=== PATIENT | female | born 1970 | race Two or more races ===

== ENCOUNTER 2023-06-12 10:35 | Outpatient (OUT) | payer OTHER, SELFPAY ==
[2023-06-12 11:05] LABS: Basophils Percent Auto 0.6 % (0.2-2.0); Eosinophils Absolute Auto 0.1 10^3/uL (0.0-0.7); Eosinophils Percent Auto 2.3 % (0.9-7.0); Hemoglobin 11.8 g/dL (12.0-16.0); Immature Granulocytes Abs Auto 0.01 10^3/uL (0.00-0.03); Immature Granulocytes Pct Auto 0.2 % (0.0-0.5); Lymphocytes Absolute Auto 1.7 10^3/uL (1.2-3.8); Lymphocytes Percent Auto 33.5 % (20.5-60.0); Mean Corpuscular HGB Conc 32.8 g/dL (29.9-35.2); Mean Corpuscular Hemoglobin 30.8 pg (26.7-34.0); Mean Platelet Volume 11.7 fL (9.5-13.5); Monocytes Absolute Auto 0.5 10^3/uL (0.3-0.8); Neutrophils Absolute Auto 2.8 10^3/uL (1.4-6.5); Neutrophils Percent Auto 54.4 % (43.0-75.0); Platelet Count 213 10^3/uL (150-450); Red Blood Count 3.83 10^6/uL (4.20-5.40); Red Cell Distribution Width 12.3 % (11.0-15.0); White Blood Count 5.2 10^3/uL (4.0-11.0)
[2023-06-12 11:39] LABS: Alanine Aminotransferase 26 U/L (14-59); Albumin Globulin Ratio 0.9; Albumin Level 3.8 g/dL (3.4-5.0); Alkaline Phosphatase 126 U/L (46-116); Anion Gap 11.1; Aspartate Amino Transferase 17 U/L (15-37); BUN Creatinine Ratio 22.2; Bilirubin Total 0.7 mg/dL (0.2-1.0); Calcium 9.1 mg/dL (8.5-10.1); Carbon Dioxide 31.8 mmol/L (21.0-32.0); Chloride 104 mmol/L (98-107); Cholesterol 151 mg/dL (<=200); Estimated GFR (African America >60 (>=60); Estimated GFR (Non-African Ame >60 (>=60); Free T3 2.43 pg/mL (2.18-3.98); Globulin 4.1 g/dL; Glucose 109 mg/dL (74-106); HDL Cholesterol 75 mg/dL (40-60); Potassium 3.9 mmol/L (3.5-5.1); Sodium 143 mmol/L (136-145); Thyroid Stimulating Hormone 1.299 uIU/mL (0.358-3.740); Total Protein 7.9 g/dL (6.4-8.2); Triglycerides 69 mg/dL (<=150); VLDL CHOLESTEROL 13.8 mg/dL
== END 2023-06-12 10:36 | disposition home or self-care (01) ==
LOC: LAB 10:39
PROVIDERS: PCP Family Medicine; Visit Provider Family Medicine
DX: E03.9 Hypothyroidism, unspecified (principal); E11.9 Type 2 diabetes mellitus without complications
CPT/HCPCS: 36415; 80053; 80061; 84439; 84443; 84481; 85025

== ENCOUNTER 2023-12-05 12:09 | Outpatient (OUT) | payer OTHER, SELFPAY ==
--- OUTSIDE RECORDS SUMMARY | 2023-12-05 12:15 | XMS_ITS | CCD ---
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 Name Role Phone TITI, DR TRISTAN Admitting Unavailable ZIEBER, DR ANTHONY Taylor Consulting Unavailable WALLS, DR TRISTAN Attending Unavailable WALLS, DR TRISTAN Primary Care Unavailable WALLS, DR TRISTAN Consulting Unavailable WALLS, DR TRISTAN Admitting Unavailable WALLS, DR TRISTAN Primary Care Unavailable WALLS, DR TRISTAN Attending Unavailable WALLS, DR TRISTAN Consulting Unavailable MASOOD, BRET Admitting Unavailable MASOOD, BRET Attending Unavailable MASOOD, BRET Consulting Unavailable OSCAR Pierre, MESFIN Admitting Unavailable OSCAR ., MESFIN Attending Unavailable OSCAR ., MESFIN Consulting Unavailable WALLS, DR TRISTAN Primary Care Unavailable STRAWSERFABY Consulting Unavailable TIMMIS, DR ORANTES Admitting Unavailable TIMMIS, DR ORANTES Attending Unavailable TIMMIS, DR ORANTES Consulting Unavailable ZIEBER, DR ANTHONY Taylor Consulting Unavailable WALLS, DR TRISTAN Attending Unavailable WALLS, DR TRISTAN Admitting Unavailable WALLS, DR TRISTAN Admitting Unavailable WALLS, DR TRISTAN Attending Unavailable WALLS, DR TRISTAN Consulting Unavailable WALLS, DR TRISTAN Attending Unavailable ZIEBER, DR ANTHONY Taylor Consulting Unavailable WALLS, DR TRISTAN Admitting Unavailable WALLS, DR TRISTAN Consulting Unavailable WALLS, DR TRISTAN Admitting Unavailable WALLS, DR TRISTAN Attending Unavailable WALLS, DR TRISTAN Consulting Unavailable WALLS, DR TRISTAN Primary Care Unavailable WALLSYAZAN Primary Care Physician Maty Jameson CNP Unavailable [phone] Yazan Walls MD Primary Care Provider Yazan Walls MD Unavailable [phone] Juancarlos DIAS Referring Unavailable Juancarlos DIAS Attending Unavailable SALAM, Bauer Admitting Unavailable [facility] Unavail able SALAM, Bauer Attending Unavailable WALLS, YAZAN Referring Unavailable SALAM, Bauer Attending Unavailable Maty Jameson CNP Unavailable WALLS, YAZAN A Attending Unavailable WALLS, YAZAN A Attending Unavailable Walls Yazan CHAPMAN Primary Care Provider Yazan Walls MD Primary Care Provider [phone] ROSE MARIE COPELAND T Admitting Unavailable AMBER COPELAND Attending Unavailable WALLS, YAZAN Primary Care Unavailable WALLS, YAZAN LEONEL Primary Care Unavailable Keisha, Sadnhya Attending Unavailable Keisha, Sandhya Referring Unavailable WALLS, YAZAN LEONEL Primary Care Unavailable CHRISTA BIANCHI Referring Unavailable WALLS, YAZAN LEONEL Primary Care Unavailable CHRISTA BIANCHI Attending Unavailable Keisha, Sandhya Referring Unavailable Keisha, Sandhya Referring Unavailable WALLS, YAZAN LEONEL Primary Care Unavailable Keisha, Sandhya Attending Unavailable WALLS, YAZAN LEONEL Primary Care Unavailable WALLS, YAZAN LEONEL Referring Unavailable Keisha, Sandhya Referring Unavailable WALLS, YAZAN LEONEL Primary Care Unavailable Keisha, Sandhya Referring Unavailable WALLS, YAZAN LEONEL Primary Care Unavailable Keisha, Sandhya Referring Unavailable Keisha, Sandhya Attending Unavailable WALLS, YAZAN LEONEL Primary Care Unavailable WALLS, YAZAN LEONEL Primary Care Unavailable Keisha, Sandhya Referring Unavailable WALLS, YAZAN LEONEL Primary Care Unavailable CHRISTA BIANCHI Referring Unavailable WALLS, YAZAN LEONEL Primary Care Unavailable CHRISTA BIANCHI Attending Unavailable CHRISTA BIANCHI Referring Unavailable Keisha, Sandhya Referring Unavailable WALLS, YAZAN LEONEL Primary Care Unavailable Allergies Allergy Classification Reported Allergen(s) Allergy Type Date of Onset Reaction(s) Facility (11 sources) levoFLOXacin; Translations: [levofloxacin] Drug Allergy 3 Unknown, Rash [facility] (1 source) No Known Medication Allergies; Translations: [No Known Medication Allergies] Propensity to adverse reactions (disorder) [facility] Repository Medications Current Medications Medication Drug Class(es) Dates Sig (Normalized) Sig (Original) calcium carbonate 1500 mg oral tablet (2 sources) Start: 03-21-2023 End: 09-17-2023 take 1 tablet by mouth in the morning calcium carbonate (Caltrate 600) 1500 (600 Ca) MG tablet Indications: Low serum calcium Take 1 tablet (1,500 mg) by mouth in the morning and 1 tablet (1,500 mg) in the evening. Take with meals. 180 tablet 1 03/21/2023 09/17/2023 Active take 1 tablet by mouth once benny y calcium carbonate 1500 (600 Ca) MG TABS tablet Take 1 tablet by mouth daily 0 Active cholecalciferol 0.125 mg oral capsule (8 sources) Vitamin D Start: 10-04-2022 take 1 capsule by mouth once daily vitamin D (CHOLECALCIFEROL) 125 MCG (5000 UT) CAPS capsule Take 125 mcg by mouth daily 0 10/04/2022 Active Start: 03-15-2022 take 1 tablet by billie once daily Cholecalciferol, Vitamin D3, 125 mcg/mL (5,000 unit/mL) drop Take 1 tablet by mouth once daily. 0 03/15/2022 Active Comment on above: Take 1 tablet by billie once daily. ibuprofen 200 mg oral capsule (4 sources) Nonsteroidal Anti-inflammatory Drug Start: 10-04-2022 ibuprofen 200 mg oral capsule Refills(s) 0, Pain Start Date: 10/04/22 Status: Ordered Start: 01-11-2022 take 1 tablet by billie every eight hours as needed for pain ibuprofen (ADVIL;MOTRIN) 200 MG tablet Take 1 tablet by mouth every 8 hours as needed for Pain 0 01/11/2022 Active levothyroxine sodium 0.1 mg oral tablet (10 sources) l-Thyroxine Start: 06-08-2023 End: 12-05-2023 take 1 tablet by mouth every twenty-four hours levothyroxine (SYNTHROID) 100 MCG tablet Take 1 tablet by mouth every 24 hours 0 06/08/2023 12/05/2023 Active Start: 10-04-2022 take 1 tablet by billie once daily levothyroxine 75 mcg (0.075 mg) Tab 75 mcg = 1 tab(s), Oral, Daily, # 30 tab(s), Refills(s) 0, Thyroid Start Date: 10/04/22 Status: Ordered Start: 09-20-2022 End: 12-05-2023 take 1 tablet by mouth once daily levothyroxine (SYNTHROID) 100 mcg tablet Take 1 tablet by mouth once daily. 0 09/20/2022 Active Comment on above: Take 1 tablet by billie once daily. loperamide hydrochloride 2 mg chewable tablet (2 sources) Opioid Agonist Start: 10-04-2022 Imodium A-D EZ Chews 2 mg oral tablet, chewable Refill(s) 0, Diarrhea Start Date: 10/04/22 Status: Ordered loratadine 10 mg oral capsule (3 sources) Start: 10-04-2022 take 1 capsule by mouth once daily loratadine 10 mg oral capsule 10 mg = 1 cap(s), Oral, Daily, # 10 cap(s), Refills(s) 0, Allergy symptoms Start Date: 10/04/22 Status: Ordered Start: 03-15-2022 loratadine (Cl aritin) 10 MG tablet 1 (one) time each day at the same time. 0 03/15/2022 Active omeprazole 40 mg delayed release oral capsule (3 sources) Proton Pump Inhibitor Start: 10-05-2022 take 1 capsule by mouth once daily omeprazole 40 mg Cap-DR 40 mg = 1 cap(s), Oral, Daily, # 30 cap(s), Refills(s) 2, Pharmacy: [id number], 149.8, cm, 10/05/22 9:30:00 EDT, Height/Length Dosing, 56.6, kg, 10/05/22 9:30:00 EDT, Weight Dosing Start Date: 10/05/22 Status: Ordered Start: 10-04-2022 Prilosec OTC R efills(s) 0 Start Date: 10/04/22 Status: Ordered Vitamin D3 125 mcg (5000 int l units) oral tablet, disintegrating (2 sources) Start: 10-04-2022 Vitamin D3 125 mcg (5000 intl units) oral tablet, disintegrating Refills(s) 0, Prophylaxis Start Date: 10/04/22 Status: Ordered Start: 10-04-2022 Vitamin D3 125 mcg (5000 intl units) oral tablet, disintegrating Refills(s) 0 Start Date: 10/04/22 Status: Ordered Completed/Discontinued Medications Medication Drug Class(es) Dates Sig (Normalized) Sig (Original) milk thistle extract 175 mg oral capsule (7 sources) take 1 tablet by billie th twice daily MILK THISTLE EXTRACT PO Take 1 tablet by mouth 2 times daily 0 Active take 1 tablet by mouth twice carmine ly Milk Thistle 175 mg tab Take 1 tablet by mouth twice daily. 0 Active Comment on above: Take 1 tablet by billie th twice daily. 1000 ml sodium chloride 9 mg/ml injection (5 sources) Start: 07-18-2023 sodium chloride flush 0.9 % injection 5-40 mL Start: 07-18-2023 End: 07-18-2023 sodium chloride 0.9 % infusi on Start: 07-18-2023 0.9 % sodium c hloride infusion Problems Active Problems Problem Classification Problem Date Documented Da te Episodic/Chronic Diabetes mellitus without complication (13 sources) Type 2 diabetes mellitus without complications; Translations: [Type 2 diabetes mellitus without complication] Onset: 07-05-2022 Chronic Endometriosis (3 sources) Endometriosis (clinical); Translations: [Endometrioma] Onset: 09-01-2022 10-04-2022 Chronic Esophageal disorders (7 sources) Obstruction of esophagus; Translations: [Esophageal obstruction] Onset: 09-01-2022 Chronic Essential hypertension (2 sources) Hypertensive disorder 10-04-2022 Chronic Headache; including migraine (2 sources) Migraine 10-04-2022 Chronic Hepatitis (6 sources) Nonalcoholic steatohepatitis; Translations: [Nonalcoholic steatohepatitis (BLOOM)] Onset: 09-21-2022 Chronic Intestinal obstruction without hernia (2 sources) Intestinal obstruction 10-04-2022 Episodic Menopausal disorders (1 source) Hormone replacement therapy; Translations: [HORMONE REPLACEMENT THERAPY] Onset: 07-26-2022 Episodic Nutritional deficiencies (2 sources) Vitamin D deficiency, unspecified; Translations: [Vitamin D deficiency] Onset: 07-08-2022 09-01-2022 Chronic Other aftercare (1 source) 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; Translations: [OTH STEEPLECHASE JOCKEY CURRENT DRUG THERAPY] Onset: 07-26-2022 Episodic Other diseases of bladder and urethra (2 sources) Mass of urinary bladder 10-04-2022 Chronic Other gastrointestinal disorders (1 source) Diarrhea, unspecified; Translations: [DIARRHEA UNSPECIFIED] Onset: 07-26-2022 Episodic Other gastrointestinal disorders (2 sources) Mass of colon 10-04-2022 Episodic Other gastrointestinal disorders (2 sources) Other fecal abnormalities; Translations: [Other fecal abnormalities] Onset: 07-18-2023 Episodic Other liver diseases (3 sources) Cirrhosis of liver; Translations: [Unspecified cirrhosis of liver] Onset: 09-01-2022 10-04-2022 Chronic Other liver diseases (10 sources) Steatosis of liver; Translations: [Fatty (change of) liver, not elsewhere classified] Onset: 12-12-2022 10-04-2022 Chronic Other liver diseases (1 source) Non-alcoholic fatty liver; Translations: [Fatty (change of) liver, not elsewhere classified] 01-30-2023 Chronic Other liver diseases (1 source) Fatty (change of) liver, not elsewhere classified; Translations: [NAFL (nonalcoholic fatty liver)] Onset: 01-30-2023 Chronic Other liver diseases (1 source) Hepatomegaly, not elsewhere classified; Translations: [HEPATOMEGALY NEC] Onset: 07-26-2022 Episodic Other non-traumatic joint disorders (2 sources) Wrist joint pain; Translations: [Pain in right wrist] 01-30-2023 Episodic Other screening for suspected conditions (not mental disorders or infectious disease) (6 sources) Screening for malignant neoplasm of colon done; Translations: [Encounter for screening for malignant neoplasm of colon] Onset: 07-26-2022 Episodic Other upper respiratory disease (1 source) Allergic rhinitis; Translations: [Allergic rhinitis, unspecified] Onset: 09-01-2022 09-01-2022 Chronic Other upper respiratory disease (1 source) Rhinitis; Translations: [Chronic rhinitis] Onset: 09-01-2022 09-01-2022 Chronic Other upper respiratory infections (1 source) Sinusitis; Translations: [Chronic sinusitis, unspecified] Onset: 09-01-2022 09-01-2022 Chronic Residual codes; unclassified (1 source) Acquired absence of other specified parts of digestive tract; Translations: [ACQ ABSENCE OTH PART DIGESTV TRACT] Onset: 07-26-2022 Episodic Residual codes; unclassified (1 source) Acquired absence of both cervix and uterus; Translations: [ACQUIRED ABSENCE BOTH CERVIX AND UTERUS] Onset: 07-26-2022 Episodic Thyroid disorders (20 sources) Autoimmune thyroiditis; Translations: [Nontoxic single thyroid nodule] Onset: 12-21-2021 Chronic Unclassified (1 source) ELEV LVLS LIVER TRANSAMINASE LVLS; Translations: [ELEV LVLS LIVER TRANSAMINASE LVLS] Onset: 07-26-2022 Unclassified (1 source) CONTACT W/AND (SUSP) EXPOS COVID-19; Translations: [CONTACT W/AND (SUSP) EXPOS COVID-19] Onset: 03-02-2022 Unclassified (2 sources) Patient encounter status 10-05-2022 Past or Other Problems Problem Classification Problem Date Documented Da te Episodic/Chronic Biliary tract disease (3 sources) Biliary calculus; Translations: [Cholelithiasis AND cholecystitis without obstruction] Onset: 09-01-2022 10-04-2022 Episodic Immunizations and screening for infectious disease (6 sources) Anti-nuclear factor positive; Translations: [Other specified abnormal immunological findings in serum] Onset: 01-30-2023 01-30-2023 Episodic Nausea and vomiting (7 sources) Nausea with vomiting, unspecified; Translations: [Nausea and vomiting] Onset: 07-25-2022 Episodic Nutritional deficiencies (3 sources) Vitamin deficiency; Translations: [Vitamin deficiency, unspecified] Onset: 07-08-2022 10-04-2022 Episodic Other gastrointestinal disorders (4 sources) Dysphagia; Translations: [Dysphagia, unspecified] Onset: 10-05-2022 Episodic Other gastrointestinal disorders (3 sources) Diarrhea; Translations: [Diarrhea, unspecified] Onset: 07-26-2022 10-04-2022 Episodic Other gastrointestinal disorders (3 sources) Disorder of digestive tract; Translations: [Acquired absence of other specified parts of digestive tract] Onset: 07-26-2022 10-04-2022 Episodic Other liver diseases (2 sources) Large liver Onset: 07-26-2022 10-04-2022 Episodic Other liver diseases (5 sources) Elevated liver enzymes level; Translations: [Elevation of levels of liver transaminase levels] Onset: 07-26-2022 12-14-2022 Episodic Other liver diseases (1 source) Increased aspartate transaminase level; Translations: [High aspartate transaminase measurement] Onset: 07-26-2022 12-12-2022 Episodic Other non-traumatic joint disorders (1 source) Pain in right wrist; Translations: [Pain of both wrist joints] Onset: 01-30-2023 Episodic Other non-traumatic joint disorders (1 source) Pain in left wrist; Translations: [Pain of both wrist joints] Onset: 01-30-2023 Episodic Other upper respiratory infections (4 sources) Acute upper respiratory infection, unspecified; Translations: [ACUTE UP RESPIRATORY INFECTION UNS] Onset: 02-28-2022 Episodic Spondylosis; intervertebral disc disorders; other back problems (3 sources) Low back pain; Translations: [Low back pain] Onset: 09-17-2021 10-04-2022 Episodic Results Test Name Value Interpretation Reference Range Facility Liver ultrasound attenuation by transient elastographyon 07-25-2023 [facility] Colonoscopy studyon 07-18-19 [facility] Patient: ESTRELLA MARTINEZ : 1970 Account: [id number] Sex at : Female Age: 53 Years Procedure: Colonoscopy Date: 07/18/2023 Attending Physician: Rose Marie Copeland Indications: - Screening for colorectal malignant neoplasm Medications: - See the Anesthesia note for documentation of the administered medications Complications: - No immediate complications. Estimated Blood Loss: - Estimated blood loss: none. Procedure: - The Colonoscope was introduced through the anus and advanced to [Extent Reached]. - The Colonoscope was introduced through the anus and advanced to the ileocolonic anastomosis. - The colonoscopy was performed without difficulty. - The patient tolerated the procedure well. - The quality of the bowel preparation was good. Findings: - A few small-mouthed diverticula were found in the sigmoid colon. There was no evidence of diverticular bleeding. - There was evidence of a prior end-to-side ileo-colonic anastomosis in the proximal ascending colon. This was patent and was characterized by healthy appearing mucosa. The anastomosis was traversed. Impression: - Mild diverticulosis in the sigmoid colon. There was no evidence of diverticular bleeding. - Patent end-to-side ileo-colonic anastomosis, characterized by healthy appearing mucosa. - No specimens collected. Recommendation: - Repeat colonoscopy in 10 years for surveillance. Procedure Code(s): - G0121, Colorectal cancer screening; colonoscopy on individual not meeting criteria for high risk Diagnosis Code(s): - Z12.11, Encounter for screening for malignant neoplasm of colon - Z98.0, Intestinal bypass and anastomosis status - K57.30, Diverticulosis of large intestine without perforation or abscess without bleeding CPT(R) - 2023 copyright [employer]. All Rights Reserved. The CPT codes, CCI edits and ICD codes generated are intended as suggestions and were generated based on input data. These codes are preliminary and upon bolt maker review may be revised to meet current compliance and payer requirements. The provider is responsible for the final determination of appropriate codes, and modifiers. Scope Withdrawal Time: 00:10:14 Rose Marie Copeland MD This document has been electronically signed. Note Initiated:07/18/2023 Note Completed:07/18/2023 9:13 AM Amber Almanza MD - 07/18/2023 [facility] Patient: ESTRELLA MARTINEZ : 1970 Account: [id number] Sex at : Female Age: 53 Years Procedure: Colonoscopy Date: 07/18/2023 Attending Physician: Rose Marie Copeland Indications: - Screening for colorectal malignant neoplasm Medications: - See the Anesthesia note for documentation of the administered medications Complications: - No immediate complications. Estimated Blood Loss: - Estimated blood loss: none. Procedure: - The Colonoscope was introduced through the anus and advanced to [Extent Reached]. - The Colonoscope was introduced through the anus and advanced to the ileocolonic anastomosis. - The colonoscopy was performed without difficulty. - The patient tolerated the procedure well. - The quality of the bowel preparation was good. Findings: - A few small-mouthed diverticula were found in the sigmoid colon. There was no evidence of diverticular bleeding. - There was evidence of a prior end-to-side ileo-colonic anastomosis in the proximal ascending colon. This was patent and was characterized by healthy appearing mucosa. The anastomosis was traversed. Impression: - Mild diverticulosis in the sigmoid colon. There was no evidence of diverticular bleeding. - Patent end-to-side ileo-colonic anastomosis, characterized by healthy appearing mucosa. - No specimens collected. Recommendation: - Repeat colonoscopy in 10 years for surveillance. Procedure Code(s): - G0121, Colorectal cancer screening; colonoscopy on individual not meeting criteria for high risk Diagnosis Code(s): - Z12.11, Encounter for screening for malignant neoplasm of colon - Z98.0, Intestinal bypass and anastomosis status - K57.30, Diverticulosis of large intestine without perforation or abscess without bleeding CPT(R) - 2023 copyright [employer]. All Rights Reserved. The CPT codes, CCI edits and ICD codes generated are intended as suggestions and were generated based on input data. These codes are preliminary and upon bolt maker review may be revised to meet current compliance and payer requirements. The provider is responsible for the final determination of appropriate codes, and modifiers. Scope Withdrawal Time: 00:10:14 Rose Marie Copeland MD This document has been electronically signed. Note Initiated:07/18/2023 Note Completed:07/18/2023 9:13 AM [facility] POCT Glucoseon 07-18-2023 Glucose [Mass/Vol] 106 mg/dL Critically high 70-99 M [facility] Comment on above: Performed By: #### P GLU #### [facility] [address] [place] [address] POC Performed on ACCU-CHEK Normal [facility] Comment on above: Performed By: #### P GLU #### [facility] [address] [place] [address] Glucose [Mass/Vol] 106 mg/dL High 70 - 99 mg/dl [facility] Interpretation and review of laboratory results Abnormal [facility] Performed on ACCU-CHEK [facility] ALL CBC WITH AUTO DIFFon BASOPHILS ABSOLUTE AUTO 0.0 [facility] Basophils/100 WBC (Bld) 0.6 % 0.2 - 2.0 % [facility] Eosinophils/100 WBC (Bld) 2.3 % 0.9 - 7.0 % [facility] Erythrocyte distribution width (RBC) [Ratio] 12.3 % 11.0 - 15.0 % [facility] Hematocrit (Bld) [Volume fraction] 36.0 % 36.0 - 48.0 % [facility] Hemoglobin (Bld) [Mass/Vol] 11.8 g/dL Low 12.0 - 16.0 g/dL [facility] IMMATURE GRANULOCYTES ABS AUTO 0.01 [facility] Immature granulocytes/100 WBC (Bld) 0.2 % 0.0 - 0.5 % [facility] Interpretation and review of laboratory results Abnormal [facility] LYMPHOCYTES ABSOLUTE AUTO 1.7 [facility] Lymphocytes/100 WBC (Bld) 33.5 % 20.5 - 60.0 % [facility] MCH (RBC) [Entitic mass] 30.8 pg 26.7 - 34.0 pg [facility] MCHC (RBC) [Mass/Vol] 32.8 g/dL 29.9 - 35.2 g/dL [facility] MCV (RBC) [Entitic vol] 94.0 fL 81.0 - 99.0 fL [facility] MONOCYTES ABSOLUTE AUTO 0.5 [facility] Monocytes/100 WBC (Bld) 9.0 % 1.7 - 12.0 % [facility] NEUTROPHILS ABSOLUTE AUTO 2.8 [facility] Neutrophils/100 WBC (Bld) 54.4 % 43.0 - 75.0 % [facility] Platelet mean volume (Bld) [Entitic vol] 11.7 fL 9.5 - 13.5 fL [facility] TBH EO # 0.1 [facility] TBH PLT 213 [facility] TB RBC 3.83 Low [facility] TB WBC 5.2 [facility] CNOVon 03-10-2023 CNOV Office Visit (RHEUMN ) ESTRELLA MARTINEZ ([id number]) 1970 F [facility] Date Time Provider Department 03/10/23 9:00 AM CHRISTA BIANCHI RHEUMJohn During your visit today, we recorded the following information about you: Temperature Pulse Blood pressure Weight 97.5 degrees 66/minute 149/79 53.5 kg Christa Bianchi PA-C 03/10/2023 2:55 PM Signed [facility] [place] Department of Rheumatic and Immunologic Diseases Established Patient Date of Service: 03/10/2023 Patient: Estrella Martinez Medical Record: [id number] Primary Care Physician: Yazan Walls MD Referring Physician: None Last Rheumatology visit: 01/30/2023 with Christa Bianchi PA-C Some of the elements of the note have been extracted from previous Rheumatology progress notes. All the information has been reviewed carefully and updated as needed. SUBJECTIVE CC: Result review History of Present Illness Patient is a 52 year-old female presenting for result review. Patient is accompanied by her daughter whom serves as the co-historian and clinical services professional. Patient has a significant past medical history of Ro's thyroiditis, type II diabetes, and non-alcoholic fatty liver disease (NAFLD) Relevant Serology Results: 01/30/2023: Crithidia luciliae and DEON DNA negative 01/30/2023: Rheumatoid factor: 23 01/30/2023: CCP antibody, IgG: <15 09/21/2022: HECTOR 1:640 nuclear homogenous pattern 09/21/2022: SS-A antibody: 6.6 09/21/2022: SS-B antibody: 3.1 Current Rheumatologic Medications: none Past Rheumatologic Medications: none Mrs. 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 Sandhya Law, upon discharge in August 2022 Fibroscan to determine the degree of steatosis and RUQ ultrasound to assess liver morphology were both unremarkable for liver disease Serologies, however, to assess for intrinsic liver disease etiologies demonstrated positive HECTOR, SS-A, and SS-B autoantibodies Serologies and endorsement of polyarticular joint pain lent to Rheumatology referral for further evaluation Interval History Patient is a 52 year-old female presenting for result review During her last appointment interim, patient reports the following: Patient completed additional serologies, which demonstrated normal complements, DEON DNA, and Crithidia luciliae, limiting concern for active HECTOR-associated disease Bilateral hand and wrist ultrasound studies completed on 03/07/2023 were unremarkable for active synovitis or tenosynovitis as well Endorses current symptoms: Joint pain Joints involved: bilateral hands, wrists, ankles, and cervical spine Pain on a scale of 0-10: 5.5 Quality of pain: deep ache Continuous Joint stiffness: 15 minutes Worse in the evening Exacerbating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 on above: Order Comment: Speci men Type: BLOOD SPECIMEN Ordering Facility: [facility] Address: [address] [place] [address] Performed By: #### 2 9374-6, 39441-1, 97049-5, 57078-0, 91107-4, 31478-5, ANAIFR, 16696-6, 62719-5, 76370-6, 98614-6, 26938-6 #### [facility] CLIA [id number] [address] [place] [address] [place] RBC LM.HPF (Urine sed) [#/Area] 0-3 /HPF Normal 0-3 /HPF [facility] Comment on above: Order Comment: Speci men Type: BLOOD SPECIMEN Ordering Facility: [facility] Address: [address] [place] [address] Performed By: #### 2 9374-6, 74005-0, 75513-7, 06247-0, 18421-1, 36588-9, ANAIFR, 26451-4, 30131-0, 43211-4, 19229-7, 11100-1 #### [facility] CLIA [id number] [address] [place] [address] [place] Specific gravity (U) [Rel density] 1.014 Normal 1.005-1.030 [facility] Comment on above: Order Comment: Speci men Type: BLOOD SPECIMEN Ordering Facility: [facility] Address: [address] [place] [address] Performed By: #### 2 9374-6, 81959-1, 17323-0, 48324-1, 16659-3, 00693-9, ANAIFR, 39586-8, 99029-3, 21663-3, 65400-1, 57220-1 #### [facility] CLIA [id number] [address] [place] [address] [place] Urobilinogen Ql (U) Negative Normal Negative [facility] Comment on above: Order Comment: Speci men Type: BLOOD SPECIMEN Ordering Facility: [facility] Address: [address] [place] [address] Performed By: #### 2 9374-6, 16421-2, 63652-4, 41712-9, 43819-2, 94942-8, ANAIFR, 27361-4, 41686-0, 56064-9, 57466-9, 96337-3 #### [facility] CLIA [id number] [address] [place] [address] [place] WBC LM.HPF (Urine sed) [#/Area] 0-5 /HPF Normal 0-5 /HPF [facility] Comment on above: Order Comment: Speci men Type: BLOOD SPECIMEN Ordering Facility: [facility] Address: [address] [place] [address] Performed By: #### 2 9374-6, 16008-0, 86102-2, 44215-5, 92600-9, 65941-8, ANAIFR, 92130-6, 06171-1, 93485-7, 33685-0, 41248-0 #### [facility] CLIA [id number] [address] [place] [address] [place] cCP IgG SerPl-aCncon 023 Cyclic citrullinated peptide IgG Qn <15 Normal <20 [facility] Comment on above: Order Comment: Speci men Type: BLOOD SPECIMEN Ordering Facility: [facility] Address: [address] [place] [address] Performed By: #### 2 9374-6, 37812-5, 10396-1, 79091-6, 91155-3, 47747-1, ANAIFR, 82917-3, 25825-0, 32221-1, 24140-0, 58576-5 #### [facility] CLIA [id number] [address] [place] [address] [place] dsDNA Ab Ser Ql CLIFon 01-30 DNA double strand Ab IF Crithidia luciliae Ql (S) Negative Normal Negative [facility] Comment on above: Order Comment: Specchrissie keane Type: BLOOD SPECIMEN Ordering Facility: [facility] Address: [address] [place] [address] Result Comment: Crit hidia luciliae assay is used as an aid in diagnosis of systemic lupus erythematosus (SLE). A negative result cannot rule out SLE. Low positive titers may be seen with other systemic autoimmune diseases. Clinical correlation is required. Performed By: #### 2 9374-6, 07607-1, 29567-6, 86571-2, 37903-5, 81029-6, ANAIFR, 92196-8, 50672-5, 17515-0, 73114-1, 36070-7 #### [facility] CLIA [id number] [facility] [address] [place] Provider Letteron 12-16-2022 Provider Letter December 16, 2022 ESTRLELA MARTINEZ [address] [place] [address] : 1970 Dear Estrella , We have been trying to reach you with no success. It is important that you return our call regarding scheduling your follow up visit for procedure dated 11-28-20 upon receiving this letter. Also, at the time of your call, please provide us with your current information. Thank you for your prompt attention to this matter. Sincerely, [facility] [phone] Normal [facility] CBC panel Auto (Bld)on 12-14 Erythrocyte distribution width (RBC) [Ratio] 11.9 % Normal 11.5-15.0 [facility] Comment on above: Order Comment: Tony keane Type: BLOOD SPECIMEN Ordering Facility: [facility] Address: [address] [place] [address] Performed By: #### 2 9374-6, 40479-4, 92516-4, 57526-0, 41604-8, 75781-1, ANAIFR, 89351-8, 97128-4, 69476-1, 43624-5, 37412-3 #### [facility] CLIA [id number] [address] [place] [address] [place] Hematocrit (Bld) [Volume fraction] 37.3 % Normal 36.0-46.0 [facility] Comment on above: Order Comment: Tony keane Type: BLOOD SPECIMEN Ordering Facility: [facility] Address: [address] [place] [address] Performed By: #### 2 9374-6, 22416-7, 33553-3, 23892-7, 83370-0, 09614-0, ANAIFR, 79050-2, 59490-3, 17221-6, 23406-6, 72255-0 #### [facility] CLIA [id number] [address] [place] [address] [place] Hemoglobin (Bld) [Mass/Vol] 12.1 g/dL Normal 11.5-15.5 [facility] Comment on above: Order Comment: Speci men Type: BLOOD SPECIMEN Ordering Facility: [facility] Address: [address] [place] [address] Performed By: #### 2 9374-6, 03436-4, 82183-8, 00979-5, 50997-7, 97019-9, ANAIFR, 36755-3, 71905-5, 81042-1, 17215-5, 12841-9 #### [facility] CLIA [id number] [address] [place] [address] [place] MCH (RBC) [Entitic mass] 30.3 pg Normal 26.0-34.0 [facility] Comment on above: Order Comment: Speci men Type: BLOOD SPECIMEN Ordering Facility: [facility] Address: [address] [place] [address] Performed By: #### 2 9374-6, 53528-9, 01167-1, 64405-7, 55808-1, 62625-8, ANAIFR, 16744-5, 62357-0, 17285-7, 11501-5, 42980-9 #### [facility] CLIA [id number] [address] [place] [address] [place] MCHC (RBC) [Mass/Vol] 32.4 g/dL Normal 30.5-36.0 [facility] Comment on above: Order Comment: Speci men Type: BLOOD SPECIMEN Ordering Facility: [facility] Address: [address] [place] [address] Performed By: #### 2 9374-6, 45525-2, 76486-2, 20583-6, 29609-6, 66860-1, ANAIFR, 13478-5, 70740-0, 00604-2, 78584-1, 62436-1 #### [facility] CLIA [id number] [address] [place] [address] [place] MCV (RBC) [Entitic vol] 93.5 fL Normal 80.0-100.0 [facility] Comment on above: Order Comment: Speci men Type: BLOOD SPECIMEN Ordering Facility: [facility] Address: [address] [place] [address] Performed By: #### 2 9374-6, 38933-3, 42221-2, 14723-2, 38213-3, 97847-7, ANAIFR, 78225-0, 32829-0, 03042-0, 82190-4, 67164-1 #### [facility] CLIA [id number] [address] [place] [address] [place] Nucleated RBC (Bld) [#/Vol] 10*3/uL Normal <0.01 [facility] Comment on above: Order Comment: Speci men Type: BLOOD SPECIMEN Ordering Facility: [facility] Address: [address] [place] [address] Performed By: #### 2 9374-6, 99812-3, 97263-7, 15526-1, 28253-6, 23032-1, ANAIFR, 19895-5, 95837-9, 84604-2, 63071-9, 82691-6 #### [facility] CLIA [id number] [address] [place] [address] [place] Platelet mean volume (Bld) [Entitic vol] 11.7 fL Normal 9.0-12.7 [facility] Comment on above: Order Comment: Speci men Type: BLOOD SPECIMEN Ordering Facility: [facility] Address: [address] [place], [place] [address] Performed By: #### 2 9374-6, 47263-4, 06266-9, 55457-3, 59908-5, 16725-0, ANAIFR, 96595-6, 50197-6, 88261-7, 73721-7, 13996-3 #### [facility] CLIA [id number] [address] [place] [address] [place] Platelets (Bld) [#/Vol] 209 10*3/uL Normal 150-400 [facility] Comment on above: Order Comment: Speci men Type: BLOOD SPECIMEN Ordering Facility: [facility] Address: [address] [place] [address] Performed By: #### 2 9374-6, 50587-9, 62918-5, 89433-4, 09871-5, 31932-8, ANAIFR, 58445-6, 19174-9, 24390-1, 44474-6, 19883-2 #### [facility] CLIA [id number] [address] [place] [address] [place] RBC (Bld) [#/Vol] 3.99 10*6/uL Normal 3.90-5.20 [facility] Comment on above: Order Comment: Speci men Type: BLOOD SPECIMEN Ordering Facility: [facility] Address: [address] [place], [place] [address] Performed By: #### 2 9374-6, 91349-9, 38137-8, 99099-3, 24232-2, 59661-8, ANAIFR, 75106-5, 15604-0, 99380-3, 85405-2, 32629-6 #### [facility] CLIA [id number] [address] [place] [address] [place] WBC (Bld) [#/Vol] 6.38 10*3/uL Normal 3.70-11.00 [facility] Comment on above: Order Comment: Speci men Type: BLOOD SPECIMEN Ordering Facility: [facility] Address: [address] [place], [place] [address] Performed By: #### 2 9374-6, 43182-7, 20329-5, 28245-6, 51617-6, 02182-8, ANAIFR, 21859-0, 20184-5, 92639-9, 90068-7, 65622-8 #### [facility] CLIA [id number] [address] [place] [address] [facility] CNOVon 12-14-2022 CNOV Office Visit (GASTA5 ) ESTRELLA DURAND ([id number]) 1970 F GRIFFIN Date Time Provider Department 12/14/22 2:00 PM SANDHYA LAW GASTA5 During your visit today, we recorded the following information about you: Temperature Pulse Blood pressure Weight 97.6 degrees 64/minute 118/74 64.4 kg Sandhya Law MD 12/16/2022 8:39 AM Signed [facility] [address] [place] [address] Department of Gastroenterology and Hepatology Hepatology Clinic Note Chief Complaint: Follow up of abnormal liver tests Referring Provider: Yazan Walls MD Last Clinic Visit: 09/21/2022 HPI: Estrella Durand is a 52 y/o with a hx of autoimmune thyroid disease, pre-diabetes and abnormal liver tests who presents for follow up. She was last seen in August for abnormal liver enzymes. At that time, she underwent a liver disease work up with serologies, imaging and fibroscan. Imaging was negative for any abnormalities or echogenicity and her fibroscan showed a kPa of 6.2 with a IQR of 17. Serologies were positive for elevated HECTOR, but she was noted to also have markers for inflammatory arthritis at the time. Since her last visit, she reports improvement in her diet and also notes, that she has lost some weight (chart in the system shows weight gain). She denies any alcohol intake or new medications, but does take several OTC medications such as tumeric, fenogreco, and alex. PAST MEDICAL HISTORY Diagnosis Date Abnormal liver function Dyspepsia Thyroid disease PAST SURGICAL HISTORY Procedure Laterality Date REMOVAL GALLBLADDER FAMILY HISTORY Problem Relation Age of Onset Liver Disease No Family History Social History Tobacco Use Smoking status: Never Smokeless tobacco: Never Substance Use Topics Alcohol use: Not Currently Drug use: Not Currently Current Outpatient Medications on File Prior to Visit Medication Sig levothyroxine (SYNTHROID) 100 mcg tablet Take 1 tablet by mouth once daily. Cholecalciferol, Vitamin D3, 125 mcg/mL (5,000 unit/mL) drop Take 1 tablet by mouth once daily. Milk Thistle 175 mg tab Take 1 tablet by mouth twice daily. ROS PAIN ASSESSMENT: Negative for pain, history of chronic pain, or current treatment for a chronic pain condition. GENERAL: No weight loss, malaise or fevers HEENT: Negative for frequent or significant headaches, No changes in hearing or vision, no nose bleeds or other nasal problems NECK: Negative for lumps, goiter, pain and significant neck swelling RESPIRATORY: Negative for cough, hemoptysis, wheezing, COPD, dyspnea or shortness of breath CARDIOVASCULAR: Negative for chest pain, leg swelling, hypertension, CHF or palpitations GI: No nausea, vomiting, or diarrhea MUSCULOSKELETAL: Negative for joint pain or swelling, back pain or muscle pain HEMATOLOGY/LYMPHOLOGY : Negative for prolonged bleeding, bruising easily or swollen nodes NEURO: No history of headaches, syncope, paralysis, seizures or tremors OBJECTIVE: BP 118/74 (BP Site: Left Arm, BP Position: Sitting, BP Cuff Size: Regular Adult) Pulse 64 Temp 36.4 ?C (97.6 ?F) (Temporal) Wt 64.4 kg (142 lb) SpO2 100% BMI 26.40 kg/m? Physical Exam: General appearance: Well appearing, alert, in no acute distress, well-hydrated, well nourished. Skin: Skin color, texture, turgor normal, no suspicious rashes or lesions Head: Normocephalic, no masses, lesions, tenderness or abnormalities Eyes: Anicteric sclera. Pupils are equally round and reactive to light. Extraocular movements are intact. Ears: External ears normal, canals clear Neck: Supple, no adenopathy; thyroid symmetric, normal size, no bruits Lungs: Lungs clear to auscultation. No wheezing, rhonchi, rales. Heart: RRR without murmur, gallop, or rubs. No ectopy Abdomen: Normal abdominal exam, Abdomen soft, non-tender. Bowel sounds normal. No masses, organomegaly Extremities: No deformities, edema, skin discoloration, clubbing or cyanosis. Good capillary refill. Musculoskeletal: No joint swelling, deformity, or tenderness No diagnosis found. LABORATORY AND IMAGING TESTS: CBC: WBC HGB PLT MCV NEUTP LYMPHP EODINP 5.96 12.5 236 93.9 No results found for this basename: NEUTP:1 No results found for this basename: LYMPHP:1 No results found for this basename: EODINP:1 CHEMISTRY: NA K CA CHLOR CO2 GLUC BUN CREAT 142 4.1 9.7 107 26 107 11 0.62 HEPATIC: ALT AST TBILI ALKPHOS ALB TPROT 49 29 0.5 127 4.7 8.0 METABOLIC: CHOL LDL HDL TG TSH HBA1C No results found for this basename: CHOL:1 No results found for this basename: LDL:1 No results found for this basename: HDL:1 No results found for this basename: T No results found for this basename: TSH:1 No results found for this basename: HBA1C:1 URINALYSIS: (more content not included)... Normal [facility] Comprehensive metabolic 2000 panelon 12-14-2022 Albumin [Mass/Vol] 4.5 g/dL Normal 3.9-4.9 [facility] Comment on above: Order Comment: Speci men Type: BLOOD SPECIMEN Ordering Facility: [facility] Address: [address] [place] [address] Performed By: #### 2 9374-6, 90459-6, 45992-6, 61939-4, 19694-0, 15692-4, ANAIFR, 58466-1, 06963-9, 30936-3, 51726-6, 98551-0 #### [facility] CLIA [id number] [address] [place] [address] [place] ALP [Catalytic activity/Vol] 102 U/L Normal 34-123 [facility] Comment on above: Order Comment: Speci men Type: BLOOD SPECIMEN Ordering Facility: [facility] Address: [address] [place] [id number] Performed By: #### 2 9374-6, 65914-8, 89694-5, 80079-8, 63611-6, 59029-1, ANAIFR, 26377-2, 65697-1, 96983-6, 01211-3, 61792-7 #### [facility] CLIA [id number] [address] [place] [address] [place] ALT [Catalytic activity/Vol] 19 U/L Normal 7-38 [facility] Comment on above: Order Comment: Speci men Type: BLOOD SPECIMEN Ordering Facility: [facility] Address: [address] [place] [address] Performed By: #### 2 9374-6, 01258-3, 13229-6, 77373-1, 61981-5, 14832-2, ANAIFR, 24226-1, 57788-8, 16467-3, 33084-2, 40840-1 #### [facility] CLIA [id number] [address] [place] [address] [place] Anion gap [Moles/Vol] 12 mmol/L Normal 9-18 [facility] Comment on above: Order Comment: Speci men Type: BLOOD SPECIMEN Ordering Facility: [facility] Address: [address] [place] [address] Performed By: #### 2 9374-6, 40906-8, 51361-2, 06929-4, 26167-4, 87165-0, ANAIFR, 36520-0, 58327-5, 59709-8, 13191-2, 04690-9 #### [facility] CLIA [id number] [address] [place] [address] [place] AST [Catalytic activity/Vol] 16 U/L Normal 13-35 [facility] Comment on above: Order Comment: Speci men Type: BLOOD SPECIMEN Ordering Facility: [facility] Address: [address] [place] [address] Performed By: #### 2 9374-6, 55142-6, 13500-8, 70064-6, 19755-6, 24167-3, ANAIFR, 21428-1, 07232-4, 90345-7, 54414-4, 76209-6 #### [facility] CLIA [id number] [address] [place] [address] [place] Bilirubin [Mass/Vol] 0.6 mg/dL Normal 0.2-1.3 [facility] Comment on above: Order Comment: Speci men Type: BLOOD SPECIMEN Ordering Facility: [facility] Address: [address] [place] [address] Performed By: #### 2 9374-6, 61649-1, 48038-5, 98523-6, 09500-7, 22262-0, ANAIFR, 03987-6, 40761-0, 76766-3, 67122-7, 92035-1 #### [facility] CLIA [id number] [address] [place] [address] [place] Calcium [Mass/Vol] 9.6 mg/dL Normal 8.5-10.2 [facility] Comment on above: Order Comment: Speci men Type: BLOOD SPECIMEN Ordering Facility: [facility] Address: [address] [place] [address] Performed By: #### 2 9374-6, 53584-8, 28795-6, 57227-1, 39959-6, 72050-7, ANAIFR, 55180-4, 59828-6, 49327-7, 27102-6, 41866-4 #### [facility] CLIA [id number] [address] [place] [address] [place] Chloride [Moles/Vol] 105 mmol/L Normal 97-105 [facility] Comment on above: Order Comment: Speci men Type: BLOOD SPECIMEN Ordering Facility: [facility] Address: [address] [place] [address] Performed By: #### 2 9374-6, 12943-2, 95456-8, 03964-7, 04177-1, 03846-9, ANAIFR, 90435-5, 22445-6, 37847-6, 51604-6, 14596-2 #### [facility] CLIA [id number] [address] [place] [address] [place] CO2 [Moles/Vol] 25 mmol/L Normal 22-30 [facility] Comment on above: Order Comment: Speci men Type: BLOOD SPECIMEN Ordering Facility: [facility] Address: [address] [place] [address] Performed By: #### 2 9374-6, 95945-2, 69953-9, 42464-0, 94463-0, 65574-2, ANAIFR, 08247-6, 70406-5, 98029-0, 49938-1, 33103-2 #### [facility] CLIA [id number] [address] [place] [address] [place] Creatinine [Mass/Vol] 0.68 mg/dL Normal 0.58-0.96 [facility] Comment on above: Order Comment: Speci men Type: BLOOD SPECIMEN Ordering Facility: [facility] Address: [address] [place] [address] Performed By: #### 2 9374-6, 00148-3, 61834-4, 69534-0, 35871-6, 92568-2, ANAIFR, 00945-6, 27405-6, 24919-8, 15077-7, 15116-7 #### [facility] [place] [id number] [address] [place] [address] [place] Creatinine and Glomerular filtration rate.predicted panel (S/P/Bld) 106 mL/min/1.73m??? Normal >=60 [facility] Comment on above: Order Comment: Speci men Type: BLOOD SPECIMEN Ordering Facility: [facility] Address: [address] [place] [address] Result Comment: Ivette mated Glomerular Filtration Rate (eGFR) is calculated using the 2020 CKD-EPI creatinine equation. This equation utilizes serum creatinine, sex, and age as parameters. The creatinine assay has traceable calibration to isotope dilution-mass spectrometry. Refer to KDIGO guidelines for clinical interpretation. In patients with unstable renal function, e.g. those with acute kidney injury, the eGFR may not accurately reflect actual GFR. Performed By: #### 2 9374-6, 95173-9, 65643-0, 63518-8, 01274-1, 11640-9, ANAIFR, 35466-3, 88985-8, 48381-5, 20733-3, 93368-0 #### [facility] CLIA [id number] [address] [place] [address] [place] Glucose [Mass/Vol] 86 mg/dL Normal 74-99 [facility] Comment on above: Order Comment: Tony keane Type: BLOOD SPECIMEN Ordering Facility: [facility] Address: [address] [place] [address] [place] [phone] Result Comment: The [place] [employer] (ADA) provides guidance for cutoff values for fasting glucose and random glucose. The ADA defines fasting as no caloric intake for at least 8 hours. Fasting plasma glucose results between 100 to 125 mg/dL indicate increased risk for diabetes (prediabetes). Fasting plasma glucose results greater than or equal to 126 mg/dL meet the criteria for diagnosis of diabetes. In the absence of unequivocal hyperglycemia, results should be confirmed by repeat testing. In a patient with classic symptoms of hyperglycemia or hyperglycemic crisis, random plasma glucose results greater than or equal to 200 mg/dL meet the criteria for diagnosis of diabetes. Reference: Standards of Medical Care in Diabetes 2016, [place] [employer]. Diabetes Care. 2016.39(Suppl 1). Performed By: #### 2 9374-6, 21203-0, 02708-5, 57611-2, 57682-1, 75194-3, ANAIFR, 09116-9, 73936-1, 87066-8, 05140-1, 85296-7 #### [facility] CLIA [id number] [address] [place] [address] [place] Potassium [Moles/Vol] 4.1 mmol/L Normal 3.7-5.1 [facility] Comment on above: Order Comment: Tony men Type: BLOOD SPECIMEN Ordering Facility: [facility] Address: [address] [place] [address] Performed By: #### 2 9374-6, 81563-2, 17003-3, 39634-6, 21463-2, 50934-8, ANAIFR, 66279-6, 60545-2, 28433-1, 64208-6, 58455-0 #### [facility] CLIA [id number] [address] [place] [address] [place] Protein [Mass/Vol] 7.2 g/dL Normal 6.3-8.0 [facility] Comment on above: Order Comment: Speci men Type: BLOOD SPECIMEN Ordering Facility: [facility] Address: [address] [place] [address] Performed By: #### 2 9374-6, 24907-6, 08379-8, 97140-1, 73506-9, 30844-9, ANAIFR, 00654-3, 87787-4, 30824-3, 21829-6, 69876-4 #### [facility] CLIA [id number] [address] [place] [address] [place] Sodium [Moles/Vol] 142 mmol/L Normal 136-144 [facility] Comment on above: Order Comment: Speci men Type: BLOOD SPECIMEN Ordering Facility: [facility] Address: [address] [place] [address] Performed By: #### 2 9374-6, 69424-5, 15036-2, 59044-6, 76777-5, 82164-0, ANAIFR, 23531-8, 86166-6, 82502-2, 44672-0, 49041-6 #### [facility] CLIA [id number] [facility] [address] [place] [address] [place] Urea nitrogen [Mass/Vol] 11 mg/dL Normal 7-21 [facility] Comment on above: Order Comment: Speci men Type: BLOOD SPECIMEN Ordering Facility: [facility] Address: [address] [id number] Performed By: #### 2 9374-6, 27080-5, 90646-5, 81763-5, 03034-9, 83437-0, ANAIFR, 45026-8, 88384-6, 89563-8, 38602-0, 74648-0 #### [facility] CLIA [id number] [address] [place] [address] [place] HEPATITIS A ANTIBODY, IGGon 12-14-2022 HAV IgG Ql (S) Positive Normal [facility] Comment on above: Order Comment: Speci men Type: BLOOD SPECIMEN Ordering Facility: [facility] Address: [address] [place] [address] Result Comment: Cons istent with serological evidence of immunity to Hepatitis A Virus. Performed By: #### 2 9374-6, 63405-6, 89854-2, 92305-3, 03080-3, 77845-1, ANAIFR, 92347-1, 45750-9, 74913-7, 33637-8, 98446-3 #### [facility] CLIA [id number] [address] [place] [address] [place] Lipid 1996 panelon 3 Cholesterol [Mass/Vol] 132 mg/dL Normal <200 [facility] Comment on above: Order Comment: Speci men Type: BLOOD SPECIMEN Ordering Facility: [facility] Address: [address] [place], [place] [phone] Result Comment: <200 mg/dL, Desirable 200-239 mg/dL, Borderline high >239 mg/dL, High Performed By: #### 2 9374-6, 22765-1, 60275-2, 57835-3, 80896-7, 01273-6, ANAIFR, 20428-7, 48489-3, 49030-6, 57023-9, 62329-3 #### [facility] CLIA [id number] [address] [id number] [address] [place] Cholesterol in HDL [Mass/Vol] 55 mg/dL Normal >39 [facility] Comment on above: Order Comment: Tony keane Type: BLOOD SPECIMEN Ordering Facility: [facility] Address: [place] [address] Result Comment: 40-5 9 mg/dL, Acceptable >59 mg/dL, High: Negative risk factor for coronary heart disease <40 mg/dL, Low: Positive risk factor for coronary heart disease Performed By: #### 2 9374-6, 64797-7, 42308-3, 16268-2, 68443-9, 09061-8, ANAIFR, 23211-0, 10454-5, 02659-7, 50158-3, 92504-3 #### [facility] CLIA [id number] [address] [place] Cholesterol in LDL [Mass/Vol] 56 mg/dL Normal <100 [facility] Comment on above: Order Comment: Tony keane Type: BLOOD SPECIMEN Ordering Facility: [facility] Address: [address] [place] [address] Result Comment: <100 mg/dL, Optimal 100-129 mg/dL, Near optimal/above optimal 130-159 mg/dL, Borderline high 160-189 mg/dL, High >189 mg/dL, Very high Secondary prevention optimal LDL Cholesterol levels are recommended to be < 70 mg/dL Performed By: #### 2 9374-6, 98440-3, 02230-8, 90693-1, 14909-2, 85098-7, ANAIFR, 53055-6, 70870-2, 98803-1, 68252-6, 86286-3 #### [facility] CLIA [id number] [address] [place] [address] [place] Cholesterol in LDL/Cholesterol in HDL [Mass ratio] 1.02 {ratio} Normal <2.54 [facility] Comment on above: Order Comment: Tony lakhwinder Type: BLOOD SPECIMEN Ordering Facility: [facility] Address: [address] [place] [phone] Result Comment: Yessi longoria: 1. National Cholesterol Education Program ATP III Guideline At-A-Glance Quick Desk Reference: National Heart, Lung, and Blood [place]. National Institutes of Health. 2001: NIH Publication No. 01-3305. 2. An International Atherosclerosis Society position paper: global recommendations for the management of dyslipidemia: executive summary, Atherosclerosis. 2014: 232(2):410-413. Performed By: #### 2 9374-6, 56493-7, 26035-0, 96734-9, 18865-4, 31746-5, ANAIFR, 91979-8, 50238-2, 42589-8, 12938-8, 23089-1 #### [facility] CLIA [id number] [address] [place] [address] [place] Cholesterol in VLDL [Mass/Vol] 21 mg/dL Normal <30 [facility] Comment on above: Order Comment: Tony keane Type: BLOOD SPECIMEN Ordering Facility: [facility] Address: [address] [address] Performed By: #### 2 9374-6, 90672-9, 20072-4, 84456-9, 76181-1, 20599-4, ANAIFR, 84327-2, 28701-8, 49477-3, 28299-5, 76654-6 #### [facility] CLIA [id number] [facility] [address] [place] [address] [place] Cholesterol non HDL [Mass/Vol] 77 mg/dL Normal <130 [facility] Comment on above: Order Comment: oTny keane Type: BLOOD SPECIMEN Ordering Facility: [facility] Address: [address] [address] Result Comment: <130 mg/dL, Optimal 130-159 mg/dL, Near optimal/above optimal 160-189 mg/dL, Borderline high 190-219 mg/dL, High >219 mg/dL, Very high Secondary prevention optimal non HDL Cholesterol levels are recommended to be <100 mg/dL Performed By: #### 2 9374-6, 01237-7, 13182-4, 53791-4, 60315-9, 66535-8, ANAIFR, 07111-8, 18505-7, 80503-4, 31816-9, 20835-5 #### [facility] CLIA [id number] [address] [place] [address] [place] Cholesterol.total/Cho lesterol in HDL [Mass ratio] 2.40 {ratio} Normal <5.10 [facility] Comment on above: Order Comment: Speci men Type: BLOOD SPECIMEN Ordering Facility: [facility] Address: [address] [place], [place] [address] Performed By: #### 2 9374-6, 41702-4, 02897-6, 61091-0, 18979-9, 94248-3, ANAIFR, 19568-6, 40836-7, 40596-9, 88357-6, 75791-5 #### [facility] CLIA [id number] [address] [place] [address] [place] FASTING TIME 6 hrs Normal [facility] Comment on above: Order Comment: Speci men Type: BLOOD SPECIMEN Ordering Facility: [facility] Address: [address] [place] [address] Performed By: #### 2 9374-6, 00403-7, 12149-4, 12607-4, 07112-6, 52513-3, ANAIFR, 59650-2, 86784-2, 17424-9, 19522-3, 73810-4 #### [facility] CLIA [id number] [address] [place] [address] [place] Triglyceride [Mass/Vol] 105 mg/dL Normal <150 [facility] Comment on above: Order Comment: Speci men Type: BLOOD SPECIMEN Ordering Facility: [facility] Address: [address] [place] [address] Result Comment: <150 mg/dL, Normal 150-199 mg/dL, Borderline high 200-499 mg/dL, High >499 mg/dL, Very high Performed By: #### 2 9374-6, 84494-7, 37019-0, 05579-7, 33161-9, 10623-4, ANAIFR, 69734-8, 86342-2, 61135-3, 30308-9, 71569-9 #### [facility] CLIA [id number] [address] [place] [address] [place] IntraOperative Documentson 0 12-05-2022 IntraOperative Documents [id number]# 1.00CD:127 Normal [facility] Consenton 11-30-2022 Consent [id number]# 1.00CD:127 Normal [facility] Discharge Instructionson Discharge Instructions [id number]# 1.00CD:127 Normal [facility] Postoperative Documentson Postoperative Documents [id number]# 1.00CD:127 Normal [facility] Main OR Intraoperative Recor don 11-29-2022 Main OR Intraoperative Record IntraOp Document Type FT Summary Primary Physician: Juancarlos DIAS MD Finalized Date/Time: 11/29/22 12:15:06 Pt. Name: JUANESTRELLA STEWART/Sex: 1970 Female Med Rec #: [id number] Physician: Juancarlos DIAS MD Financial #: [id number] Pt. 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 Hernandez supervising case Last Modified By: Jefferson PICKETT, Jalen Paulino RN, Jalen Jessica RN 11/28/22 08:11:05 11/28/22 08:11:05 11/28/22 08:11:05 Entry 4 Entry 5 Case Attendee Corina LINDER, Juancarlos Chou MD Role Performed Scrub - Primary Surgeon - Primary Time In 11/28/22 08:02:00 11/28/22 08:02:00 Time Out 11/28/22 08:10:00 11/28/22 08:10:00 Procedure EGD(.) EGD(.) Comments Last Modified By: Jefferson PICKETT, Jalen Paulino RN, Jalen Antonio 11/28/22 08:11:05 11/28/22 08:11:05 Perioperative Protocols FT Pre-Care Text: Implements protective measures prior to operative or invasive procedure, confirms identity before the operative or invasive procedure, verifies operative procedure, surgical site, and laterality Entry 1 Procedure(s) EGD(.) Patient Identity Birthday, ID Band Verified (select at Check, Patient least 2): Participation Consents / H and P Anesthesia Consent, Operative Site N/A Verified HandP, Surgery/Procedure Marking Verified Consent Surgical Site No Laterality Verified n/a Verified Procedure Verified Yes Correct Patient Yes Position Verified Availability Equipment, Medication Prep Dry n/a Verified (If Applicable) PreOp Antibiotic No Time Out Jalen Paulino RN, Given Participants Tala Babcock CRNA, Miles, Kirstyn K, SALAM MD, Maher Time Out Complete 11/28/22 08:04:00 Outcomes Met? Yes Last Modified By: Jalen Paulino RN 11/28/22 08:06:27 Post-Care Text: The patient is free from signs and symptoms of injury caused by extraneous objects Allergy Information FT Pre-Care Text: Verifies allergies Entry 1 Allergies Reviewed? Yes Allergies Reviewed Self/Patient With Outcomes Met? Yes Last Modified By: Jalen Paulino RN 11/28/22 08:06:58 Post-Care Text: The patient received appropriate medication(s) safely administered during the perioperative period Surgical Procedures FT Entry 1 Procedure Description Procedure EGD Modifiers . Surgeon Description EGD with dilation of esophagus using 60F amin dilator Primary Procedure Yes Primary Surgeon Juancarlos DIAS MD 11/28/22 08:06:00 Stop 11/28/22 08:08:00 Anesthesia Type General Surgical Service Gastroenterology Wound Class 2 - Clean-Contaminated Last Modified By: Jalen Paulino RN 11/28/22 08:11:08 General Case Data FT Pre-Care Text: Classifies surgical wound, implements aseptic technique, initiates traffic control Entry 1 Case Information OR ENDO 1 FT Case Level Level 2 Wound Class 2 - Clean-Contaminated Specialty Gastroenterology ASA Class 3 Preop Diagnosis BLOOM, Esophageal Postop Same As Preop No stricture, Dysphagia Postop Diagnosis Schatzki ring Outcomes Met? Yes Last Modified By: Jalen Paulino RN 11/28/22 08:16:24 Post-Care Text: The patient is free from signs and symptoms of infection Skin Assessment (Pre Procedure) FT Pre-Care Text: Implements protective measures to prevent skin/ tissue injury due to thermal or mechanical sources Evaluates for signs and symptoms of physical injury to skin and tissue Entry 1 Skin Integrity Dry, Warm Skin Abnormality No Outcomes Met? Yes Last Modified By: Jalen Paulino RN 11/28/22 08:07:39 Post-Care Text: The patient is free from signs and symptoms of injury caused by extraneous objects Patient Positioning FT Pre-Care Text: Identifies physical alterations that require additional precautions for procedure-specific positioning, verifies presence of prosthetics or corrective devices, positions the patient, evaluates the patient for signs and symptoms of injury as a result of positioning Entry 1 Procedure EGD(.) Body Position Lateral, right side up Feet Uncrossed? Yes Left Arm Position Resting at Side Right Arm Position Resting at Side Left Leg Position Extended Right Leg Position Extended Positioning D (more content not included)... Normal [facility] Consent for Treatmenton 10-31 Consent for Treatment [id number] .00CD:127 Normal [facility] Discharge Instructionson Discharge Instructions ESTRELLA MARTINEZ :1970 Visit Date:11/28/2022 Inpatient Discharge Instructions Your Care Team Admitting Physician - Juancarlos DIAS MD Referring Physician - Juancarlos DIAS MD Reason for Your Visit BLOOM DYSPLASIA Your Diagnosis Schatzki's ring This Is Your Medications List cholecalciferol (Vitamin D3 125 mcg (5000 intl units) oral tablet, disintegrating) ibuprofen (ibuprofen 200 mg oral capsule) levothyroxine (levothyroxine 75 mcg (0.075 mg) Tab) loperamide (Imodium A-D EZ Chews 2 mg oral tablet, chewable) loratadine (loratadine 10 mg oral capsule) omeprazole (omeprazole 40 mg Cap-DR) Procedure History Cholecystectomy (08/10/2020), Cystoscopy and biopsy of bladder (04/03/2017), Colonoscopy, Hysterectomy, Ileocecal resection. Discharge Vitals Temperature (Temporal Artery) 36.8 ?C Heart Rate (Monitored) 65 Respiratory Rate 14 Blood Pressure 154/90 Height 149.8 cm Weight 56.6 kg BMI 25.22 What to do next Instructions From Your Doctor Event Name Event Result Discharge Activity Resume normal activities in 24 hours Discharge Restrictions No driving for 24 hrs, Do not operate machinery or tools, Do not make important decisions for 24 hours Discharge Diet(s) Regular Pharmacy Information [facility] Discharge Instructions Discharge Instructions New Follow Up Appointments after Discharge Follow Up with BROOKE CHAPMAN, Juancarlos, LE, [facility] When: Comments: Office will call to schedule follow up appointment Where: [address] [place] [address] Medications What How Much When Why Instructions Next Dose Changed omeprazole (omeprazole 40 mg Cap-DR) 1 Capsules By Mouth Every day Esophageal stricture Dysphagia Unchanged cholecalciferol (Vitamin D3 125 mcg (5000 intl units) oral tablet, disintegrating) Unchanged ibuprofen (ibuprofen 200 mg oral capsule) Unchanged levothyroxine (levothyroxine 75 mcg (0.075 mg) Tab) 1 Tablets By Mouth Every day Unchanged loperamide (Imodium A-D EZ Chews 2 mg oral tablet, chewable) Unchanged loratadine (loratadine 10 mg oral capsule) 1 Capsules By Mouth Every day Test Results No qualifying data available. Allergies Levaquin (UNKNOWN) Problems Ongoing - Any problem that you are currently receiving treatment for. Acquired absence of other specified parts of digestive tract Aspartate transaminase level above reference range Diarrhea, unspecified Dysphagia Esophageal stricture Fatty liver Hepatomegaly, not elsewhere classified Liver cirrhosis Low back pain BLOOM (nonalcoholic steatohepatitis) Nausea with vomiting, unspecified Screen for colon cancer Type 2 diabetes mellitus without complications Vitamin deficiency, unspecified Historical - Any problem that you are no longer receiving treatment for. Bowel obstruction Cholelithiasis Endometriosis Ro's thyroiditis Hypertension Hyperthyroidism Mass of bladder Mass of colon Migraine Reflux esophagitis [employer] Endoscopy Care After Procedure Please read the instructions outlined below and refer to this sheet in the next few weeks. These discharge instructions provide you with general information on caring for yourself after you leave the hospital. Your doctor may also give you specific instructions. While your treatment has been planned according to the most current medical practices available, unavoidable complications occasionally occur. If you have any problems or questions after discharge, please call your doctor. ACTIVITY ? You may resume your regular activity but move at a slower pace for the next 24 hours. ? Take frequent rest periods for the next 24 hours. ? Walking will help expel (get rid of) the air and reduce the bloated feeling in your abdomen. ? No driving for 24 hours (because of the anesthesia (medicine) used during the test). ? You may shower. ? Do not sign any important legal documents or operate any machinery for 24 hours (because of the anesthesia used during the test). NUTRITION ? Drink plenty of fluids. ? You may resume your normal diet. ? Begin with a light meal and progress to your normal diet. ? Avoid alcoholic beverages for 24 hours or as instructed by your caregiver. MEDICATIONS ? You may resume your normal medications unless your caregiver tells you otherwise. WHAT YOU CAN EXPECT TODAY ? You may experience abdominal discomfort such as a feeling of fullness or ?gas? pains. FOLLOW-UP ? Your doctor will discuss the results of your test with you. SEEK IMMEDIATE MEDICAL ATTENTION IF ANY OF THE FOLLOWING OCCUR: ? Excessive nausea (feeling sick to your stomach) and/or vomiting. ? Severe abdominal pain and distention (swelling). ? Trouble swallowing. ? Temperature over 100 F (37.8? C). ? Rectal bleeding or vomiting of blood. Docume (more content not included)... Normal [facility] Comment on above: Result Comment: Elec tronically Signed By: ERMA PICKETT, DAIJA Nixon.richie\Date and Time Signed: 11/28/22 08:16 EDT Endoscopic Procedure Report - Otheron 11-28-2022 Endoscopic Procedure Report - Other Patient: ESTRELLA MARTINEZ Age: 52 years Sex: Female : 1970 Associated Diagnoses: None Author: Juancarlos DIAS MD Pre-Procedure Procedure Date 11/28/2022 08:10:00 . Procedure Type: Esophagogastroduodeno scopy. Procedure provider Performed by Juancarlos Dias MD. Current history and physical Documented on chart. Informed Consent After discussing the rationale, risks and benefits, and alternatives to this procedure, the patient provided signed consent for the procedure. Pre-procedure diagnosis: Dysphagia/ odynophagia. Medications Anticoagulant/antipla telet None. Antibiotic prophylaxis None. ASA Classification: Class II. . Monitoring: See anesthesia record. . Procedure The procedure was performed in the hospital. See anesthesia record for sedation given during procedure. The patient was positioned starting in the left lateral decubitus position and with safety measures. Endoscope type used was an adult-size, introduced orally, advanced to the 2nd portion of the duodenum. No difficulty was encountered during the procedure. Views were excellent. The patient tolerated the procedure well. Findings 1. Distal esophageal Schatzki ring, dilated using 60 Turkmen Amin dilator 2. Normal gastric mucosa 3. Normal duodenal mucosa Images Procedure images: Rec1_hd_video_ _[id number] Rec1_hd_video_ _[id number] . Post-Procedure Complications: none. Estimated blood loss: none. Specimens: None. Devices/ implants: none left in place. Impression and Plan Distal esophageal Schatzki ring, dilated using 60 Turkmen Amin dilator Recommendations: Follow-up in GI clinic in 2 weeks Normal [facility] Comment on above: Result Comment: Elec tronically Signed By: Juancarlos DIAS MD\.br\Date and Time Signed: 11/28/22 08:11 EDT Other Comment: Lala aly Attachment - attachment storage system not supported [id number] Can be viewed in source systemMissing Attachment - attachment storage system not supported [id number] Can be viewed in source system Inpatient Patient Summaryon 11-28-2022 Inpatient Patient Summary [place] [id number] [facility] Clinical Discharge Instructions PERSON INFORMATION Name: ESTRELLA MARTINEZ E [facility] Admitting Physician: Juancarlos DIAS MD Attending Physician: Juancarlos DIAS MD PCP: YAZAN WALLS MD Discharge Diagnosis: Schatzki's ring Comment: PATIENT EDUCATION INFORMATION Instructions: Medication Leaflets: Follow up: MEDICATION LIST Medications to Continue Taking That Have Changed Other Medications START: omeprazole (omeprazole 40 mg Cap-DR) 1 Capsules By Mouth every day. Refills: 2. Medications to Continue with No Changes Other Medications cholecalciferol (Vitamin D3 125 mcg (5000 intl units) oral tablet, disintegrating) ibuprofen (ibuprofen 200 mg oral capsule) levothyroxine (levothyroxine 75 mcg (0.075 mg) Tab) 1 Tablets By Mouth every day. loperamide (Imodium A-D EZ Chews 2 mg oral tablet, chewable) loratadine (loratadine 10 mg oral capsule) 1 Capsules By Mouth every day. Comment: Normal [facility] Main OR PACU I Recordon 10-31 Main OR PACU I Record PACU Phase I Docum ent Type FT Summary Primary Physician: Juancarlos DIAS MD Finalized Date/Time: 11/28/22 08:48:48 Pt. Name: ESTRELLA MARTINEZO.B./Sex: 1970 Female Med Rec #: [id number] Physician: Juancarlos DIAS MD Financial #: [id number] Pt. Type: O Room/Bed: [facility] 10/29 Admit/Disch: 11/28/22 06:53:42 - Institution: Case Times PACU I FT Pre-Care Text: Identifies barriers to communication and implements measures to provide psychological support Develops individualized plan of care, and ensures continuity of care Maintains patient's dignity and privacy, and maintains patient confidentiality Identifies and reports philosophical, cultural, and spiritual beliefs and values Identifies individual values and wishes concerning care Implements aseptic technique, and administers prescribed antibiotic therapy and immunizing agents as ordered Evaluates postoperative tissue perfusion Implements thermoregulation measures, and monitors body temperature Evaluates postoperative respiratory status Evaluates postoperative cardiac status Evaluates postoperative neurological status Assesses pain control, collaborated in initiating patient-controlled analgesia and implements alternative methods of pain control Verifies allergies, administers prescribed medications and solutions, evaluates response to medications Entry 1 In PACU I 11/28/22 08:11:00 Discharge from PACU 11/28/22 08:41:00 I Outcomes Met? Yes Last Modified By: DAIJA RITCHIE RN 11/28/22 08:48:35 Post-Care Text: The patient demonstrates knowledge of the expected response to the operative or invasive procedure The patient's care is consistent with the individualized perioperative plan of care The patient's right to privacy is maintained The patient's value system, lifestyle, ethnicity, and culture are considered, respected, and incorporated into the perioperative plan of care The patient participates in decisions affecting his or her perioperative plan of care The patient is free from signs and symptoms of infection The patient has wound/tissue perfusion consistent with or improved from baseline levels established preoperatively The patient is at or returning to normothermia at the conclusion of the immediate postoperative period The patient's respiratory function is consistent with or improved from baseline levels established preoperatively The patient's cardiovascular status is consistent with or improved from baseline levels established preoperatively The patient's cardiovascular status is consistent with or improved from baseline levels established preoperatively The patient demonstrates and/or reports adequate pain control throughout the perioperative period The patient received appropriate medication(s), safely administered during the perioperative period Acuity Level PACU I FT Entry 1 Start Time 11/28/22 08:11:00 Stop Time 11/28/22 08:41:00 Acuity Level Acuity Level I Last Modified By: DAIJA RITCHIE RN 11/28/22 08:48:45 Finalized By: DAIJA RITCHIE RN Document Signatures Signed By: DAIJA RITCHIE RN 11/28/22 08:48 Normal [facility] Main OR Preoperative Recordo n 11-28-2022 Main OR Preoperative Record Holding Area Document Type FT Summary Primary Physician: Juancarlos DIAS MD Finalized Date/Time: 11/28/22 07:23:39 Pt. Name: ESTRELLA MARTINEZ Paco Bhakta./Sex: 1970 Female Med Rec #: [id number] Physician: Juancarlos DIAS MD Financial #: [id number] Pt. Type: O Room/Bed: [facility] 10/29 Admit/Disch: 11/28/22 06:53:42 - Institution: Case Times Holding FT Pre-Care Text: Verifies consent for planned procedure, identifies individual values and wishes concerning care, includes family members in perioperative teaching Secures patient's records' belongings, and valuables, maintains patient's dignity and privacy, and maintains patient confidentiality Entry 1 In Holding 11/28/22 07:12:00 Outcomes Met? Yes Last Modified By: Jalen Paulino RN 11/28/22 07:22:47 Post-Care Text: The patient participates in decisions affecting his or her perioperative plan of care The patient's right to privacy is maintained Surgery Checklist FT Entry 1 Patient Birthday, ID Band Procedure History and Physical, Identification: Check, Patient Verification: Surgical Consent, With Participation Patient NPO after Midnight: Yes Results Reviewed n/a Comments: Personal Items: Glasses, Jewelry Personal Items glasses, bracelet Comment: Limitations: none Complaints of Pain: No Pain Comment: pt denies pain at this Marked By: n/a time Location: n/a Availability Equipment Verified: Does Patient Smoke No Patient states Yes Comment - Adult - Nakul postop adult Supervision supervision available Case Cancelled in No Holding Area see comments below for reason Last Modified By: Jalen Paulino RN 11/28/22 07:23:38 Finalized By: Jalen Paulino RN Document Signatures Signed By: Jalen Paulino RN 11/28/22 07:23 Normal [facility] Monitor Recordon 11-28-2022 Monitor Record [id number]# 1.00CD:127 Normal [facility] Monitor Record [id number] 1.00CD:127 Normal [facility] Outpatient Surgery Discharge Instructionon 11-28-2022 Outpatient Surgery Discharge Instruction [place] [id number] Patient Discharge Instructions PERSON INFORMATION Name: ESTRELLA MARTINEZ Date of : 1970 Current Date: 11/28/2022 08:11:12 PHYSICIANS Admitting Physician: BROOKE CHAPMAN Bauer Discharge Diagnosis: Schatzki's ring ESTRELLA MARTINEZ has been given the following list of follow-up instructions, prescriptions, and patient education materials: PATIENT FOLLOW-UP INFORMATION Diet: Regular Discharge Activity: Resume normal activities in 24 hours Discharge Restrictions: No driving for 24 hrs, Do not operate machinery or tools, Do not make important decisions for 24 hours IF UNABLE TO CONTACT YOUR PHYSICIAN AND YOU FEEL IT IS AN EMERGENCY, GO TO THE NEAREST EMERGENCY ROOM OR CALL 911 I, JUAN, CLARA, have received the attached patient education materials/instruction s and have verbalized understanding: May we do a follow up call? Yes No I was present when discharge instructions were given Patient Signature Date Clinican/Nurse Signature Date Follow up: Pharmacy Information: [facility] You may receive a survey from Kary Orellana asking you to rate your care experience. Your feedback is important and will help us understand what we do well and how we can improve the quality of care we provide to you, your loved ones and our community. It?s an honor to serve you. Thank you for choosing [facility] HERE ARE THE MEDICATION CHANGES THAT OCCURRED DURING YOUR HOSPITAL STAY Medications to Continue Taking That Have Changed Other Medications START: omeprazole (omeprazole 40 mg Cap-DR) 1 Capsules By Mouth every day. Refills: 2. Medications to Continue with No Changes Other Medications cholecalciferol (Vitamin D3 125 mcg (5000 intl units) oral tablet, disintegrating) ibuprofen (ibuprofen 200 mg oral capsule) levothyroxine (levothyroxine 75 mcg (0.075 mg) Tab) 1 Tablets By Mouth every day. loperamide (Imodium A-D EZ Chews 2 mg oral tablet, chewable) loratadine (loratadine 10 mg oral capsule) 1 Capsules By Mouth every day. PATIENT EDUCATION INFORMATION Instructions: Medication Leaflets: Normal [facility] Progress Note-Physicianon Progress Note-Physician Patient: ESTRELLA MARTINEZ Age: 52 years Sex: Female : 1970 Associated Diagnoses: None Author: Mary CHAPMAN, Renny Barrera Postoperative Information Postoperative disposition: Postoperative disposition: To PACU. Optimetrix number: Optimetrix number [id number]. Anesthetic utilized: General. Physical Examination Vital Signs 11/28/2022 8:36 EDT Heart Rate Monitored 62 bpm Respiratory Rate Monitored 15 br/min Systolic Blood Pressure 128 mmHg Diastolic Blood Pressure 94 mmHg HI Mean Arterial Pressure, Cuff 105 mmHg SpO2 98 % 11/28/2022 8:25 EDT Heart Rate Monitored 66 bpm Respiratory Rate Monitored 12 br/min Systolic Blood Pressure 111 mmHg Diastolic Blood Pressure 84 mmHg Mean Arterial Pressure, Cuff 93 mmHg SpO2 98 % 11/28/2022 8:20 EDT Heart Rate Monitored 68 bpm Respiratory Rate Monitored 12 br/min Systolic Blood Pressure 106 mmHg Diastolic Blood Pressure 76 mmHg Mean Arterial Pressure, Cuff 86 mmHg SpO2 98 % 11/28/2022 8:15 EDT Heart Rate Monitored 65 bpm Respiratory Rate Monitored 15 br/min Systolic Blood Pressure 96 mmHg Diastolic Blood Pressure 67 mmHg Mean Arterial Pressure, Cuff 77 mmHg SpO2 97 % 11/28/2022 8:11 EDT Temperature Temporal Artery 36.9 DegC Heart Rate Monitored 69 bpm Respiratory Rate Monitored 17 br/min Systolic Blood Pressure 109 mmHg Diastolic Blood Pressure 72 mmHg Mean Arterial Pressure, Cuff 84 mmHg SpO2 97 % Pain Assessment General: Awake, Alert, Appropriate. Respiratory: Adequate air exchange, Equal bilateral chest wall expansion. Cardiovascular: Stable. Neurological: At Baseline. Assessment Anesthetic outcome No anesthetic complications noted. Review / Management Condition: Stable. Plan Transfer/Discharge: Transfer/Discharge Discharge when meets criteria ( To home ). Normal [facility] Comment on above: Result Comment: Elec tronically Signed By: Mary CHAPMAN, Renny Barrera\.br\Date and Time Signed: 11/28/22 09:57 EDT Progress Note-Physician Patient: ESTRELLA MARTINEZ Age: 52 years Sex: Female : 1970 Associated Diagnoses: None Author: Renny Hernandez MD Preoperative Information Anesthesia Preop Info: Time patient last ate or drank 11/27/2022 22:00:00. Anesthesia history: Patient history: None. Family history+: None. Informed consent: Signed by patient. Including risks, benefits, and alternatives related to the: Anesthetic plan. Re-evaluation prior to induction: Renny Hernandez MD. Initial evaluation reviewed: No significant change. Review of Systems Eye: Negative. Ear/Nose/Mouth/Throat : Negative. Respiratory: Negative. Cardiovascular: Negative. Gastrointestinal: Negative. Genitourinary: Negative. Hematology/Lymphatics : Negative. Endocrine: Negative. Musculoskeletal: Negative. Neurologic: Negative. Health Status Allergies: Allergies (1) Active Reaction Levaquin UNKNOWN Current medications: Home Medications (6) Active ibuprofen 200 mg oral capsule Imodium A-D EZ Chews 2 mg oral tablet, chewable levothyroxine 75 mcg (0.075 mg) Tab 75 mcg = 1 tab(s), Oral, Daily loratadine 10 mg oral capsule 10 mg = 1 cap(s), Oral, Daily omeprazole 40 mg Cap-DR 40 mg = 1 cap(s), Oral, Daily Vitamin D3 125 mcg (5000 intl units) oral tablet, disintegrating , Medications (1) Active Scheduled: (0) Continuous: (1) Sodium Chloride 0.9% 1,000 mL 1,000 mL, IV, 20 mL/hr PRN: (0) Problem list: All Problems Acquired absence of other specified parts of digestive tract / SNOMED CT 7616160660 / Confirmed Diarrhea, unspecified / SNOMED CT 126949462 / Confirmed Hepatomegaly, not elsewhere classified / SNOMED CT 480960033 / Confirmed Aspartate transaminase level above reference range / SNOMED CT 1086043505 / Confirmed Low back pain / SNOMED CT 544522298 / Confirmed Nausea with vomiting, unspecified / SNOMED CT 53645693 / Confirmed Type 2 diabetes mellitus without complications / SNOMED CT 599937720 / Confirmed Vitamin deficiency, unspecified / SNOMED CT 115541906 / Confirmed Esophageal stricture / SNOMED CT 463304468 / Confirmed Liver cirrhosis / SNOMED CT 57269691 / Confirmed Fatty liver / SNOMED CT 210407520 / Confirmed BLOOM (nonalcoholic steatohepatitis) / SNOMED CT 8006848056 / Confirmed Dysphagia / SNOMED CT 64748689 / Confirmed Screen for colon cancer / SNOMED CT 994084855 / Confirmed Resolved: Migraine / SNOMED CT 27771693 Resolved: Endometriosis / SNOMED CT 8265204399 Resolved: Mass of colon / SNOMED CT 3920970639 Resolved: Mass of bladder / SNOMED CT 3196324470 Resolved: Reflux esophagitis / SNOMED CT 722018500 Resolved: Bowel obstruction / SNOMED CT 993168348 Resolved: Cholelithiasis / SNOMED CT 394132168 Resolved: Ro's thyroiditis / SNOMED CT 416682974 Resolved: Hyperthyroidism / SNOMED CT 17190012 Resolved: Hypertension / SNOMED CT 83104804, Active Problems (14) Acquired absence of other specified parts of digestive tract Aspartate transaminase level above reference range Diarrhea, unspecified Dysphagia Esophageal stricture Fatty liver Hepatomegaly, not elsewhere classified Liver cirrhosis Low back pain BLOOM (nonalcoholic steatohepatitis) Nausea with vomiting, unspecified Screen for colon cancer Type 2 diabetes mellitus without complications Vitamin deficiency, unspecified Histories Social History Social & Psychosocial Habits Alcohol 10/05/2022 Risk Assessment: Denies Alcohol Use Substance Abuse 10/05/2022 Risk Assessment: Denies Substance Abuse Tobacco 10/05/2022 Tobacco Use: Never (less than 100 in l . Physical Examination Vital Signs 11/28/2022 7:19 EDT Temperature Temporal Artery 36.8 DegC Heart Rate Monitored 65 bpm Respiratory Rate Monitored 14 br/min Systolic Blood Pressure 154 mmHg HI Diastolic Blood Pressure 90 mmHg HI Blood Pressure Location Left arm SpO2 100 % Measurements from flowsheet : Measurements 11/28/2022 7:18 EDT Height/Length Measured 149.8 cm Height/Length Dosing 149.8 cm Weight Dosing 56.6 kg BSA Measured 1.53 m2 Body Mass Index Measured 25.22 kg/m2 Weight Measured 56.6 kg Airway: Mallampati classification: II (soft palate, fauces, uvula visible). Distance: Thyromental, Adequate. Respiratory: Lungs are clear to auscultation, Symmetrical chest wall expansion. Cardiovascular: Regular rhythm, Good pulses equal in all extremities. Gastrointestinal: Soft, Non-tender. Plan [place] [employer]esthesiologists (ASA) physical status classification: Class III. Anesthetic Preoperative Plan: Anesthesia General. Normal [facility] Comment on above: Result Comment: Elec tronically Signed By: Mary CHAPMAN, Renny Barrera\.br\Date and Time Signed: 11/28/22 07:24 EDT US ABD RIGHT UPPER QUADRANTo n 10-24-2022 US ABD RIGHT UPPER QUADRANT * * *Final Report* * * DATE OF EXAM: Oct 24 2022 2:20PM [facility] 1032 - US ABD RIGHT UPPER QUADRANT / PROCEDURE REASON: BLOOM (nonalcoholic steatohepatitis) * * * * Physician Interpretation * * * * EXAMINATION: RIGHT UPPER QUADRANT AND SPLEEN ULTRASOUND CLINICAL HISTORY: BLOOM TECHNIQUE: Sonography of the right upper quadrant and spleen was performed. Images were obtained and stored in a permanent archive. MQ: URUQ_2 COMPARISON: None. RESULT: Pancreas: Normal sonographic appearance. Portions obscured: tail Liver: Echotexture: Normal, homogeneous. Echogenicity: Normal Surface contour: Smooth Lesions: None. Biliary: No intrahepatic biliary duct dilation. CBD: 0.4 cm at the hilum. Gallbladder: Cholecystectomy. Right Kidney: No hydronephrosis. Ascites: None. Spleen: The craniocaudal length of the spleen is 6.5 cm, normal. There are no splenic lesions. IMPRESSION: Normal sonographic appearance of the right upper quadrant status post cholecystectomy. Normal sonographic appearance of the spleen. Literature Teacher: [facility] Transcribe Date/Time: Oct 24 2022 2:38P Dictated by : NYDIA JETER MD This examination was interpreted and the report reviewed and electronically signed by: NYDIA JETER MD on Oct 24 2022 2:48PM EST [id number] Normal [facility] ABD SPLEEN - NBon 023 [facility] US ABD SPLEEN -NBon 10-25-19 23 US ABD SPLEEN -NB * * *Final Report* * * DATE OF EXAM: Oct 24 2022 2:26PM [facility] 123 - ABD SPLEEN -NB / PROCEDURE REASON: BLOOM (nonalcoholic steatohepatitis) * * * * Physician Interpretation * * * * EXAMINATION: RIGHT UPPER QUADRANT AND SPLEEN ULTRASOUND CLINICAL HISTORY: BLOOM TECHNIQUE: Sonography of the right upper quadrant and spleen was performed. Images were obtained and stored in a permanent archive. MQ: URUQ_2 COMPARISON: None. RESULT: Pancreas: Normal sonographic appearance. Portions obscured: tail Liver: Echotexture: Normal, homogeneous. Echogenicity: Normal Surface contour: Smooth Lesions: None. Biliary: No intrahepatic biliary duct dilation. CBD: 0.4 cm at the hilum. Gallbladder: Cholecystectomy. Right Kidney: No hydronephrosis. Ascites: None. Spleen: The craniocaudal length of the spleen is 6.5 cm, normal. There are no splenic lesions. IMPRESSION: Normal sonographic appearance of the right upper quadrant status post cholecystectomy. Normal sonographic appearance of the spleen. Literature Teacher: [facility] Transcribe Date/Time: Oct 24 2022 2:38P Dictated by : NYDIA JETER MD This examination was interpreted and the report reviewed and electronically signed by: NYDIA JETER MD on Oct 24 2022 2:48PM EST [id number] Normal [facility] Gastroenterology Office/Clin ic Noteon 10-10-2022 Gastroenterology Office/Clinic Note Chief Complaint esophageal stricture, cirrhosis HPI Staff Patient is a 52 year old female who was referred by Titi for esophageal stricture and cirrhosis. Patient consulted at [facility] Gastro 09/21/22 for fatty liver. Labs/CT completed @ [facility] 07/25/22. Liver labs completed @ [facility] 09/21/2022. History of Present Illness Estrella Martinez is a 52-year-old female who was referred to me by Dr. Walls for liver cirrhosis and esophageal stricture. She is accompanied by an adult female. The adult female states that the patient went to the emergency room in [place] in 06/2022 because she was experiencing nausea, vomiting, and diarrhea. She did not have a CT scan or ultrasound. She was diagnosed with liver cirrhosis and informed that she has fatty liver with fibrosis. The patient was then seen at [facility] by hepatologists and had a FibroScan. Her liver was normal. Patient denies drinking alcohol. She states that she was tested for hepatitis C in [facility], but she does not have the results. She states that she has occasional dysphagia with pills. Estrella denies food getting stuck. She reports mild heartburn. She takes her omeprazole on time. She denies hematochezia or melena. She had a colonoscopy in 2018 at [facility] and it was normal. Patients have thyroid disease, ulcers, and diabetes. She changed her diet in 06/2022. Patient weighed 140 pounds and has lost 15 more pounds. Review of Systems PHQ Score Initial Depression Screen Score: 0 Constitutional: No fever, no chills, no sweats, no weakness Skin: No Jaundice, no rash, no lesions, no petechiae ENMT: no ear pain, no sore throat, no congestion, no hoarseness Respiratory: no shortness of breath, no cough, no orthopnea, no wheezing Cardiovascular: no chest pain, no palpitations, no edema Gastrointestinal: no nausea, no vomiting, no diarrhea, no constipation, no GI bleeding, no abdominal pain, no dysphagia, no heartburn. Positive for dysphagia. Genitourinary: No dysuria, no hematuria, no discharge, no pain Musculoskeletal: no back pain, no trauma Neurologic: no numbness, no sleeping problems Additional ROS info: Except as noted in the above Review of Systems and in the History of Present Illness all other systems have been reviewed and are negative or noncontributory. Physical Exam Vitals & Measurements HR: 67(Peripheral) RR: 16 BP: 128/78 HT: 59 in HT: 149.8 cm WT: 56.6 kg WT: 124.52 lb BMI: 25.22 Constitutional: Appearance: well developed Skin: Inspection: no rashes, ulcers, icterus, or telangiectasias. Eyes: Conjunctivae/lids: normal conjunctivae and lids. ENMT: Hearing: within normal limits. Lips/Teeth/Gums: normal oral mucosa Neck: Neck: normal motion, central trachea Respiratory: Percussion: thorax normoresonant. Auscultation: normal breath sounds; no rubs, wheezes, rale or rhonchi. Cardiovascular: Auscultation: normal rhythm, S1 and S2; no rubs, murmurs or gallop. Peripheral: no edema Gastrointestinal/Abdo men: Abdomen: normal consistency and bowel sounds; no tenderness or masses. Liver/Spleen: normal size and consistency, not palpable. Rectal: deferred Musculoskeletal: Gait/station: normal gait Assessment/Plan 1. BLOOM (nonalcoholic steatohepatitis) (K75.81: Nonalcoholic steatohepatitis (BLOOM)) The patient was evaluated at [place] and then [facility] for mildly elevated liver function tests. She was diagnosed with BLOOM according to the score. She underwent FibroScan. Her fibrosis score was reported to be low, but I do not have the actual reports. I asked the patient to send me records. She tested negative for hepatitis B. I will screen her for hepatitis C. Her recent CT scan showed no cirrhosis, cirrhotic morphology, and she was noted to have steatosis. She was advised to lose 10 percent of body weight. 2. Esophageal stricture (K22.2: Esophageal obstruction) She reports sporadic dysphagia with pills and mild heartburn. We will start her on omeprazole and we will proceed with an EGD with possible dilation. 3. Dysphagia (R13.10: Dysphagia, unspecified) This is mainly for pills. We will proceed with an EGD with possible dilation. 4. Screen for colon cancer (Z12.11: Encounter for screening for malignant neoplasm of colon) Her last colonoscopy was done by me in 2018. She was noted to have no polyps. She has no family history of colon cancer. Her next colonoscopy will be due in 2027. Portions of this record may have been created with voice recognition artificial intelligence software, specifically [employer], [employer] and or [employer]. Substitutions may have occurred due to the inherent limitations of voice recognition and artificial intelligence software. ATTESTATION: Documentation services were performed after patient or guardian consented to allow [employer] to record this visit. AIDAN internal corrosion specialist and provider reviewed before signing. AIDAN: Nakia Ramsey. Follow-up (more content not included)... [facility] Comment on above: Result Comment: Elec tronically Signed By: Nakia Ríos\.br\Date and Time Signed: 10/05/22 13:44 EDT\.br\Electronically Co-Signed By: Nakia Ríos\.br\Date and Time Co-Signed: 10/05/22 13:48 EDT\.br\Electronically Co-Signed By: Juancarlos DIAS MD\.br\Date and Time Co-Signed: 10/09/22 22:03 EDT Consent for Immunizationon 0 10-06-2022 Consent for Immunization [id number] .00CD:127 [facility] Ambulatory Visit Summaryon 0 10-05-2022 Ambulatory Visit Summary ESTRELLA MARTINEZ :1970 Visit Date:10/05/2022 Ambulatory Visit Instructions Your Diagnosis BLOOM (nonalcoholic steatohepatitis) Esophageal stricture Dysphagia Screen for colon cancer Your Care Team Attending Physician - Juancarlos DIAS MD Primary Care Physician - YAZAN WALLS MD Referring Physician - YAZAN WALLS MD This Is Your Medications List omeprazole (omeprazole 40 mg Cap-) Contact prescribing physician if questions or concerns cholecalciferol (Vitamin D3 125 mcg (5000 intl units) oral tablet, disintegrating) ibuprofen (ibuprofen 200 mg oral capsule) levothyroxine (levothyroxine 75 mcg (0.075 mg) Tab) loperamide (Imodium A-D EZ Chews 2 mg oral tablet, chewable) loratadine (loratadine 10 mg oral capsule) omeprazole (Prilosec OTC) Procedures Performed Cholecystectomy (08/10/2020), Cystoscopy and biopsy of bladder (04/03/2017), Colonoscopy, Hysterectomy, Ileocecal resection. Discharge Vitals Heart Rate (Peripheral) 67 Respiratory Rate 16 Blood Pressure 128/78 Height 149.8 cm Height 59 in Weight 56.6 kg Weight 124.52 lb BMI 25.22 What to do next You Need to Complete the Following CBC w/ Auto Diff, Blood, Routine collect, 10/05/22, Order for future visit, Lab Collect, BLOOM (nonalcoholic steatohepatitis), Print Label By Order Location Comprehensive Metabolic Panel, Blood, Routine collect, 10/05/22, Order for future visit, Lab Collect, BLOOM (nonalcoholic steatohepatitis), Print Label By Order Location HCV Antibody RFX to Quant PCR, Blood, Routine collect, 10/05/22, Order for future visit, Lab Collect, BLOOM (nonalcoholic steatohepatitis), Print Label By Order Location PT, Blood, Routine collect, 10/05/22, Order for future visit, Lab Collect, BLOOM (nonalcoholic steatohepatitis), Print Label By Order Location Medications What How Much When Why Instructions New omeprazole (omeprazole 40 mg Cap-DR) 1 Capsules By Mouth Every day Esophageal stricture Dysphagia Refills: 2 Pickup at [facility] Unchanged cholecalciferol (Vitamin D3 125 mcg (5000 intl units) oral tablet, disintegrating) Contact prescribing physician if questions or concerns Unchanged ibuprofen (ibuprofen 200 mg oral capsule) Contact prescribing physician if questions or concerns Unchanged levothyroxine (levothyroxine 75 mcg (0.075 mg) Tab) 1 Tablets By Mouth Every day Contact prescribing physician if questions or concerns Unchanged loperamide (Imodium A-D EZ Chews 2 mg oral tablet, chewable) Contact prescribing physician if questions or concerns Unchanged loratadine (loratadine 10 mg oral capsule) 1 Capsules By Mouth Every day Contact prescribing physician if questions or concerns Unchanged omeprazole (Prilosec OTC) Contact prescribing physician if questions or concerns Pharmacy Information [facility]: [address] [address] [place], [place] [id number] [phone] Allergies Levaquin (UNKNOWN) Problems Ongoing - Any problem that you are currently receiving treatment for. Acquired absence of other specified parts of digestive tract Aspartate transaminase level above reference range Diarrhea, unspecified Dysphagia Esophageal stricture Fatty liver Hepatomegaly, not elsewhere classified Liver cirrhosis Low back pain BLOOM (nonalcoholic steatohepatitis) Nausea with vomiting, unspecified Screen for colon cancer Type 2 diabetes mellitus without complications Vitamin deficiency, unspecified Historical - Any problem that you are no longer receiving treatment for. Bowel obstruction Cholelithiasis Endometriosis Ro's thyroiditis Hypertension Hyperthyroidism Mass of bladder Mass of colon Migraine Reflux esophagitis Normal [facility] Consultation Noteon 10-05-19 Consultation Note [id number] .00CD:127 Normal [facility] Lab Reportson 10-04-2022 Lab Reports [id number] .00CD:127 Normal [facility] Lab Reports [id number] Normal [facility] HECTOR BY IFA WITH REFLEXon HECTOR PATTERN Nuclear homogeneous Normal [facility] Comment on above: Order Comment: Speci men Type: BLOOD SPECIMEN Ordering Facility: [facility] Address: [address] [place] [address] Performed By: #### 2 9374-6, 94383-8, 01763-9, 85604-8, 98718-3, 39635-3, ANAIFR, 94962-7, 34427-7, 16764-1, 84834-8, 03857-9 #### [facility] CLIA [id number] [address] [facility] [place] [address] [place] HECTOR TITER 1:640 Normal [facility] Comment on above: Order Comment: Speci men Type: BLOOD SPECIMEN Ordering Facility: [facility] Address: [address] [place] [address] Performed By: #### 2 9374-6, 82738-8, 75425-3, 23031-7, 05115-8, 04982-5, ANAIFR, 77479-5, 70428-9, 13763-4, 38529-3, 49964-4 #### [facility] CLIA [id number] [address] [place] [address] [place] Nuclear Ab IF (S) [Titer] Positive Abnormal Negative [facility] Comment on above: Order Comment: Speci men Type: BLOOD SPECIMEN Ordering Facility: [facility] Address: [address] [place] [address] Result Comment: Anti -nuclear antibody test is used as an aid in diagnosis of systemic autoimmune diseases. Where positive and clinically warranted, follow-up using disease-specific testing is recommended. Low positive titers are not uncommon with advanced age, certain chronic infections, and malignancies among others. Test methodology: Indirect fluorescence immunoassay (IFA) using HEp-2 cells. Performed By: #### 2 9374-6, 61439-4, 11690-3, 21689-0, 55752-0, 24272-6, ANAIFR, 51263-3, 31088-6, 63731-0, 68166-1, 23624-3 #### [facility] CLIA [id number] [address] [place] [address] [place] CBC panel Auto (Bld)on 09-21 Erythrocyte distribution width (RBC) [Ratio] 12.3 % Normal 11.5-15.0 [facility] Comment on above: Order Comment: Speci men Type: BLOOD SPECIMEN Ordering Facility: [facility] Address: [address] [place] [address] Performed By: #### 2 9374-6, 33881-2, 63708-8, 51740-3, 42903-1, 53504-5, ANAIFR, 13175-8, 87590-8, 09554-8, 32303-6, 54949-8 #### [facility] CLIA [id number] [address] [place] [address] [place] Hematocrit (Bld) [Volume fraction] 38.2 % Normal 36.0-46.0 [facility] Comment on above: Order Comment: Speci men Type: BLOOD SPECIMEN Ordering Facility: [facility] Address: [address] [place] [address] Performed By: #### 2 9374-6, 13369-0, 22582-9, 99970-8, 39841-8, 20197-6, ANAIFR, 07189-2, 96482-3, 80130-4, 91261-2, 89326-9 #### [facility] CLIA [id number] [address] [place] [address] [place] Hemoglobin (Bld) [Mass/Vol] 12.5 g/dL Normal 11.5-15.5 [facility] Comment on above: Order Comment: Speci men Type: BLOOD SPECIMEN Ordering Facility: [facility] Address: [address] [place] [address] Performed By: #### 2 9374-6, 90328-6, 30418-9, 43475-5, 41969-9, 07899-0, ANAIFR, 18839-5, 31431-1, 27836-0, 83346-1, 78804-6 #### [facility] CLIA [id number] [address] [place] [address] [place] MCH (RBC) [Entitic mass] 30.7 pg Normal 26.0-34.0 [facility] Comment on above: Order Comment: Speci men Type: BLOOD SPECIMEN Ordering Facility: [facility] Address: [address] [place] [address] Performed By: #### 2 9374-6, 49417-6, 72460-6, 49977-5, 48649-7, 32176-2, ANAIFR, 01612-3, 65567-3, 91379-2, 23807-6, 34288-8 #### [facility] CLIA [id number] [address] [place] [address] [place] MCHC (RBC) [Mass/Vol] 32.7 g/dL Normal 30.5-36.0 [facility] Comment on above: Order Comment: Speci men Type: BLOOD SPECIMEN Ordering Facility: [facility] Address: [address] [place] [address] Performed By: #### 2 9374-6, 79710-2, 65541-5, 11865-6, 84969-8, 32719-7, ANAIFR, 10657-3, 75025-3, 59207-7, 48137-0, 76825-0 #### [facility] CLIA [id number] [address] [place] [address] [place] MCV (RBC) [Entitic vol] 93.9 fL Normal 80.0-100.0 [facility] Comment on above: Order Comment: Speci men Type: BLOOD SPECIMEN Ordering Facility: [facility] Address: [address] [place] [address] Performed By: #### 2 9374-6, 13839-5, 40967-1, 02342-0, 93551-3, 53329-0, ANAIFR, 06424-7, 82440-6, 03776-9, 80814-5, 62585-4 #### [facility] CLIA [id number] [address] [place] [address] [place] Nucleated RBC (Bld) [#/Vol] 10*3/uL Normal <0.01 [facility] Comment on above: Order Comment: Speci men Type: BLOOD SPECIMEN Ordering Facility: [facility] Address: [address] [place] [address] Performed By: #### 2 9374-6, 15417-4, 98094-5, 96928-2, 45509-6, 23356-9, ANAIFR, 69749-9, 06115-1, 28352-3, 47353-7, 14267-8 #### [facility] CLIA [id number] [address] [place] [address] [place] Platelet mean volume (Bld) [Entitic vol] 11.9 fL Normal 9.0-12.7 [facility] Comment on above: Order Comment: Speci men Type: BLOOD SPECIMEN Ordering Facility: [facility] Address: [address] [place] [address] Performed By: #### 2 9374-6, 49207-4, 74633-5, 68621-5, 48983-9, 44208-7, ANAIFR, 89793-4, 36610-0, 85807-8, 47732-7, 34407-7 #### [facility] CLIA [id number] [address] [place] [address] [place] Platelets (Bld) [#/Vol] 236 10*3/uL Normal 150-400 [facility] Comment on above: Order Comment: Speci men Type: BLOOD SPECIMEN Ordering Facility: [facility] Address: [address] [place] [address] Performed By: #### 2 9374-6, 92667-7, 51133-3, 35137-1, 05894-3, 69779-9, ANAIFR, 79989-5, 74726-0, 94229-7, 30605-8, 85719-4 #### [facility] CLIA [id number] [address] [place] [address] [place] RBC (Bld) [#/Vol] 4.07 10*6/uL Normal 3.90-5.20 [facility] Comment on above: Order Comment: Speci men Type: BLOOD SPECIMEN Ordering Facility: [facility] Address: [address] [place] [address] Performed By: #### 2 9374-6, 63896-4, 45133-7, 72464-2, 02578-5, 66461-4, ANAIFR, 89156-9, 11283-6, 16882-0, 69658-2, 47139-6 #### [facility] CLIA [id number] [address] [place] [address] [place] WBC (Bld) [#/Vol] 5.96 10*3/uL Normal 3.70-11.00 [facility] Comment on above: Order Comment: Speci men Type: BLOOD SPECIMEN Ordering Facility: [facility] Address: [place] [address] Performed By: #### 2 9374-6, 17999-1, 28753-0, 76223-1, 70597-9, 66189-0, ANAIFR, 06690-3, 33065-3, 72386-3, 12992-6, 81229-8 #### [facility] CLIA [id number] [address] [facility] [place] [id number] [id number] [facility] CNOVon 09-21-2022 CNOV Office Visit (GASTA5 ) ESTRELLA DURAND ([id number]) 1970 F [place] Date Time Provider Department 09/21/22 1:30 PM SANDHYA LAW GASTA5 During your visit today, we recorded the following information about you: Temperature Pulse Blood pressure Weight 97.8 degrees 76/minute 146/88 58 kg Height 1.562 m Sandhya Law MD 09/21/2022 2:32 PM Signed DEPARTMENT OF GASTROENTEROLOGY HEPATOLOGY AND NUTRITION HEPATOLOGY CONSULT NOTE SERVICE DATE: 09/21/2022 SERVICE TIME: 1:59 PM REASON FOR CONSULT: fatty liver REQUESTING PHYSICIAN: Dr Yazan Whatley Estrella Durand is a 52 year old with hypothyroidism presented for evaluation of fatty liver. She was found to have elevated LFT when she was admitted to a local hospital in June 2022 for abd pain and n/v. She was told that she has fatty liver and fibrosis. Her pain and n/v has resolved. She is asked to see Hepatology for further evaluation. She has no GI symptoms now. No FH of liver disease. No alcohol use. Labs ALT 78 ALP 124 AST 32 TB 0.6 PSH Endometriosis s/p hysterectomy S/p cholecystectomy Prior to Admission Medications: levothyroxine (SYNTHROID) 100 mcg tablet Take 1 tablet by mouth once daily. Cholecalciferol, Vitamin D3, 125 mcg/mL (5,000 unit/mL) drop Take 1 tablet by mouth once daily. Milk Thistle 175 mg tab Take 1 tablet by mouth twice daily. No current facility-administered medications for this visit. Complications of Cirrhosis: None Objective PHYSICAL EXAM: Physical Exam Performed: There were no vitals taken for this visit. General appearance: well appearing, alert, in no acute distress, and well-hydrated, well nourished Skin: Skin color, texture, turgor normal, no suspicious rashes or lesions Head: normal Eyes: Anicteric sclera. Lungs: lungs clear to auscultation no wheezing or rhonchi Heart: RRR without murmur, gallop, or rubs. No ectopy Abdomen: Normal abdominal exam, Abdomen soft, non-tender. Bowel sounds normal. No masses, organomegaly Extremities: Extremities normal. DATA: Labs ALT 78 ALP 124 AST 32 TB 0.6 Impression/Recommenda tions 52 year old with hypothyroidism presented for evaluation of fatty liver and abnormal LFT. Likely BLOOM vs PBC.No signs of cirrhosis. --fibroscan to determine degree of steatosis and liver stiffness --Request prior liver imaging --Serological work up to rule out other etiology of intrinsic liver disease --RUQ ultrasound for liver morphology --Follow up in clinic in 3 months SIGNATURE: Sandhya Law MD PATIENT NAME: Estrella Durand DATE: September 21, 2022 TIME: 1:59 PM Medical Decision Making: Problems: Moderate: New problem with uncertain prognosis Data: Unique test result(s) reviewed: 3+ Unique test(s) ordered: 3+ Risk: Low: Low risk from testing/treatment Medical Decision Making Level: 4 - Moderate Referring Provider: YAZAN WALLS [[id number]] Allergies As of Date: 09/21/2022 (Not on File) Date Reviewed: 09/21/2022 Reviewed by: Melissa Connelly LPN - Fully Assessed Reason for Visit: New Patient [172] Cmt: Fatty Liver Primary Visit Diagnosis:BLOOM (nonalcoholic steatohepatitis) [K75.81] Order(s):CBC [CBC] Order #: [id number] FUTURE COMP METABOLIC PANEL [CMP] Order #: [id number] FUTURE PROTHROMBIN TIME/PT [SQPT] Order #: [id number] FUTURE HECTOR BY IFA WITH REFLEX [ANAIFR] Order #: [id number] FUTURE SMOOTH MUSCLE AB SCR [SMTHS] Order #: [id number] FUTURE CERULOPLASMIN BLD [CERULO] Order #: [id number] FUTURE MITOCHONDRIAL M2 IGG SERUM [MITOS] Order #: [id number] FUTURE HEP REMOTE PANEL BL [HREMOP] Order #: [id number] FUTURE FERRITIN BLD [FERR] Order #: [id number] FUTURE IRON + TIBC [IRON] Order #: [id number] FUTURE US ABD RIGHT UPPER QUADRANT [6586526] Order #: [id number] FUTURE DDI VIBRATION CONTROLLED TRANSIENT ELASTOGRAPHY (VCTE) [6006552] Order #: [id number] Prescriptions as of 09/21/2022 - levothyroxine (SYNTHROID) 100 mcg tablet Take 1 tablet by mouth once daily. - Cholecalciferol, Vitamin D3, 125 mcg/mL (5,000 unit/mL) drop Take 1 tablet by mouth once daily. - Milk Thistle 175 mg tab Take 1 tablet by mouth twice daily. Problem List As Of Date: 09/21/2022 (None) Disposition: Return in about 3 months (around 12/22/2022). Follow-up and Disposition History for Encounter Date Provider Department Center 09/21/2022 [id number]-OFYZUYSANDHYA LAW GASTA5 [facility] A Bldg Encounter Status:Closed by SANDHYA LAW on 09/21/22 Normal [facility] Centromere Ab IF Ql (S)on Centromere Ab Qn (S) <0.2 Normal <1.0 [facility] Comment on above: Order Comment: Speci men Type: BLOOD SPECIMEN Ordering Facility: [facility] Address: [address] [place] [address] Result Comment: Anti -centromere antibody is used as in aid in diagnosis of systemic sclerosis. Clinical correlation is required. Test Methodology: Multiplex flow immunoassay. Performed By: #### 2 9374-6, 59761-5, 20750-1, 47995-4, 99560-2, 19287-3, ANAIFR, 02048-2, 56282-7, 90156-6, 22330-2, 10895-6 #### [facility] CLIA [id number] [address] [place] [address] [place] CENTROMERE AB QUAL Negative Normal Negative [facility] Comment on above: Order Comment: Speci men Type: BLOOD SPECIMEN Ordering Facility: [facility] Address: [address] [place] [address] Performed By: #### 2 9374-6, 54853-9, 77687-9, 48439-1, 85644-8, 05201-5, ANAIFR, 75178-1, 67064-8, 98425-4, 00365-1, 46738-5 #### [facility] CLIA [id number] [address] [place] [address] [place] Ceruloplasmin SerPl-mCncon 0 09-21-2022 Ceruloplasmin [Mass/Vol] 30 mg/dL Normal 16-45 [facility] Comment on above: Order Comment: Speci men Type: BLOOD SPECIMEN Ordering Facility: [facility] Address: [address] [place] [address] Performed By: #### 2 9374-6, 98633-1, 19038-9, 60981-3, 35530-6, 68253-3, ANAIFR, 18347-3, 44912-2, 76620-9, 11194-6, 35729-9 #### [facility] CLIA [id number] [address] [place] [address] [place] Chromatin Ab Qnon 09-21-2022 CHROMATIN AB QUAL Negative Normal Negative [facility] Comment on above: Order Comment: Speci men Type: BLOOD SPECIMEN Ordering Facility: [facility] Address: [address] [place] [address] Performed By: #### 2 9374-6, 08263-0, 64945-1, 88776-1, 17061-0, 74030-5, ANAIFR, 99862-2, 19221-6, 28806-3, 53165-2, 62975-6 #### [facility] CLIA [id number] [address] [place] [address] [place] Chromatin Ab SerPl-aCncon Chromatin Ab Qn <0.2 Normal <1.0 [facility] Comment on above: Order Comment: Speci men Type: BLOOD SPECIMEN Ordering Facility: [facility] Address: [address] [place], [place] [address] Result Comment: Test Methodology: Multiplex flow immunoassay. Performed By: #### 2 9374-6, 71871-0, 60071-1, 87523-2, 99942-6, 53363-0, ANAIFR, 42348-7, 23758-6, 65215-5, 56250-1, 21081-6 #### [facility] CLIA [id number] [address] [place] [address] [place] Comprehensive metabolic 2000 panelon 09-21-2022 Albumin [Mass/Vol] 4.7 g/dL Normal 3.9-4.9 [facility] Comment on above: Order Comment: Speci men Type: BLOOD SPECIMEN Ordering Facility: [facility] Address: [address] [place], [place] [address] Performed By: #### 2 9374-6, 87265-5, 58544-4, 50122-3, 14716-5, 84516-0, ANAIFR, 55340-2, 61327-2, 09709-4, 69209-9, 38183-6 #### [facility] CLIA [id number] [address] [place] [address] [place] ALP [Catalytic activity/Vol] 127 U/L High 34-123 [facility] Comment on above: Order Comment: Speci men Type: BLOOD SPECIMEN Ordering Facility: [facility] Address: [address] [place] [address] Performed By: #### 2 9374-6, 41182-7, 73253-0, 33927-1, 06275-2, 05987-9, ANAIFR, 73954-5, 78178-8, 51356-0, 49975-4, 11724-5 #### [facility] CLIA [id number] [address] [place] [address] [place] ALT [Catalytic activity/Vol] 49 U/L High 7-38 [facility] Comment on above: Order Comment: Speci men Type: BLOOD SPECIMEN Ordering Facility: [facility] Address: [address] [place] [address] Performed By: #### 2 9374-6, 80595-4, 13895-5, 49489-7, 94072-9, 31859-0, ANAIFR, 83358-9, 91768-6, 57265-2, 51655-1, 10419-1 #### [facility] CLIA [id number] [address] [place] [address] [place] Anion gap [Moles/Vol] 9 mmol/L Normal 9-18 [facility] Comment on above: Order Comment: Speci men Type: BLOOD SPECIMEN Ordering Facility: [facility] Address: [address] [place] [address] Performed By: #### 2 9374-6, 61832-4, 23807-0, 93245-5, 84770-3, 15691-5, ANAIFR, 23846-1, 51309-6, 34203-2, 08670-4, 11429-3 #### [facility] CLIA [id number] [address] [place] [address] [place] AST [Catalytic activity/Vol] 29 U/L Normal 13-35 [facility] Comment on above: Order Comment: Speci men Type: BLOOD SPECIMEN Ordering Facility: [facility] Address: [address] [place] [address] Performed By: #### 2 9374-6, 47812-8, 44177-7, 55782-1, 37385-7, 57780-9, ANAIFR, 62939-8, 62982-3, 93844-4, 31055-4, 56835-5 #### [facility] CLIA [id number] [address] [place] [address] [place] Bilirubin [Mass/Vol] 0.5 mg/dL Normal 0.2-1.3 [facility] Comment on above: Order Comment: Speci men Type: BLOOD SPECIMEN Ordering Facility: [facility] Address: [address] [place] [address] Performed By: #### 2 9374-6, 76276-0, 08240-2, 25126-4, 26446-1, 71105-3, ANAIFR, 96778-3, 88795-4, 85864-2, 09324-6, 94677-6 #### [facility] CLIA [id number] [address] [place] [address] [place] Calcium [Mass/Vol] 9.7 mg/dL Normal 8.5-10.2 [facility] Comment on above: Order Comment: Speci men Type: BLOOD SPECIMEN Ordering Facility: [facility] Address: [address] [place] [address] Performed By: #### 2 9374-6, 65701-3, 72952-6, 51917-1, 99671-3, 76866-0, ANAIFR, 22496-6, 51199-0, 54805-5, 31347-7, 81845-4 #### [facility] CLIA [id number] [address] [place] [address] [place] Chloride [Moles/Vol] 107 mmol/L High 97-105 [facility] Comment on above: Order Comment: Speci men Type: BLOOD SPECIMEN Ordering Facility: [facility] Address: [address] [place] [address] Performed By: #### 2 9374-6, 10812-3, 36166-0, 72752-6, 68333-6, 06615-2, ANAIFR, 12202-0, 56415-1, 66447-1, 11730-6, 23963-8 #### [facility] CLIA [id number] [address] [place] [address] [place] CO2 [Moles/Vol] 26 mmol/L Normal 22-30 [facility] Comment on above: Order Comment: Speci men Type: BLOOD SPECIMEN Ordering Facility: [facility] Address: [address] [place] [address] Performed By: #### 2 9374-6, 54439-1, 85736-2, 14273-2, 19030-6, 79104-1, ANAIFR, 63795-5, 53508-8, 80296-4, 71151-5, 55744-0 #### [facility] CLIA [id number] [address] [place] [address] [place] Creatinine [Mass/Vol] 0.62 mg/dL Normal 0.58-0.96 [facility] Comment on above: Order Comment: Speci men Type: BLOOD SPECIMEN Ordering Facility: [facility] Address: [address] [place] [address] Performed By: #### 2 9374-6, 85279-8, 57865-3, 90722-8, 63118-4, 83402-7, ANAIFR, 32033-3, 30247-3, 32596-3, 41679-7, 82065-3 #### [facility] CLIA [id number] [address] [place] [address] [place] ESTIMATED GLOMERULAR FILTRATION RATE 109 mL/min/1.73m??? Normal >=60 [facility] Comment on above: Order Comment: Speci men Type: BLOOD SPECIMEN Ordering Facility: [facility] Address: [address] [place] [address] Result Comment: Ivette mated Glomerular Filtration Rate (eGFR) is calculated using the 2020 CKD-EPI creatinine equation. This equation utilizes serum creatinine, sex, and age as parameters. The creatinine assay has traceable calibration to isotope dilution-mass spectrometry. Refer to KDIGO guidelines for clinical interpretation. In patients with unstable renal function, e.g. those with acute kidney injury, the eGFR may not accurately reflect actual GFR. Performed By: #### 2 9374-6, 20923-6, 16649-2, 55352-1, 31162-6, 60829-1, ANAIFR, 96380-1, 07026-2, 68477-3, 73725-9, 87423-7 #### [facility] CLIA [id number] [address] [place] [address] [place] Glucose [Mass/Vol] 107 mg/dL High 74-99 [facility] Comment on above: Order Comment: Speci men Type: BLOOD SPECIMEN Ordering Facility: [facility] Address: [address] [place] [address] Result Comment: The [place] [employer] (ADA) provides guidance for cutoff values for fasting glucose and random glucose. The ADA defines fasting as no caloric intake for at least 8 hours. Fasting plasma glucose results between 100 to 125 mg/dL indicate increased risk for diabetes (prediabetes). Fasting plasma glucose results greater than or equal to 126 mg/dL meet the criteria for diagnosis of diabetes. In the absence of unequivocal hyperglycemia, results should be confirmed by repeat testing. In a patient with classic symptoms of hyperglycemia or hyperglycemic crisis, random plasma glucose results greater than or equal to 200 mg/dL meet the criteria for diagnosis of diabetes. Reference: Standards of Medical Care in Diabetes 2016, [place] [employer]. Diabetes Care. 2016.39(Suppl 1). Performed By: #### 2 9374-6, 54987-6, 57119-5, 79746-8, 27711-5, 95453-6, ANAIFR, 72673-9, 42023-4, 10766-7, 40738-5, 09003-5 #### [facility] CLIA [id number] [address] [place] [address] [place] Potassium [Moles/Vol] 4.1 mmol/L Normal 3.7-5.1 [facility] Comment on above: Order Comment: Speci men Type: BLOOD SPECIMEN Ordering Facility: [facility] Address: [address] [place] [address] Performed By: #### 2 9374-6, 82349-9, 73802-3, 62648-3, 97490-1, 13186-8, ANAIFR, 16878-0, 96717-4, 38383-8, 67611-3, 79095-2 #### [facility] CLIA [id number] [address] [place] [address] [place] Protein [Mass/Vol] 8.0 g/dL Normal 6.3-8.0 [facility] Comment on above: Order Comment: Speci men Type: BLOOD SPECIMEN Ordering Facility: [facility] Address: [address] Performed By: #### 2 9374-6, 04191-7, 34238-5, 87785-8, 50964-0, 19325-8, ANAIFR, 67061-8, 35013-4, 52819-5, 61117-8, 16985-0 #### [facility] CLIA [id number] [address] [place] [address] [place] Sodium [Moles/Vol] 142 mmol/L Normal 136-144 [facility] Comment on above: Order Comment: Speci men Type: BLOOD SPECIMEN Ordering Facility: [facility] Address: [address] Performed By: #### 2 9374-6, 62892-3, 52497-7, 73948-2, 88142-4, 86907-7, ANAIFR, 90791-6, 37988-8, 41526-1, 99551-1, 40625-0 #### [facility] CLIA [id number] [address] [place] [address] [place] Urea nitrogen [Mass/Vol] 11 mg/dL Normal 7-21 [facility] Comment on above: Order Comment: Speci men Type: BLOOD SPECIMEN Ordering Facility: [facility] Address: [address] [place] [address] Performed By: #### 2 9374-6, 00059-0, 20734-1, 29094-6, 39658-2, 30232-8, ANAIFR, 32929-2, 54306-8, 43624-8, 73237-9, 21689-2 #### [facility] CLIA [id number] [address] [place] [address] OF [place] JOSE Jo1 Ab Ser-aCncon 2022 Jelena-1 extractable nuclear Ab Qn (S) <0.2 Normal <1.0 [facility] Comment on above: Order Comment: Speci men Type: BLOOD SPECIMEN Ordering Facility: [facility] Address: [address] [place] [address] Performed By: #### 2 9374-6, 20389-0, 29182-7, 93067-5, 09426-1, 62673-3, ANAIFR, 33661-8, 33448-4, 99619-6, 95432-7, 34389-0 #### [facility] CLIA [id number] [address] [place] [address] [place] JOSE TDP DISPLAYS ANALYST Ab Ser-aCncon 2022 Ribonucleoprotein extractable nuclear Ab Qn (S) <0.2 Normal <1.0 [facility] Comment on above: Order Comment: Speci men Type: BLOOD SPECIMEN Ordering Facility: [facility] Address: [address] [place] [address] Performed By: #### 2 9374-6, 87060-9, 67069-7, 07325-6, 39105-7, 44339-8, ANAIFR, 70010-3, 85112-2, 45246-2, 61715-3, 76079-0 #### [facility] CLIA [id number] [address] [place] [address] [place] Ribonucleoprotein extractable nuclear Ab Qn (S) 0.2 AI Normal <1.0 [facility] Comment on above: Order Comment: Speci men Type: BLOOD SPECIMEN Ordering Facility: [facility] Address: [address] [place] [address] Performed By: #### 2 9374-6, 89314-7, 49776-2, 24876-1, 26034-9, 87019-2, ANAIFR, 19468-3, 66062-0, 18104-4, 26388-8, 44119-4 #### [facility] CLIA [id number] [address] [place] [address] [place] JOSE SM IgG Ser-aCncon 2022 Olivarez extractable nuclear IgG Qn (S) <0.2 Normal <1.0 [facility] Comment on above: Order Comment: Speci men Type: BLOOD SPECIMEN Ordering Facility: [facility] Address: [address] [place] [address] Performed By: #### 2 9374-6, 72305-3, 02333-2, 71852-4, 17365-0, 40243-5, ANAIFR, 20079-4, 60244-2, 89602-0, 21250-6, 07413-4 #### [facility] [place] [id number] [address] [place] [address] [place] JOSE SS-A Ab Ser-aCncon 09-21 Sjogrens syndrome-A extractable nuclear Ab Qn (S) 6.6 AI High <1.0 [facility] Comment on above: Order Comment: Speci men Type: BLOOD SPECIMEN Ordering Facility: [facility] Address: [address] [place] [address] Result Comment: Test Methodology: Multiplex flow immunoassay. Performed By: #### 2 9374-6, 07720-6, 35800-9, 98609-8, 14025-9, 45508-4, ANAIFR, 14136-8, 48158-4, 03659-6, 14257-6, 04086-1 #### [facility] CLIA [id number] [address] [place] [address] [place] JO[place] SS-B Ab Ser-aCncon 09-21 Sjogrens syndrome-B extractable nuclear Ab Qn (S) 3.1 AI High <1.0 [facility] Comment on above: Order Comment: Speci men Type: BLOOD SPECIMEN Ordering Facility: [facility] Address: [address] [place] [address] Result Comment: Anti -SSB (anti-La) antibody is used as an aid in diagnosis of a variety of systemic autoimmune diseases, especially for Sjogren's syndrome and systemic lupus erythematosus. Clinical correlation is required. Test Methodology: Multiplex flow immunoassay. Performed By: #### 2 9374-6, 65972-3, 24282-7, 40986-7, 61290-6, 05027-3, ANAIFR, 82173-9, 90999-0, 24739-0, 67651-4, 81742-7 #### [facility] CLIA [id number] [address] [place] [address] [place] Ferritin SerPl-mCncon 2022 Ferritin [Mass/Vol] 217.0 ng/mL High 14.7-205.1 [facility] Comment on above: Order Comment: Speci men Type: BLOOD SPECIMEN Ordering Facility: [facility] Address: [address] [id number] Performed By: #### 2 9374-6, 71650-4, 66513-8, 58440-5, 43960-6, 42494-4, ANAIFR, 32019-6, 38794-7, 88763-1, 89649-4, 30979-8 #### [facility] CLIA [id number] [address] [place] [address] [place] HBV core Ab Ser Qlon 023 HBV core Ab Ql (S) Negative Normal Negative [facility] Comment on above: Order Comment: Speci men Type: BLOOD SPECIMEN Ordering Facility: [facility] Address: [address] [place] [address] Result Comment: No e vidence of current or past infection with Hepatitis B virus. Should recent infection be suspected, repeat testing may be considered 3-4 weeks after this draw. Performed By: #### 2 9374-6, 92074-5, 27799-0, 91252-4, 55682-7, 14107-1, ANAIFR, 19959-9, 60393-8, 96022-5, 15578-0, 07438-5 #### [facility] CLIA [id number] [address] [place] [address] [place] HBV surface Ab Ql (S)on 08-30 HBV surface Ab Qn (S) <8.00 Low >=12.00 [facility] Comment on above: Order Comment: Speci men Type: BLOOD SPECIMEN Ordering Facility: [facility] Address: [address] [place] [address] Performed By: #### 2 9374-6, 98818-8, 96774-9, 31536-5, 45216-2, 47963-1, ANAIFR, 59710-7, 10667-4, 31117-9, 37815-6, 66686-3 #### [facility] CLIA [id number] [address] [place] [address] [place] HBV surface Ab Ser Qlon 08-30 HBV surface Ab Ql (S) Negative Abnormal Positive [facility] Comment on above: Order Comment: Tony men Type: BLOOD SPECIMEN Ordering Facility: [facility] Address: [address] [place] [address] Result Comment: No e vidence of antibodies to Hepatitis B surface antigen. Performed By: #### 2 9374-6, 96004-0, 88903-0, 16943-8, 27663-8, 31319-6, ANAIFR, 79910-7, 76392-3, 41045-7, 68534-1, 25236-5 #### [facility] CLIA [id number] [address] [place] [address] [place] HBV surface Ag Ser Qlon 05- HBV surface Ag Ql (S) Negative Normal Negative [facility] Comment on above: Order Comment: Speci men Type: BLOOD SPECIMEN Ordering Facility: [facility] Address: [address] [place] [address] Performed By: #### 2 9374-6, 93007-5, 20696-7, 14130-9, 19457-5, 25408-1, ANAIFR, 13332-1, 49812-6, 60456-9, 55202-5, 10170-4 #### [facility] CLIA [id number] [address] [place] [address] [place] HCV Ab Ser Qlon 09-21-2022 HCV Ab Ql (S) Negative Normal Negative [facility] Comment on above: Order Comment: Aii lakhwinder Type: BLOOD SPECIMEN Ordering Facility: [facility] Address: [address] [place] [address] Result Comment: The result suggests no evidence of active infection with Hepatitis C virus. Should recent infection be suspected, repeat testing may be considered 4-6 weeks after this draw. Performed By: #### 2 9374-6, 48806-1, 81699-5, 00903-6, 14369-8, 07365-3, ANAIFR, 60667-4, 22157-3, 44357-8, 76894-1, 71844-6 #### [facility] CLIA [id number] [address] [place] [address] [place] [facility] [place] Iron and Iron binding capaci ty panelon 09-21-2022 Iron [Mass/Vol] 90 ug/dL Normal 41-186 [facility] Comment on above: Order Comment: Speci men Type: BLOOD SPECIMEN Ordering Facility: [facility] Address: [address] [address] Performed By: #### 2 9374-6, 64674-4, 64471-0, 43788-1, 07857-5, 64400-3, ANAIFR, 07973-8, 13930-0, 06457-3, 67809-2, 40005-2 #### [facility] CLIA [id number] [address] [place] [address] [place] Iron binding capacity [Mass/Vol] 364 ug/dL Normal 232-386 [facility] Comment on above: Order Comment: Speci men Type: BLOOD SPECIMEN Ordering Facility: [facility] Address: [address] [place] [address] Performed By: #### 2 9374-6, 64417-2, 72203-0, 47922-4, 69767-4, 38918-4, ANAIFR, 13575-3, 25373-4, 19438-2, 78751-5, 09014-2 #### [facility] CLIA [id number] [address] [place] [address] [place] Iron/TIBC [Molar ratio] 24.7 % Normal 15.0-57.0 [facility] Comment on above: Order Comment: Speci men Type: BLOOD SPECIMEN Ordering Facility: [facility] Address: [address] [address] Performed By: #### 2 9374-6, 72966-1, 02298-9, 22573-3, 04491-3, 47851-2, ANAIFR, 22174-3, 64096-6, 93524-5, 46508-9, 12287-6 #### [facility] CLIA [id number] [address] [place] [address] [place] Jelena-1 extractable nuclear Ab Qn (S)on 09-21-2022 JELENA 1 ANTIBODY QUAL Negative Normal Negative [facility] Comment on above: Order Comment: Speci men Type: BLOOD SPECIMEN Ordering Facility: [facility] Address: [address] [place] [address] Result Comment: Anti -JELENA-1 antibody is used as an aid in diagnosis of polymyositis and dermatomyositis especially with pulmonary involvement. A negative result cannot rule out polymyositis or dermatomyositis. Clinical correlation is required. Test Methodology: Multiplex flow immunoassay. Performed By: #### 2 9374-6, 73148-4, 15651-5, 55478-7, 45281-5, 71727-1, ANAIFR, 26311-0, 34604-4, 56613-5, 99784-9, 11736-8 #### [facility] CLIA [id number] [address] [place] [address] [place] Mitochondria Ab IF Ql (S)on 09-21-2022 Mitochondria M2 Ab IA Qn (S) 3.3 Units Normal <=20.0 [facility] Comment on above: Order Comment: Speci men Type: BLOOD SPECIMEN Ordering Facility: [facility] Address: [address] [place] [address] Performed By: #### 2 9374-6, 59058-8, 49704-5, 21768-3, 68674-5, 68837-8, ANAIFR, 37194-9, 72932-3, 00870-8, 52051-9, 81835-0 #### [facility] CLIA [id number] [address] [place] [address] [place] Mitochondria M2 Ab Ql (S) Negative Normal Negative [facility] Comment on above: Order Comment: Speci men Type: BLOOD SPECIMEN Ordering Facility: [facility] Address: [address] [place] [address] Result Comment: Anti -mitochondrial antibody test is used as an aid in diagnosis of primary biliary cholangitis. Clinical correlation is required. Performed By: #### 2 9374-6, 17168-7, 67896-5, 16785-9, 27022-4, 97727-2, ANAIFR, 43441-2, 72633-0, 75937-7, 62292-8, 15519-7 #### [facility] IA [id number] [address] [id number] [place] PT panel Coag (PPP)on 2022 INR Coag (PPP) [Relative time] 1.0 {INR} Normal 0.9-1.3 [facility] Comment on above: Order Comment: Speci men Type: BLOOD SPECIMEN Ordering Facility: [facility] Address: [address] [place], [place] [id number] Result Comment: Mai min K Antagonist (VKA) Therapeutic Range: INR 2 to 3 (Target INR of 2.5) Note: For patients treated with VKA drugs, such as warfarin, the [employer] [employer] 2012 Guideline recommends a therapeutic INR range of 2 to 3 (target INR of 2.5). This recommendation includes high-risk patients with antiphospholipid syndrome with previous arterial or venous thromboembolism, current-generation mechanical or bioprosthetic aortic heart valve replacement. Note: Patients with mechanical aortic valve replacement and additional risk factors for thromboembolic events (atrial fibrillation, previous thromboembolism, LV dysfunction, hypercoagulable conditions) or an older generation mechanical AVR (i.e., ball in-Cage) or any mechanical MVR should have a INR therapeutic range of 2.5 to 3.5 (target INR of 3). Oralia GH, et al. Chest 2012, 141:7S-47S Sherry RA, et al. [facility] 2017, 70: 252-289 Performed By: #### 2 9374-6, 01681-8, 47269-2, 62316-5, 10407-9, 10016-0, ANAIFR, 81058-0, 34319-4, 61644-1, 03008-2, 69321-7 #### [facility] IA [id number] [facility] [id number] [place] PT Coag (PPP) [Time] 9.9 s Normal 9.7-13.0 [facility] Comment on above: Order Comment: Speci men Type: BLOOD SPECIMEN Ordering Facility: [facility] Address: [address] [place], [place] [id number] Performed By: #### 2 9374-6, 87354-8, 94230-4, 47306-8, 27081-4, 78259-6, ANAIFR, 11361-2, 79668-6, 32637-0, 37014-1, 04609-2 #### [facility] CLIA [id number] [address] [place] [address] [place] Ribonucleoprotein extractabl e nuclear Ab Qn (S)on 09-21-2022 ANTI-TDP DISPLAYS ANALYST QUAL Negative Normal Negative [facility] Comment on above: Order Comment: Speci men Type: BLOOD SPECIMEN Ordering Facility: [facility] Address: [address] [place] [address] Performed By: #### 2 9374-6, 47537-0, 16168-9, 74173-0, 46263-0, 96045-9, ANAIFR, 99924-2, 44718-8, 42753-5, 68282-8, 20720-5 #### [facility] CLIA [id number] [facility] [place] [address] [place] RIBOSOMAL TDP DISPLAYS ANALYST QUAL Negative Normal Negative [facility] Comment on above: Order Comment: Speci men Type: BLOOD SPECIMEN Ordering Facility: [facility] Address: [address] [place] [address] Result Comment: Anti -Ribosomal RNA (Ribosomal P) antibody is used as an aid in diagnosis of systemic autoimmune diseases especially systemic lupus erythematosus and mixed connective tissue disease. Cross-reactivity with Anti-olivarez antibody is not uncommon. Clinical correlation is required. Test Methodology: Multiplex flow immunoassay. Performed By: #### 2 9374-6, 31607-5, 26285-6, 43924-4, 03630-5, 45690-8, ANAIFR, 48991-2, 39476-7, 59472-6, 15597-0, 46106-3 #### [facility] CLIA [id number] [address] [place] [address] [place] SCL-70 extractable nuclear I gG IA Qn (S)on 09-21-2022 SCLERODERMA AB QUAL Negative Normal Negative [facility] Comment on above: Order Comment: Speci men Type: BLOOD SPECIMEN Ordering Facility: [facility] Address: [address] [place] [address] Performed By: #### 2 9374-6, 51954-1, 23379-4, 76185-6, 12551-4, 96757-3, ANAIFR, 27785-0, 48127-6, 27025-7, 04280-2, 45546-9 #### [facility] CLIA [id number] [address] [place] [address] [place] SCLERODERMA IGG AB <0.2 Normal <1.0 [facility] Comment on above: Order Comment: Tony keane Type: BLOOD SPECIMEN Ordering Facility: [facility] Address: [address] [place] [address] Result Comment: Scl- 70/Scleroderma antibody test is used as an aid in diagnosis of systemic sclerosis especially the diffuse cutaneous form. A negative result cannot rule out systemic sclerosis. The final interpretation should consider clinical picture and other test results such as anti-centromere antibody. Test Methodology: Multiplex flow immunoassay. Performed By: #### 2 9374-6, 98403-5, 62086-6, 08046-0, 77647-8, 97437-6, ANAIFR, 29497-2, 35080-2, 99136-1, 70165-0, 88895-2 #### [facility] CLIA [id number] [address] [place] [address] [place] Sjogrens syndrome-A extracta ble nuclear Ab Qn (S)on 09-21-2022 SSA ANTIBODY QUAL Positive Abnormal Negative [facility] Comment on above: Order Comment: Speci men Type: BLOOD SPECIMEN Ordering Facility: [facility] Address: [address] [place] [address] Performed By: #### 2 9374-6, 17959-1, 58059-3, 25201-2, 93198-4, 35962-8, ANAIFR, 49488-6, 91348-5, 99545-8, 91073-5, 54566-2 #### [facility] CLIA [id number] [address] [place] [address] [place] Sjogrens syndrome-B extracta ble nuclear Ab Qn (S)on 09-21-2022 SSB ANTIBODY QUAL Positive Abnormal Negative [facility] Comment on above: Order Comment: Speci men Type: BLOOD SPECIMEN Ordering Facility: [facility] Address: [address] [place] [address] Performed By: #### 2 9374-6, 57250-7, 70457-1, 45533-0, 27129-1, 84611-4, ANAIFR, 80790-9, 98861-8, 23515-6, 82423-9, 23998-9 #### [facility] CLIA [id number] [address] [place] [address] STATES OF [facility] Olivarez extractable nuclear Ig G Qn (S)on 09-21-2022 SM ANTIBODY QUAL Negative Normal Negative [facility] Comment on above: Order Comment: Speci men Type: BLOOD SPECIMEN Ordering Facility: [facility] Address: [address] [place] [address] Result Comment: Anti -Sm (Olivarez) antibody is used as an aid in diagnosis of systemic lupus erythematosus and its presence is associated with renal disease. A negative result cannot rule out systemic lupus erythematosus. Clinical correlation is required. Test Methodology: Multiplex flow immunoassay. Performed By: #### 2 9374-6, 42011-5, 68923-5, 00374-6, 74068-8, 06136-6, ANAIFR, 06032-0, 21980-1, 45934-9, 12321-2, 08174-6 #### [facility] CLIA [id number] [address] [place] [address] [place] Smooth muscle Ab Ql (S)on ACTIN SMOOTH MUSCLE IGG QUALITATIVE Negative Normal Negative [facility] Comment on above: Order Comment: Speci men Type: BLOOD SPECIMEN Ordering Facility: [facility] Address: [address] [place] [address] Performed By: #### 2 9374-6, 92221-2, 21366-9, 71077-9, 53269-9, 39704-1, ANAIFR, 42682-7, 33570-4, 54279-7, 19553-5, 70436-3 #### [facility] CLIA [id number] [address] [place] [address] [place] ACTIN SMOOTH MUSCLE IGG QUANTITATIVE 7 Units Normal <20 [facility] Comment on above: Order Comment: Speci men Type: BLOOD SPECIMEN Ordering Facility: [facility] Address: [address] [place] [address] Performed By: #### 2 9374-6, 53133-1, 88003-9, 99908-5, 94025-1, 75722-1, ANAIFR, 40369-9, 26299-9, 15587-5, 10416-7, 85197-0 #### [facility] CLIA [id number] [address] [place] [address] [place] dsDNA Ab Ser IA-aCncon 09-21 DNA double strand Ab IA Qn (S) <12 Normal <30 [facility] Comment on above: Order Comment: Speci men Type: BLOOD SPECIMEN Ordering Facility: [facility] Address: [address] [place] [address] Result Comment: Nega tive for ds DNA Antibodies. <30 IU/mL Negative 30-74 IU/mL Equivocal >74 IU/mL Positive Performed By: #### 2 9374-6, 80322-7, 27219-0, 79268-2, 43909-0, 85883-7, ANAIFR, 05693-7, 61542-9, 24284-3, 68663-2, 17448-0 #### [facility] CLIA [id number] [facility] [place] [address] [place] CBC AUTO DIFFon 09-13-2022 BASO # 0.0 103/ul Normal 0.0-0.1 [facility] Comment on above: Performed By: #### C BC #### [facility] [address] [place] [address] Dr. Karl Wiley Basophils/100 WBC (Bld) 0.4 % Normal 0.2-2.0 [facility] Comment on above: Performed By: #### C BC #### [facility] [address] [place] [address] Dr. Karl Wiley EO # 0.1 103/ul Normal 0.0-0.7 [facility] Comment on above: Performed By: #### C BC #### [facility] [address] [place] [address] Dr. Karl Wiley Eosinophils/100 WBC (Bld) 2.6 % Normal 0.9-7.0 [facility] Comment on above: Performed By: #### C BC #### [facility] [address] [place] [address] Dr. Karl Wiley Erythrocyte distribution width (RBC) [Ratio] 12.3 % Normal 11.0-15.0 [facility] Comment on above: Performed By: #### C BC #### [facility] [address] [place] [address] Dr. Karl Wiley Hematocrit (Bld) [Volume fraction] 38.6 % Normal 36.0-48.0 [facility] Comment on above: Performed By: #### C BC #### [facility] [address] [place] [address] Dr. Karl Wiley Hemoglobin (Bld) [Mass/Vol] 12.7 g/dL Normal 12.0-16.0 [facility] Comment on above: Performed By: #### C BC #### [facility] [address] [place] [address] Dr. Karl Wiley IG # 0.00 10e3/ul Normal 0.00-0.03 [facility] Comment on above: Performed By: #### C BC #### [facility] [address] [place] [address] Dr. Karl Wiley IG % 0.0 % Normal 0.0-0.5 [facility] Comment on above: Performed By: #### C BC #### [facility] [address] [place] [address] Dr. Karl Wiley LYMPH # 1.3 103/ul Normal 1.2-3.8 [facility] Comment on above: Performed By: #### C BC #### [facility] [address] [place] [address] Dr. Karl Wiley Lymphocytes/100 WBC (Bld) 29.4 % Normal 20.5-60.0 [facility] Comment on above: Performed By: #### C BC #### [facility] [address] [place] [address] Dr. Karl Wiley MANUAL DIFF REQ NO Normal [facility] Comment on above: Performed By: #### C BC #### [facility] [address] [place] [address] Dr. Karl Wiley MCH (RBC) [Entitic mass] 30.1 pg Normal 26.7-34.0 [facility] Comment on above: Performed By: #### C BC #### [facility] [address] [place] [address] Dr. Karl Wiley MCHC (RBC) [Mass/Vol] 32.9 g/dL Normal 29.9-35.2 [facility] Comment on above: Performed By: #### C BC #### [facility] [address] [place] [address] Dr. Karl Wiley MCV (RBC) [Entitic vol] 91.5 fL Normal 81.0-99.0 [facility] Comment on above: Performed By: #### C BC #### [facility] [address] [place] [address] Dr. Karl Wiley MONO # 0.3 103/ul Normal 0.3-0.8 [facility] Comment on above: Performed By: #### C BC #### [facility] [address] [place] [address] Dr. Karl Wiley Monocytes/100 WBC (Bld) 7.3 % Normal 1.7-12.0 [facility] Comment on above: Performed By: #### C BC #### [facility] [address] [place] [address] Dr. Karl Wiley NEUT # 2.7 103/ul Normal 1.4-6.5 [facility] Comment on above: Performed By: #### C BC #### [facility] [address] [place] [address] Dr. Karl Wiley Neutrophils/100 WBC (Bld) 60.3 % Normal 43.0-75.0 [facility] Comment on above: Performed By: #### C BC #### [facility] [address] [place] [address] Dr. Karl Wiley Platelet mean volume (Bld) [Entitic vol] 11.2 fL Normal 9.5-13.5 [facility] Comment on above: Performed By: #### C BC #### [facility] [address] [place] [address] Dr. Karl Wiley PLT 212 103/ul Normal 150-450 [facility] Comment on above: Performed By: #### C BC #### [facility] [address] [place] [address] Dr. Karl Wiley RBC 4.22 106/ul Normal 4.20-5.40 [facility] Comment on above: Performed By: #### C BC #### [facility] [address] [place] [address] Dr. Karl Wiley WBC 4.5 103/ul Normal 4.0-11.0 [facility] Comment on above: Performed By: #### C BC #### [facility] [address] [place] [address] Dr. Karl Wiley FERRITINon 09-13-2022 Ferritin [Mass/Vol] 211.0 ng/mL Normal 8.0-252.0 [facility] Comment on above: Performed By: #### F ERR, IRON #### [facility] [address] [place] [address] Dr. Karl Wiley GLYCOHEMOGLOBIN A1Con 2022 ADA RECOMMENDATION SEE BELOW Normal [facility] Comment on above: Result Comment: ADA RECOMMENDED LIMIT 4.0 - 6.0 ADA THERAPEUTIC TARGET < 7.0 ACTION SUGGESTED > 7.0 Performed By: #### F ERR, IRON #### [facility] [address] [place] [address] Dr. Karl Wiley Glucose [Mass/Vol] 140 mg/dL Normal [facility] Comment on above: Performed By: #### F ERR, IRON #### [facility] [address] [address] [address] Karl Wiley HbA1c (Bld) [Mass fraction] 6.5 % Critically high 4.5-6.2 [facility] Comment on above: Performed By: #### F ERR, IRON #### [facility] [address] [place] [address] Dr. Karl Wiley IRONon 09-13-2022 Iron [Mass/Vol] 94.0 ug/dL Normal 50.0-170.0 [facility] Comment on above: Performed By: #### F ERR, IRON #### [facility] [address] [address] [address] Karl Wiley MICROALB CREAT RATIO RANDOMo n 09-13-2022 mALB 2.8 mg/dL Normal <=30.0 [facility] Comment on above: Performed By: #### F ERR, IRON #### [facility] [address] [address] [address] Karl Wiley MALB CR RATIO 15.0 mg/g Normal 0.0-29.9 [facility] Comment on above: Performed By: #### F ERR, IRON #### [facility] [address] [address] [address] Karl Wiley MALB CR RATIO RANGE SEE BELOW Normal [facility] Comment on above: Result Comment: NO M ICROALBUMINURIA 0-29 MG/G CLINICAL MICROALBUMINURIA 30-300 MG/G MACROALBUMINURIA >300 MG/G Performed By: #### F ERR, IRON #### [facility] [address] [place] [address] Dr. Karl Wiley URINE CREAT 186.62 mg/dL Normal 20.00-300.00 [facility] Comment on above: Performed By: #### F ERR, IRON #### [facility] [address] [place] [address] Dr. Karl Wiley PROF 14(COMP METB)on 023 Albumin [Mass/Vol] 4.0 g/dL Normal 3.4-5.0 [facility] Comment on above: Performed By: #### F ERR, IRON #### [facility] [facility] [address] [place] [address] Dr. Karl Wiley Albumin/Globulin [Mass ratio] 0.9 {ratio} Normal [facility] Comment on above: Performed By: #### F ERR, IRON #### [facility] [address] [place] [address] Dr. Karl Wiley ALP [Catalytic activity/Vol] 124 U/L Critically high 46-116 [facility] Comment on above: Performed By: #### F ERR, IRON #### [facility] [address] [place] [address] Dr. Karl Wiley ALT [Catalytic activity/Vol] 78 U/L Critically high 14-59 [facility] Comment on above: Performed By: #### F ERR, IRON #### [facility] [address] [place] [address] Dr. Karl Wiley Anion gap [Moles/Vol] 13.4 mmol/L Normal [facility] Comment on above: Performed By: #### F ERR, IRON #### [facility] [address] [place] [address] Dr. Karl Wiley AST [Catalytic activity/Vol] 32 U/L Normal 15-37 [facility] Comment on above: Performed By: #### F ERR, IRON #### [facility] [address] [place] [address] Dr. Karl Wiley Bilirubin [Mass/Vol] 0.6 mg/dL Normal 0.2-1.0 [facility] Comment on above: Performed By: #### F ERR, IRON #### [facility] [address] [place] [address] Dr. Karl Wiley Calcium [Mass/Vol] 9.2 mg/dL Normal 8.5-10.1 [facility] Comment on above: Performed By: #### F ERR, IRON #### [facility] [address] [place] [address] Dr. Karl Wiley Chloride [Moles/Vol] 107 mmol/L Normal 98-107 [facility] Comment on above: Performed By: #### F ERR, IRON #### [facility] [address] [place] [address] Dr. Karl Wiley CO2 [Moles/Vol] 28.6 mmol/L Normal 21.0-32.0 [facility] Comment on above: Performed By: #### F ERR, IRON #### [facility] [address] [place] [address] Dr. Karl Wiley Creatinine [Mass/Vol] 0.72 mg/dL Normal 0.55-1.02 [facility] Comment on above: Performed By: #### F ERR, IRON #### [facility] [address] [place] [address] Dr. Karl Wiley EGFR-AF GHANAIAN >60 Normal >=60 [facility] Comment on above: Performed By: #### F ERR, IRON #### [facility] [address] [place] [address] Dr. Karl Wiley EGFR-NON AF GHANAIAN >60 Normal >=60 [facility] Comment on above: Performed By: #### F ERR, IRON #### [facility] [address] [place] [address] Dr. Karl Wiley Globulin (S) [Mass/Vol] 4.4 g/dL Normal [facility] Comment on above: Performed By: #### F ERR, IRON #### [facility] [address] [place] [address] Dr. Karl Wiley Glucose [Mass/Vol] 100 mg/dL Normal 74-106 [facility] Comment on above: Performed By: #### F ERR, IRON #### [facility] [address] [place] [address] Dr. Karl Wiley Potassium [Moles/Vol] 4.0 mmol/L Normal 3.5-5.1 [facility] Comment on above: Performed By: #### F ERR, IRON #### [facility] [address] [place] [address] Dr. Karl Wiley Protein [Mass/Vol] 8.4 g/dL Critically high 6.4-8.2 [facility] Comment on above: Performed By: #### F ERR, IRON #### [facility] [address] [place] [address] Dr. Karl Wiley Sodium [Moles/Vol] 145 mmol/L Normal 136-145 [facility] Comment on above: Performed By: #### F ERR, IRON #### [facility] [address] [place] [address] Dr. Karl Wiley Urea nitrogen [Mass/Vol] 10.0 mg/dL Normal 7.0-18.0 [facility] Comment on above: Performed By: #### F ERR, IRON #### [facility] [address] [place] [address] Dr. Karl Wiley Urea nitrogen/Creatinine [Mass ratio] 13.9 mg/mg Normal [facility] Comment on above: Performed By: #### F ERR, IRON #### [facility] [address] [place] [address] Dr. Karl Wiley Physician Referralon 023 Physician Referral [id number] Normal [facility] HEPATITIS PANEL, ACUTEon HBsAg Screen Negative Normal Negative [facility] Comment on above: Performed By: #### F ERR, IRON #### [facility] [address] [place] [address] Dr. Karl Wiley HCV AB Non-Reactive Normal Non Reactive [facility] Comment on above: Performed By: #### F ERR, IRON #### [facility] [address] [place] [address] Dr. Karl Wiley Hep A Ab, IgM Negative Normal Negative [facility] Comment on above: Performed By: #### F ERR, IRON #### [facility] [address] [place] [address] Dr. Karl Wiley Hep B Core Ab, IgM Negative Normal Negative [facility] Comment on above: Performed By: #### F ERR, IRON #### [facility] [address] [place] [address] Dr. Karl Wiley Interpretation: Comment Normal [facility] Comment on above: Result Comment: Not infected with HCV unless early or acute infection is suspected (which may be delayed in an immunocompromised individual), or other evidence exists to indicate HCV infection. Performed By: #### F ERR, IRON #### [facility] [address] [place] [address] Dr. Karl Wiley AMYLASEon 07-25-2022 Amylase [Catalytic activity/Vol] 51 U/L Normal 25-115 [facility] Comment on above: Performed By: #### F ERR, IRON #### [facility] [address] [place] [address] Dr. Karl Wiley CBC AUTO DIFFon 07-25-2022 BASO # 0.0 103/ul Normal 0.0-0.1 [facility] Comment on above: Performed By: #### C BC #### [facility] [address] [place] [address] Dr. Karl Wiley Basophils/100 WBC (Bld) 0.3 % Normal 0.2-2.0 [facility] Comment on above: Performed By: #### C BC #### [facility] [address] [place] [address] Dr. Karl Wiley EO # 0.1 103/ul Normal 0.0-0.7 [facility] Comment on above: Performed By: #### C BC #### [facility] [address] [place] [address] Dr. Karl Wiley Eosinophils/100 WBC (Bld) 1.9 % Normal 0.9-7.0 [facility] Comment on above: Performed By: #### C BC #### [facility] [address] [place] [address] Dr. Karl Wiley Erythrocyte distribution width (RBC) [Ratio] 12.7 % Normal 11.0-15.0 [facility] Comment on above: Performed By: #### C BC #### [facility] [address] [place] [address] Dr. Karl Wiley Hematocrit (Bld) [Volume fraction] 39.7 % Normal 36.0-48.0 [facility] Comment on above: Performed By: #### C BC #### [facility] [address] [place] [address] Dr. Karl Wiley Hemoglobin (Bld) [Mass/Vol] 13.1 g/dL Normal 12.0-16.0 [facility] Comment on above: Performed By: #### C BC #### [facility] [address] [place] [address] Dr. Karl Wiley IG # 0.01 10e3/ul Normal 0.00-0.03 [facility] Comment on above: Performed By: #### C BC #### [facility] [address] [place] [address] Dr. Karl Wiley IG % 0.1 % Normal 0.0-0.5 [facility] Comment on above: Performed By: #### C BC #### [facility] [address] [place] [address] Dr. Karl Wiley LYMPH # 1.9 103/ul Normal 1.2-3.8 [facility] Comment on above: Performed By: #### C BC #### [facility] [address] [place] [address] Dr. Karl Wiley Lymphocytes/100 WBC (Bld) 27.3 % Normal 20.5-60.0 [facility] Comment on above: Performed By: #### C BC #### [facility] [address] [place] [address] Dr. Karl Wiley MANUAL DIFF REQ NO Normal [facility] Comment on above: Performed By: #### C BC #### [facility] [address] [place] [address] Dr. Karl Wiley MCH (RBC) [Entitic mass] 29.6 pg Normal 26.7-34.0 [facility] Comment on above: Performed By: #### C BC #### [facility] [address] [address] [address] Karl Wiley MCHC (RBC) [Mass/Vol] 33.0 g/dL Normal 29.9-35.2 [facility] Comment on above: Performed By: #### C BC #### [facility] [address] [address] [address] Karl Wiley MCV (RBC) [Entitic vol] 89.6 fL Normal 81.0-99.0 [facility] Comment on above: Performed By: #### C BC #### [facility] [address] [place] [address] Dr. Karl Wiley MONO # 0.7 103/ul Normal 0.3-0.8 [facility] Comment on above: Performed By: #### C BC #### [facility] [address] [place] [address] Dr. Karl iWley Monocytes/100 WBC (Bld) 10.3 % Normal 1.7-12.0 [facility] Comment on above: Performed By: #### C BC #### [facility] [address] [place] [address] Dr. Karl Wiley NEUT # 4.1 103/ul Normal 1.4-6.5 [facility] Comment on above: Performed By: #### C BC #### [facility] [address] [place] [address] Dr. Karl Wiley Neutrophils/100 WBC (Bld) 60.1 % Normal 43.0-75.0 [facility] Comment on above: Performed By: #### C BC #### [facility] [address] [address] [address] Karl Wiley Platelet mean volume (Bld) [Entitic vol] 10.8 fL Normal 9.5-13.5 [facility] Comment on above: Performed By: #### C BC #### [facility] [address] [place] [address] Dr. Karl Wiley PLT 274 103/ul Normal 150-450 [facility] Comment on above: Performed By: #### C BC #### [facility] [address] [place], [place] [address] Dr. Karl Wiley RBC 4.43 106/ul Normal 4.20-5.40 [facility] Comment on above: Performed By: #### C BC #### [facility] [address] [place], [place] [address] Dr. Karl Wiley WBC 6.9 103/ul Normal 4.0-11.0 [facility] Comment on above: Performed By: #### C BC #### [facility] [address] [place], [place] [address] ABD/PELVIS WO CONon 07-25 CT ABD/PELVIS WO CON EXAMINATION:CT ABD/PELVIS WO CON INDICATION:UNSPECIFIE D ABDOMINAL PAIN COMPARISON:None TECHNIQUE:Multiple thin section transaxial slices were acquired through the abdomen and pelvis without intravenous contrast. Coronal and sagittal reconstructed images were reviewed. Oral contrastWas not administered. FINDINGS: LOWER CHEST: There is a pleural-based nodular density in the right lung base measuring 9 mm. LIVER: The liver is enlarged measuring 19.8 cm in craniocaudad extent. There is very severe diffuse hepatic steatosis with focal fatty sparing along the gallbladder fossa. GALLBLADDER AND BILIARY SYSTEM: No obvious ductal dilation. No calcified stones. SPLEEN: The spleen is unremarkable. PANCREAS: The pancreas is unremarkable. ADRENAL GLANDS: The adrenal glands are unremarkable. KIDNEYS AND URETERS: There is no hydronephrosis of the kidneys.There is a calcification located anterior to the left mid ureter which is felt to be vascular in nature. No obstructing urologic calcifications are identified in either ureter. VASCULATURE: Vascularity is unremarkable. PERITONEUM/RETROPERIT ONEUM: Peritoneum/retroperit oneum is unremarkable. LYMPH NODES: No suspicious lymphadenopathy. GASTROINTESTINAL TRACT: The bowel is normal in caliber.No acute inflammatory changes are associated with the bowel.The appendix is not visualized and may be absent or diminutive. BLADDER: The urinary bladder is unremarkable. REPRODUCTIVE SYSTEM: The uterus is absent. BODY WALL: There is a tiny fat-containing umbilical hernia. BONES: Osseous structures are unremarkable. IMPRESSION: 1. There is hepatomegaly and very severe diffuse hepatic steatosis. 2. No acute inflammatory process or obstructive uropathy is identified. Electronically authenticated by: FABY GODINEZ Date: 2022-07-25 00:57 Normal [facility] URINE PROFILEon 3 Bilirubin Ql (U) Negative Normal NEGATIVE [facility] Comment on above: Performed By: #### F ERR, IRON #### [facility] [address] [place] [address] Dr. Karl Wiley Clarity (U) CLEAR Normal CLEAR [facility] Comment on above: Performed By: #### F ERR, IRON #### [facility] [address] [address] [address] Karl Wiley Color (U) LT. YELLOW Normal YELLOW [facility] Comment on above: Performed By: #### F ERR, IRON #### [facility] [address] [place] [address] Dr. Karl YOUNG A micrscopic examination will be performed if indicated. Normal [facility] Comment on above: Performed By: #### F ERR, IRON #### [facility] [address] [address] [address] Karl Wiley Glucose Ql (U) Negative Normal NEGATIVE [facility] Comment on above: Performed By: #### F ERR, IRON #### [facility] [address] [place] [address] Dr. Karl Wiley Hemoglobin Ql (U) Negative Normal NEGATIVE [facility] Comment on above: Performed By: #### F ERR, IRON #### [facility] [address] [place] [address] Dr. Karl Wiley Ketones Ql (U) Negative Normal NEGATIVE [facility] Comment on above: Performed By: #### F ERR, IRON #### [facility] [address] [place] [address] Dr. Karl Wiley LEUKOCYTES Negative Normal NEGATIVE [facility] Comment on above: Performed By: #### F ERR, IRON #### [facility] [address] [place] [address] Dr. Karl Wiley Nitrite Ql (U) Negative Normal NEGATIVE [facility] Comment on above: Performed By: #### F ERR, IRON #### [facility] [address] [place] [address] Dr. Karl Wiley pH (U) 6.0 [pH] Normal 5-9 [facility] Comment on above: Performed By: #### F ERR, IRON #### [facility] [address] [place] [address] Dr. Karl Wiley SPEC GRAVITY <=1.005 Abnormal 1.005-<=1.025 [facility] Comment on above: Performed By: #### F ERR, IRON #### [facility] [address] [place] [address] Dr. Karl Wiley UA PROTEIN Negative Normal NEGATIVE/ TRACE [facility] Comment on above: Performed By: #### F ERR, IRON #### [facility] [address] [place] [address] Dr. Karl Wiley UR MICRO IND NOT INDICATED Normal [facility] Comment on above: Performed By: #### F ERR, IRON #### [facility] [address] [place] [address] Dr. Karl Wiley Urobilinogen Qn (U) 0.2 {Wilson'U}/dL Normal 0.2 - 1. 0 [facility] Comment on above: Performed By: #### F ERR, IRON #### [facility] [address] [place] [address] Dr. Karl Wiley LIPASEon 07-25-2022 Lipase [Catalytic activity/Vol] 63.0 U/L Critically low 73.0-393.0 [facility] Comment on above: Performed By: #### F ERR, IRON #### [facility] [address] [place] [address] Dr. Karl Wiley PROF 14(COMP METB)on 023 Albumin [Mass/Vol] 4.1 g/dL Normal 3.4-5.0 [facility] Comment on above: Performed By: #### F ERR, IRON #### [facility] [address] [place] [address] Dr. Karl Wiley Albumin/Globulin [Mass ratio] 1.0 {ratio} Normal [facility] Comment on above: Performed By: #### F ERR, IRON #### [facility] [address] [address] [address] Karl Wiley ALP [Catalytic activity/Vol] 141 U/L Critically high 46-116 [facility] Comment on above: Performed By: #### F ERR, IRON #### [facility] [address] [address] [address] Karl Wiley ALT [Catalytic activity/Vol] 598 U/L Critically high 14-59 [facility] Comment on above: Performed By: #### F ERR, IRON #### [facility] [address] [place] [address] [address] Karl Wiley Anion gap [Moles/Vol] 19.5 mmol/L Normal [facility] Comment on above: Performed By: #### F ERR, IRON #### [facility] [address] [place] [address] [address] Karl Wiley AST [Catalytic activity/Vol] 212 U/L Critically high 15-37 [facility] Comment on above: Performed By: #### F ERR, IRON #### [facility] [address] [address] [address] Karl Wiley Bilirubin [Mass/Vol] 0.6 mg/dL Normal 0.2-1.0 [facility] Comment on above: Performed By: #### F ERR, IRON #### [facility] [address] [address] [address] Karl Wiley Calcium [Mass/Vol] 9.0 mg/dL Normal 8.5-10.1 [facility] Comment on above: Performed By: #### F ERR, IRON #### [facility] [address] [address] [address] Karl Wiley Chloride [Moles/Vol] 104 mmol/L Normal 98-107 [facility] Comment on above: Performed By: #### F ERR, IRON #### [facility] [address] [address] [address] Karl Wiley CO2 [Moles/Vol] 21.9 mmol/L Normal 21.0-32.0 [facility] Comment on above: Performed By: #### F ERR, IRON #### [facility] [address] [address] [address] Karl Wiley Creatinine [Mass/Vol] 0.66 mg/dL Normal 0.55-1.02 [facility] Comment on above: Performed By: #### F ERR, IRON #### [facility] [address] [address] [address] Karl Wiley EGFR-AF GHANAIAN >60 Normal >=60 [facility] Comment on above: Performed By: #### F ERR, IRON #### [facility] [address] [address] [address] Karl Wiley EGFR-NON AF GHANAIAN >60 Normal >=60 [facility] Comment on above: Performed By: #### F ERR, IRON #### [facility] [address] [address] [address] Karl Wiley Globulin (S) [Mass/Vol] 4.2 g/dL Normal [facility] Comment on above: Performed By: #### F ERR, IRON #### [facility] [address] [address] [address] Karl Wiley Glucose [Mass/Vol] 160 mg/dL Critically high 74-106 [facility] Comment on above: Performed By: #### F ERR, IRON #### [facility] [address] [place] [address] [address] Karl Wiley Potassium [Moles/Vol] 3.4 mmol/L Critically low 3.5-5.1 [facility] Comment on above: Performed By: #### F ERR, IRON #### [facility] [address] [address] [address] Karl Wiley Protein [Mass/Vol] 8.3 g/dL Critically high 6.4-8.2 [facility] Comment on above: Performed By: #### F ERR, IRON #### [facility] [address] [place] [address] [address] Karl Wiley Sodium [Moles/Vol] 142 mmol/L Normal 136-145 [facility] Comment on above: Performed By: #### F ERR, IRON #### [facility] [address] [place], [place] [address] Dr. Karl Wiley Urea nitrogen [Mass/Vol] 11.0 mg/dL Normal 7.0-18.0 [facility] Comment on above: Performed By: #### F ERR, IRON #### [facility] [address] [place], [place] [address] Dr. Karl Wiley Urea nitrogen/Creatinine [Mass ratio] 16.7 mg/mg Normal [facility] Comment on above: Performed By: #### F ERR, IRON #### [facility] [address] [place], [place] [address] Dr. Karl Wiley US THYROIDon 07-12-2022 US THYROID EXAMINATION: US THYROID HISTORY: Autoimmune thyroiditis COMPARISON: Ultrasound thyroid 10/12/2021; ultrasound thyroid biopsy 01/06/2022 FINDINGS: RIGHT LOBE: 5 mm TR 4 nodules; one within superior pole and one within mid body. 10 mm TR 5 nodule within inferior pole which is stable, and was recently biopsied. Lobe size: 5.2 x 1.5 x 1.3 cm LEFT LOBE: 9 mm TR 4 nodule within mid body. Lobe size: 4.3 x 1.1 x 1.3 cm ISTHMUS: Normal size and echotexture. Thickness: 3 mm IMPRESSION: 1. Stable appearance of thyroid gland and nodules. Follow-up imaging in one year recommended. TR5 (highly suspicious): > 0.5 cm. Annual ultrasound follow-up for up to 5 years. > 1.0 cm. FNA. TR4 (moderately suspicious): If > 1.0 cm Follow-up ultrasound in 1, 2, 3, and 5 years. If > 1.5 cm fine needle aspiration (FNA). Electronically authenticated by: ANTHONY RODRIGEZ Date: 2022-07-12 15:47 Normal [facility] FREE T4on 07-05-2022 Free T4 [Mass/Vol] 0.91 ng/dL Normal 0.76-1.46 [facility] Comment on above: Performed By: #### F ERR, IRON #### [facility] [address] [place], [place] [address] Dr. Karl Wiley GLYCOHEMOGLOBIN A1Con 2022 ADA RECOMMENDATION SEE BELOW Normal [facility] Comment on above: Result Comment: ADA RECOMMENDED LIMIT 4.0 - 6.0 ADA THERAPEUTIC TARGET < 7.0 ACTION SUGGESTED > 7.0 Performed By: #### A 1C #### [facility] [address] [place] [address] Dr. Karl Wiley Glucose [Mass/Vol] 183 mg/dL Normal [facility] Comment on above: Performed By: #### A 1C #### [facility] [address] [place] [address] Dr. Karl Wiley HbA1c (Bld) [Mass fraction] 8.0 % Critically high 4.5-6.2 [facility] Comment on above: Performed By: #### A 1C #### [facility] [address] [place] [address] Dr. Karl Wiley PROF 14(COMP METB)on 023 Albumin [Mass/Vol] 4.0 g/dL Normal 3.4-5.0 [facility] Comment on above: Performed By: #### C ROXY, TSH #### [facility] [address] [place] [address] Dr. Karl Wiley Albumin/Globulin [Mass ratio] 1.0 {ratio} Normal [facility] Comment on above: Performed By: #### C ORXY, TSH #### [facility] [address] [place] [address] Dr. Karl Wiley ALP [Catalytic activity/Vol] 172 U/L Critically high 46-116 [facility] Comment on above: Performed By: #### C MP, TSH #### [facility] [address] [place] [address] Dr. Karl Wiley ALT [Catalytic activity/Vol] 234 U/L Critically high 14-59 [facility] Comment on above: Performed By: #### C MP, TSH #### [facility] [address] [place] [address] Dr. Karl Wiley Anion gap [Moles/Vol] 12.7 mmol/L Normal [facility] Comment on above: Performed By: #### C MP, TSH #### [facility] [address] [place] [address] Dr. Karl Wiley AST [Catalytic activity/Vol] 90 U/L Critically high 15-37 [facility] Comment on above: Performed By: #### C MP, TSH #### [facility] [address] [place] [address] [address] Karl Wiley Bilirubin [Mass/Vol] 0.5 mg/dL Normal 0.2-1.0 [facility] Comment on above: Performed By: #### C MP, TSH #### [facility] [address] [place] [address] [address] Karl Wiley Calcium [Mass/Vol] 9.1 mg/dL Normal 8.5-10.1 [facility] Comment on above: Performed By: #### C MP, TSH #### [facility] [address] [place] [address] Dr. Karl Wiley Chloride [Moles/Vol] 104 mmol/L Normal 98-107 [facility] Comment on above: Performed By: #### C MP, TSH #### [facility] [address] [place] [address] Dr. Karl Wiley CO2 [Moles/Vol] 28.4 mmol/L Normal 21.0-32.0 [facility] Comment on above: Performed By: #### C MP, TSH #### [facility] [address] [place] [address] Dr. Karl Wiley Creatinine [Mass/Vol] 0.59 mg/dL Normal 0.55-1.02 [facility] Comment on above: Performed By: #### C MP, TSH #### [facility] [address] [place] [address] Dr. Karl Wiley EGFR-AF GHANAIAN >60 Normal >=60 [facility] Comment on above: Performed By: #### C MP, TSH #### [facility] [address] [place] [address] Dr. Karl Wiley EGFR-NON AF GHANAIAN >60 Normal >=60 [facility] Comment on above: Performed By: #### C MP, TSH #### [facility] [address] [place] [address] Dr. Karl Wiley Globulin (S) [Mass/Vol] 4.0 g/dL Normal [facility] Comment on above: Performed By: #### C MP, TSH #### [facility] [address] [place] [address] Dr. Karl Wiley Glucose [Mass/Vol] 160 mg/dL Critically high 74-106 [facility] Comment on above: Performed By: #### C MP, TSH #### [facility] [address] [place] [address] Dr. Karl Wiley Potassium [Moles/Vol] 4.1 mmol/L Normal 3.5-5.1 [facility] Comment on above: Performed By: #### C MP, TSH #### [facility] [address] [place] [address] Dr. Karl Wiley Protein [Mass/Vol] 8.0 g/dL Normal 6.4-8.2 [facility] Comment on above: Performed By: #### C MP, TSH #### [facility] [address] [place] [address] Dr. Karl Wiley Sodium [Moles/Vol] 141 mmol/L Normal 136-145 [facility] Comment on above: Performed By: #### C MP, TSH #### [facility] [address] [place] [address] Dr. Karl Wiley Urea nitrogen [Mass/Vol] 12.0 mg/dL Normal 7.0-18.0 [facility] Comment on above: Performed By: #### C MP, TSH #### [facility] [address] [place] [address] Dr. Karl Wiley Urea nitrogen/Creatinine [Mass ratio] 20.3 mg/mg Normal [facility] Comment on above: Performed By: #### C MP, TSH #### [facility] [address] [place] [address] Dr. Karl Wiley TSHon 07-05-2022 TSH 6.031 uIU/mL Critically high 0.358-3.740 [facility] Comment on above: Performed By: #### C MP, TSH #### [facility] [address] [address] [address] Karl Wilye VITAMIN D 25 OHon 07-05-2022 VIT D 25-OH 41.8 ng/mL Normal [facility] Comment on above: Performed By: #### F ERR, IRON #### [facility] [address] [place] [address] Dr. Karl Wiley VIT D RANGES SEE BELOW Normal [facility] Comment on above: Result Comment: <20 ng/mL Vit D deficient 20 - <30 ng/mL Vit D insufficient 30 - 100 ng/mL Vit D sufficient >100 ng/mL Potential Toxicity Performed By: #### F ERR, IRON #### [facility] [address] [place] [address] Dr. Karl Wiley SYMPTOMATIC COVID-19 ANTIGEN on 02-28-2022 EUA Statement SEE BELOW Normal [facility] Comment on above: Result Comment: This test has not been FDA cleared or approved, but has been authorized by the FDA under an Emergency Use Authorization (EUA) for use by authorized laboratories certified under CLIA that meet the requirements to perform moderate or high complexity testing. This test has been authorized only for the detection of proteins from SARS-CoV-2, not for any other viruses or pathogens. The emergency use of this test is authorized for the duration of the declaration that circumstances exist justifying the authorization of emergency use of in vitro diagnostic tests for detection and/or diagnosis of Covid-19 under section 564(b)(1) of the Act, 21 U.S.C. 360bbb-3(b)(1), unless the declaration is terminated or authorization is revoked sooner. Performed By: #### C VDAGS #### [facility] [address] [place] [address] Dr. Karl Wiley SARS-CoV-2 (COVID-19) RNA VICTOR HUGO+probe Ql (Unsp spec) Negative Normal NEGATIVE [facility] Comment on above: Performed By: #### C VDAGS #### [facility] [address] [place] [address] Dr. Karl Wiley US THYROID FN ASP BXon 01-13 US THYROID FN ASP BX Begin Addendum #1 COLLECTED DATE/TIME: 01/06/2022, 08:54 EDT Final Diagnosis Report for [facility] [place], [place] (A/B) RIGHT INFERIOR THYROID NODULE; FINE NEEDLE ASPIRATION: - HYPOCELLULAR FOLLICULAR CELLS, INSUFFICIENT FOR DEFINITE DIAGNOSIS, SEE NOTE, NOTE: Blood, fibrin and a few crushed follicular cells are seen. A repeat aspiration should be considered if clinically indicated. 01/10/[address] Sánchez. 01/11/2022 Verified with Erika that report was present in the office. Original Report EXAMINATION: US THYROID FN ASP BX HISTORY: Thyroid nodule COMPARISON: Ultrasound thyroid 10/12/2021 TECHNIQUE: After obtaining informed consent, ultrasound-guided fine needle aspiration was performed in the usual sterile manner. FINDINGS: IMAGING: Ultrasound. BIOPSY NEEDLE: 25-gauge; 3 separate passes LOCATION: Right lobe inferior pole 11 mm nodule with central calcification. SPECIMEN TYPE: Cellular tissue. LOCAL ANESTHETIC: Buffered Xylocaine. COMPLICATIONS: None. LABORATORY: Prepared slide smears and washings for cell block evaluation. OTHER: Negative. PATHOLOGY: Pending. An addendum will be added when results are available. IMPRESSION: 1. Uneventful ultrasound guided fine needle aspiration (FNA). 2. Pathology results are pending. Normal [facility] 25-HYDROXY VIT D (D2+D3 FRAC ) LC/MS-MSon 12-24-2021 25-Hydroxy, Vitamin D 32 ng/mL Normal [facility] Comment on above: Result Comment: Refe rence Range: All Ages: Target levels 30 - 100 Performed By: #### F ERR, IRON #### [facility] [address] [place], [place] [address] Dr. Karl Wiley 25-Hydroxy, Vitamin D-2 4.3 ng/mL Normal [facility] Comment on above: Result Comment: This test was developed and its performance characteristics determined by [employer]. It has not been cleared or approved by the Food and Drug Administration. Performed By: #### F ERR, IRON #### [facility] [address] [place], [place] [address] Dr. Karl Wiley 25-Hydroxy, Vitamin D-3 28 ng/mL Normal [facility] Comment on above: Result Comment: This test was developed and its performance characteristics determined by [facility]. It has not been cleared or approved by the Food and Drug Administration. Performed By: #### F ERR, IRON #### [facility] [address] [place] [address] Dr. Karl Wiley THYROGLOBULIN ABon Thyroglobulin Antibody 2.7 IU/mL Critically high 0.0-0.9 [facility] Comment on above: Result Comment: Thyr oglobulin Antibody measured by [employer] Performed By: #### T HYGAB #### [facility] [address] [place] [address] Dr. Karl Wiley THYROID PEROXIDASE ABon 11-30 Thyroid Peroxidase (TPO) Ab 317 IU/mL Critically high 0-34 [facility] Comment on above: Performed By: #### F ERR, IRON #### [facility] [address] [place] [address] Dr. Karl Wiley FREE T4on 12-21-2021 Free T4 [Mass/Vol] 0.98 ng/dL Normal 0.76-1.46 [facility] Comment on above: Performed By: #### F ERR, IRON #### [facility] [address] [place] [address] Dr. Karl Wiley GLYCOHEMOGLOBIN A1Con 2021 ADA RECOMMENDATION SEE BELOW Normal [facility] Comment on above: Result Comment: ADA RECOMMENDED LIMIT 4.0 - 6.0 ADA THERAPEUTIC TARGET < 7.0 ACTION SUGGESTED > 7.0 Performed By: #### A 1C #### [facility] [address] [place] [address] Dr. Karl Wiley Glucose [Mass/Vol] 146 mg/dL Normal [facility] Comment on above: Performed By: #### A 1C #### [facility] [address] [place] [address] Dr. Karl Wiley HbA1c (Bld) [Mass fraction] 6.7 % Critically high 4.5-6.2 [facility] Comment on above: Performed By: #### A 1C #### [facility] [address] [place] [address] Dr. Karl Wiley PROF 14(COMP METB)on 022 Albumin [Mass/Vol] 4.0 g/dL Normal 3.4-5.0 [facility] Comment on above: Performed By: #### F ERR, IRON #### [facility] [address] [place] [address] Dr. Karl Wiley Albumin/Globulin [Mass ratio] 1.1 {ratio} Normal [facility] Comment on above: Performed By: #### F ERR, IRON #### [facility] [address] [place] [address] Dr. Karl Wiley ALP [Catalytic activity/Vol] 99 U/L Normal 46-116 [facility] Comment on above: Performed By: #### F ERR, IRON #### [facility] [address] [place] [address] Dr. Karl Wiley ALT [Catalytic activity/Vol] 58 U/L Normal 14-59 [facility] Comment on above: Performed By: #### F ERR, IRON #### [facility] [address] [place] [address] Dr. Karl Wiley Anion gap [Moles/Vol] 11.8 mmol/L Normal [facility] Comment on above: Performed By: #### F ERR, IRON #### [facility] [address] [place] [address] Dr. Karl Wiley AST [Catalytic activity/Vol] 24 U/L Normal 15-37 [facility] Comment on above: Performed By: #### F ERR, IRON #### [facility] [address] [place] [address] Dr. Karl Wiley Bilirubin [Mass/Vol] 0.7 mg/dL Normal 0.2-1.0 [facility] Comment on above: Performed By: #### F ERR, IRON #### [facility] [address] [place] [address] Dr. Karl Wiley Calcium [Mass/Vol] 9.2 mg/dL Normal 8.5-10.1 [facility] Comment on above: Performed By: #### F ERR, IRON #### [facility] [address] [place] [address] Dr. Karl Wiley Chloride [Moles/Vol] 104 mmol/L Normal 98-107 [facility] Comment on above: Performed By: #### F ERR, IRON #### [facility] [address] [place] [address] Dr. Karl Wiley CO2 [Moles/Vol] 29.0 mmol/L Normal 21.0-32.0 [facility] Comment on above: Performed By: #### F ERR, IRON #### [facility] [address] [place] [address] Dr. Karl Wiley Creatinine [Mass/Vol] 0.75 mg/dL Normal 0.55-1.02 [facility] Comment on above: Performed By: #### F ERR, IRON #### [facility] [address] [place] [address] Dr. Karl Wiley EGFR-AF GHANAIAN >60 Normal >=60 [facility] Comment on above: Performed By: #### F ERR, IRON #### [facility] [address] [place] [address] Dr. Karl Wiley EGFR-NON AF GHANAIAN >60 Normal >=60 [facility] Comment on above: Performed By: #### F ERR, IRON #### [facility] [address] [place] [address] Dr. Karl Wiley Globulin (S) [Mass/Vol] 3.8 g/dL Normal [facility] Comment on above: Performed By: #### F ERR, IRON #### [facility] [address] [place] [address] Dr. Karl Wiley Glucose [Mass/Vol] 124 mg/dL Critically high 74-106 [facility] Comment on above: Performed By: #### F ERR, IRON #### [facility] [address] [place] [address] Dr. Karl Wiley Potassium [Moles/Vol] 3.8 mmol/L Normal 3.5-5.1 [facility] Comment on above: Performed By: #### F ERR, IRON #### [facility] [address] [place] [address] Dr. Karl Wiley Protein [Mass/Vol] 7.8 g/dL Normal 6.4-8.2 [facility] Comment on above: Performed By: #### F ERR, IRON #### [facility] [address] [address] [address] Karl Wiley Sodium [Moles/Vol] 141 mmol/L Normal 136-145 [facility] Comment on above: Performed By: #### F ERR, IRON #### [facility] [address] [address] [address] Karl Wiley Urea nitrogen [Mass/Vol] 11.0 mg/dL Normal 7.0-18.0 [facility] Comment on above: Performed By: #### F ERR, IRON #### [facility] [address] [place] [address] Dr. Karl Wiley Urea nitrogen/Creatinine [Mass ratio] 14.7 mg/mg Normal [facility] Comment on above: Performed By: #### F ERR, IRON #### [facility] [address] [address] [address] Karl Wiley TSHon 12-21-2021 TSH 3.064 uIU/mL Normal 0.358-3.740 [facility] Comment on above: Performed By: #### F ERR, IRON #### [facility] [address] [place] [address] Dr. Karl Wiley US THYROIDon 10-13-2021 US THYROID EXAMINATION: US THYROID HISTORY: Autoimmune thyroiditis COMPARISON: No relevant comparison available. FINDINGS: RIGHT LOBE: Contains an 11 x 8 x 8 mm TR 5 nodule within the inferior pole with central calcification. Contains a 6 mm TR 4 nodule and a 5 mm TR 4 nodule within the mid body and superior pole respectively. Lobe size: 4.7 x 1.7 x 1.5 cm LEFT LOBE: Contains a 10 mm TR 4 nodule within superior pole. Lobe size: 4.3 x 1.1 x 1.2 cm ISTHMUS: Borderline thickened, but homogeneous echotexture. Thickness: 4 mm IMPRESSION: 1. Ultrasound-guided fine-needle aspiration of the right lobe TR 5 nodule should be considered. 2. Follow-up ultrasound evaluation in one year the TR 4 nodules is recommended. TR 5: The [employer] TI-RADS committee's white paper recommendations for thyroid lesions classified as TR5 (highly suspicious) are listed below: > 0.5 cm. Annual ultrasound follow-up for up to 5 years. > 1.0 cm. FNA. J. Am Kandice Radiol 2017;14:587-595. Electronically authenticated by: ANTHONY RODRIGEZ Date: 2021-10-13 09:25 Normal [facility] XR chest 1V portableon 08-11 XR chest 1V portable [facility] [place] [address] [place] [address] XRay Report Signed Patient: Estrella Martinez MR#: [id number] : 1970 Acct:[id number] Age/Sex: 50 / F ADM Date: 08/10/20 Loc: ER Room: Type: [facility] ER Attending Dr: Ordering Provider: Jennifer Stapleton Jr, MD Date of Service: 08/10/20 XR/XR chest 1V portable: Chest Pain s/p lap velasquez today Copies to: Jennifer Stapleton Jr, MD Plain film chestsingle view HISTORY:Chest pain after fluoroscopic cholecystectomy. COMPARISON:None FINDINGS:The basilar interstitial prominence is present. The cardiac, mediastinal and hilar silhouettes are within normal limits. No acute lung process, pleural effusion or pneumothorax identified. Bony structures are intact. XR/XR chest 1V portable IMPRESSION: No acute process. Nonspecific basilar interstitial prominence. Impression dictated by: Pavel Calvo M.D.08/11/2020 8:31 AM Dictation Location: [place] [address] Transcribed By: [facility] 08/11/20830 Dictated By: Pavel Calvo DO 08/11/2030 Signed By: 08/11/20830 Normal [facility] Alkaline Phosphataseon 08-10 ALP [Catalytic activity/Vol] 66 U/L Normal 32-92 [facility] Comment on above: Performed By: #### L IPASE, ALP, BILTD, BRET #### [place] [address] [place] Amylaseon 08-10-2020 Amylase [Catalytic activity/Vol] 77 U/L Normal 28-100 [facility] Comment on above: Performed By: #### L IPASE, ALP, BILTD, BRET #### [facility] [address] Bilirubin, Total and Directo n 08-10-2020 Bilirubin [Mass/Vol] 1.1 mg/dL Normal 0.3-1.2 [facility] Comment on above: Performed By: #### L IPASE, ALP, BILTD, BRET #### [facility] [address] Bilirubin,Indirect 1.0 mg/dL Normal [facility] Comment on above: Performed By: #### L IPASE, ALP, BILTD, BRET #### [facility] [address] Bilirubin.indirect [Mass/Vol] 0.1 mg/dL Normal 0.0-0.4 [facility] Comment on above: Performed By: #### L IPASE, ALP, BILTD, BRET #### [address] ECG 12 lead ECGon 08-10-2020 ECG 12 lead ECG [facility] [place] [address] [place] [address] Electrocardiograph Report Signed Patient: Estrella Martinez MR#: [id number] : 1970 Acct:[id number] Age/Sex: 50 / F ADM Date: 08/10/20 Loc: ER Room: Type: [facility] ER Attending Dr: Ordering Provider: Jennifer Stapleton Jr, MD Date of Service: 08/10/20 ECG/ECG 12 lead ECG: Chest Pain Copies to: Test Reason : Blood Pressure : 194/093 mmHG Vent. Rate : 111 BPM Atrial Rate : 111 BPM P-R Int : 160 ms QRS Dur : 076 ms QT Int : 272 ms P-R-T Axes : 058 073 -37 degrees QTc Int : 369 ms Sinus tachycardia Nonspecific ST abnormality Abnormal ECG When compared with ECG of 03-AUG-2020 05:43, Vent. rate has increased BY 37 BPM Nonspecific T wave abnormality now evident in Inferolateral leads Confirmed by JENNIFER STAPLETON MD ([id number]) on 08/11/2020 5:40:03 AM Referred By: Electronically Signed By:JENNIFER STAPLETON MD Transcribed By: MUS Dictated By: Jennifer Stapleton Jr, MD 08/10/202012 Signed By: 08/11/[address] [facility] Haseeb 08-10-2020 L - -------- Specimen: [id number] Received: 08/11/20 Status: EZEQUIEL Tee Num: [id number] Spec Type: Surgical Subm Dr: Jared Snyder MD Tissues: A Gallbladder (GALLBLADDER) Procedures: HE Stain, Gross/Micro L3 -------- Patient Age/Sex Location Account Attending Physician -------- Estrella Martinez/F [place] [id number] Jared Snyder MD -------- SPEC NUM: [id number] RECD: 08/11/20 STATUS: EZEQUIEL TEE NUM: [id number] KANDICE: 08/10/20- SUBM DR: Jared Snyder MD ENTERED: 08/11/[address] [facility] [address]: AI TYPE: Surgical DEPT: S ORDERED: HE Stain, Gross/Micro L3 ORDERED: HE Stain, Gross/Micro L3 Pathological Diagnosis Gallbladder, cholecystectomy: - Chronic cholecystitis with cholelithiasis - One benign reactive lymph node (0) Clinical Information Cholelithiasis Gross Description Received in formalin labeled with the patient's name, number and gallbladder is a 10.4 x 3.3 x 3.2 cm intact and distended gallbladder. The serosa is pink-purple, finely vascularized and smooth, the adventitia is finely roughened. The gallbladder is opened to reveal a green, finely granular mucosa with a wall thickness ranging from 0.1 cm to 0.4 cm. Within the lumen is a large amount of green tenacious bile and multiple green yellow bosselated choleliths. These choleliths range from 0.4 to 0.9 cm. No lesions are identified. A 0.7 cm periductal lymph node is identified. Bulk Intake Worker sections including the entire lymph node are submitted in one cassette labeled A1. (SM/JS) Microscopic Description One glass slide with H E stained material has been examined. The microscopic findings support the above pathologic diagnosis. [id number] -------- -------- Specimen: [id number] Received: 08/11/20 Status: EZEQUIEL Tee Num: [id number] Spec Type: Surgical Subm Dr: Jared Snyder MD Tissues: A Gallbladder (GALLBLADDER) Procedures: HE Stain, Gross/Micro L3 -------- Patient: Estrella Martinez [id number] (Continued) -------- Signed (signature on file) Marichuy Merritt MD 08/12/20 1516 Normal [facility] Lipaseon 08-10-2020 Lipase [Catalytic activity/Vol] 19.0 U/L Low 22-51 [facility] Comment on above: Result Comment: PERF ORMED BY: [facility] [address] [place] [address] PATHOLOGIST [employer] MARICHUY MERRITT M.D. Performed By: #### C BC, LIPASE, HEPATIC, BMP #### [facility] [address] COVID-19 FRMCon 08-06-2020 SARS-CoV-2 (COVID-19) RNA VICTOR HUGO+probe Ql (Unsp spec) Negative Normal Negative [facility] Comment on above: Order Comment: Healt hcare Worker?: N Result Comment: Refe rence: Negative Testing for SARS-CoV-2 by RT-PCR This test was developed and its performance characteristics determined by [employer] and validated at the [facility]. This test has not been FDA cleared or approved. This test has been authorized by FDA under an Emergency Use Authorization (EUA). This test has been validated in accordance with the FDA's Guidance Document (Policy for Diagnostics Testing in Laboratories Certified to Perform High Complexity Testing under CLIA prior to Emergency Use Authorization for Coronavirus Disease-2019 during the Public Health Emergency) issued on August 01, 2019. This test is only authorized for the duration of time the declaration that circumstances exist justifying the authorization of the emergency use of in vitro diagnostic tests for detection of SARS-CoV-2 virus and/or diagnosis of COVID-19 infection under section 564(b)(1) of the Act, 21 U.S.C. 360bbb-3(b)(1), unless the authorization is terminated or revoked sooner. PERFORMED BY: [place] [address] PATHOLOGIST [employer] MARICHUY MERRITT M.D. Performed By: #### C OVID-19 [facility] #### [address] Basic Metabolic Panelon 04-0 -2020 Calcium [Mass/Vol] 8.7 mg/dL Normal 8.2-10.2 [facility] Comment on above: Performed By: #### C BC, LIPASE, HEPATIC, BMP #### [place] [address] [place] Chloride [Moles/Vol] 105 mmol/L Normal 95-114 [facility] Comment on above: Performed By: #### C BC, LIPASE, HEPATIC, BMP #### [place] [address] [place] CO2 [Moles/Vol] 24.3 mmol/L Normal 22.0-30.0 [facility] Comment on above: Performed By: #### C BC, LIPASE, HEPATIC, BMP #### [facility] [address] Creatinine [Mass/Vol] 0.66 mg/dL Normal 0.44-1.03 [facility] Comment on above: Performed By: #### C BC, LIPASE, HEPATIC, BMP #### [facility] [address] Creatinine Clr Calc Pharmacy 83.74 [facility] Comment on above: Performed By: #### C BC, LIPASE, HEPATIC, BMP #### [facility] [address] Estimated GFR ( Britany > 60 [facility] Comment on above: Result Comment: GFR estimated reference range: According to KDOQI guidelines, <60 ml/min/1.73m2 is sufficient to diagnose a patient with chronic kidney disease. Performed By: #### C BC, LIPASE, HEPATIC, BMP #### [facility] [address] Estimated GFR (Non- Am > 60 [facility] Comment on above: Performed By: #### C BC, LIPASE, HEPATIC, BMP #### [facility] [address] Glucose [Mass/Vol] 131 mg/dL High 70-100 [facility] Comment on above: Result Comment: [place] Glucose Reference Range is dependent on time and content of last meal. Glucose of more than 200 mg/dL in a nonstressed, ambulatory subject supports the diagnosis of Diabetes Mellitus. ADA recommended reference range Performed By: #### C BC, LIPASE, HEPATIC, BMP #### [facility] [address] Potassium [Moles/Vol] 3.2 mmol/L Low 3.5-5.1 [facility] Comment on above: Performed By: #### C BC, LIPASE, HEPATIC, BMP #### [facility] [address] Sodium [Moles/Vol] 138 mmol/L Normal 136-146 [facility] Comment on above: Performed By: #### C BC, LIPASE, HEPATIC, BMP #### [facility] [address] Urea nitrogen [Mass/Vol] 11 mg/dL Normal 9-23 [facility] Comment on above: Performed By: #### C BC, LIPASE, HEPATIC, BMP #### [facility] [address] Complete Blood Count Auto Di ffon 08-03-2020 Basophils (Bld) [#/Vol] 0.1 10*3/uL Normal 0.0-0.2 [facility] Comment on above: Result Comment: PERF ORMED BY: [place] [address] PATHOLOGIST [employer] MARICHUY MERRITT M.D. Performed By: #### C BC, LIPASE, HEPATIC, BMP #### [address] Basophils/100 WBC (Bld) 0.7 % Normal . [facility] Comment on above: Performed By: #### C BC, LIPASE, HEPATIC, BMP #### [facility] [address] [place] [address] Eosinophils (Bld) [#/Vol] 0.1 10*3/uL Normal 0.0-0.45 [facility] Comment on above: Performed By: #### C BC, LIPASE, HEPATIC, BMP #### [address] Eosinophils/100 WBC (Bld) 1.9 % Normal . [facility] [facility] Comment on above: Performed By: #### C BC, LIPASE, HEPATIC, BMP #### [facility] [address] [place] [address] Erythrocyte distribution width (RBC) [Ratio] 12.9 % Normal 11.9-15.3 [facility] Comment on above: Performed By: #### C BC, LIPASE, HEPATIC, BMP #### [facility] [address] [place] [address] Hematocrit (Bld) [Volume fraction] 34.4 % Normal 34.0-46.4 [facility] Comment on above: Performed By: #### C BC, LIPASE, HEPATIC, BMP #### [address] Hemoglobin (Bld) [Mass/Vol] 11.9 g/dL Normal 11.8-15.4 [facility] Comment on above: Performed By: #### C BC, LIPASE, HEPATIC, BMP #### [address] Lymphocytes (Bld) [#/Vol] 1.8 10*3/uL Normal 1.00-4.8 [facility] Comment on above: Performed By: #### C BC, LIPASE, HEPATIC, BMP #### [address] Lymphocytes/100 WBC (Bld) 25.3 % Normal . [facility] Comment on above: Performed By: #### C BC, LIPASE, HEPATIC, BMP #### [address] MCH (RBC) [Entitic mass] 31.5 pg Normal 24.7-34.3 [facility] Comment on above: Performed By: #### C BC, LIPASE, HEPATIC, BMP #### [address] MCV (RBC) [Entitic vol] 91.1 fL Normal 80-100 [facility] Comment on above: Performed By: #### C BC, LIPASE, HEPATIC, BMP #### [address] Mean Corpuscular HGB Conc 34.6 g/dL Normal 32.0-35.0 [facility] Comment on above: Performed By: #### C BC, LIPASE, HEPATIC, BMP #### [address] Monocytes (Bld) [#/Vol] 0.6 10*3/uL Normal 0.0-0.8 [facility] Comment on above: Performed By: #### C BC, LIPASE, HEPATIC, BMP #### [address] Monocytes/100 WBC (Bld) 8.7 % Normal . [facility] Comment on above: Performed By: #### C BC, LIPASE, HEPATIC, BMP #### [address] Neutrophils (Bld) [#/Vol] 4.5 10*3/uL Normal 1.8-7.7 [facility] Comment on above: Performed By: #### C BC, LIPASE, HEPATIC, BMP #### [address] Neutrophils/100 WBC (Bld) 63.4 % Normal . [facility] Comment on above: Performed By: #### C BC, LIPASE, HEPATIC, BMP #### [address] Nucleated RBC/100 WBC (Bld) [Ratio] 0.0 % Normal 0-0.5 [facility] Comment on above: Performed By: #### C BC, LIPASE, HEPATIC, BMP #### [address] Platelet mean volume (Bld) [Entitic vol] 9.1 fL Normal 6.3-10.7 [facility] Comment on above: Performed By: #### C BC, LIPASE, HEPATIC, BMP #### [place] [address] [place] Platelets (Bld) [#/Vol] 238 10*3/uL Normal 150-450 [facility] Comment on above: Performed By: #### C BC, LIPASE, HEPATIC, BMP #### [place] [address] [place] RBC (Bld) [#/Vol] 3.78 10*6/uL Normal 3.60-5.00 [facility] [place] Comment on above: Performed By: #### C BC, LIPASE, HEPATIC, BMP #### [place] [address] [place] WBC (Bld) [#/Vol] 7.1 10*3/uL Normal 4.5-11.0 [facility] Comment on above: Performed By: #### C BC, LIPASE, HEPATIC, BMP #### [facility] [address] [place] [address] [facility] ECG 12 lead ECGon 08-03-2020 ECG 12 lead ECG [facility] [address] [place] [address] [place] [address] Electrocardiograph Report Signed Patient: Estrella Martinez MR#: [id number] : 1970 Acct:[id number] Age/Sex: 50 / F ADM Date: 08/03/20 Loc: ER Room: Type: [facility] ER Attending Dr: Ordering Provider: Rell Paredes DO Date of Service: 08/03/20 ECG/ECG 12 lead ECG: Abdominal Pain Copies to: Test Reason : Blood Pressure : / mmHG Vent. Rate : 074 BPM Atrial Rate : 074 BPM P-R Int : 126 ms QRS Dur : 076 ms QT Int : 374 ms P-R-T Axes : 062 054 056 degrees QTc Int : 415 ms Normal sinus rhythm Normal ECG When compared with ECG of 27-MAR-2017 15:52, Criteria for Anterior infarct are no longer present Confirmed by RELL PAREDES DO ([id number]) on 08/03/2020 11:14:52 AM Referred By: Electronically Signed By:RELL PAREDES DO Transcribed By: MUS Dictated By: Rell Paredes DO 08/03/20 0543 Signed By: 08/03/[address] [facility] Hepatic Panelon 08-03-2020 Albumin [Mass/Vol] 3.9 g/dL Normal 3.2-5.5 [facility] Comment on above: Performed By: #### C BC, LIPASE, HEPATIC, BMP #### [facility] [address] [place] [id number] [place] Albumin/Globulin [Mass ratio] 1.1 {ratio} [facility] Comment on above: Performed By: #### C BC, LIPASE, HEPATIC, BMP #### [facility] [address] [place] [address] [facility] ALP [Catalytic activity/Vol] 69 U/L Normal 32-92 [facility] Comment on above: Performed By: #### C BC, LIPASE, HEPATIC, BMP #### [facility] [address] [place] [phone] [facility] ALT [Catalytic activity/Vol] 25 U/L Normal 10-60 [facility] Comment on above: Performed By: #### C BC, LIPASE, HEPATIC, BMP #### [facility] [address] [place] [phone] [facility] AST [Catalytic activity/Vol] 21 U/L Normal 10-42 [facility] Comment on above: Performed By: #### C BC, LIPASE, HEPATIC, BMP #### [facility] [address] Bilirubin [Mass/Vol] 0.7 mg/dL Normal 0.3-1.2 [facility] Comment on above: Performed By: #### C BC, LIPASE, HEPATIC, BMP #### [facility] [address] Bilirubin,Indirect Not performed Normal [facility] Comment on above: Performed By: #### C BC, LIPASE, HEPATIC, BMP #### [facility] [address] Bilirubin.indirect [Mass/Vol] mg/dL Normal 0.0-0.4 [facility] Comment on above: Performed By: #### C BC, LIPASE, HEPATIC, BMP #### [facility] [address] Globulin (S) [Mass/Vol] 3.5 g/dL Normal [facility] Comment on above: Performed By: #### C BC, LIPASE, HEPATIC, BMP #### [facility] [address] Protein [Mass/Vol] 7.4 g/dL Normal 6.1-7.9 [facility] Comment on above: Performed By: #### C BC, LIPASE, HEPATIC, BMP #### [facility] [address] [place] [phone] [facility] Lipaseon 08-03-2020 Lipase [Catalytic activity/Vol] 25.0 U/L Normal 22-51 [facility] Comment on above: Result Comment: PERF ORMED BY: [facility] [address] [place] [phone] PATHOLOGIST [employer] MARICHUY MERRITT M.D. Performed By: #### C BC, LIPASE, HEPATIC, BMP #### [facility] [address] [facility] [place] [phone] [facility] Haseeb 06-25-2020 L - -------- Specimen: [id number] Received: 06/25/20 Status: EZEQUIEL Cheneyjatin Num: [id number] Spec Type: Surgical Subm Dr: Jared Snyder MD Tissues: A Soft Tissue/Surgical Margin-Other than Tumor,Mass,Lip or Zaida (RT LOWER QUADR Procedures: HE Stain/4, Gross/Micro L4 -------- Patient Age/Sex Location Account Attending Physician -------- Estrella Martinez 50/F [place] [id number] Jared Sndyer MD -------- SPEC NUM: [id number] RECD: 06/25/20 STATUS: EZEQUIEL TEE NUM: [id number] KANDICE: 06/25/[address] [facility] [address]: Jared Snyder MD ENTERED: 06/25/[address] [facility] [address]: SPEC TYPE: Surgical DEPT: S ORDERED: HE Stain/4, Gross/Micro L4 ORDERED: HE Stain/4, Gross/Micro L4 Pathological Diagnosis Abdominal wall mass, right lower quadrant, excision: - Endometriosis. - Focal chronic inflammation. Clinical Information Right lower abdominal mass - endometriosis Gross Description Received in formalin labeled with the patient's name, number and right lower quadrant abdominal wall mass are multiple yellow lobulated to fibrotic, rubbery and cauterized tissue fragments aggregating 4.5 x 4.3 x 2 cm. Sectioning reveals doty-red, hemorrhagic, fibrotic to yellow lobulated cut surfaces. Bulk Intake Worker sections are submitted in four cassettes labeled A1-A4. (SM/YJ) Microscopic Description Four glass slides with H E stained material have been examined. The microscopic findings support the above pathologic diagnosis. -------- Specimen: [id number] Received: 06/25/20 Status: EZEQUIEL Parrish Num: [id number] Spec Type: Surgical Subm Dr: Jared Snyder MD Tissues: A Soft Tissue/Surgical Margin-Other than Tumor,Mass,Lip or Zaida (RT LOWER QUADR Procedures: HE Stain/4, Gross/Micro L4 -------- Patient: JuanEstrella [id number] (Continued) -------- Specimen: [id number] Received: 06/25/20 (Continued) Signed (signature on file) Bruce Dale MD 06/26/20 1509 -------- Specimen: [id number] Received: 06/25/20 Status: EZEQUIEL Tee Num: [id number] Spec Type: Surgical Subm Dr: Jared Snyder MD Tissues: A Soft Tissue/Surgical Margin-Other than Tumor,Mass,Lip or Zaida (RT LOWER QUADR Procedures: DANIEL Stain/4, Gross/Micro L4 -------- Patient: Estrella Martinez [id number] (Continued) -------- Specimen: [id number] Received: 06/25/20 (Continued) CPT Codes 05613 -------- -------- Specimen: Received: 06/25/20 Status: EZEQUIEL Parrish Num: [id number] Spec Type: Surgical Subm Dr: Jared Snyder MD Tissues: A Soft Tissue/Surgical Margin-Other than Tumor,Mass,Lip or Zaida (RT LOWER QUADR Procedures: HE Stain/4, Gross/Micro L4 -------- Patient: Estrella Martinez [id number] (Continued) -------- Signed (signature on file) Bruce Dale MD 06/26/[address] [facility] Vital Signs Date Time Vital Sign Value Performing Clinician Facility 07-18-2023 09:20-0400 Diastolic blood pressure 57 mm[Hg] Rose Marie Copeland MD Work Phone: [facility] 07-18-2023 09:20-0400 Heart rate 65 /min Rose Marie Copeland MD Work Phone: [facility] 07-18-2023 09:20-0400 Respiratory rate 16 /min Rose Marie Copeland MD Work Phone: [facility] 07-18-2023 09:20-0400 SaO2% (BldA) [Mass fraction] 97 % Rose Marie Copeland MD Work Phone: [facility] 07-18-2023 09:20-0400 Systolic blood pressure 118 mm[Hg] Rose Marie Copeland MD Work Phone: [facility] 07-18-2023 08:03-0400 Body height 152.4 cm Rose Marie Copeland MD Work Phone: [facility] 07-18-2023 08:03-0400 Body mass index (BMI) [Ratio] 23.44 kg/m2 Rose Marie Copeland MD Work Phone: [facility] 07-18-2023 08:03-0400 Body temperature 97.81 [degF] Rose Marie Copeland MD Work Phone: [facility] 07-18-2023 08:03-0400 Body weight 54.43 kg Rose Marie Copeland MD Work Phone: [facility] 01-30-2023 12:51-0400 Body temperature 97.3 [degF] Christa Bianchi PA-C Work Phone: [facility] 01-30-2023 12:51-0400 Body weight 53.43 kg Christa Bianchi PA-C Work Phone: [facility] 01-30-2023 12:51-0400 Diastolic blood pressure 72 mm[Hg] Christa Bianchi PA-C Work Phone: [facility] 01-30-2023 12:51-0400 Heart rate 63 /min Christa Bianchi PA-C Work Phone: [facility] 01-30-2023 12:51-0400 Systolic blood pressure 122 mm[Hg] Christa Bianchi PA-C Work Phone: [facility] 11-28-2022 08:36-0400 Diastolic blood pressure 94 mm[Hg] Bauer SALAM [facility] 11-28-2022 08:36-0400 Heart rate 62 /min [facility] 11-28-2022 08:36-0400 Mean blood pressure 105 mm[Hg] [facility] SAL[facility] 11-28-2022 08:36-0400 Respiratory rate 15 /min [facility] 11-28-2022 08:36-0400 SaO2% (BldA) [Mass fraction] 98 % [facility] 11-28-2022 08:36-0400 Systolic blood pressure 128 mm[Hg] [facility] 11-28-2022 08:25-0400 Diastolic blood pressure 84 mm[Hg] [facility] 11-28-2022 08:25-0400 Heart rate 66 /min [facility] 11-28-2022 08:25-0400 Mean blood pressure 93 mm[Hg] [facility] 11-28-2022 08:25-0400 Respiratory rate 12 /min [facility] 11-28-2022 08:25-0400 SaO2% (BldA) [Mass fraction] 98 % [facility] 11-28-2022 08:25-0400 Systolic blood pressure 111 mm[Hg] [facility] 11-28-2022 08:20-0400 Diastolic blood pressure 76 mm[Hg] [facility] 11-28-2022 08:20-0400 Heart rate 68 /min [facility] 11-28-2022 08:20-0400 Mean blood pressure 86 mm[Hg] [facility] 11-28-2022 08:20-0400 Respiratory rate 12 /min [facility] 11-28-2022 08:20-0400 SaO2% (BldA) [Mass fraction] 98 % [facility] 11-28-2022 08:20-0400 Systolic blood pressure 106 mm[Hg] [facility] 11-28-2022 08:11-0400 Body temperature 98.42 [degF] [facility] 11-28-2022 07:19-0400 Blood Pressure Location [facility] 11-28-2022 07:19-0400 Body temperature 98.24 [degF] [facility] 10-05-2022 09:23-0400 Blood Pressure Location Bauer SALAM [facility] 10-05-2022 09:23-0400 Diastolic blood pressure 78 mm[Hg] Bauer SALAM [facility] 10-05-2022 09:23-0400 Heart rate 67 /min Bauer SALAM [facility] 10-05-2022 09:23-0400 Respiratory rate 16 /min Bauer SALAM [facility] 10-05-2022 09:23-0400 Systolic blood pressure 128 mm[Hg] Bauer SALAM [facility] Encounters Encounter Date Encounter Type Care Provider Facility Start: 07-25-2023 End: 07-25-2023 Orders Only Sandhya Law MD Work Phone: Gastroenterology Comment on above: Fatty liver (Primary Dx) Arrived Start: 07-18-2023 End: 07-18-2023 ambulatory AMBER COPELAND [facility] Start: 07-18-2023 End: 07-18-2023 Subsequent hospital visit by physician Amber Copeland MD Work Phone: [facility] [place] Start: 06-12-2023 Clinisync Result Encounter Yazan Walls MD Work Phone: [facility] External Department Unsolicited Start: 06-12-2023 Clinisync Result Encounter Yazan Walls MD Work Phone: [facility] External Department Unsolicited Start: 06-08-2023 End: 06-08-2023 ambulatory YAZAN WALLS Not Available Start: 03-21-2023 End: 03-21-2023 ambulatory YAZAN A TITI Not Available Start: 03-10-2023 End: 03-10-2023 ambulatory [facility] Facility:[facility] Start: 03-07-2023 End: 03-07-2023 ambulatory [facility] Facility:[facility] Start: 03-07-2023 End: 03-07-2023 Subsequent hospital visit by physician [facility]ie [facility] Work Phone: Radiology Comment on above: Pain of both wrist j oints [M25.531, M25.532] Start: 02-09-2023 Telephone encounter Jacqueline [facility] Comment on above: Appointment Start: 01-30-2023 End: 01-31-2023 ambulatory [facility] Facility:[facility] Start: 01-30-2023 End: 01-30-2023 Office outpatient new 45 minutes Christa Bianchi PA-C Work Phone: Rheumatology Comment on above: Positive HECTOR (antinu clear antibody) (Primary Dx); SS-A antibody positive; SS-B antibody positive; Pain of both wrist joints; NAFL (nonalcoholic fatty liver) Start: 12-14-2022 End: 12-15-2022 ambulatory [facility] Facility:[facility] Start: 11-28-2022 End: 11-28-2022 ambulatory [facility] Facility:[facility] Start: 11-28-2022 End: 11-28-2022 Patient encounter procedure Juancarlos DIAS [facility] Start: 10-24-2022 End: 10-24-2022 ambulatory Sandhya Keisha Facility:[facility] Start: 10-24-2022 End: 10-24-2022 Subsequent hospital visit by physician Us Ortiz A21 5 Work Phone: Radiology Comment on above: BLOOM (nonalcoholic s teatohepatitis) [K75.81] Start: 10-05-2022 End: 10-06-2022 ambulatory [facility]ALLS [facility] Start: 10-05-2022 End: 10-05-2022 Patient encounter procedure Juancarlos DIAS [facility] Start: 09-21-2022 End: 09-22-2022 ambulatory Sandhya Keisha Facility:[facility] Start: 09-21-2022 End: 09-21-2022 ambulatory Sandhya Law Facility:[facility] Start: 09-13-2022 End: 09-14-[address] YAZAN WALLS Facility:[facility] Start: 08-09-2022 [facility]ulatory [facility] Start: 07-25-2022 End: 07-25-2022 ambulatory MESFIN Pierre Facility:[facility] Start: 07-12-2022 End: 07-13-[address] YAZAN WALLS Facility:[facility] Start: 07-05-2022 End: 07-06-[address] YAZAN WALLS Facility:[facility] Start: 02-28-2022 End: 02-28-2022 ambulatory BRET CORREIA Facility:[facility] Start: 01-06-2022 End: 01-06-[address] LAMBERTO SÁNCHEZ Facility:[facility] Start: 12-21-2021 End: 12-22-[address] YAZAN WALLS Facility:[facility] Start: 10-29-[address] YAZAN WALLS Facilit y:[facility] Start: 10-12-2021 End: 10-13-[address] YAZAN WALLS Facility:[facility] Procedures Date Procedure Procedure Detail Performing Clinician Start: 07-25-2023 Liver elastography w/o imag w/i&r Sandhya Law MD Work Phone: Start: 07-18-2023 End: 07-18-2023 Colonoscopy Amber Copeland MD Work Phone: Start: 07-18-2023 Gluc bld gluc mntr dev cleared fda spec home use Unknown Provider Result Start: 06-12-2023 ALL CBC WITH AUTO DIFF Yazan Walls MD Work Phone: Start: 03-07-2023 Us compl joint r-t w/image documentation Christa Bianchi PA-C Work Phone: Start: 11-28-2022 Esophagogastroduodenoscopy Juancarlos DIAS Start: 10-24-2022 Us abdominal real time w/image limited Sandhya Law MD Work Phone: Start: 08-10-2020 Cholecystectomy Juancarlos DIAS Start: 04-20-2020 Mammography Yazan Walls MD Work Phone: Start: 07-11-2017 Colonoscopy Yazan Walls MD Work Phone: Start: 04-03-2017 Cystoscopy and biopsy of bladder Juancarlos POSEY Colonoscopy Juancarlos DIAS Hysterectomy Juancarlos DIAS Resection of cecum a nd terminal ileum Juancarlos DIAS Plan of Treatment Date Care Activity Detail Author Start: 07-17-2033 Screening for malign ant neoplasm of colon [facility] Start: 07-12-2027 Screening for malign ant neoplasm of colon [facility] Start: 09-21-2025 DIABETES SCREEN DIABETES SCREEN [facility] Start: 02-27-2025 Glaucoma screening Diabetes: R etinopathy Screening [facility] Start: 07-17-2024 Screening for malign ant neoplasm of colon [facility] Start: 06-12-2024 Hepatitis B surface antibody level LDL Cholesterol [facility] Start: 06-08-2024 Screening for malign ant neoplasm of colon [facility] Start: 01-31-2024 Hepatitis B screening Urine Albumin:Creatinine Ratio [facility] Start: 12-15-2023 Hepatitis B surface antibody level LDL Cholesterol [facility] Start: 12-07-2023 Hemoglobin A1c measurement HbA1C [facility] Start: 12-04-2023 End: 12-04-2023 Patient encounter procedure 12/04/2023 2:00 PM EDT Office Visit [facility] [address] [place] [phone] Yazan Walls MD [address] [place] [address] [facility] Start: 09-14-2023 Urine screening for protein Di abetes: Urine Protein Screening [facility] Start: 09-06-2023 Hemoglobin A1c measurement Hetal betes: Hemoglobin A1C [facility] Start: 07-18-2023 End: 07-18-2023 Colonoscopy flx dx w/collj spec when pfrmd COLONOSCOPY DIAGNOSTIC Occult blood in stools 07/18/2023 8:45 AM EDT [facility] Start: 06-14-2023 Hemoglobin A1c/Hemoglobin.total in Blood HbA1C [facility] Start: 05-01-2023 Depression Assessment Depression Ass essment [facility] Start: 01-30-2023 End: 04-01-2023 Cyclic citrullinated peptide IgG Ab [Units/volume] in Serum or Plasma [facility] Work Phone: Comment on above: Expected: 01/30/2023 , Expires: 04/01/2023 Start: 01-30-2023 End: 04-01-2023 DNA double strand Ab [Presence] in Serum by Immunofluorescence (IF) Kassi shah [facility] Work Phone: Comment on above: Expected: 01/30/2023 , Expires: 04/01/2023 Start: 01-30-2023 End: 04-01-2023 DEON DNA AUTOABS, DOUBLE STRANDED [facility] Work Phone: Comment on above: Expected: 01/30/2023 , Expires: 04/01/2023 Start: 12-30-2022 COVID-19 Vaccine ( season) COVID-19 Vaccine ( season) [facility] Start: 12-30-2022 Covid-19 Vaccine ( season) Covid-19 Vaccine ( season) [facility] Start: 12-30-2022 Influenza vaccination Influenza Vacc ine (#1) [facility] Start: 07-19-2022 Screening for malign ant neoplasm of breast Mammogram [facility] Start: 05-01-2022 DEPRESSION ASSESSMENT DEPRESSION ASS ESSMENT [facility] Start: 2022 Screening for malign ant neoplasm of breast Breast cancer screen [facility] Start: 2022 Shingles vaccine (1 of 2) Trejo gles vaccine (1 of 2) [facility] Start: 2022 SHINGRIX VACCINE (1 of 2) TREJO GRIX VACCINE (1 of 2) [facility] Start: 04-20-2021 Screening for malign ant neoplasm of breast Mammogram Screening [facility] Start: 2017 COLOGUARD (FIT-DNA) COLOGUARD (FIT-D NA) [facility] Start: 2017 Colonoscopy COLONOSCOPY [facility] Start: 2017 COLORECTAL CANCER SCREENING CO LORECTAL CANCER SCREENING [facility] Start: [address] COLONOGRAPHY [facility] Start: 2017 FECAL OCCULT BLOOD FECAL OCCULT BLOO D [facility] Start: 2017 LIPID SCREEN LIPID SCREEN [facility] Start: 2017 Screening for malign ant neoplasm of colon [facility] Start: 2017 SIGMOIDOSCOPY SIGMOIDOSCOPY [facility] Start: 2012 Lipid panel Lipids [facility] Start: 2012 Mammography [facility] Start: 2002 HPV TESTING HPV TESTING [facility] Start: 2002 Screening for malign ant neoplasm of cervix [facility] Start: 1993 PAP TESTING PAP TESTING [facility] Start: 1993 Screening for malign ant neoplasm of cervix [facility] Start: 1991 DTaP/Tdap/Td vaccine (1 - Tdap) DTaP/Tdap/Td vaccine (1 - Tdap) [facility] Start: 1991 Hepatitis B Vaccine (1 of 3 - 19+ 3-dose series) Hepatitis B Vaccine (1 of 3 - 19+ 3-dose series) [facility] Start: 1991 Urine microalbumin profile [facility] Start: 1990 Annual PCP Team Interventional Cardiologist carolyne Disease Visit Annual PCP Team Chronic Disease Visit [facility] Start: 1990 Hepatitis C screening Hepatitis C sc reen [facility] [employer] Start: 1990 [facility] Start: 1990 HIV screening HIV Screening [facility] Start: 1987 HIV screening HIV screen [facility] [employer] Start: 1984 Depression Screen [facility] Start: 1982 3 comp foot exam completed Diabetic Foot Exam [facility] Start: 1982 Diabetic foot examination Diabetic F oot Exam [facility] Start: 1982 Glaucoma screening Dilated Retinal E xam [facility] Start: 1982 Hepatitis B screening Urine Albumin:Creatinine Ratio [facility] Start: 1982 Hepatitis C antibody , confirmatory test Dilated Retinal Exam [facility] Start: 1978 Pneumococcal vaccination [facility] Start: 1972 HEPATITIS B (1 of 3 - 3-dose series) HEPATITIS B (1 of 3 - 3-dose series) [facility] Start: 1972 Hepatitis B Vaccine (1 of 3 - 3-dose series) Hepatitis B Vaccine (1 of 3 - 3-dose series) [facility] Start: 1970 Screening for malign ant neoplasm of colon [facility] Glucose [Mass/volume ] in Serum or Plasma POCT glucose Point of Care Testing STAT As Needed until discontinued starting 07/18/2023 [facility] [employer] Comment on above: As Needed until disc ontinued starting 07/18/2023 End: 07-18-2023 Urine , POCT Urine , POCT Point of Care Testing STAT One Time for 1 Occurrences starting 07/18/2023 until 07/18/2023 [employer] Comment on above: One Time for 1 Occur rences starting 07/18/2023 until 07/18/2023 End: 02-29-2024 US HAND/WRIST SYNOVIAL SCREEN LEFT US HAND/WRIST SYNOVIAL SCREEN LEFT Radiology Routine Pain of both wrist joints 1 Occurrences starting 01/30/2023 until 02/29/[address] [facility] Work Phone: Comment on above: 1 Occurrences starti ng 01/30/2023 until 02/29/2024 End: 02-29-2024 US HAND/WRIST SYNOVIAL SCREEN RIGHT US HAND/WRIST SYNOVIAL SCREEN RIGHT Radiology Routine Pain of both wrist joints 1 Occurrences starting 01/30/2023 until 02/29/[address] [facility] Work Phone: Comment on above: 1 Occurrences starti ng 01/30/2023 until 02/29/2024 [facility] [place] [facility] Immunization Date Immunization Notes Care Provider [facility] 03-21-2023 influenza, injectabl e, quadrivalent, preservative free Yazan Walls MD Work Phone: [facility] 03-08-2022 Moderna Bivalent Reilly ster Vaccination Yazan Walls MD Work Phone: [facility] 03-08-2022 Moderna SARS-CoV-2 50mcg/0.5mL Booster Yazan Walls MD Work Phone: [facility] 02-21-2022 Seasonal, quadrivale nt, recombinant, injectable influenza vaccine, preservative free Christa MCCARTHY-C Work Phone: [facility] 02-21-2022 influenza virus vacc ine, unspecified formulation Christa Bianchi PA-C Work Phone: [facility] 03-08-2021 influenza, injectabl e, quadrivalent, preservative free Christa Bianchi PA-C Work Phone: [facility] 02-07-2017 influenza, injectabl e, quadrivalent, preservative free Christa Bianchi PA-C Work Phone: [facility] Payers Date Payer Category Payer Unknown [id number] 2022 Unknown [id number] 2022 Unknown [id number] 1972 Unknown [id number] 2.16.84 [id number] 1972 Unknown [id number] 2.16.84 [id number] 1972 Unknown [id number] 2.16.84 0.1.641500.3.579.2.593 1972 Unknown [id number] 2.16.84 0.1.752696.3.579.2.593 1972 Unknown [id number] 2.16.84 0.1.109377.3.579.2.593 1972 Unknown [id number] 2.16.84 0.1.569608.3.579.2.593 1972 Unknown [id number] 2.16.84 0.1.410593.3.579.2.593 1972 Unknown [id number] 2.16.84 0.1.761898.3.579.2.593 1972 Unknown [id number] 2.16.84 0.1.809314.3.579.2.593 1972 Unknown [id number] 2.16.8 40.1.324221.3.579.2.727 1972 Unknown [id number] 2.16.8 40.1.390346.3.579.2.727 1972 Unknown [id number] 2.16.8 40.1.960080.3.579.2.727 1972 Unknown [id number] 2.16.84 0.1.812008.3.579.2.1259 1972 Unknown [id number] 2.16.840 .[id number] 1972 Unknown [id number] 2.16.8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 Excessive nausea (feeling sick to your stomach) and/or vomiting. Severe abdominal pain and distention (swelling). Trouble swallowing. Temperature over 100 F (37.8 C). Rectal bleeding or vomiting of blood. Document Released: 11/29/2004 Document Re-Released: 10/09/2006 [email or web address] Patient Information [employer]. 11/28/2022 08:15:34 Esophageal Stricture Esophageal Stricture Esophageal stricture is a narrowing of the esophagus. The esophagus is the part of the body that moves food and liquid from your mouth to your stomach. The esophagus can become narrow because of disease or damage to the area. This condition can make swallowing difficult, painful, or even impossible. It also makes choking more likely. What are the causes? The most common cause of this condition is gastroesophageal reflux disease (GERD). Normally, food travels down the esophagus and stays in the stomach to be digested. In GERD, food and stomach acid move back up into the esophagus. Over time, this causes scar tissue and leads to narrowing. Other causes of esophageal stricture include: Scarring from swallowing a harmful substance. Damage from medical instruments used in the esophagus. Radiation therapy. Cancer. Inflammation of the esophagus. What increases the risk? You are more likely to develop an esophageal stricture if you have GERD or esophageal cancer. What are the signs or symptoms? Symptoms of this condition include: Difficulty swallowing. Pain when swallowing. Burning pain or discomfort in the throat or chest (heartburn). Vomiting or spitting up food or liquids. Unexplained weight loss. How is this diagnosed? This condition may be diagnosed based on: Your symptoms and a physical exam. Tests, such as: ?Upper endoscopy. Your health care provider will insert a flexible tube with a tiny camera on it (endoscope) into your esophagus to check for a stricture. A tissue sample may also be taken to be examined under a microscope (biopsy). ?Esophageal pH monitoring. This test involves using a tube to collect acid in the esophagus to determine how much stomach acid is entering the esophagus. ?Barium swallow test. For this test, you will drink a chalky liquid (barium solution) that coats the lining of the esophagus. Then you will have an X-ray taken. The barium solution helps to show if there is a stricture. How is this treated? Treatment for esophageal stricture depends on what is causing your condition and how severe your condition is. Treatment options include: Esophageal dilation. In this procedure, a health care provider inserts an endoscope or a tool called a dilator into the esophagus to gently stretch it and make the opening wider. Stents. In some cases, a health care provider may place a small device (stent) in the esophagus to keep it open. Acid-blocking medicines. Taking these can help you manage GERD symptoms after an esophageal stricture. Controlling your GERD symptoms or being free of them can prevent the stricture from returning. Follow these instructions at home: Eating and drinking Follow instructions from your health care provider about eating or drinking restrictions. Cut your food into small pieces, chew well, and eat slowly. Try to eat soft food that is easier to swallow. Eat and drink only when you are sitting upright. Do not drink alcohol. If you need help quitting, ask your health care provider. Do not eat during the 3 hours before bedtime. Do not overeat at meals. Do not eat foods that can make reflux worse. These include: ?Fatty foods, such as red meat and processed foods. ?Spicy foods. ?Soda. ?Tomato products. ?Chocolate. General instructions Take ozwh-zjj-awqpmfq and prescription medicines only as told by your health care provider. Do not use any products that contain nicotine or tobacco, such as cigarettes, e- cigarettes, and chewing tobacco. If you need help quitting, ask your health care provider. Lose weight if you are overweight. Wear loose, comfortable clothing. When lying in bed, raise your head with pillows. This will help to prevent your stomach contents from backing up into your esophagus while you sleep. Keep all follow-up visits. This is important. Contact a health care provider if: You have problems eating or swallowing. You vomit or spit up food and liquid. Your symptoms do not improve with treatment. Get help right away if: You can no longer keep down any food, drink, or your saliva. Summary Esophageal stricture is a narrowing of the part of the body that moves food and liquid from your mouth to your stomach (esophagus). The esophagus can become narrow because of disease or damage to the area. This can make swallowing difficult, painful, or even impossible. Treatment for esophageal stricture depends on what is causing your condition and how severe your condition is. In some cases, procedures may be done to make the opening of the esophagus wider or to place a stent in the esophagus to keep it open. Do not drink alcohol, overeat at meals, or eat foods that can make reflux worse. This information is not intended to replace advice given to you by your health care provider. Make sure you discuss any questions you have with your health care provider. Document Revised: 09/02/2020 Document Reviewed: 09/02/2020 [employer] Patient Education 2022 [employer]. 11/28/2022 08:15:33 Esophageal Dilatation Esophageal Dilatation Esophageal dilatation, also called esophageal dilation, is a procedure to widen or open a blocked or narrowed part of the esophagus. The esophagus is the part of the body that moves food and liquid from the mouth to the stomach. You may need this procedure if: You have a buildup of scar tissue in your esophagus that makes it difficult, painful, or impossibleto swallow. This can be caused by gastroesophageal reflux disease (GERD). You have cancer of the esophagus. There is a problem with how food moves through your esophagus. In some cases, you may need this procedure repeated at a later time to dilate the esophagus gradually. Tell a health care provider about: Any allergies you have. All medicines you are taking, including vitamins, herbs, eye drops, creams, and lral-qcj-rzzktat medicines. Any problems you or family members have had with anesthetic medicines. Any blood disorders you have. Any surgeries you have had. Any medical conditions you have. Any antibiotic medicines you are required to take before dental procedures. Whether you are or may be . What are the risks? Generally, this is a safe procedure. However, problems may occur, including: Bleeding due to a tear in the lining of the esophagus. A hole, or perforation, in the esophagus. What happens before the procedure? Ask your health care provider about: ?Changing or stopping your regular medicines. This is especially important if you are taking diabetes medicines or blood thinners. ?Taking medicines such as aspirin and ibuprofen. These medicines can thin your blood. Do not take these medicines unless your health care provider tells you to take them. ?Taking rnlo-ppo-keruydv medicines, vitamins, herbs, and supplements. Follow instructions from your health care provider about eating or drinking restrictions. Plan to have a responsible adult take you home from the hospital or clinic. Plan to have a responsible adult care for you for the time you are told after you leave the hospital or clinic. This is important. What happens during the procedure? You may be given a medicine to help you relax (sedative). A numbing medicine may be sprayed into the back of your throat, or you may gargle the medicine. Your health care provider may perform the dilatation using various surgical instruments, such as: ?Simple dilators. This instrument is carefully placed in the esophagus to stretch it. ?Guided wire bougies. This involves using an endoscope to insert a wire into the esophagus. A dilator is passed over this wire to enlarge the esophagus. Then the wire is removed. ?Balloon dilators. An endoscope with a small balloon is inserted into the esophagus. The balloon isinflated to stretch the esophagus and open it up. The procedure may vary among health care providers and hospitals. What can I expect after the procedure? Your blood pressure, heart rate, breathing rate, and blood oxygen level will be monitored until youleave the hospital or clinic. Your throat may feel slightly sore and numb. This will get better over time. You will not be allowed to eat or drink until your throat is no longer numb. When you are able to drink, urinate, and sit on the edge of the bed without nausea or dizziness, you may be able to return home. Follow these instructions at home: Take gklg-icy-izrcdtr and prescription medicines only as told by your health care provider. If you were given a sedative during the procedure, it can affect you for several hours. Do not drive or operate machinery until your health care provider says that it is safe. Plan to have a responsible adult care for you for the time you are told. This is important. Follow instructions from your health care provider about any eating or drinking restrictions. Do not use any products that contain nicotine or tobacco, such as cigarettes, e- cigarettes, and chewing tobacco. If you need help quitting, ask your health care provider. Keep all follow-up visits. This is important. Contact a health care provider if: You have a fever. You have pain that is not relieved by medicine. Get help right away if: You have chest pain. You have trouble breathing. You have trouble swallowing. You vomit blood. You have black, tarry, or bloody stools. These symptoms may represent a serious problem that is an emergency. Do not wait to see if the symptoms will go away. Get medical help right away. Call your local emergency services (911 in the [place] Do not drive yourself to the hospital. Summary Esophageal dilatation, also called esophageal dilation, is a procedure to widen or open a blocked or narrowed part of the esophagus. Plan to have a responsible adult take you home from the hospital or clinic. For this procedure, a numbing medicine may be sprayed into the back of your throat, or you may gargle the medicine. Do not drive or operate machinery until your health care provider says that it is safe. This information is not intended to replace advice given to you by your health care provider. Make sure you discuss any questions you have with your health care provider. Document Revised: 09/02/2020 Document Reviewed: 09/02/2020 [employer] Patient Education 2022 [employer]. Follow Up Care 10/05/2022 10:05:49 With:BROOKE CHAPMAN, LE Bauer, REG[facility] Address: [address] [place] [address]. [address] [place] [address] When: Unknown Comments:Office will call to schedule follow up appointment [facility]07-31-2023 NoteEndoscopy Care After Procedure Please read the instructions outlined below and refer to this sheet in the next few weeks. These discharge instructions provide you with general information on caring for yourself after you leave thespital. Your doctor may also give you specific instructions. While your treatment has been planned according to the most current medical practices available, unavoidable complications occasionally occur. If you have any problems or questions after discharge, please call your doctor. ACTIVITY ? You may resume your regular activity but move at a slower pace for the next 24 hours. ? Take frequent rest periods for the next 24 hours. ? Walking will help expel (get rid of) the air and reduce the bloated feeling in your abdomen. ? No driving for 24 hours (because of the anesthesia (medicine) used during the test). ? You may shower. ? Do not sign any important legal documents or operate any machinery for 24 hours (because of the anesthesia used during the test). NUTRITION ? Drink plenty of fluids. ? You may resume your normal diet. ? Begin with a light meal and progress to your normal diet. ? Avoid alcoholic beverages for 24 hours or as instructed by your caregiver. MEDICATIONS ? You may resume your normal medications unless your caregiver tells you otherwise. WHAT YOU CAN EXPECT TODAY ? You may experience abdominal discomfort such as a feeling of fullness or ?gas? pains. FOLLOW-UP ? Your doctor will discuss the results of your test with you. seek immediate medical attention if any of the following occur: ? Excessive nausea (feeling sick to your stomach) and/or vomiting. ? Severe abdominal pain and distention (swelling). ? Trouble swallowing. ? Temperature over 100 F (37.8? C). ? Rectal bleeding or vomiting of blood. Document Released: 11/29/2004 Document Re-Released: 10/09/2006 [employer]? Patient Information ?2009 [employer]. Gastroenterology Esophageal Stricture Esophageal stricture is a narrowing of the esophagus. The esophagus is the part of the body that moves food and liquid from your mouth to your stomach. The esophagus can become narrow because of disease or damage to the area. This condition can make swallowing difficult, painful, or even impossible. It also makes choking more likely. What are the causes? The most common cause of this condition is gastroesophageal reflux disease (GERD). Normally, food travels down the esophagus and stays in the stomach to be digested. In GERD, food and stomach acid move back up into the esophagus. Over time, this causes scar tissue and leads to narrowing. Other causes of esophageal stricture include: ? Scarring from swallowing a harmful substance. ? Damage from medical instruments used in the esophagus. ? Radiation therapy. ? Cancer. ? Inflammation of the esophagus. What increases the risk? You are more likely to develop an esophageal stricture if you have GERD or esophageal cancer. What are the signs or symptoms? Symptoms of this condition include: ? Difficulty swallowing. ? Pain when swallowing. ? Burning pain or discomfort in the throat or chest (heartburn). ? Vomiting or spitting up food or liquids. ? Unexplained weight loss. How is this diagnosed? This condition may be diagnosed based on: ? Your symptoms and a physical exam. ? Tests, such as: ? Upper endoscopy. Your health care provider will insert a flexible tube with a tiny camera on it (endoscope) into your esophagus to check for a stricture. A tissue sample may also be taken to be examined under a microscope (biopsy). ? Esophageal pH monitoring. This test involves using a tube to collect acid in the esophagus to determine how much stomach acid is entering the esophagus. ? Barium swallow test. For this test, you will drink a chalky liquid (barium solution) that coats the lining of the esophagus. Then you will have an X-ray taken. The barium solution helps to show if there is a stricture. How is this treated? Treatment for esophageal stricture depends on what is causing your condition and how severe your condition is. Treatment options include: ? Esophageal dilation. In this procedure, a health care provider inserts an endoscope or a tool called a dilator into the esophagus to gently stretch it and make the opening wider. ? Stents. In some cases, a health care provider may place a small device (stent) in the esophagus to keep it open. ? Acid-blocking medicines. Taking these can help you manage GERD symptoms after an esophageal stricture. Controlling your GERD symptoms or being free of them can prevent the stricture from returning. Follow these instructions at home: Eating and drinking ? Follow instructions from your health care provider about eating or drinking restrictions. ? Cut your food into small pieces, chew well, and eat slowly. ? Try to eat soft food that is easier to swallow. ? Eat and drink only when you are (more content not included)...[facility]05-24-2023 NoteHNO ID: [id number] Author: Luis Felipe Klein APRN.CNP Service: ? Author Type: Nurse Practitioner Type: Progress Notes Filed: 09/22/2022 8:59 AM Note Text: Patient fasting for 3 hours:Yes Any implanted devices:No Possibility of :No Fibroscan was performed on September 21, 2022, by Ayla Gutierrez RN and results are interpreted by Luis Felipe Klein Diagnosis: Fatty liver Please refer to get images report for individual readings Number of readings: 10 IQR %: 17% E (kpa): 6.2 CAP: 203 Impression The reading was adequate. FS=6.2 kPA. The CAP score is 203and corresponds to steatosis grade of S0. This reading corresponds: A 97% chance of stage 0-2 fibrosis A 3% chance of stage 3-4 fibrosis (advanced fibrosis) A <1% chance of stage 4 fibrosis (cirrhosis). Luis Felipe Klein APRN.NISH NAFLD Fibroscan Fibrosis Risk <7 kPA = F0-F2 97%, F3+F4 3%, F4 <1% <10 kPA = F0-F2 91%, F3+F4 9%, F4 1.3% 10-15 kPA = F0-F2 56%, F3+F4 43%, F4 14% >15 kPA = F0-F2 26%, F3+F4 74%, F4 46% Grade CAP value up to 237 dB/M corresponds to S0 (< 10 % Fat) CAP value between (238 - 258 dB/M) corresponds to S1 (>/= 11 % Fat) CAP value between (259 - 289 dB/M) corresponds to S2 (>/= 33 % Fat) CAP value > 290dB/M corresponds to S3 (>/= 67 % Fat) stage 0 ( S0:< 10 % steatosis) stage 1 (>/= S1: 11%-33% steatosis) stage 2 (>/= S2: 34%-66% steatosis) stage 3 (>/= S3: > 66% steatosis) Reference Zaire Y, Adonis Q, Zaire T, Brittney J, Zaire H, Adebayo T. Controlled attenuation parameter for assessment of hepatic steatosis grades: a diagnostic meta-analysis. Int J Clin Exp Med. 2015 Jan 15;8(10):04109-56. PMID: 71582219; PMCID: [id number]. Daniela Sam, Jeannie FRANCISCO, Mis M, Kenyatta F, Miriam J, Darinel O, Maurice F, Ivet M, Leighton G, Henny A, Abran E, Mary L, Faye G, Jeremy A, Rula U, Shankar S, Dimple P, Christiana V, Chu V, Marco Antonio Sam, Gisel STILL. Refining the Baveno elastography criteria for the definition of compensated advanced chronic liver disease. J Hepatol. 2020;74(5):8516-8941. doi: 10.1016/j.jhep.2020.11.050. Epub 2019Apr 08. PMID: 24843874.[facility]05-24-2023 NoteHNO ID: [id number] Author: Sandhya Law MD Service: ? Author Type: Physician Type: Progress Notes Filed: 09/21/2022 2:32 PM Note Text: DEPARTMENT OF GASTROENTEROLOGY HEPATOLOGY AND NUTRITION HEPATOLOGY CONSULT NOTE SERVICE DATE: 09/21/2022 SERVICE TIME: 1:59 PM REASON FOR CONSULT: fatty liver REQUESTING PHYSICIAN: Dr Yazan Walls Chacorta Durand is a 52 year old with hypothyroidism presented for evaluation of fatty liver. She was found to have elevated LFT when she was admitted to a local hospital in June 2022 for abd pain and n/v. She was told that she has fatty liver and fibrosis. Her pain and n/v has resolved. She is asked to see Hepatology for further evaluation. She has no GI symptoms now. No FH of liver disease. No alcohol use. Labs ALT 78 ALP 124 AST 32 TB 0.6 PSH Endometriosis s/p hysterectomy S/p cholecystectomy Prior to Admission Medications: levothyroxine (SYNTHROID) 100 mcg tablet Take 1 tablet by mouth once daily. Cholecalciferol, Vitamin D3, 125 mcg/mL (5,000 unit/mL) drop Take 1 tablet by mouth once daily. Milk Thistle 175 mg tab Take 1 tablet by mouth twice daily. No current facility-administered medications for this visit. Complications of Cirrhosis: None Objective PHYSICAL EXAM: Physical Exam Performed: There were no vitals taken for this visit. General appearance: well appearing, alert, in no acute distress, and well-hydrated, well nourished Skin: Skin color, texture, turgor normal, no suspicious rashes or lesions Head: normal Eyes: Anicteric sclera. Lungs: lungs clear to auscultation no wheezing or rhonchi Heart: RRR without murmur, gallop, or rubs. No ectopy Abdomen: Normal abdominal exam, Abdomen soft, non-tender. Bowel sounds normal. No masses, organomegaly Extremities: Extremities normal. DATA: Labs ALT 78 ALP 124 AST 32 TB 0.6 Impression/Recommendations 52 year old with hypothyroidism presented for evaluation of fatty liver and abnormal LFT. Likely BLOOM vs PBC.No signs of cirrhosis. --fibroscan to determine degree of steatosis and liver stiffness --Request prior liver imaging --Serological work up to rule out other etiology of intrinsic liver disease --RUQ ultrasound for liver morphology --Follow up in clinic in 3 months SIGNATURE: Sandhya Law MD PATIENT NAME: Estrella Durand DATE: September 21, 2022 TIME: 1:59 PM Medical Decision Making: Problems: Moderate: New problem with uncertain prognosis Data: Unique test result(s) reviewed: 3+ Unique test(s) ordered: 3+ Risk: Low: Low risk from testing/treatment Medical Decision Making Level: 4 - [facility] Future Appointments Appointment Date:11/28/2022 08:15:00 AM Scheduled Provider: Location:[facility] Appointment Type:Surgery FT Future Scheduled Tests Laboratory* HCV Antibody RFX to Quant PCR 10/05/22 * CBC w/ Auto Diff 10/05/22 * Comprehensive Metabolic Panel 10/05/22 * PT 10/05/22 [facility] Evaluation note* Diagnosis BLOOM (nonalcoholic steatohepatitis) Other chronic nonalcoholic liver disease [facility] Diagnosis Positive HECTOR (antinuclear antibody)- Primary Other and unspecified nonspecific immunological findings SS-A antibody positive Other and unspecified nonspecific immunological findings SS-B antibody positive Other and unspecified nonspecific immunological findings Pain of both wrist joints NAFL (nonalcoholic fatty liver) Other chronic nonalcoholic liver disease documented in this encounter [facility] note* Diagnosis Pain of both wrist joints documented in this encounter [facility] note* Diagnosis Screening for malignant neoplasm of colon [facility] Diagnosis Fatty liver- Primary Other chronic nonalcoholic liver disease documented in this encounter [facility] note* Diagnosis Fatty liver- Primary Other chronic nonalcoholic liver disease documented in this encounter [facility] course Narrative No data available for this section [facility] Hospital Discharge instructions No data available for this section [facility] Progress note No data available for this section [facility] Reason for referral (narrative)* Diagnostic Procedure Only (Routine) - Pending Review Specialty Diagnoses / Procedures Referred By Contac jaswant Referred To Contact US IMAGING Diagnoses BLOOM (nonalcoholic steatohepatitis) Procedures US ABD RIGHT UPPER QUADRANT US ABDOMINAL REAL TIME W/IMAGE LIMITED Sandhya Law MD [address] [id number] [facility] Referral ID Status Reason Start Date Expiration Date Visits Requested Visits Authorized [id number] Pending Review Auto-Generat ed Referral 09/21/2022 10/21/2023 1 1 [facility] for referral (narrative)* Diagnostic Procedure Only (Routine) - Pending Review Specialty Diagnoses / Procedures Referred By Contac t Referred To Contact US IMAGING Diagnoses Pain of both wrist joints Procedures US HAND/WRIST SYNOVIAL SCREEN LEFT US COMPL JOINT R-T W/IMAGE DOCUMENTATION Christa Bianchi PA-C [address] [place] [address] [facility] [place] [address] Referral ID Status Reason Start Date Expiration Date Visits Requested Visits Authorized [id number] Pending Review Auto-Generat ed Referral 01/30/2023 02/29/2024 1 1 * Diagnostic Procedure Only (Routine) - Pending Review Specialty Diagnoses / Procedures Referred By Lichaac t Referred To Contact US IMAGING Diagnoses Pain of both wrist joints Procedures US HAND/WRIST SYNOVIAL SCREEN RIGHT US COMPL JOINT R-T W/IMAGE DOCUMENTATION Christa Bianchi PA-C [address] [place] [address] [place] [address] Referral ID Status Reason Start Date Expiration Date Visits Requested Visits Authorized [id number] Pending Review Auto-Generat ed Referral 01/30/2023 02/29/2024 1 1 [facility] for referral (narrative)* Diagnostic Procedure Only (Routine) - Closed Specialty Diagnoses / Procedures Referred By [place] t Referred To Contact US IMAGING Diagnoses Pain of both wrist joints Procedures US HAND/WRIST SYNOVIAL SCREEN LEFT US COMPL JOINT R-T W/IMAGE DOCUMENTATION Christa Bianchi PA-C [address] [place] [address] [place] [address] Referral ID Status Reason Start Date Expiration Date V isits Requested Visits Authorized [id number] Closed Patient Cleared - True Self-Pay required payment collected 01/30/2023 02/29/2024 1 1 * Diagnostic Procedure Only (Routine) - Closed Specialty Diagnoses / Procedures Referred By Lichaac t Referred To Contact US IMAGING Diagnoses Pain of both wrist joints Procedures US HAND/WRIST SYNOVIAL SCREEN RIGHT US COMPL JOINT R-T W/IMAGE DOCUMENTATION Christa Bianchi PA-C [address] [phone] [place] [address] Referral ID Status Reason Start Date Expiration Date V isits Requested Visits Authorized [id number] Closed Patient Cleared - True Self-Pay required payment collected 01/30/2023 02/29/2024 1 0 [facility] for visit Narrative* Diagnostic Procedure Only (Routine) - Closed Specialty Diagnoses / Procedures Referred By Contac t Referred To Contact US IMAGING Diagnoses Pain of both wrist joints Procedures US HAND/WRIST SYNOVIAL SCREEN LEFT US COMPL JOINT R-T W/IMAGE DOCUMENTATION Christa Bianchi PA-C [address] [address] [place] [address] Referral ID Status Reason Start Date Expiration Date V isits Requested Visits Authorized [id number] Closed Patient Cleared - True Self-Pay required payment collected 01/30/2023 02/29/2024 1 1 [facility] Summary Purpose Family History No Family History Records FoundNo Family History Records FoundNo Family History Records FoundNo Family History Records FoundNo Family History Records FoundNo Family History Records Found Advance Directives No Advanced Directives Records FoundLatest Code Status on File Code Status Date Activated Date Inactivated Comments Full Code 07/18/2023 7:46 AM Additional Source Comments INFORMATION SOURCE (unrecogn ized section and content) DATE CREATED AUTHOR 06/23/2021 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 Specialty Start Date End Date Yazan Walls MD [address] [place] [address] PCP - General Family Medicine 09/02/22 Maty Jameson, MEDICAL BILLING ASSISTANT [address] [place], [place] [phone] Referring 09/26/17 Yazan Walls MD [address] [place] [phone] Family Medicine 09/02/22 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 Relationship Specialty Start Date End Date Yazan Walls MD [address] [place] [phone] PCP - General Family Medicine 09/02/22 Maty Jameson CNP [address] [place] [address] Referring 09/26/17 Yazan Walls MD [address] [place] [phone] Family Medicine 09/02/22 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 Relationship Specialty Start Date End Date Yazan Walls MD [address] [place] [address] PCP - General Family Medicine 09/02/22 Maty Jameson CNP [address] [place] [address] Referring 09/26/17 Yazan Walls MD [address] [place] [address] Family Medicine 09/02/22 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 Relationship Specialty Start Date End Date Yazan Walls MD [address] [place] [phone] PCP - General Family Medicine 09/02/22 Maty Jameson CNP [address] [place] [address] Referring 09/26/17 Yazan Walls MD [address] [place] [phone] Family Medicine 09/02/22 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 Relationship Specialty Start Date End Date Yazan Walls MD [address] [place] [place] [phone] PCP - General Family Medicine 09/12/22 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 Relationship Specialty Start Date End Date Yazan Walls MD [address] [place] [address] PCP - General 06/23/23 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 Relationship Specialty Start Date End Date Yazan Walls MD [address] [place] [phone] PCP - General Family Medicine 09/02/22 Maty Jameson CNP [address] [phone] Referring 09/26/17 Yazan Walls MD [address] [place] [address] Family Medicine 09/02/22 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 Relationship Specialty Start Date End Date Yazan Walls MD [address] [place] [phone] PCP - General Family Medicine 09/02/22 Maty Jameson CNP [address] [place] [address] Referring 09/26/17 Yazan Walls MD [address] [place] [address] Family Medicine 09/02/22 Source Comments (unrecognize d section and content) In the event this informatio n is protected by the Federal Confidentiality of Alcohol and Drug Abuse Patient Records regulations: The Federal rules restrict any use of the information to criminally investigate or prosecute any alcohol or drug abuse patient.[facility] the event this information is protected by the Federal Confidentiality of Alcohol and Drug Abuse Patient Records regulations: The Federal rules restrict any use of the information to criminally investigate or prosecute any alcohol or drug abuse patient.[facility] Center[facility] the event this information is protected by the Federal Confidentiality of Alcohol and Drug Abuse Patient Records regulations: The Federal rules restrict any use of the information to criminally investigate or prosecute any alcohol or drug abuse patient.[facility] Center[facility] the event this information is protected by the Federal Confidentiality of Alcohol and Drug Abuse Patient Records regulations: The Federal rules restrict any use of the information to criminally investigate or prosecute any alcohol or drug abuse patient.[facility] Center[facility] the event this information is protected by the Federal Confidentiality of Alcohol and Drug Abuse Patient Records regulations: The Federal rules restrict any use of the information to criminally investigate or prosecute any alcohol or drug abuse patient.[facility] Center[facility] the event this information is protected by the Federal Confidentiality of Alcohol and Drug Abuse Patient Records regulations: The Federal rules restrict any use of the information to criminally investigate or prosecute any alcohol or drug abuse patient.[facility] Reason for Visit (unrecogniz ed section and content) Specialty Diagnoses / Procedures Referred By Contac t Referred To Contact [facility] Diagnoses BLOOM (nonalcoholic steatohepatitis) Procedures DDI VIBRATION CONTROLLED TRANSIENT ELASTOGRAPHY (VCTE) LIVER ELASTOGRAPHY W/O IMAG W/I&R Sandhya Law MD [address] [place] [address] [facility] [address] [place] [address] Referral ID Status Reason Start Date Expiration Date Visits Requested Visits Authorized [id number] Authorized Auto-Generate d Referral Patient Cleared - Qualified 100% FAS 09/21/2022 12/20/2022 99 99 Specialty Diagnoses / Procedures Referred By [place] michaud Referred To Contact Rheumatology Diagnoses Pain of both wrist joints Procedures CONSULT TO RHEUM/IMMUN DISEASE OFFICE/OUTPATIENT [facility] HIGH MDM 60-74 MINUTES Sandhya Law MD [address] [place] [address] Referral ID Status Reason Start Date Expiration Date Visits Requested Visits Authorized [id number] Pending Review PCP Requested Referral 12/14/2022 12/14/2023 1 1 Reason Comments Appointment Specialty Diagnoses / Procedures Referred By [place] michaud Referred To Contact Diagnoses Occult blood in stools Occult blood in stools [R19.5] Procedures CO COLONOSCOPY FLX DX W/COLLJ SPEC WHEN PFRMD CO COLONOSCOPY W/BIOPSY SINGLE/MULTIPLE CO COLSC FLX W/RMVL OF TUMOR POLYP LESION SNARE TQ COLONOSCOPY DIAGNOSTIC Amber Copeland MD [address] [place] [address] [facility] [address] [place] [address] Referral ID Status Reason Start Date Expiration Date Visits Re quested Visits Authorized [id number] 1 1 Specialty Diagnoses / Procedures Referred By [place] michaud Referred To Contact [facility] Diagnoses NAFL (nonalcoholic fatty liver) Procedures DDI VIBRATION CONTROLLED TRANSIENT ELASTOGRAPHY (VCTE) LIVER ELASTOGRAPHY W/O IMAG W/I&R Sandhya Law MD [address] [place] [address] [facility] [address] [place] [address] Referral ID Status Reason Start Date Expiration Date Visits Requested Visits Authorized [id number] Authorized Patient Cleared - Qualified 100% FAS 06/19/2023 12/15/2023 99 99 Scheduled Active and Recently Administ ered Medications (unrecognized section and content) Medication Order 07/16/2023 07/17/2023 07/18/2023 sodium chloride flush 0.9 % injection 5-40 mL 5-40 mL, IntraVENous, EVERY 12 HOURS SCHEDULED (2 times per day), First dose on Mon07/18/23 at 0900, Until Discontinued, For Line Patency: Peripheral IV = 5 mL; Midline or Central Line = 10 mL/lumen. If following IV push medication, administer flush at same rate as the IV push. Flush volume is determined by type of infusion therapy being given. For non-viscous solutions use: Peripheral IV = 5 mL Midline or Central Line = 10 mL/lumen For viscous solutions (i.e. blood components, parenteral nutrition, contrast media, or after obtaining blood sample) use: Peripheral IV = 10 mL Midline or Central Line = 20 mL/lumen, Pre-procedure(GI) 0900 (Due)2100 (Due) Continuous Medication Order 07/16/2023 07/17/2023 07/18/2023 0.9 % sodium chloride infusion IntraVENous, at 75 mL/hr, CONTINUOUS, Starting on Mon07/18/23 at 0815, Pre-procedure(GI) 0821 (New Bag - Prov ider: Vickie Norris RN)0844 (NoRateChange - Provider: PIERRE Claros CRNA)0853 (Anesthesia Volume Adjustment - Provider: PIERRE Claros CRNA) PRN Medication Order 07/16/2023 07/17/2023 07/18/2023 0.9 % sodium chloride infusion IntraVENous, at 100 mL/hr, PRN, If patient receiving piggyback infusions without ordered maintenance IV fluids or with frequent/long duration piggyback infusions, Starting on Mon07/18/23 at 0746, Administer at the same rate as the piggyback being infused., Pre-procedure(GI) simethicone (MYLICON) 40 MG/0.6ML suspension drops (CANCELED) PRN, Starting on Mon07/18/23 at 0849, Until Mon07/18/23 at 0908, Intra-op 0849 (Given - Provid er: Amber Copeland MD - Comment: dose approximate, given per MD) sodium chloride flush 0.9 % injection 5-40 mL 5-40 mL, IntraVENous, PRN, Starting on Mon07/18/23 at 0746, Until Discontinued, Line Care, After every IV line use, For Line Patency: Peripheral IV = 5 mL; Midline or Central Line = 10 mL/lumen. If following IV push medication, administer flush at same rate as the IV push. Flush volume is determined by type of infusion therapy being given. For non-viscous solutions use: Peripheral IV = 5 mL Midline or Central Line = 10 mL/lumen For viscous solutions (i.e. blood components, parenteral nutrition, contrast media, or after obtaining blood sample) use: Peripheral IV = 10 mL Midline or Central Line = 20 mL/lumen, Pre-procedure(GI) sterile water for irrigation (CANCELED) PRN, Starting on Mon07/18/23 at 0849, Intra-op 0849 (Given - Provid er: Amber Copeland MD - Comment: dose approximate, given per MD) FOR RECORDS PERTAINING TO PATIENTS WHO ARE OR HAVE BEEN ENROLLED IN A CHEMICAL DEPENDENCY/SUBSTANCEABUSE PROGRAM, SOME INFORMATION MAY BE OMITTED. This clinical summary was aggregated from multiple sources. Caution should be exercised in using it in the provision of clinical care. This summary normalizes information from multiple sources, and as a consequence, information in this document may materially change the coding, format and clinical context of patient data. In addition, data may be omitted in some cases. CLINICAL DECISIONS SHOULD BE BASED ON THE PRIMARY CLINICAL RECORDS. [employer] provides no warranty or guarantee of the accuracy or completeness of information in this document.
[2023-12-05 13:03] LABS: Free T3 2.48 pg/mL (2.18-3.98); Thyroid Stimulating Hormone 0.695 uIU/mL (0.358-3.740)
[2023-12-05 13:53] LABS: Free T4 1.16 ng/dL (0.76-1.46)
[2023-12-06 04:07] LABS: C-Peptide, Serum 2.6 ng/mL (1.1-4.4); Insulin 11.1 uIU/mL (2.6-24.9)
== END 2023-12-05 12:10 | disposition home or self-care (01) ==
LOC: LAB 12:11
PROVIDERS: PCP Family Medicine; Visit Provider Family Medicine
DX: E04.1 Nontoxic single thyroid nodule (principal); E03.9 Hypothyroidism, unspecified; R73.03 Prediabetes
CPT/HCPCS: 36415; 83525; 84439; 84443; 84481; 84681

== ENCOUNTER 2024-03-28 16:58 | Emergency (ER) | payer OTHER, SELFPAY ==
[2024-03-28 17:04] VITALS: BP 148/83; PULSE 85; TEMP 37.1; O2SAT 99; BMI 23.4
--- OUTSIDE RECORDS SUMMARY | 2024-03-28 17:05 | XMS_ITS | CCD ---
Author Organization [facility] Care Team Providers Care Hemp Fiber Taker Off Name Role Phone TITI, DR TRISTAN Admitting Unavailable ZIEBER, DR ANTHONY Taylor Consulting Unavailable WALLS, DR TRISTAN Attending Unavailable WALLS, DR TRISTAN Primary Care Unavailable WALLS, DR TRISTAN Consulting Unavailable WALLS, DR TRISTAN Admitting Unavailable WALLS, DR TRISTAN Primary Care Unavailable WALLS, DR TRISTAN Attending Unavailable WALLS, DR TRISTAN Consulting Unavailable MASOOD, BRET Admitting Unavailable MASOOD, BRET Attending Unavailable MASOOD, BRET Consulting Unavailable OSCRA .MESFIN Admitting Unavailable OSCAR ., MESFIN Attending Unavailable OSCAR .MESFIN Consulting Unavailable WALLS, DR TRISTAN Primary Care Unavailable STRAWSER, AFBY Consulting Unavailable TIMMIS, DR ORANTES Admitting Unavailable [...] Primary Care Physician Maty Jameson CNP Unavailable Yazan Walls MD Primary Care Provider Yazan Walls MD Unavailable Juancarlos DIAS Referring Unavailable Juancarlos DIAS Attending Unavailable SALAM, Bauer Admitting Unavailable [facility] Unavail able SALAM, Bauer Attending Unavailable WALLS, YAZAN Referring Unavailable SALAM, Bauer Attending Unavailable Maty Jameson CNP Unavailable [phone] Yazan Walls MD Primary Care Provider [phone] Yazan Walls MD Primary Care Provider AMBER COPELAND Admitting Unavailable AMBER COPELAND Attending Unavailable WALLS, YAZAN Primary Care Unavailable WALLS, YAZAN LEONEL Primary Care Unavailable Keisha, Sandhya Attending Unavailable Keisha, Sandhya Referring Unavailable WALLS, [...] YAZAN LEONEL Primary Care Unavailable WALLS, YAZAN A Attending Unavailable WALLS, YAZAN A Attending Unavailable WALLS, YAZAN A Attending Unavailable SEEMA CHAN L Attending Unavailable WALLS, YAZAN A Referring Unavailable Allergies Allergy Classification Reported Allergen(s) Allergy Type Date of Onset Reaction(s) Facility (11 sources) levoFLOXacin; Translations: [levofloxacin] Drug Allergy 3 Unknown, Rash [facility] (1 source) No Known Medication Allergies; Translations: [No Known Medication Allergies] Propensity to adverse reactions (disorder) [facility] Medications Current Medications Medication Drug Class(es) [...] Start: 03-15-2022 take 1 tablet by billie th once daily Cholecalciferol, Vitamin D3, 125 mcg/mL (5,000 unit/mL) drop Take 1 tablet by mouth once daily. 0 03/15/2022 Active Comment on above: Take 1 tablet by billie th once daily. ibuprofen 200 mg oral capsule (4 sources) Nonsteroidal Anti-inflammatory Drug Start: 10-04-2022 ibuprofen 200 mg oral capsule Refills(s) 0, Pain Start Date: 10/04/22 Status: Ordered Start: 01-11-2022 take 1 tablet by billie th every eight hours as needed for pain [...] Start: 10-04-2022 take 1 tablet by billie th once daily levothyroxine 75 mcg (0.075 mg) Tab 75 mcg = 1 tab(s), Oral, Daily, # 30 tab(s), Refills(s) 0, Thyroid Start Date: 10/04/22 Status: Ordered Start: 09-20-2022 End: 12-05-2023 take 1 tablet by mouth once daily levothyroxine (SYNTHROID) 100 mcg tablet Take 1 tablet by mouth once daily. 0 09/20/2022 Active Comment on above: Take 1 tablet by billie th once daily. 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 The complete report is available in the patient's medical record. If you cannot access the medical record, please contact the sending organization for a detailed fax or copy. EXAMINATION: BI MAMMOGRAM SCREENING TOMOSYNTHESIS BILATERAL CLINICAL HISTORY:Screening for breast cancer COMPARISON: April 20, 2020. RESULT: Density: There are scattered areas of fibroglandular density Typically benign calcifications. There is no suspicious mass, asymmetry, architectural distortion, or calcification. Overall appearance stable. IMPRESSION: BIRADS 2 - Benign Follow-up: Routine Screening Mamm Board Certified Radiologists. Accredited by the ACR and FDA. MAMMOGRAPHY IS VERY IMPORTANT TO YOUR HEALTH. THE [place] [employer] GUIDELINES RECOMMEND THAT WOMEN 40 YEARS OF AGE AND OLDER SHOULD HAVE A MAMMOGRAM EVERY YEAR. A REMINDER LETTER WILL BE SENT AT THE APPROPRIATE TIME. THIS FACILITY UTILIZES A REMINDER SYSTEM TO ENSURE ALL PATIENTS RECEIVE REMINDER NOTIFICATIONS AT THE APPROPRIATE TIME BASED ON THE RECOMMENDATIONS OF THIS EXAM. THIS INCLUDES REMINDERS FOR ROUTINE SCREENING MAMMOGRAMS, DIAGNOSTIC MAMMOGRAMS IN WHICH THE PATIENT IS ASKED TO RETURN FOR ADDITIONAL VIEWS, OR OTHER BREAST IMAGING INTERVENTIONS WHEN APPROPRIATE. THE PATIENT WILL BE PLACED IN THE APPROPRIATE REMINDER SYSTEM INCLUDING A REMINDER AT THE APPROPRIATE TIME FOR ANY PENDING ADDITIONAL VIEWS. TRANSCRIBED BY: ELECTRONICALLY SIGNED BY: Chris Griffith MD Normal Not Available US THYROIDon 12-04-2023 US THYROID EXAM: Thyroid Ultrasound. REASON FOR EXAM: Nodules. COMPARISON: Thyroid ultrasound July 12, 2022. TECHNIQUE: Longitudinal and transverse grayscale, color Doppler images of the thyroid obtained. FINDINGS: The thyroid lobes are relatively symmetric in size. The isthmus is not thickened. Right-sided thyroid nodules: 5.9 x 5.4 x 4.7 mm. TI-RADS 4. 4.6 x 3.7 x 2.8 mm. TI-RADS 4. 7.7 x 8.4 x 5.6 mm. Right mid to inferior pole 7.7 x 5.6 x 8.4 mm. Left lobe: 8.5 x 9 x 6.9 mm hypoechoic nodule. Measurements: Right Lobe: 4.4 x 1.2 x 1.9 cm Left Lobe: 3.9 x 1.3 x 1.5 cm Isthmus: 0.30 cm IMPRESSION: 1. Right thyroid nodule mid to superior pole contains an internal echogenic nonshadowing nodule. Posterior enhancement. Not significantly changed in size. TI-RADS 4. Inferior pole right thyroid nodule circumscribed. Enhancement of the posterior wall and posterior acoustic enhancement with internal echoes. TI-RADS 4. Right lobe mid to inferior nodule with an internal echogenic focus. Stable to slightly smaller in size. TI-RADS 5. This was previously biopsied per report. 2. Left thyroid lobe hypoechoic, wider than tall, circumscribed nodule. No echogenic foci, shadowing calcifications or rim calcifications. Homogeneous internal echoes. TI-RADS 4. FNA recommended if not already performed previously. Recommendation: One year follow-up thyroid ultrasound recommended. This report is generated using voice recognition reporting ([employer]). On occasion, [employer] erroneously drops words from the report or replaces the spoken word with a similar sounding word. Please call with any questions/concerns regarding the report. Dictated and transcribed 01/19/2024/ This report has been electronically signed and approved by the interpreting radiologist. Electronically Signed Carroll Shaw II, M.D. 2024-01-19 17:45:59 Normal Not Available Liver ultrasound attenuation by transient elastographyon 07-25-2023 [facility] Colonoscopy studyon 07-18-19 24 [facility] Patient: ESTRELLA MARTINEZ : 1970 Account: [id number] Sex at : Female Age: 53 Years [...] abscess without bleeding CPT(R) - 2023 copyright [employer]. All Rights Reserved. The CPT codes, CCI edits and ICD codes generated are intended as suggestions and were generated based on input data. These codes are preliminary and upon insurance coder review may be revised to meet current compliance and payer requirements. The provider is responsible for the final determination of appropriate codes, and modifiers. Scope Withdrawal Time: 00:10:14 Rose Marie Copeland MD This document has been electronically signed. Note Initiated:07/18/2023 Note Completed:07/18/2023 9:13 AM Amber Almanza MD - 07/18/2023 [facility] Patient: ESTRELLA MARTINEZ : 1970 Account: [id number] Sex at : Female Age: 53 Years [...] abscess without bleeding CPT(R) - 2023 copyright [employer]. All Rights Reserved. The CPT codes, CCI edits and ICD codes generated are intended as suggestions and were generated based on input data. These codes are preliminary and upon insurance coder review may be revised to meet current compliance and payer requirements. The provider is responsible for the final determination of appropriate codes, and modifiers. Scope Withdrawal Time: 00:10:14 Rose Marie oCpeland MD This document has been electronically signed. Note Initiated:07/18/2023 Note Completed:07/18/2023 9:13 AM [facility] Quotations Book [facility] Quotations Book POCT Glucoseon 07-18-2023 Glucose [Mass/Vol] 106 mg/dL Critically high 70-[address] [facility] Comment on above: Performed By: #### P GLU #### [facility] [address] [place] [address] POC Performed on ACCU-CHEK Normal [facility] Comment on above: Performed By: #### P GLU #### [facility] [address] [place] [id number] Glucose [Mass/Vol] 106 mg/dL High 70 - 99 mg/dl [facility] Interpretation and review of laboratory results Abnormal [facility] Performed on ACCU-CHEK [facility] ALL CBC WITH AUTO DIFFon BASOPHILS ABSOLUTE AUTO 0.0 [facility] Basophils/100 WBC (Bld) 0.6 % 0.2 - 2.0 % [facility] Eosinophils/100 WBC (Bld) 2.3 % 0.9 - 7.0 % [facility] Erythrocyte distribution width (RBC) [Ratio] 12.3 % 11.0 - 15.0 % [facility] Hematocrit (Bld) [Volume fraction] 36.0 % 36.0 - 48.0 % [facility] Hemoglobin (Bld) [Mass/Vol] 11.8 g/dL Low 12.0 - 16.0 g/dL [facility] IMMATURE GRANULOCYTES ABS AUTO 0.01 [facility] Immature granulocytes/100 WBC (Bld) 0.2 % 0.0 - 0.5 % [facility] Interpretation and review of laboratory results Abnormal [facility] LYMPHOCYTES ABSOLUTE AUTO 1.7 [facility] Lymphocytes/100 WBC (Bld) 33.5 % 20.5 - 60.0 % [facility] MCH (RBC) [Entitic mass] 30.8 pg 26.7 - 34.0 pg [facility] MCHC (RBC) [Mass/Vol] 32.8 g/dL 29.9 - 35.2 g/dL [facility] MCV (RBC) [Entitic vol] 94.0 fL 81.0 - 99.0 fL [facility] MONOCYTES ABSOLUTE AUTO 0.5 [facility] Monocytes/100 WBC (Bld) 9.0 % 1.7 - 12.0 % [facility] NEUTROPHILS ABSOLUTE AUTO 2.8 [facility] Neutrophils/100 WBC (Bld) 54.4 % 43.0 - 75.0 % [facility] Platelet mean volume (Bld) [Entitic vol] 11.7 fL 9.5 - 13.5 fL [facility] TBH EO # 0.1 [facility] TB PLT 213 [facility] RBC 3.83 Low [facility] WBC 5.2 [facility] CNOVon 03-10-2023 CNOV Office Visit (RHEUMN ) ESTRELLA MARTINEZ ([id number]) 1970 F [place] Date Time Provider Department 03/10/23 9:00 AM CHRISTA BIANCHI RHEUMJohn During your visit today, we recorded the following information about you: Temperature Pulse Blood pressure Weight 97.5 degrees 66/minute 149/79 53.5 kg Christa Bianchi PA-C 03/10/2023 2:55 PM Signed [facility] [place] Department of Rheumatic and Immunologic Diseases Established Patient Date of Service: 03/10/2023 Patient: Estrella Martinez Medical Record: [id number] Primary Care Physician: Yazan Walls MD Referring [...] daughter whom serves as the co-historian and program and research coordinator. 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 Normal [facility] US HAND/WRIST SYNOVIAL SCREE N LEFTon 03-07-2023 [facility] US HAND/WRIST SYNOVIAL SCREE N LTon 03-07-2023 [...] IMPRESSION: NO ACTIVE SYNOVITIS. GANGLION CYSTS BILATERALLY. Change Manager: [facility] Transcribe Date/Time: Mar 07 2023 12:53P Dictated by : MANJIT CRUZ MD This examination was interpreted and the report reviewed and electronically signed by: MANJIT CRUZ MD on Mar 07 2023 1:07PM EST [id number] Normal [facility] US HAND/WRIST SYNOVIAL SCREE N RIGHTon 03-07-2023 [facility] US HAND/WRIST SYNOVIAL SCREE N RTon 03-07-2023 [...] were saved to the permanent image archive. v1-2020 COMPARISON: None. FINDINGS: RIGHT SIDE: RIGHT MCP [...] IMPRESSION: NO ACTIVE SYNOVITIS. GANGLION CYSTS BILATERALLY. Change Manager: [facility] Transcribe Date/Time: Mar 07 2023 12:53P Dictated by : MANJIT CRUZ MD This examination was interpreted and the report reviewed and electronically signed by: MANJIT CRUZ MD on Mar 07 2023 1:07PM EST [id number] Normal [facility] CNPNon 02-09-2023 CNPN Telephone (RULTTB) ESTRELLA MARTINEZ ([id number]) 1970 [facility] Date Time Provider Department 02/09/23 JACQUELINE MARIN RULTTB During your visit today, we recorded the [...] authorization to schedule the appointment. Provided the [facility] hotline if they have any questions. Lucinda Bridges RDMS, RVT 02/14/2023 8:31 AM Signed Patient called [...] for their MSK US on 03/07 at [place]. Allergies As of Date: 02/09/2023 Noted Allergy [...] Status:Closed by JACQUELINE MARIN on 02/09/23 Normal [facility] Urinalysis complete panel (U )on 01-31-2023 Bilirubin Ql (U) Negative Negative [facility] Calcium Oxalate Crystals Moderate Abnormal None Seen /HPF [facility] Clarity (Unsp spec) Clear Clear [facility] Color (U) Light Yellow Yellow [facility] Epithelial cells LM.HPF (Urine sed) [#/Area] Few [facility] Glucose Test strip (U) [Mass/Vol] Negative Trace, Negative [facility] Hemoglobin Ql (U) Negative Negative, Trace [facility] Ketones Ql (U) Negative Trace, Negative [facility] Leukocyte esterase Test strip Ql (U) Negative Negative, 25 Jarek/uL [facility] Nitrite Ql (U) Negative Negative [facility] pH (U) 7.0 [pH] 5.0 - 8.0 [facility] Protein (U) [Mass/Vol] Negative Trace, Negative [facility] RBC LM.HPF (Urine sed) [#/Area] 0-3 /HPF 0-3 /HPF [facility] Specific gravity (U) [Rel density] 1.014 1.005 - 1.030 [facility] Urobilinogen Ql (U) Negative Negative [facility] WBC LM.HPF (Urine sed) [#/Area] 0-5 /HPF 0-5 /HPF [facility] C3 COMPLEMENT BLDon 01-31-20 23 Complement C3 [Mass/Vol] 126 mg/dL 86 - 166 mg/dL [facility] C3 SerPl-mCncon 01-30-2023 Complement C3 [Mass/Vol] 126 mg/dL Normal 86-166 [facility] Comment on above: Order Comment: Speci men Type: BLOOD SPECIMEN Ordering Facility: [facility] Address: [address] [address] Performed By: #### 2 9374-6, 78869-8, 83018-0, 93396-3, 05275-5, 23617-9, ANAIFR, 05339-3, 98943-7, 90116-1, 65007-5, 19982-7 #### [facility] CLIA [id number] [address] [place] [address] [place] C4 COMPLEMENT BLDon 01-31-20 Complement C4 [Mass/Vol] 26 mg/dL 13 - 46 mg/dL [facility] C4 SerPl-mCncon 01-30-2023 Complement C4 [Mass/Vol] 26 mg/dL Normal 13-46 [facility] Comment on above: Order Comment: Speci men Type: BLOOD SPECIMEN Ordering Facility: [facility] Address: [address] [place] [address] Performed By: #### 2 9374-6, 89786-2, 10463-2, 71126-5, 72582-6, 16005-0, ANAIFR, 83067-9, 23734-7, 36578-4, 83805-5, 71507-7 #### [facility] CLIA [id number] [facility] [address] [place] CNOVon 01-30-2023 CNOV Office Visit (RHEUMN ) ESTRELLA DURAND ([id number]) 1970 F [place] Date Time Provider Department 01/30/23 1:00 PM CHRISTA BIANCHI During your visit today, we recorded the following information about you: Temperature Pulse Blood pressure Weight 97.3 degrees 63/minute 122/72 53.4 kg Christa Bianchi PA-C 01/30/2023 2:17 PM Signed [facility] [place] Department of Rheumatic and Immunologic Diseases New Patient Date of Service: 01/30/2023 Patient: Estrella Durand Medical Record: [id number] Primary Care Physician: Yazan Walls MD Referring Physician: Sandhya Law Last Rheumatology visit: None at [facility] This consult was requested by the doctor [...] 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 Sandhya Law, upon discharge in August [...] dryness, er (more content not included)... Normal [facility] Cyclic citrullinated peptide IgG Qnon 01-30-2023 CCP ANTIBODY IGG QUALITATIVE Negative Normal Negative [facility] Comment on above: Order Comment: Speci men Type: BLOOD SPECIMEN Ordering Facility: [facility] Address: [address] [place] [address] Performed By: #### 2 9374-6, 68732-9, 31235-5, 48537-5, 69641-5, 99796-4, ANAIFR, 07969-3, 46135-4, 72498-5, 46670-9, 66870-5 #### [facility] CLIA [id number] [address] [place] [address] [place] DEON DNA AUTOABS, DOUBLE STR ANDEDon 01-30-2023 DNA double strand Ab Deon method Qn (S) <8.0 Normal <8.0 [facility] Comment on above: Order Comment: Speci men Type: BLOOD SPECIMEN Ordering Facility: [facility] Address: [address] [place], [place] [id number] Performed By: #### 2 9374-6, 73102-3, 55153-9, 04507-6, 47020-1, 20040-0, ANAIFR, 33777-0, 32680-1, 87943-0, 57861-1, 17888-2 #### [facility] CLIA [id number] [address] [place] [address] [place] PROTEIN CREATININE RATIOon 1 Protein/Creatinine (U) [Mass ratio] 0.06 mg/mg <0.15 mg/mg [facility] Prot/Creat Uron 01-30-2023 Protein/Creatinine (U) [Mass ratio] 0.06 mg/mg Normal <0.15 [facility] Comment on above: Order Comment: Speci men Type: BLOOD SPECIMEN Ordering Facility: [facility] Address: [address] [place], [place] [phone] Result Comment: Adul t Proteinuria Categories: <0.15 mg/mg is considered normal to mildly increased 0.15 - 0.50 mg/mg is considered moderately increased >0.50 mg/mg is considered severely increased KDIGO. (2013). KDIGO 2012 Clinical Practice Guideline for the Evaluation and Management of Chronic Kidney Disease. Official Journal of the International Society of Nephrology, 3(1), 1-150. Performed By: #### 2 9374-6, 14652-5, 77332-5, 80976-2, 01534-1, 75809-2, ANAIFR, 78224-8, 49831-7, 94535-3, 21925-2, 76076-2 #### [facility] CLIA [id number] [address] [place] [address] [place] Protein/Creatinine (U) [Mass ratio]on 01-30-2023 Creatinine (U) [Mass/Vol] 99.8 mg/dL 20.0 - 300.0 mg/dL [facility] Protein (U) [Mass/Vol] 6 mg/dL 0 - 20 mg/dL [facility] Creatinine (U) [Mass/Vol] 99.8 mg/dL Normal 20.0-300.0 [facility] Comment on above: Order Comment: Speci men Type: BLOOD SPECIMEN Ordering Facility: [facility] Address: [address] [place] [address] Performed By: #### 2 9374-6, 35869-1, 67308-6, 10457-8, 05206-5, 63235-2, ANAIFR, 74379-9, 73799-7, 90546-1, 37519-7, 10034-8 #### [facility] CLIA [id number] [address] [id number] [place] Protein (U) [Mass/Vol] 6 mg/dL Normal 0-20 [facility] Comment on above: Order Comment: Speci men Type: BLOOD SPECIMEN Ordering Facility: [facility] Address: [address] [id number] Performed By: #### 2 9374-6, 29597-2, 22377-4, 22272-2, 59312-5, 75994-0, ANAIFR, 44866-2, 60478-6, 18184-3, 31850-0, 58083-3 #### [facility] CLIA [id number] [address] [place] [address] [place] RHEUMATOID FACTOR BLon 01-30 Rheumatoid factor Qn 23 [IU]/mL High <16 IU/mL [facility] Rheumatoid fact SerPl-aCncon 01-30-2023 Rheumatoid factor Qn 23 [IU]/mL High <16 [facility] Comment on above: Order Comment: Speci men Type: BLOOD SPECIMEN Ordering Facility: [facility] Address: [address] [place] [address] Performed By: #### 2 9374-6, 61080-4, 95049-7, 55219-5, 97306-5, 23184-3, ANAIFR, 38019-4, 96005-2, 73009-3, 90603-7, 23139-9 #### [facility] CLIA [id number] [address] [place] [address] [place] Urinalysis complete panel (U )on 01-30-2023 Bilirubin Ql (U) Negative Normal Negative [facility] Comment on above: Order Comment: Speci men Type: BLOOD SPECIMEN Ordering Facility: [facility] Address: [address] [place] [address] Performed By: #### 2 9374-6, 51137-1, 70428-5, 95487-2, 32135-2, 08447-1, ANAIFR, 17436-8, 15729-3, 42150-2, 14644-1, 64225-0 #### [facility] CLIA [id number] [address] [place] [address] [place] CALCIUM OXALATE CRYSTALS (UA) Moderate Abnormal None Seen [facility] Comment on above: Order Comment: Speci men Type: BLOOD SPECIMEN Ordering Facility: [facility] Address: [address] [place] [address] Performed By: #### 2 9374-6, 94848-3, 74240-9, 46743-1, 20787-0, 70112-0, ANAIFR, 33000-9, 41450-7, 07798-2, 38447-6, 33290-1 #### [facility] CLIA [id number] [address] [place] [address] [place] Clarity (Unsp spec) Clear Normal Clear [facility] Comment on above: Order Comment: Speci men Type: BLOOD SPECIMEN Ordering Facility: [facility] Address: [address] [place] [address] Performed By: #### 2 9374-6, 43489-3, 97066-9, 93376-9, 82939-1, 86803-1, ANAIFR, 94299-7, 53335-3, 97794-2, 75690-1, 34234-7 #### [facility] CLIA [id number] [address] [place] [address] [place] Color (U) Light Yellow Normal Yellow [facility] Comment on above: Order Comment: Speci men Type: BLOOD SPECIMEN Ordering Facility: [facility] Address: [address] [place] [address] Performed By: #### 2 9374-6, 52800-1, 82616-7, 10873-6, 46784-4, 98495-1, ANAIFR, 63351-4, 87696-1, 14542-4, 88548-4, 32157-2 #### [facility] CLIA [id number] [facility] [place] [address] [place] Epithelial cells LM.HPF (Urine sed) [#/Area] Few Normal [facility] Comment on above: Order Comment: Speci men Type: BLOOD SPECIMEN Ordering Facility: [facility] Address: [address] [place] [address] Performed By: #### 2 9374-6, 71205-5, 98106-1, 89856-1, 43285-1, 51657-7, ANAIFR, 97235-5, 65178-7, 47991-0, 19727-4, 96539-1 #### [facility] CLIA [id number] [address] [place] [address] [place] Glucose Test strip (U) [Mass/Vol] Negative Normal Trace, Negative [facility] Comment on above: Order Comment: Speci men Type: BLOOD SPECIMEN Ordering Facility: [facility] Address: [address] [place] [address] Performed By: #### 2 9374-6, 89077-7, 13236-9, 28606-3, 23909-0, 25302-9, ANAIFR, 58219-6, 17896-2, 72001-0, 60743-4, 26005-1 #### [facility] CLIA [id number] [address] [place] [address] [place] Hemoglobin Ql (U) Negative Normal Negative, Trace [facility] Comment on above: Order Comment: Speci men Type: BLOOD SPECIMEN Ordering Facility: [facility] Address: [address] [place] [address] Performed By: #### 2 9374-6, 05406-8, 81545-7, 10742-1, 85886-4, 53784-9, ANAIFR, 83092-1, 79436-8, 89407-7, 53347-4, 49889-2 #### [facility] CLIA [id number] [address] [place] [address] [place] Ketones Ql (U) Negative Normal Trace, Negative [facility] Comment on above: Order Comment: Speci men Type: BLOOD SPECIMEN Ordering Facility: [facility] Address: [address] [place] [address] Performed By: #### 2 9374-6, 85956-0, 53807-6, 30456-9, 38776-1, 27860-3, ANAIFR, 24497-2, 13370-5, 02764-2, 06076-1, 64450-2 #### [facility] CLIA [id number] [address] [place] [address] [place] Leukocyte esterase Test strip Ql (U) Negative Normal Negative, 25 Jarek/uL [facility] Comment on above: Order Comment: Speci men Type: BLOOD SPECIMEN Ordering Facility: [facility] Address: [address] [place] [address] Performed By: #### 2 9374-6, 42420-6, 92300-1, 75102-7, 18435-6, 55353-2, ANAIFR, 57147-2, 97049-8, 07273-7, 42689-6, 81718-9 #### [facility] CLIA [id number] [address] [place] [address] [place] Nitrite Ql (U) Negative Normal Negative [facility] Comment on above: Order Comment: Speci men Type: BLOOD SPECIMEN Ordering Facility: [facility] Address: [address] [place] [address] Performed By: #### 2 9374-6, 62132-5, 12729-1, 53452-4, 56917-2, 05341-7, ANAIFR, 50575-8, 90653-2, 97952-9, 07320-0, 55356-9 #### [facility] CLIA [id number] [address] [place] [address] [place] pH (U) 7.0 [pH] Normal 5.0-8.0 [facility] Comment on above: Order Comment: Speci men Type: BLOOD SPECIMEN Ordering Facility: [facility] Address: [address] [place] [address] Performed By: #### 2 9374-6, 23408-3, 61431-3, 06776-2, 37387-8, 24350-4, ANAIFR, 02640-4, 35805-3, 46551-1, 70235-3, 82425-2 #### [facility] CLIA [id number] [address] [place] [address] [place] Protein (U) [Mass/Vol] Negative Normal Trace, Negative [facility] Comment on above: Order Comment: Speci men Type: BLOOD SPECIMEN Ordering Facility: [facility] Address: [address] [place] [address] Performed By: #### 2 9374-6, 14326-4, 98804-1, 17260-5, 31065-9, 88878-2, ANAIFR, 30138-4, 30678-9, 20096-1, 59867-3, 24134-9 #### [facility] CLIA [id number] [address] [place] [address] [place] RBC LM.HPF (Urine sed) [#/Area] 0-3 /HPF Normal 0-3 /HPF [facility] Comment on above: Order Comment: Speci men Type: BLOOD SPECIMEN Ordering Facility: [facility] Address: [address] [place] [address] Performed By: #### 2 9374-6, 13258-1, 29636-9, 66221-8, 05634-7, 32762-6, ANAIFR, 79591-9, 88933-8, 19354-2, 42001-5, 85627-2 #### [facility] CLIA [id number] [address] [place] [address] [place] Specific gravity (U) [Rel density] 1.014 Normal 1.005-1.030 [facility] Comment on above: Order Comment: Speci men Type: BLOOD SPECIMEN Ordering Facility: [facility] Address: [address] [place] [address] Performed By: #### 2 9374-6, 70958-6, 09326-7, 64646-0, 69941-3, 95066-1, ANAIFR, 66243-6, 82303-5, 70064-5, 40719-7, 22682-7 #### [facility] CLIA [id number] [facility] [place] [address] [place] Urobilinogen Ql (U) Negative Normal Negative [facility] Comment on above: Order Comment: Speci men Type: BLOOD SPECIMEN Ordering Facility: [facility] Address: [address] [place] [address] Performed By: #### 2 9374-6, 21212-5, 15086-1, 20987-9, 70001-1, 74448-5, ANAIFR, 78077-7, 89922-2, 90630-8, 34358-7, 03876-3 #### [facility] CLIA [id number] [address] [place] [address] [place] WBC LM.HPF (Urine sed) [#/Area] 0-5 /HPF Normal 0-5 /HPF [facility] Comment on above: Order Comment: Speci men Type: BLOOD SPECIMEN Ordering Facility: [facility] Address: [address] [place] [address] Performed By: #### 2 9374-6, 00500-1, 48651-2, 21792-9, 12318-6, 47772-5, ANAIFR, 86361-0, 13510-8, 16698-7, 73196-1, 65055-8 #### [facility] CLIA [id number] [address] [place] [address] [place] cCP IgG SerPl-aCncon -- 023 Cyclic citrullinated peptide IgG Qn <15 Normal <20 [facility] Comment on above: Order Comment: Speci men Type: BLOOD SPECIMEN Ordering Facility: [facility] Address: [address] [place] [address] Performed By: #### 2 9374-6, 02851-2, 27498-4, 41904-3, 72054-3, 81341-0, ANAIFR, 97838-7, 52335-4, 86935-8, 65347-2, 49367-4 #### [facility] CLIA [id number] [address] [place] [address] [place] dsDNA Ab Ser Ql CLIFon 01-30 DNA double strand Ab IF Crithidia luciliae Ql (S) Negative Normal Negative [facility] Comment on above: Order Comment: Tony keane Type: BLOOD SPECIMEN Ordering Facility: [facility] Address: [address] [place] [address] Result Comment: Crit hidia luciliae assay is used as an aid in diagnosis of systemic lupus erythematosus (SLE). A negative result cannot rule out SLE. Low positive titers may be seen with other systemic autoimmune diseases. Clinical correlation is required. Performed By: #### 2 9374-6, 35739-1, 26197-1, 05761-4, 34427-4, 03555-3, ANAIFR, 34094-5, 76100-4, 91382-5, 60546-4, 49081-9 #### [facility] CLIA [id number] [address] [place], [place] [address] [facility] Provider Letteron 12-16-2022 Provider Letter December 16, 2022 ESTRELLA MARTINEZ [address] [place] [phone] : 1970 Dear Estrella , We have been trying to reach you with no success. It is important that you return our call regarding scheduling your follow up visit for procedure dated 11-28-20 upon receiving this letter. Also, at the time of your call, please provide us with your current information. Thank you for your prompt attention to this matter. Sincerely, [facility] [phone] Normal [facility] CBC panel Auto (Bld)on 12-14 Erythrocyte distribution width (RBC) [Ratio] 11.9 % Normal 11.5-15.0 [facility] Comment on above: Order Comment: Tony keane Type: BLOOD SPECIMEN Ordering Facility: [facility] Address: [address] [place], [place] [address] Performed By: #### 2 9374-6, 10062-4, 04794-3, 59816-7, 49395-5, 53281-3, ANAIFR, 24221-4, 38991-3, 20504-7, 72059-5, 26354-2 #### [facility] CLIA [id number] [address] [place] [address] [place] Hematocrit (Bld) [Volume fraction] 37.3 % Normal 36.0-46.0 [facility] Comment on above: Order Comment: Speci men Type: BLOOD SPECIMEN Ordering Facility: [facility] Address: [address] [place] [address] Performed By: #### 2 9374-6, 21362-1, 45951-1, 35291-3, 64567-6, 61115-5, ANAIFR, 71116-7, 64551-7, 19796-5, 09725-7, 34417-2 #### [facility] CLIA [id number] [address] [place] [address] [place] Hemoglobin (Bld) [Mass/Vol] 12.1 g/dL Normal 11.5-15.5 [facility] Comment on above: Order Comment: Speci men Type: BLOOD SPECIMEN Ordering Facility: [facility] Address: [address] [place] [address] Performed By: #### 2 9374-6, 17067-7, 36497-9, 55504-1, 19018-1, 54418-3, ANAIFR, 43153-9, 87028-0, 07934-7, 01046-6, 05842-0 #### [facility] CLIA [id number] [address] [place] [address] [place] MCH (RBC) [Entitic mass] 30.3 pg Normal 26.0-34.0 [facility] Comment on above: Order Comment: Speci men Type: BLOOD SPECIMEN Ordering Facility: [facility] Address: [address] [place] [address] Performed By: #### 2 9374-6, 54988-1, 96644-6, 22456-6, 04538-8, 34994-4, ANAIFR, 93053-7, 43559-8, 72522-6, 40137-2, 75290-4 #### [facility] CLIA [id number] [address] [place] [address] [place] MCHC (RBC) [Mass/Vol] 32.4 g/dL Normal 30.5-36.0 [facility] Comment on above: Order Comment: Speci men Type: BLOOD SPECIMEN Ordering Facility: [facility] Address: [address] [place] [address] Performed By: #### 2 9374-6, 05424-8, 30371-2, 43615-3, 01000-4, 91311-9, ANAIFR, 80080-6, 66183-5, 82143-3, 11705-2, 05531-8 #### [facility] CLIA [id number] [address] [place] [address] [place] MCV (RBC) [Entitic vol] 93.5 fL Normal 80.0-100.0 [facility] Comment on above: Order Comment: Speci men Type: BLOOD SPECIMEN Ordering Facility: [facility] Address: [address] [place] [address] Performed By: #### 2 9374-6, 01501-3, 28987-9, 40383-5, 74276-6, 75600-2, ANAIFR, 60230-4, 06405-1, 52098-6, 91267-9, 95014-2 #### [facility] CLIA [id number] [address] [place] [address] [place] Nucleated RBC (Bld) [#/Vol] 10*3/uL Normal <0.01 [facility] Comment on above: Order Comment: Speci men Type: BLOOD SPECIMEN Ordering Facility: [facility] Address: [address] [place] [address] Performed By: #### 2 9374-6, 96286-5, 68890-1, 51727-6, 36394-4, 12813-1, ANAIFR, 48383-5, 10054-9, 54679-1, 22600-7, 59854-7 #### [facility] CLIA [id number] [address] [place] [address] [place] Platelet mean volume (Bld) [Entitic vol] 11.7 fL Normal 9.0-12.7 [facility] Comment on above: Order Comment: Speci men Type: BLOOD SPECIMEN Ordering Facility: [facility] Address: [address] [place] [address] Performed By: #### 2 9374-6, 52157-1, 49163-9, 97920-0, 67898-0, 65265-2, ANAIFR, 71989-1, 02440-6, 50757-3, 01401-2, 69141-1 #### [facility] CLIA [id number] [address] [place] [address] [place] Platelets (Bld) [#/Vol] 209 10*3/uL Normal 150-400 [facility] Comment on above: Order Comment: Speci men Type: BLOOD SPECIMEN Ordering Facility: [facility] Address: [address] [place] [address] Performed By: #### 2 9374-6, 88479-4, 84876-8, 78545-6, 17579-7, 65470-0, ANAIFR, 81943-7, 65425-9, 71506-4, 21778-6, 61829-7 #### [facility] CLIA [id number] [address] [place] [address] [place] RBC (Bld) [#/Vol] 3.99 10*6/uL Normal 3.90-5.20 [facility] Comment on above: Order Comment: Speci men Type: BLOOD SPECIMEN Ordering Facility: [facility] Address: [address] [place], [place] [address], [place] [address] Performed By: #### 2 9374-6, 62161-6, 03742-3, 27585-2, 89249-3, 09288-9, ANAIFR, 35191-3, 91551-6, 41291-0, 95741-6, 29693-2 #### [facility] CLIA [id number] [address] [place] [address] [place] WBC (Bld) [#/Vol] 6.38 10*3/uL Normal 3.70-11.00 [facility] Comment on above: Order Comment: Speci men Type: BLOOD SPECIMEN Ordering Facility: [facility] Address: [address] [place] [address] Performed By: #### 2 9374-6, 11517-4, 79826-0, 29317-2, 95949-6, 12879-4, ANAIFR, 03750-0, 33455-3, 84754-2, 50460-4, 01975-0 #### [facility] CLIA [id number] [address] [place] [address] [facility] NITINOVradha 12-14-2022 CNOV Office Visit (GASTA5 ) ESTRELLA DURAND ([id number]) 1970 F GRIFFIN Date Time Provider Department 12/14/22 2:00 PM SANDHYA LAW GASTA5 During your visit today, we recorded the following information about you: Temperature Pulse Blood pressure Weight 97.6 degrees 64/minute 118/74 64.4 kg Sandhya Law MD 12/16/2022 8:39 AM Signed [facility] [place] [address] [place] [address] Department of Gastroenterology and Hepatology [facility]ology [facility] [...] HBA1C:1 URINALYSIS: (more content not included)... Normal [facility] metabolic 2000 panelon 12-14-2022 Albumin [Mass/Vol] 4.5 g/dL Normal 3.9-4.9 [facility] Comment on above: Order Comment: Speci men Type: BLOOD SPECIMEN Ordering Facility: [facility] Address: [address] [place] [address] Performed By: #### 2 9374-6, 37010-7, 49732-3, 19344-9, 57162-7, 61527-2, ANAIFR, 94746-9, 29020-8, 55343-5, 14176-4, 29371-7 #### [facility] CLIA [id number] [address] [place] [address] [place] ALP [Catalytic activity/Vol] 102 U/L Normal 34-123 [facility] Comment on above: Order Comment: Speci men Type: BLOOD SPECIMEN Ordering Facility: [facility] Address: [address] [place] [address] Performed By: #### 2 9374-6, 55982-6, 88793-9, 11575-4, 58438-6, 57610-1, ANAIFR, 37823-7, 68758-5, 01273-5, 16303-3, 30866-8 #### [facility] CLIA [id number] [address] [place] [address] [place] ALT [Catalytic activity/Vol] 19 U/L Normal 7-38 [facility] Comment on above: Order Comment: Speci men Type: BLOOD SPECIMEN Ordering Facility: [facility] Address: [address] Performed By: #### 2 9374-6, 63713-0, 32452-9, 40320-2, 92304-8, 34536-8, ANAIFR, 88755-8, 82505-8, 90008-7, 78973-0, 46128-7 #### [facility] CLIA [id number] [address] [place] [address] [place] Anion gap [Moles/Vol] 12 mmol/L Normal 9-18 [facility] Comment on above: Order Comment: Speci men Type: BLOOD SPECIMEN Ordering Facility: [facility] Address: [place] [address] Performed By: #### 2 9374-6, 20859-4, 87730-5, 59355-7, 24382-9, 43713-0, ANAIFR, 64662-9, 59407-4, 41546-0, 04783-6, 76676-4 #### [facility] CLIA [id number] [address] [place] [address] [place] AST [Catalytic activity/Vol] 16 U/L Normal 13-35 [facility] Comment on above: Order Comment: Speci men Type: BLOOD SPECIMEN Ordering Facility: [facility] Address: [place] [address] Performed By: #### 2 9374-6, 96241-2, 15525-3, 84089-9, 06106-5, 13441-9, ANAIFR, 21945-5, 91364-8, 63963-1, 51988-6, 98164-2 #### [facility] CLIA [id number] [address] [place] [address] [place] Bilirubin [Mass/Vol] 0.6 mg/dL Normal 0.2-1.3 [facility] Comment on above: Order Comment: Speci men Type: BLOOD SPECIMEN Ordering Facility: [facility] Address: [place] [address] Performed By: #### 2 9374-6, 91724-8, 50654-9, 31248-6, 75457-9, 33344-8, ANAIFR, 97718-0, 17530-6, 97066-0, 40135-2, 98536-7 #### [facility] CLIA [id number] [address] [place] [address] [place] Calcium [Mass/Vol] 9.6 mg/dL Normal 8.5-10.2 [facility] Comment on above: Order Comment: Speci men Type: BLOOD SPECIMEN Ordering Facility: [facility] Address: [address] [place] [address] Performed By: #### 2 9374-6, 84259-9, 92035-6, 57322-9, 40950-8, 15605-7, ANAIFR, 83649-4, 85380-8, 03508-5, 71633-2, 91026-7 #### [facility] CLIA [id number] [address] [place] [address] [place] Chloride [Moles/Vol] 105 mmol/L Normal 97-105 [facility] Comment on above: Order Comment: Speci men Type: BLOOD SPECIMEN Ordering Facility: [facility] Address: [address] [place] [address] Performed By: #### 2 9374-6, 84141-0, 73645-3, 69200-6, 80655-8, 30131-2, ANAIFR, 95199-2, 56286-1, 79845-2, 58915-2, 14740-5 #### [facility] CLIA [id number] [address] [place] [address] [place] CO2 [Moles/Vol] 25 mmol/L Normal 22-30 [facility] Comment on above: Order Comment: Speci men Type: BLOOD SPECIMEN Ordering Facility: [facility] Address: [address] [place] [address] Performed By: #### 2 9374-6, 46091-3, 46384-3, 13351-1, 60228-0, 62342-6, ANAIFR, 52253-9, 38717-5, 48089-7, 90822-3, 77109-8 #### [facility] CLIA [id number] [address] [place] [address] [place] Creatinine [Mass/Vol] 0.68 mg/dL Normal 0.58-0.96 [facility] Comment on above: Order Comment: Speci men Type: BLOOD SPECIMEN Ordering Facility: [facility] Address: [address] [place] [address] Performed By: #### 2 9374-6, 08267-5, 66298-0, 81150-7, 53829-3, 89032-3, ANAIFR, 97670-7, 38651-2, 19507-0, 80297-7, 22927-1 #### [facility] CLIA [id number] [address] [place] [address] [place] Creatinine and Glomerular filtration rate.predicted panel (S/P/Bld) 106 mL/min/1.73m??? Normal >=60 [facility] Comment on above: Order Comment: Tony keane Type: BLOOD SPECIMEN Ordering Facility: [facility] Address: [address] [place] [address] Result Comment: Ivette mated Glomerular Filtration Rate [...] actual GFR. Performed By: #### 2 9374-6, 98297-3, 31406-3, 73081-4, 08411-6, 48788-6, ANAIFR, 31909-5, 65802-6, 51916-2, 22679-1, 43324-4 #### [facility] CLIA [id number] [address] [place] [address] [place] Glucose [Mass/Vol] 86 mg/dL Normal 74-99 [facility] Comment on above: Order Comment: Speci lakhwinder Type: BLOOD SPECIMEN Ordering Facility: [facility] Address: [address] [place] [address] Result Comment: The [place] [employer] (ADA) provides guidance for cutoff [...] Standards of Medical Care in Diabetes 2016, [place] [employer]. Diabetes Care. 2016.39(Suppl 1). Performed By: #### 2 9374-6, 00477-7, 68298-9, 25778-2, 58173-6, 15937-5, ANAIFR, 37759-2, 18497-4, 37315-6, 30525-0, 90950-2 #### [facility] CLIA [id number] [address] [place] [address] [place] Potassium [Moles/Vol] 4.1 mmol/L Normal 3.7-5.1 [facility] Comment on above: Order Comment: Speci men Type: BLOOD SPECIMEN Ordering Facility: [facility] Address: [address] [place] [address] Performed By: #### 2 9374-6, 43667-7, 19845-0, 90617-3, 96747-3, 01345-6, ANAIFR, 18831-8, 67033-7, 19045-9, 55103-4, 54377-1 #### [facility] CLIA [id number] [facility] [address] [address] [place] Protein [Mass/Vol] 7.2 g/dL Normal 6.3-8.0 [facility] Comment on above: Order Comment: Speci men Type: BLOOD SPECIMEN Ordering Facility: [facility] Address: [address] [place] [address] Performed By: #### 2 9374-6, 26122-7, 29099-7, 78746-6, 97857-1, 13373-5, ANAIFR, 53470-2, 13360-0, 44224-2, 47021-2, 13384-6 #### [facility] CLIA [id number] [address] [place] [address] [place] Sodium [Moles/Vol] 142 mmol/L Normal 136-144 [facility] Comment on above: Order Comment: Speci men Type: BLOOD SPECIMEN Ordering Facility: [facility] Address: [address] [place] [address] Performed By: #### 2 9374-6, 11099-3, 55198-4, 91713-4, 70419-2, 05754-0, ANAIFR, 18799-9, 06172-9, 85404-5, 93870-6, 24752-2 #### [facility] CLIA [id number] [address] [place] [address] [place] Urea nitrogen [Mass/Vol] 11 mg/dL Normal 7-21 [facility] Comment on above: Order Comment: Speci men Type: BLOOD SPECIMEN Ordering Facility: [facility] Address: [address] [place] [address] Performed By: #### 2 9374-6, 69614-7, 20528-8, 80502-9, 02388-4, 72337-3, ANAIFR, 47131-1, 50245-4, 12945-7, 29496-6, 42336-4 #### [facility] CLIA [id number] [address] [place] [address] [place] HEPATITIS A ANTIBODY, IGGon 12-14-2022 HAV IgG Ql (S) Positive Normal [facility] Comment on above: Order Comment: Speci men Type: BLOOD SPECIMEN Ordering Facility: [facility] Address: [address] [place] [address] Result Comment: Cons istent with serological evidence of immunity to Hepatitis A Virus. Performed By: #### 2 9374-6, 64907-9, 10889-1, 75288-9, 50812-6, 60972-2, ANAIFR, 91242-5, 47078-3, 72906-2, 57845-6, 05831-7 #### [facility] CLIA [id number] [address] [place] [address] [place] Lipid 1996 panelon 3 Cholesterol [Mass/Vol] 132 mg/dL Normal <200 [facility] Comment on above: Order Comment: Speci men Type: BLOOD SPECIMEN Ordering Facility: [facility] Address: [address] [place] [address] Result Comment: <200 mg/dL, Desirable 200-239 mg/dL, Borderline high >239 mg/dL, High Performed By: #### 2 9374-6, 52941-1, 41192-8, 18744-7, 52250-6, 60715-5, ANAIFR, 64588-0, 99984-0, 75073-6, 04304-7, 36171-3 #### [facility] CLIA [id number] [facility] [place] [address] [place] Cholesterol in HDL [Mass/Vol] 55 mg/dL Normal >39 [facility] Comment on above: Order Comment: Speci men Type: BLOOD SPECIMEN Ordering Facility: [facility] Address: [address] [place] [address] Result Comment: 40-5 9 mg/dL, Acceptable >59 mg/dL, High: Negative risk factor for coronary heart disease <40 mg/dL, Low: Positive risk factor for coronary heart disease Performed By: #### 2 9374-6, 11079-4, 69949-8, 19924-3, 41128-1, 41383-9, ANAIFR, 34242-1, 44938-0, 15954-9, 47291-8, 50468-3 #### [facility] CLIA [id number] [address] [place] [address] [place] Cholesterol in LDL [Mass/Vol] 56 mg/dL Normal <100 [facility] Comment on above: Order Comment: Tony keane Type: BLOOD SPECIMEN Ordering Facility: [facility] Address: [address] [place] [address] Result Comment: <100 mg/dL, Optimal 100-129 mg/dL, Near optimal/above optimal 130-159 mg/dL, Borderline high 160-189 mg/dL, High >189 mg/dL, Very high Secondary prevention optimal LDL Cholesterol levels are recommended to be < 70 mg/dL Performed By: #### 2 9374-6, 09605-9, 09858-4, 00150-0, 10452-0, 41397-0, ANAIFR, 83905-7, 06446-4, 26502-6, 28752-6, 84245-3 #### [facility] CLIA [id number] [address] [place] [address] [place] Cholesterol in LDL/Cholesterol in HDL [Mass ratio] 1.02 {ratio} Normal <2.54 [facility] Comment on above: Order Comment: Tony keane Type: BLOOD SPECIMEN Ordering Facility: [facility] Address: [address] [place] [address] Result Comment: Yessi longoria: 1. National Cholesterol Education Program ATP III Guideline At-A-Glance Quick Desk Reference: National Heart, Lung, and Blood [place]. National Institutes of Health. 2001: NIH Publication No. 01-3305. 2. An International Atherosclerosis Society position paper: global recommendations for the management of dyslipidemia: executive summary, Atherosclerosis. 2014: 232(2):410-413. Performed By: #### 2 9374-6, 58773-0, 24150-6, 26524-8, 30320-0, 50503-6, ANAIFR, 29129-9, 79868-1, 67461-9, 84660-2, 91214-0 #### [facility] CLIA [id number] [facility] [place] [address] [place] Cholesterol in VLDL [Mass/Vol] 21 mg/dL Normal <30 [facility] Comment on above: Order Comment: Speci men Type: BLOOD SPECIMEN Ordering Facility: [facility] Address: [address] [address] Performed By: #### 2 9374-6, 94766-4, 52614-8, 11350-5, 93109-9, 81922-1, ANAIFR, 17644-8, 87717-0, 72664-6, 66031-4, 32807-6 #### [facility] CLIA [id number] [address] [place] [address] [place] Cholesterol non HDL [Mass/Vol] 77 mg/dL Normal <130 [facility] Comment on above: Order Comment: Speci men Type: BLOOD SPECIMEN Ordering Facility: [facility] Address: [address] [address] Result Comment: <130 mg/dL, Optimal 130-159 mg/dL, Near optimal/above optimal 160-189 mg/dL, Borderline high 190-219 mg/dL, High >219 mg/dL, Very high Secondary prevention optimal non HDL Cholesterol levels are recommended to be <100 mg/dL Performed By: #### 2 9374-6, 96673-4, 73234-7, 56717-8, 93425-8, 69054-6, ANAIFR, 29644-9, 90615-2, 93973-2, 63081-4, 11983-9 #### [facility] CLIA [id number] [address] [place] [address] [place] Cholesterol.total/Cho lesterol in HDL [Mass ratio] 2.40 {ratio} Normal <5.10 [facility] Comment on above: Order Comment: Speci men Type: BLOOD SPECIMEN Ordering Facility: [facility] Address: [address] [address] Performed By: #### 2 9374-6, 02291-6, 02289-9, 60337-1, 11835-1, 85596-9, ANAIFR, 95730-8, 86167-2, 77377-6, 71670-7, 75081-7 #### [facility] CLIA [id number] [address] [place] [address] [place] FASTING TIME 6 hrs Normal [facility] Comment on above: Order Comment: Speci men Type: BLOOD SPECIMEN Ordering Facility: [facility] Address: [address] [place] [address] Performed By: #### 2 9374-6, 59803-3, 61285-6, 60221-4, 19346-7, 42405-8, ANAIFR, 76227-5, 26442-6, 02138-7, 92830-0, 66482-6 #### [facility] CLIA [id number] [address] [place] [address] [place] Triglyceride [Mass/Vol] 105 mg/dL Normal <150 [facility] Comment on above: Order Comment: Speci men Type: BLOOD SPECIMEN Ordering Facility: [facility] Address: [address] [place] [address] Result Comment: <150 mg/dL, Normal 150-199 mg/dL, Borderline high 200-499 mg/dL, High >499 mg/dL, Very high Performed By: #### 2 9374-6, 48654-7, 68998-2, 30359-2, 53359-1, 61827-0, ANAIFR, 60760-1, 77251-2, 26406-5, 87188-6, 28558-7 #### [facility] CLIA [id number] [address] [place] [address] [place] IntraOperative Documentson 0 12-05-2022 IntraOperative Documents [id number]# 1.00CD:127 Normal [facility] Consenton 11-30-2022 Consent [id number]# 1.00CD:127 Normal [facility] Discharge Instructionson Discharge Instructions [id number]# 1.00CD:127 Normal [facility] Postoperative Documentson Postoperative Documents [id number]# 1.00CD:127 Normal [facility] Main OR Intraoperative Recor don 11-29-2022 Main OR Intraoperative Record IntraOp Document Type FT Summary Primary Physician: Juancarlos DIAS MD Finalized Date/Time: 11/29/22 12:15:06 Pt. Name: JUANESTRELLA/Sex: 1970 Female Med Rec #: [id number] Physician: Juancarlos DIAS MD Financial #: [id number] Pt. Type: O Room/Bed: [facility] 10/29 Admit/Disch: 11/28/22 06:53:42 - 11/28/22 08:41:00 Institution: Case Times FT Entry 1 Patient Times In Room 11/28/22 08:02:00 Out Room 11/28/22 08:11:00 Procedure Times Start 11/28/22 08:06:00 Stop 11/28/22 08:08:00 Anesthesia Times Start 11/28/22 08:02:00 Stop 11/28/22 08:11:00 Last Modified By: Jalen Paulino RN 11/28/22 08:20:39 General Comments: 11/29/22 Chart opened to review and send charges LRoth CSFA Case Attendance FT Entry 1 Entry 2 Entry 3 Case Attendee Sadiq GOMEZ, Tala Paulino RN, Reba Corea Role Performed MACHINE ENGRAVER Car Park Attendant - Primary Staff - Other Time In 11/28/22 08:02:00 11/28/22 08:02:00 11/28/22 08:02:00 Time Out 11/28/22 08:10:00 11/28/22 08:10:00 11/28/22 08:10:00 Procedure EGD(.) EGD(.) EGD(.) Comments Dr. Hernandez supervising case Last Modified By: Jefferson PICKETT, Jalen Paulino RN, Jalen Jessica RN 11/28/22 08:11:05 11/28/22 08:11:05 11/28/22 08:11:05 Entry 4 Entry 5 Case Attendee Ton Arriaga CSTria SALAM MD, Juancarlos Sam Role Performed Scrub - Primary Surgeon - Primary Time In 11/28/22 08:02:00 11/28/22 08:02:00 Time Out 11/28/22 08:10:00 11/28/22 08:10:00 Procedure EGD(.) EGD(.) Comments Last Modified By: Jalen Paulino RN, RN, Morgan E 11/28/22 08:11:05 11/28/22 08:11:05 Perioperative Protocols FT [...] Paulino RN, Given Participants Tala Babcock CRNA, Reba Barroso SALAM MD, Maher Time Out Complete 11/28/22 [...] Procedure Yes Primary Surgeon Juancarlos DIAS MD Start 11/28/22 08:06:00 Stop 11/28/22 08:08:00 Anesthesia Type [...] Positioning D (more content not included)... Normal [facility] Consent for Treatmenton 10-31 Consent for Treatment [id number]#1 .00CD:127 Normal [facility] Discharge Instructionson Discharge Instructions ESTRELLA MARTINEZ :1970 [...] after Discharge Follow Up with BROOKE CHAPMAN, LE Bauer, MED When: Comments: Office will call to schedule follow up appointment Where: [address] [place] [address] [address] [place] [address] Medications What How Much When [...] blood. Docume (more content not included)... Normal [facility] Comment on above: Result Comment: Elec tronically Signed By: DAIJA RITCHIE RN\.br\Date and Time Signed: 11/28/22 08:16 EDT Endoscopic [...] Distal esophageal Schatzki ring, dilated using 60 Micronesian Amin dilator 2. Normal gastric mucosa 3. Normal duodenal mucosa Images Procedure images: Rec1_hd_video_2022_ _[id number] Rec1_hd_video_2022_ _[id number].jpg . Post-Procedure Complications: none. Estimated blood loss: none. Specimens: None. Devices/ implants: none left in place. Impression and Plan Distal esophageal Schatzki ring, dilated using 60 Micronesian Amin dilator Recommendations: Follow-up in GI clinic in 2 weeks [facility] Comment on above: Result Comment: Elec tronically Signed By: Juancarlos DIAS MD\.br\Date and Time Signed: 11/28/22 08:11 EDT Other Comment: Lala aly Attachment - attachment storage system not supported [id number] Can be viewed in source systemMissing Attachment - attachment storage system not supported [id number] Can be viewed in source system Inpatient Patient Summaryon 11-28-2022 Inpatient Patient Summary [address] [id number] [facility] Clinical Discharge Instructions PERSON INFORMATION Name: ESTRELLA MARTINEZ [facility]#:[id number] PHYSICIANS Admitting Physician: Juancarlos DIAS MD Attending Physician: Juancarlos DIAS MD PCP: TITI CHAPMAN, YAZAN Discharge Diagnosis: Schatzki's ring Comment: PATIENT EDUCATION [...] Capsules By Mouth every day. Comment: Normal [facility] Main OR PACU I Recordon 10-31 Main OR PACU I Record PACU Phase I Docum ent Type FT Summary Primary Physician: Juancarlos DIAS MD Finalized Date/Time: 11/28/22 08:48:48 Pt. Name: ESTRELLA MARTINEZ/Sex: 1970 Female Med Rec #: [id number] Physician: Juancarlos DIAS MD Financial #: [id number] Pt. Type: O Room/Bed: [facility] 10/29 Admit/Disch: 11/28/22 06:53:42 - Institution: Case [...] By: DAIJA RITCHIE RN 11/28/22 08:48 Normal [facility] Main OR Preoperative Recordo n 11-28-2022 Main OR Preoperative Record Holding Area Document Type FT Summary Primary Physician: Juancarlos DIAS MD Finalized Date/Time: 11/28/22 07:23:39 Pt. Name: ESTRELLA MARTINEZ D.O.B./Sex: 1970 Female Med Rec #: [id number] Physician: Juancarlos DIAS MD Financial #: [id number] Pt. Type: O Room/Bed: [facility] 10/29 Admit/Disch: 11/28/22 06:53:42 - Institution: Case [...] By: Jalen Paulino RN 11/28/22 07:23 Normal [facility] Monitor Recordon 11-28-2022 Monitor Record [id number]# 1.00CD:127 Normal [facility] Monitor Record [id number]# 1.00CD:127 Normal [facility] Outpatient Surgery Discharge Instructionon 11-28-2022 Outpatient Surgery Discharge Instruction [address] [id number] Patient Discharge Instructions PERSON INFORMATION Name: ESTRELLA MARTINEZ Date of : 1970 Current Date: 11/28/2022 08:11:12 PHYSICIANS Admitting Physician: BROOKE CHAPMAN, Bauer Discharge Diagnosis: Schatzki's ring JUAN LILIANA has been given the following list of [...] THE NEAREST EMERGENCY ROOM OR CALL 911 JUAN Aguirre MARIA E, have received the attached patient education materials/instruction s and have verbalized understanding: May we do a follow up call? Yes No I was present when discharge instructions were given Patient Signature Date Clinican/Nurse Signature Date Follow up: Pharmacy Information: [facility] You may receive a survey from [employer] asking you to rate your care experience. Your feedback is important and will help us understand what we do well and how we can improve the quality of care we provide to you, your loved ones and our community. It?s an honor to serve you. Thank you for choosing [facility] HERE ARE THE MEDICATION CHANGES THAT [...] day. PATIENT EDUCATION INFORMATION Instructions: Medication Leaflets: [facility] Progress Note-Physicianon Progress Note-Physician Patient: ESTRELLA MARTINEZ Age: 52 years Sex: Female : 1970 Associated Diagnoses: None Author: Mary CHAPMAN, Renny Barrera Postoperative Information Postoperative disposition: Postoperative disposition: To PACU. Optimetrix number: Optimetrix number [id number]. Anesthetic utilized: General. Physical Examination Vital Signs [...] meets criteria ( To home ). Normal [facility] Comment on above: Result Comment: Elec tronically Signed By: Renny Hernandez MD\.br\Date and Time Signed: 11/28/22 09:57 EDT Progress Note-Physician Patient: ESTRELLA MARTINEZ Age: 52 years Sex: Female : 1970 Associated Diagnoses: None Author: Renny Hernnadez MD Preoperative Information Anesthesia Preop Info: Time [...] parts of digestive tract / SNOMED CT 9926187806 / Confirmed Diarrhea, unspecified / SNOMED CT 145624835 / Confirmed Hepatomegaly, not elsewhere classified / SNOMED CT 273969192 / Confirmed Aspartate transaminase level above reference range / SNOMED CT 9212283286 / Confirmed Low back pain / SNOMED CT 571130270 / Confirmed Nausea with vomiting, unspecified / SNOMED CT 30932099 / Confirmed Type 2 diabetes mellitus without complications / SNOMED CT 656653178 / Confirmed Vitamin deficiency, unspecified / SNOMED CT 494704647 / Confirmed Esophageal stricture / SNOMED CT 997318161 / Confirmed Liver cirrhosis / SNOMED CT 45674294 / Confirmed Fatty liver / SNOMED CT 153012490 / Confirmed BLOOM (nonalcoholic steatohepatitis) / SNOMED CT 9941665914 / Confirmed Dysphagia / SNOMED CT 45221196 / Confirmed Screen for colon cancer / SNOMED CT 015950959 / Confirmed Resolved: Migraine / SNOMED CT 22173496 Resolved: Endometriosis / SNOMED CT 6662519967 Resolved: Mass of colon / SNOMED CT 2953249369 Resolved: Mass of bladder / SNOMED CT 1672828416 Resolved: Reflux esophagitis / SNOMED CT 483232069 Resolved: Bowel obstruction / SNOMED CT 527375854 Resolved: Cholelithiasis / SNOMED CT 517511504 Resolved: Ro's thyroiditis / SNOMED CT 041215946 Resolved: Hyperthyroidism / SNOMED CT 96835910 Resolved: Hypertension / SNOMED CT 86708278, Active Problems (14) Acquired absence of other [...] in all extremities. Gastrointestinal: Soft, Non-tender. Plan [place] [employer] Anesthesiologists (ASA) physical status classification: Class III. Anesthetic Preoperative Plan: Anesthesia General. Normal [facility] Comment on above: Result Comment: Elec tronically Signed By: Mary CHAPMAN, Renny Tellez.br\Date and Time Signed: 11/28/22 07:24 EDT US ABD RIGHT UPPER QUADRANTo n 10-24-2022 US ABD RIGHT UPPER QUADRANT * * *Final Report* * * DATE OF EXAM: Oct 24 2022 2:20PM [facility] 1032 - US ABD RIGHT UPPER QUADRANT [...] cholecystectomy. Normal sonographic appearance of the spleen. Change Manager: PSCB Transcribe Date/Time: Oct 24 2022 2:38P Dictated by : NYDIA JETER MD This examination was interpreted and the report reviewed and electronically signed by: NYDIA JETER MD on Oct 24 2022 2:48PM EST [id number] Normal [facility] ABD SPLEEN - NBon 023 [facility] ABD SPLEEN -NBon 10-25-19 US ABD SPLEEN -NB * * *Final Report* * * DATE OF EXAM: Oct 24 2022 2:26PM [facility] 1232 - US ABD SPLEEN -NB / PROCEDURE REASON: BLOOM [...] cholecystectomy. Normal sonographic appearance of the spleen. Change Manager: PSCEthan Transcribe Date/Time: Oct 24 2022 2:38P Dictated by : NYDIA JETER MD This examination was interpreted and the report reviewed and electronically signed by: NYDIA JETER MD on Oct 24 2022 2:48PM EST [id number] Normal [facility] Gastroenterology Office/Clin ic Noteon 10-10-2022 Gastroenterology Office/Clinic Note Chief Complaint esophageal stricture, cirrhosis HPI Staff Patient is a 52 year old female who was referred by Titi for esophageal stricture and cirrhosis. Patient consulted at [facility] Gastro 09/21/22 for fatty liver. Labs/CT completed @ [facility] 07/25/22. Liver labs completed @ [facility] 09/21/2022. History of Present Illness Estrella Martinez is a 52-year-old female who was referred to me by Dr. Walls for liver cirrhosis and esophageal stricture. She is accompanied by an adult female. The adult female states that the patient went to the emergency room in [place] in 06/2022 because she was experiencing nausea, vomiting, and diarrhea. She did not have a CT scan or ultrasound. She was diagnosed with liver cirrhosis and informed that she has fatty liver with fibrosis. The patient was then seen at [facility] by hepatologists and had a FibroScan. Her liver was normal. Patient denies drinking alcohol. She states that she was tested for hepatitis C in [facility], but she does not have the results. She states that she has occasional dysphagia with pills. Estrella denies food getting stuck. She reports mild heartburn. She takes her omeprazole on time. She denies hematochezia or melena. She had a colonoscopy in 2018 at [facility] and it was normal. Patients have thyroid [...] steatohepatitis (BLOOM)) The patient was evaluated at [place] and then [facility] for mildly elevated liver function tests. She [...] with voice recognition artificial intelligence software, specifically [employer], [employer] and or [employer]. Substitutions may have occurred due to the inherent limitations of voice recognition and artificial intelligence software. ATTESTATION: Documentation services were performed after patient or guardian consented to allow [employer] to record this visit. AIDAN helicopter specialist and provider reviewed before signing. AIDAN: Nakia Ramsey. Follow-up (more content not included)... Normal [facility] Comment on above: Result Comment: Elec tronically Signed By: Nakia Ríos\.br\Date and Time Signed: 10/05/22 13:44 EDT\.br\Electronically Co-Signed By: Nakia Ríos\.br\Date and Time Co-Signed: 10/05/22 13:48 EDT\.br\Electronically Co-Signed By: BROOKE CHAPMAN, Juancarlos\.br\Date and Time Co-Signed: 10/09/22 22:03 EDT Consent for Immunizationon 0 10-06-2022 Consent for Immunization [id number]#1 .00CD:127 Normal [facility] Ambulatory Visit Summaryon 0 10-05-2022 Ambulatory Visit Summary ESTRELLA MARTINEZ :1970 Visit Date:10/05/2022 Ambulatory Visit Instructions Your Diagnosis BLOOM (nonalcoholic steatohepatitis) Esophageal stricture Dysphagia Screen for colon cancer Your Care Team Attending Physician - BROOKE CHAPMAN, Juancarlos Primary Care Physician - TITI CHAPMAN, YAZAN Referring Physician - YAZAN WALLS MD This Is Your Medications List omeprazole (omeprazole 40 mg Cap-DR) Contact prescribing physician if questions or concerns [...] Esophageal stricture Dysphagia Refills: 2 Pickup at [facility] 1623 Unchanged cholecalciferol (Vitamin D3 125 mcg (5000 [...] physician if questions or concerns Pharmacy Information [facility] 1628: [address] [facility] [address] [place], [place] [phone] Allergies Levaquin (UNKNOWN) Problems Ongoing - Any [...] Mass of colon Migraine Reflux esophagitis Normal [facility] Consultation Noteon 10-05-19 Consultation Note [id number]#1 .00CD:127 Normal [facility] Lab Reportson 10-04-2022 Lab Reports [id number]#1 .00CD:127 Normal [facility] Lab Reports [id number]#1 .00CD:127 Normal [facility] HECTOR BY IFA WITH REFLEXon HECTOR PATTERN Nuclear homogeneous Normal [facility] Comment on above: Order Comment: Tony keane Type: BLOOD SPECIMEN Ordering Facility: [facility] Address: [address] [place] [address] Performed By: #### 2 9374-6, 68450-8, 87204-0, 61228-8, 61147-0, 51449-5, ANAIFR, 10210-6, 86203-7, 72543-3, 50809-8, 52850-7 #### [facility] CLIA [id number] [address] [place] [address] [place] HECTOR TITER 1:640 Normal [facility] Comment on above: Order Comment: Tony keane Type: BLOOD SPECIMEN Ordering Facility: [facility] Address: [address] [place] [address] Performed By: #### 2 9374-6, 15919-8, 28068-5, 55177-1, 64082-6, 50871-6, ANAIFR, 27836-6, 34975-3, 03773-1, 00137-2, 87671-9 #### [facility] CLIA [id number] [address] [place] [address] [place] Nuclear Ab IF (S) [Titer] Positive Abnormal Negative [facility] Comment on above: Order Comment: Tony keane Type: BLOOD SPECIMEN Ordering Facility: [facility] Address: [address] [place] [address] Result Comment: Anti -nuclear antibody test is used as an aid in diagnosis of systemic autoimmune diseases. Where positive and clinically warranted, follow-up using disease-specific testing is recommended. Low positive titers are not uncommon with advanced age, certain chronic infections, and malignancies among others. Test methodology: Indirect fluorescence immunoassay (IFA) using HEp-2 cells. Performed By: #### 2 9374-6, 42973-7, 51180-0, 04120-0, 89820-4, 75964-5, ANAIFR, 44189-8, 85133-7, 33522-8, 72538-4, 59600-1 #### [facility] CLIA [id number] [address] [place] [address] [place] CBC panel Auto (Bld)on 09-21 Erythrocyte distribution width (RBC) [Ratio] 12.3 % Normal 11.5-15.0 [facility] Comment on above: Order Comment: Speci men Type: BLOOD SPECIMEN Ordering Facility: [facility] Address: [address] [place] [address] Performed By: #### 2 9374-6, 84177-0, 38721-3, 06708-7, 48568-8, 09545-9, ANAIFR, 35110-8, 65501-0, 64479-4, 91280-0, 00065-2 #### [facility] CLIA [id number] [address] [place] [address] [place] Hematocrit (Bld) [Volume fraction] 38.2 % Normal 36.0-46.0 [facility] Comment on above: Order Comment: Speci men Type: BLOOD SPECIMEN Ordering Facility: [facility] Address: [address] [place] [address] Performed By: #### 2 9374-6, 07854-6, 02286-9, 59637-9, 38053-8, 69859-7, ANAIFR, 70949-1, 05823-1, 66364-5, 25843-3, 83668-7 #### [facility] CLIA [id number] [address] [place] [address] [place] Hemoglobin (Bld) [Mass/Vol] 12.5 g/dL Normal 11.5-15.5 [facility] Comment on above: Order Comment: Speci men Type: BLOOD SPECIMEN Ordering Facility: [facility] Address: [address] [place] [address] Performed By: #### 2 9374-6, 25649-5, 55269-4, 68053-3, 15997-8, 60306-8, ANAIFR, 08661-8, 67819-4, 13994-8, 74007-5, 92120-6 #### [facility] CLIA [id number] [address] [place] [address] [place] MCH (RBC) [Entitic mass] 30.7 pg Normal 26.0-34.0 [facility] Comment on above: Order Comment: Speci men Type: BLOOD SPECIMEN Ordering Facility: [facility] Address: [address] [place] [address] Performed By: #### 2 9374-6, 48600-1, 93749-1, 12691-1, 85114-7, 10052-8, ANAIFR, 42861-0, 98338-9, 56545-1, 13458-2, 28856-7 #### [facility] CLIA [id number] [facility] [place] [address] [place] MCHC (RBC) [Mass/Vol] 32.7 g/dL Normal 30.5-36.0 [facility] Comment on above: Order Comment: Speci men Type: BLOOD SPECIMEN Ordering Facility: [facility] Address: [address] [place] [address] Performed By: #### 2 9374-6, 20920-1, 36050-5, 80908-7, 11123-1, 69166-4, ANAIFR, 48758-2, 59862-5, 13654-5, 75158-9, 73423-4 #### [facility] CLIA [id number] [facility] [place] [address] [place] MCV (RBC) [Entitic vol] 93.9 fL Normal 80.0-100.0 [facility] Comment on above: Order Comment: Speci men Type: BLOOD SPECIMEN Ordering Facility: [facility] Address: [address] [place] [address] Performed By: #### 2 9374-6, 97579-5, 45779-4, 51432-2, 45346-2, 91334-3, ANAIFR, 10423-0, 97613-3, 91179-7, 78229-3, 93965-1 #### [facility] CLIA [id number] [address] [place] [address] [place] Nucleated RBC (Bld) [#/Vol] 10*3/uL Normal <0.01 [facility] Comment on above: Order Comment: Speci men Type: BLOOD SPECIMEN Ordering Facility: [facility] Address: [address] [place] [address] Performed By: #### 2 9374-6, 31864-0, 50317-9, 81921-1, 40620-2, 25571-9, ANAIFR, 03919-3, 15125-3, 16290-6, 67307-0, 96747-7 #### [facility] CLIA [id number] [address] [place] [address] [place] Platelet mean volume (Bld) [Entitic vol] 11.9 fL Normal 9.0-12.7 [facility] Comment on above: Order Comment: Speci men Type: BLOOD SPECIMEN Ordering Facility: [facility] Address: [address] [place] [address] Performed By: #### 2 9374-6, 04933-5, 20718-8, 05685-8, 84843-0, 39981-5, ANAIFR, 02183-1, 55285-4, 43931-7, 55921-5, 43976-0 #### [facility] CLIA [id number] [address] [place] [address] [place] Platelets (Bld) [#/Vol] 236 10*3/uL Normal 150-400 [facility] Comment on above: Order Comment: Speci men Type: BLOOD SPECIMEN Ordering Facility: [facility] Address: [address] [place] [address] Performed By: #### 2 9374-6, 39487-6, 03385-6, 04651-1, 62322-4, 45924-1, ANAIFR, 98188-9, 97144-1, 61804-5, 99074-2, 68347-6 #### [facility] CLIA [id number] [address] [place] [address] [place] RBC (Bld) [#/Vol] 4.07 10*6/uL Normal 3.90-5.20 [facility] Comment on above: Order Comment: Speci men Type: BLOOD SPECIMEN Ordering Facility: [facility] Address: [address] [place] [address] Performed By: #### 2 9374-6, 75056-6, 59663-0, 07405-9, 89850-6, 30327-9, ANAIFR, 74752-6, 92679-0, 19286-5, 01977-6, 21201-6 #### [facility] CLIA [id number] [address] [place] [address] [place] WBC (Bld) [#/Vol] 5.96 10*3/uL Normal 3.70-11.00 [facility] Comment on above: Order Comment: Speci men Type: BLOOD SPECIMEN Ordering Facility: [facility] Address: [place] [address] Performed By: #### 2 9374-6, 26694-7, 22482-1, 97943-9, 56705-7, 56387-1, ANAIFR, 43417-5, 05849-5, 80524-1, 06679-4, 11381-6 #### [facility] CLIA [id number] [address] [place] [address] [place] CNOVon 09-21-2022 CNOV Office Visit (GASTA5 ) ESTRELLA DURAND ([id number]) 1970 F GRIFFIN Date Time Provider Department [...] fatty liver REQUESTING PHYSICIAN: Dr Yazan Walls Subjective Estrella Durand is a 52 year old [...] 4 - Moderate Referring Provider: YAZAN WALLS [[id number]] Allergies As of Date: 09/21/2022 (Not on File) Date Reviewed: 09/21/2022 Reviewed by: Melissa Connelly LPN - Fully Assessed Reason for Visit: New Patient [172] Cmt: Fatty Liver Primary Visit Diagnosis:BLOOM (nonalcoholic steatohepatitis) [K75.81] Order(s):CBC [SQCBC] Order #: [id number] FUTURE COMP METABOLIC PANEL [SQCMP] Order #: [id number] FUTURE PROTHROMBIN TIME/PT [SQPT] Order #: [id number] FUTURE HECTOR BY IFA WITH REFLEX [SQANAIFR] Order #: [id number] FUTURE SMOOTH MUSCLE AB SCR [SQSMTHS] Order #: [id number] FUTURE CERULOPLASMIN BLD [SQCERULO] Order #: [id number] FUTURE MITOCHONDRIAL M2 IGG SERUM [SQMITOS] Order #: [id number] FUTURE HEP REMOTE PANEL BL [SQHREMOP] Order #: [id number] FUTURE FERRITIN BLD [SQFERR] Order #: [id number] FUTURE IRON + TIBC [SQIRON] Order #: [id number] FUTURE US ABD RIGHT UPPER QUADRANT [[id number]] Order #: [id number] FUTURE DDI VIBRATION CONTROLLED TRANSIENT ELASTOGRAPHY (VCTE) [[id number]] Order #: [id number] Prescriptions as of 09/21/2022 - levothyroxine (SYNTHROID) [...] for Encounter Date Provider Department Center 09/21/2022 [id number]-PASJJYSANDHYA LAW GASTA5 [facility] A Bldg Encounter Status:Closed by SANDHYA LAW on 09/21/22 Normal [facility] Centromere Ab IF Ql (S)on Centromere Ab Qn (S) <0.2 Normal <1.0 [facility] Comment on above: Order Comment: Specchrissie keane Type: BLOOD SPECIMEN Ordering Facility: [facility] Address: [address] [place] [address] Result Comment: Anti -centromere antibody is used as in aid in diagnosis of systemic sclerosis. Clinical correlation is required. Test Methodology: Multiplex flow immunoassay. Performed By: #### 2 9374-6, 42283-8, 88871-7, 63949-8, 01017-8, 50706-9, ANAIFR, 59468-8, 56834-1, 24044-2, 29674-2, 20643-1 #### [facility] CLIA [id number] [address] [place] [address] OF [facility] CENTROMERE AB QUAL Negative Normal Negative [facility] Comment on above: Order Comment: Tony keane Type: BLOOD SPECIMEN Ordering Facility: [facility] Address: [address] [address] Performed By: #### 2 9374-6, 84386-4, 99617-3, 58553-1, 93212-4, 94813-9, ANAIFR, 34855-3, 23195-8, 03633-2, 52638-4, 53165-3 #### [facility] CLIA [id number] [facility] [place] [address] [place] Ceruloplasmin SerPl-mCncon 0 09-21-2022 Ceruloplasmin [Mass/Vol] 30 mg/dL Normal 16-45 [facility] Comment on above: Order Comment: Speci men Type: BLOOD SPECIMEN Ordering Facility: [facility] Address: [address] [place] [address] Performed By: #### 2 9374-6, 52683-4, 12159-6, 62966-9, 80240-1, 36646-5, ANAIFR, 26476-0, 33024-5, 91743-8, 02492-4, 52741-9 #### [facility] CLIA [id number] [address] [place] [address] [place] Chromatin Ab Qnon 09-21-2022 CHROMATIN AB QUAL Negative Normal Negative [facility] Comment on above: Order Comment: Speci men Type: BLOOD SPECIMEN Ordering Facility: [facility] Address: [address] [place] [address] Performed By: #### 2 9374-6, 65636-7, 02023-0, 67502-1, 63709-1, 88235-3, ANAIFR, 39946-9, 24591-7, 21468-6, 88577-1, 05024-6 #### [facility] CLIA [id number] [address] [place] [address] [place] Chromatin Ab SerPl-aCncon Chromatin Ab Qn <0.2 Normal <1.0 [facility] Comment on above: Order Comment: Speci men Type: BLOOD SPECIMEN Ordering Facility: [facility] Address: [address] [place] [address] Result Comment: Test Methodology: Multiplex flow immunoassay. Performed By: #### 2 9374-6, 49629-2, 62049-4, 86014-9, 15988-9, 21417-9, ANAIFR, 51122-7, 93537-7, 42773-5, 45945-1, 87064-1 #### [facility] CLIA [id number] [address] [place] [address] [place] Comprehensive metabolic 2000 panelon 09-21-2022 Albumin [Mass/Vol] 4.7 g/dL Normal 3.9-4.9 [facility] Comment on above: Order Comment: Speci men Type: BLOOD SPECIMEN Ordering Facility: [facility] Address: [address] [place] [address] Performed By: #### 2 9374-6, 16037-3, 54432-7, 71484-2, 61653-4, 43003-4, ANAIFR, 53556-9, 67817-7, 49361-9, 98636-3, 21006-1 #### [facility] CLIA [id number] [address] [place] [address] [place] ALP [Catalytic activity/Vol] 127 U/L High 34-123 [facility] Comment on above: Order Comment: Speci men Type: BLOOD SPECIMEN Ordering Facility: [facility] Address: [address] [place] [address] Performed By: #### 2 9374-6, 33066-2, 74014-1, 28854-6, 24877-3, 28818-1, ANAIFR, 39120-9, 83933-7, 26647-3, 84815-4, 47666-4 #### [facility] CLIA [id number] [address] [place] [address] [place] ALT [Catalytic activity/Vol] 49 U/L High 7-38 [facility] Comment on above: Order Comment: Speci men Type: BLOOD SPECIMEN Ordering Facility: [facility] Address: [address] [place] [address] Performed By: #### 2 9374-6, 96773-6, 34481-8, 96999-1, 66406-8, 24169-8, ANAIFR, 53778-4, 06724-0, 55229-8, 93397-0, 52020-6 #### [facility] CLIA [id number] [address] [place] [address] [place] Anion gap [Moles/Vol] 9 mmol/L Normal 9-18 [facility] Comment on above: Order Comment: Speci men Type: BLOOD SPECIMEN Ordering Facility: [facility] Address: [address] [place] [address] Performed By: #### 2 9374-6, 13524-6, 43131-0, 23400-2, 19185-3, 03870-3, ANAIFR, 96555-4, 65933-9, 60613-5, 29944-6, 14055-4 #### [facility] CLIA [id number] [address] [place] [address] [place] AST [Catalytic activity/Vol] 29 U/L Normal 13-35 [facility] Comment on above: Order Comment: Speci men Type: BLOOD SPECIMEN Ordering Facility: [facility] Address: [address] [place] [address] Performed By: #### 2 9374-6, 70563-5, 70137-5, 30443-6, 47663-8, 13155-5, ANAIFR, 67677-7, 26499-7, 15642-3, 22682-7, 71111-3 #### [facility] CLIA [id number] [address] [place] [address] [place] Bilirubin [Mass/Vol] 0.5 mg/dL Normal 0.2-1.3 [facility] Comment on above: Order Comment: Speci men Type: BLOOD SPECIMEN Ordering Facility: [facility] Address: [address] [place] [address] Performed By: #### 2 9374-6, 24821-6, 94047-5, 70166-0, 68495-1, 40806-0, ANAIFR, 66251-4, 91600-1, 38324-6, 97034-9, 18625-3 #### [facility] CLIA [id number] [address] [place] [address] [place] Calcium [Mass/Vol] 9.7 mg/dL Normal 8.5-10.2 [facility] Comment on above: Order Comment: Speci men Type: BLOOD SPECIMEN Ordering Facility: [facility] Address: [address] [place] [address] Performed By: #### 2 9374-6, 71449-6, 66057-7, 32331-4, 32615-0, 22463-6, ANAIFR, 37120-5, 08905-7, 99492-4, 80545-0, 80330-1 #### [facility] CLIA [id number] [address] [place] [address] [place] Chloride [Moles/Vol] 107 mmol/L High 97-105 [facility] Comment on above: Order Comment: Speci men Type: BLOOD SPECIMEN Ordering Facility: [facility] Address: [address] [place] [address] Performed By: #### 2 9374-6, 66273-3, 37485-1, 68117-1, 62379-7, 97005-4, ANAIFR, 88094-4, 62348-2, 67280-8, 36221-0, 92637-9 #### [facility] CLIA [id number] [address] [place] [address] [place] CO2 [Moles/Vol] 26 mmol/L Normal 22-30 [facility] Comment on above: Order Comment: Speci men Type: BLOOD SPECIMEN Ordering Facility: [facility] Address: [address] [place] [address] Performed By: #### 2 9374-6, 21974-7, 19678-8, 41809-8, 50952-6, 83214-9, ANAIFR, 18187-8, 62591-5, 72361-5, 93992-6, 17783-7 #### [facility] CLIA [id number] [address] [place] [address] [place] Creatinine [Mass/Vol] 0.62 mg/dL Normal 0.58-0.96 [facility] Comment on above: Order Comment: Speci men Type: BLOOD SPECIMEN Ordering Facility: [facility] Address: [address] [address] Performed By: #### 2 9374-6, 15453-2, 68758-9, 67213-8, 35702-1, 05345-8, ANAIFR, 32542-3, 15679-5, 57181-7, 05353-9, 27569-2 #### [facility] CLIA [id number] [facility] [place] [address] [place] ESTIMATED GLOMERULAR FILTRATION RATE 109 mL/min/1.73m??? Normal >=60 [facility] Comment on above: Order Comment: Speci men Type: BLOOD SPECIMEN Ordering Facility: [facility] Address: [address] [place] [address] Result Comment: Ivette mated Glomerular Filtration Rate [...] actual GFR. Performed By: #### 2 9374-6, 44184-5, 65310-7, 83838-1, 92229-2, 48745-8, ANAIFR, 46761-0, 40093-0, 30950-4, 96749-9, 57877-2 #### [facility] CLIA [id number] [address] [place] [address] [place] Glucose [Mass/Vol] 107 mg/dL High 74-99 [facility] Comment on above: Order Comment: Speci men Type: BLOOD SPECIMEN Ordering Facility: [facility] Address: [address] [place] [phone] Result Comment: The [place] [employer] (ADA) provides guidance for cutoff [...] Standards of Medical Care in Diabetes 2016, [place] [employer]. Diabetes Care. 2016.39(Suppl 1). Performed By: #### 2 9374-6, 02753-2, 08961-7, 68973-6, 80741-6, 93095-6, ANAIFR, 50443-3, 50434-4, 95418-7, 93758-2, 61970-9 #### [facility] CLIA [id number] [address] [place] [address] [place] Potassium [Moles/Vol] 4.1 mmol/L Normal 3.7-5.1 [facility] Comment on above: Order Comment: Tony keane Type: BLOOD SPECIMEN Ordering Facility: [facility] Address: [address] [place] [id number] Performed By: #### 2 9374-6, 90261-6, 66139-5, 34990-6, 65063-7, 71560-5, ANAIFR, 35336-8, 05956-2, 98117-1, 95524-8, 44859-4 #### [facility] CLIA [id number] [facility] [address] [address] [place] Protein [Mass/Vol] 8.0 g/dL Normal 6.3-8.0 [facility] Comment on above: Order Comment: Tony keane Type: BLOOD SPECIMEN Ordering Facility: [facility] Address: [address] [address] Performed By: #### 2 9374-6, 33394-0, 49686-4, 61406-4, 11984-8, 75298-8, ANAIFR, 00756-3, 31460-9, 26244-5, 93265-2, 26336-7 #### [facility] CLIA [id number] [address] [place] [address] [place] Sodium [Moles/Vol] 142 mmol/L Normal 136-144 [facility] Comment on above: Order Comment: Speci men Type: BLOOD SPECIMEN Ordering Facility: [facility] Address: [address] [place] [address] Performed By: #### 2 9374-6, 77608-8, 23714-0, 96600-6, 11280-6, 08910-2, ANAIFR, 19792-2, 03549-7, 55547-7, 09185-0, 93010-8 #### [facility] CLIA [id number] [address] [place] [address] [place] Urea nitrogen [Mass/Vol] 11 mg/dL Normal 7-21 [facility] Comment on above: Order Comment: Speci men Type: BLOOD SPECIMEN Ordering Facility: [facility] Address: [address] [place] [address] Performed By: #### 2 9374-6, 05875-0, 93642-8, 95014-8, 96274-5, 29860-4, ANAIFR, 94661-0, 54672-2, 04327-5, 59940-2, 82413-4 #### [facility] CLIA [id number] [address] [place] [address] [place] JOSE Jo1 Ab Ser-aCncon 2022 Jelena-1 extractable nuclear Ab Qn (S) <0.2 Normal <1.0 [facility] Comment on above: Order Comment: Speci men Type: BLOOD SPECIMEN Ordering Facility: [facility] Address: [address] [place] [address] Performed By: #### 2 9374-6, 67369-3, 47697-1, 16320-9, 47482-0, 45191-8, ANAIFR, 11931-1, 59907-1, 56480-1, 96888-5, 94376-1 #### [facility] CLIA [id number] [address] [place] [address] [place] JOSE ARMATURE TESTER Ab Ser-aCncon 2022 Ribonucleoprotein extractable nuclear Ab Qn (S) <0.2 Normal <1.0 [facility] Comment on above: Order Comment: Speci men Type: BLOOD SPECIMEN Ordering Facility: [facility] Address: [address] [place] [address] Performed By: #### 2 9374-6, 14155-8, 93417-0, 43701-9, 32269-9, 54750-8, ANAIFR, 12133-9, 35716-4, 30424-9, 08689-0, 23670-0 #### [facility] CLIA [id number] [address] [place] [address] [place] Ribonucleoprotein extractable nuclear Ab Qn (S) 0.2 AI Normal <1.0 [facility] Comment on above: Order Comment: Speci men Type: BLOOD SPECIMEN Ordering Facility: [facility] Address: [address] [place] [address] Performed By: #### 2 9374-6, 77933-6, 02496-7, 60461-0, 95181-8, 34414-9, ANAIFR, 21877-1, 98522-9, 42200-4, 77267-2, 92768-1 #### [facility] CLIA [id number] [address] [place] [address] [place] JOSE SM IgG Ser-aCncon 2022 Olivarez extractable nuclear IgG Qn (S) <0.2 Normal <1.0 [facility] Comment on above: Order Comment: Speci men Type: BLOOD SPECIMEN Ordering Facility: [facility] Address: [address] [place] [address] Performed By: #### 2 9374-6, 80795-0, 74713-7, 61926-3, 38561-7, 45497-1, ANAIFR, 55514-7, 91324-3, 79097-9, 68198-9, 92322-8 #### [facility] CLIA [id number] [address] [place] [address] [place] JOSE SS-A Ab Ser-aCncon 09-21 Sjogrens syndrome-A extractable nuclear Ab Qn (S) 6.6 AI High <1.0 [facility] Comment on above: Order Comment: Speci men Type: BLOOD SPECIMEN Ordering Facility: [facility] Address: [address] [place] [address] Result Comment: Test Methodology: Multiplex flow immunoassay. Performed By: #### 2 9374-6, 12383-8, 17463-6, 74981-5, 89796-4, 79335-6, ANAIFR, 26872-5, 62116-3, 85402-1, 00739-3, 80048-0 #### [facility] CLIA [id number] [address] [place] [address] [place] [facility] [place] JOSE SS-B Ab Ser-aCncon 09-21 Sjogrens syndrome-B extractable nuclear Ab Qn (S) 3.1 AI High <1.0 [facility] Comment on above: Order Comment: Tony keane Type: BLOOD SPECIMEN Ordering Facility: [facility] Address: [address] [place] [address] Result Comment: Anti -SSB (anti-La) antibody is used as an aid in diagnosis of a variety of systemic autoimmune diseases, especially for Sjogren's syndrome and systemic lupus erythematosus. Clinical correlation is required. Test Methodology: Multiplex flow immunoassay. Performed By: #### 2 9374-6, 95320-9, 28871-0, 91240-0, 10744-0, 81510-1, ANAIFR, 82451-4, 47572-1, 61171-5, 44118-7, 91331-0 #### [facility] CLIA [id number] [address] [place] [address] [place] Ferritin SerPl-mCncon 2022 Ferritin [Mass/Vol] 217.0 ng/mL High 14.7-205.1 [facility] Comment on above: Order Comment: Speci men Type: BLOOD SPECIMEN Ordering Facility: [facility] Address: [address] [place] [address] Performed By: #### 2 9374-6, 88927-2, 75350-9, 26450-8, 00237-7, 87665-3, ANAIFR, 35442-0, 61945-5, 80776-8, 25443-5, 84873-5 #### [facility] CLIA [id number] [facility] [place] [address] [place] HBV core Ab Ser Qlon 023 HBV core Ab Ql (S) Negative Normal Negative [facility] Comment on above: Order Comment: Speci men Type: BLOOD SPECIMEN Ordering Facility: [facility] Address: [address] [place] [address] Result Comment: No e vidence of current or past infection with Hepatitis B virus. Should recent infection be suspected, repeat testing may be considered 3-4 weeks after this draw. Performed By: #### 2 9374-6, 60962-2, 15882-3, 59784-4, 30552-9, 03950-5, ANAIFR, 23626-1, 61905-9, 30856-4, 13469-3, 19343-8 #### [facility] CLIA [id number] [address] [place] [address] [place] HBV surface Ab Ql (S)on 08-30 HBV surface Ab Qn (S) <8.00 Low >=12.00 [facility] Comment on above: Order Comment: Speci men Type: BLOOD SPECIMEN Ordering Facility: [facility] Address: [address] [place] [address] Performed By: #### 2 9374-6, 23138-3, 28205-1, 76847-4, 55693-9, 75436-9, ANAIFR, 97688-9, 55463-0, 86014-7, 02831-9, 36884-2 #### [facility] CLIA [id number] [facility] [place] [address] [place] HBV surface Ab Ser Qlon 08-30 HBV surface Ab Ql (S) Negative Abnormal Positive [facility] Comment on above: Order Comment: Speci men Type: BLOOD SPECIMEN Ordering Facility: [facility] Address: [address] [place] [address] Result Comment: No e vidence of antibodies to Hepatitis B surface antigen. Performed By: #### 2 9374-6, 90033-4, 26501-3, 45970-6, 02897-7, 67788-8, ANAIFR, 23776-3, 43682-2, 39914-8, 45251-7, 49947-3 #### [facility] CLIA [id number] [address] [place] [address] [place] HBV surface Ag Ser Qlon 08-30 HBV surface Ag Ql (S) Negative Normal Negative [facility] Comment on above: Order Comment: Speci men Type: BLOOD SPECIMEN Ordering Facility: [facility] Address: [address] [place] [address] Performed By: #### 2 9374-6, 66708-0, 75624-3, 26456-7, 31160-6, 60284-0, ANAIFR, 23360-2, 01796-0, 57583-4, 97124-1, 80945-0 #### [facility] CLIA [id number] [address] [place] [address] [place] HCV Ab Ser Qlon 09-21-2022 HCV Ab Ql (S) Negative Normal Negative [facility] Comment on above: Order Comment: Speci men Type: BLOOD SPECIMEN Ordering Facility: [facility] Address: [address] [place] [address] Result Comment: The result suggests no evidence of active infection with Hepatitis C virus. Should recent infection be suspected, repeat testing may be considered 4-6 weeks after this draw. Performed By: #### 2 9374-6, 11203-9, 30571-8, 62078-1, 68452-1, 73881-4, ANAIFR, 42445-1, 77559-0, 11723-6, 38205-2, 65819-6 #### [facility] CLIA [id number] [address] [place] [address] [place] Iron and Iron binding capaci ty panelon 09-21-2022 Iron [Mass/Vol] 90 ug/dL Normal 41-186 [facility] Comment on above: Order Comment: Speci men Type: BLOOD SPECIMEN Ordering Facility: [facility] Address: [address] [place] [address] Performed By: #### 2 9374-6, 03333-7, 38834-8, 37347-3, 01472-7, 11076-7, ANAIFR, 64259-1, 96876-6, 01620-7, 13819-1, 93016-8 #### [facility] CLIA [id number] [address] [place] [address] [place] Iron binding capacity [Mass/Vol] 364 ug/dL Normal 232-386 [facility] Comment on above: Order Comment: Speci men Type: BLOOD SPECIMEN Ordering Facility: [facility] Address: [address] [place], [place] [phone] Performed By: #### 2 9374-6, 92839-4, 67792-0, 89144-8, 94964-5, 83851-7, ANAIFR, 45397-3, 15604-1, 18920-2, 63008-2, 97040-4 #### [facility] CLIA [id number] [address] [place] [address] STATES [place] [facility] Iron/TIBC [Molar ratio] 24.7 % Normal 15.0-57.0 [facility] Comment on above: Order Comment: Speci men Type: BLOOD SPECIMEN Ordering Facility: [facility] Address: [address] [place] [address] Performed By: #### 2 9374-6, 33597-9, 03669-4, 46817-1, 32181-1, 02700-2, ANAIFR, 42818-3, 35016-3, 21219-4, 70295-1, 04674-9 #### [facility] CLIA [id number] [address] [place] [address] Jelena-1 extractable nuclear Ab Qn (S)on 09-21-2022 JELENA 1 ANTIBODY QUAL Negative Normal Negative [facility] Comment on above: Order Comment: Speci men Type: BLOOD SPECIMEN Ordering Facility: [facility] Address: [address] [place] [address] Result Comment: Anti -JELENA-1 antibody is used as an aid in diagnosis of polymyositis and dermatomyositis especially with pulmonary involvement. A negative result cannot rule out polymyositis or dermatomyositis. Clinical correlation is required. Test Methodology: Multiplex flow immunoassay. Performed By: #### 2 9374-6, 62554-9, 47497-5, 28646-5, 65549-6, 04557-4, ANAIFR, 20251-1, 36049-0, 95104-1, 02127-0, 84770-0 #### [facility] CLIA [id number] [address] [place] [address] [place] Mitochondria Ab IF Ql (S)on 09-21-2022 Mitochondria M2 Ab IA Qn (S) 3.3 Units Normal <=20.0 [facility] Comment on above: Order Comment: Tony keane Type: BLOOD SPECIMEN Ordering Facility: [facility] Address: [address] [place] [address] Performed By: #### 2 9374-6, 18516-8, 28270-8, 69608-4, 98804-8, 61522-7, ANAIFR, 71905-6, 65085-2, 75384-8, 67223-8, 43393-4 #### [facility] CLIA [id number] [address] [place] [address] [place] Mitochondria M2 Ab Ql (S) Negative Normal Negative [facility] Comment on above: Order Comment: Tony keane Type: BLOOD SPECIMEN Ordering Facility: [facility] Address: [address] [place], [place] [address] Result Comment: Anti -mitochondrial antibody test is used as an aid in diagnosis of primary biliary cholangitis. Clinical correlation is required. Performed By: #### 2 9374-6, 61781-2, 14429-4, 75863-7, 41745-3, 18746-6, ANAIFR, 18792-7, 53112-6, 24126-9, 77632-6, 78428-7 #### [facility] CLIA [id number] [address] [place] [address] [place] PT panel Coag (PPP)on 2022 INR Coag (PPP) [Relative time] 1.0 {INR} Normal 0.9-1.3 [facility] Comment on above: Order Comment: Tony keaen Type: BLOOD SPECIMEN Ordering Facility: [facility] Address: [address] [place], [place] [phone] Result Comment: Mai min K Antagonist (VKA) Therapeutic Range: INR 2 to 3 (Target INR of 2.5) Note: For patients treated with VKA drugs, such as warfarin, the [place] [employer] 2012 Guideline recommends [...] Chest 2012, 141:7S-47S Sherry RA, et al. [facility] 2017, 70: 252-289 Performed By: #### 2 9374-6, 95876-3, 94964-7, 58430-5, 35721-5, 11629-4, ANAIFR, 12820-3, 29321-2, 74385-0, 72508-0, 49895-0 #### [facility] CLIA [id number] [address] [place] [address] [place] PT Coag (PPP) [Time] 9.9 s Normal 9.7-13.0 [facility] Comment on above: Order Comment: Specchrissie keane Type: BLOOD SPECIMEN Ordering Facility: [facility] Address: [address] [address] Performed By: #### 2 9374-6, 77988-1, 88546-7, 39470-3, 65733-5, 91133-9, ANAIFR, 06743-6, 08809-6, 74401-7, 55118-5, 62115-9 #### [facility] CLIA [id number] [address] [place] [address] [place] Ribonucleoprotein extractabl e nuclear Ab Qn (S)on 09-21-2022 ANTI-ARMATURE TESTER QUAL Negative Normal Negative [facility] Comment on above: Order Comment: Tony keane Type: BLOOD SPECIMEN Ordering Facility: [facility] Address: [address] [address] Performed By: #### 2 9374-6, 83889-2, 01510-0, 77556-9, 47630-9, 83933-5, ANAIFR, 37347-0, 66090-2, 67851-2, 14134-0, 48228-5 #### [facility] CLIA [id number] [address] [place] [address] [place] RIBOSOMAL ARMATURE TESTER QUAL Negative Normal Negative [facility] Comment on above: Order Comment: Speci men Type: BLOOD SPECIMEN Ordering Facility: [facility] Address: [address] [place] [address] Result Comment: Anti -Ribosomal RNA (Ribosomal P) antibody is used as an aid in diagnosis of systemic autoimmune diseases especially systemic lupus erythematosus and mixed connective tissue disease. Cross-reactivity with Anti-olivarez antibody is not uncommon. Clinical correlation is required. Test Methodology: Multiplex flow immunoassay. Performed By: #### 2 9374-6, 92534-9, 27219-5, 52322-2, 21238-3, 49739-5, ANAIFR, 10044-0, 20911-8, 77183-9, 25015-7, 55921-6 #### [facility] CLIA [id number] [address] [place] [address] [place] SCL-70 extractable nuclear I gG IA Qn (S)on 09-21-2022 SCLERODERMA AB QUAL Negative Normal Negative [facility] Comment on above: Order Comment: Speci men Type: BLOOD SPECIMEN Ordering Facility: [facility] Address: [address] [place] [address] Performed By: #### 2 9374-6, 73207-8, 81782-8, 39803-5, 88768-0, 49015-1, ANAIFR, 80089-8, 59153-7, 89096-4, 67090-5, 83703-1 #### [facility] CLIA [id number] [address] [place] [address] [place] SCLERODERMA IGG AB <0.2 Normal <1.0 [facility] Comment on above: Order Comment: Speci men Type: BLOOD SPECIMEN Ordering Facility: [facility] Address: [address] [place] [id number] Result Comment: Scl- 70/Scleroderma antibody test is used as an aid in diagnosis of systemic sclerosis especially the diffuse cutaneous form. A negative result cannot rule out systemic sclerosis. The final interpretation should consider clinical picture and other test results such as anti-centromere antibody. Test Methodology: Multiplex flow immunoassay. Performed By: #### 2 9374-6, 36833-9, 76479-4, 72597-2, 77244-0, 67239-3, ANAIFR, 35892-2, 27722-9, 16483-3, 74333-6, 74550-4 #### [facility] CLIA [id number] [address] [place] [address] [place] Sjogrens syndrome-A extracta ble nuclear Ab Qn (S)on 09-21-2022 SSA ANTIBODY QUAL Positive Abnormal Negative [facility] Comment on above: Order Comment: Speci men Type: BLOOD SPECIMEN Ordering Facility: [facility] Address: [address] [address] Performed By: #### 2 9374-6, 42387-2, 35684-7, 79669-5, 14299-3, 18615-2, ANAIFR, 43208-8, 71462-9, 33297-7, 88875-3, 21399-7 #### [facility] CLIA [id number] [address] [place] [address] [place] Sjogrens syndrome-B extracta ble nuclear Ab Qn (S)on 09-21-2022 SSB ANTIBODY QUAL Positive Abnormal Negative [facility] Comment on above: Order Comment: Speci men Type: BLOOD SPECIMEN Ordering Facility: [facility] Address: [address] [address] Performed By: #### 2 9374-6, 38534-0, 42966-7, 05777-4, 07190-1, 32673-3, ANAIFR, 03200-1, 80804-9, 92801-3, 18332-1, 47265-4 #### [facility] CLIA [id number] [address] [place] [address] [place] Olivarez extractable nuclear Ig G Qn (S)on 09-21-2022 SM ANTIBODY QUAL Negative Normal Negative [facility] Comment on above: Order Comment: Speci men Type: BLOOD SPECIMEN Ordering Facility: [facility] Address: [address] [place] [address] Result Comment: Anti -Sm (Olivarez) antibody is used as an aid in diagnosis of systemic lupus erythematosus and its presence is associated with renal disease. A negative result cannot rule out systemic lupus erythematosus. Clinical correlation is required. Test Methodology: Multiplex flow immunoassay. Performed By: #### 2 9374-6, 86549-4, 40817-1, 84349-4, 56303-7, 68863-7, ANAIFR, 59975-1, 54233-5, 88431-5, 33070-4, 54625-5 #### [facility] CLIA [id number] [address] [place] [address] [place] Smooth muscle Ab Ql (S)on ACTIN SMOOTH MUSCLE IGG QUALITATIVE Negative Normal Negative [facility] Comment on above: Order Comment: Speci men Type: BLOOD SPECIMEN Ordering Facility: [facility] Address: [address] [place] [address] Performed By: #### 2 9374-6, 12040-4, 73778-3, 43528-8, 02142-8, 24535-6, ANAIFR, 39950-2, 79854-7, 31045-3, 62964-4, 39309-9 #### [facility] CLIA [id number] [address] [place] [address] [place] ACTIN SMOOTH MUSCLE IGG QUANTITATIVE 7 Units Normal <20 [facility] Comment on above: Order Comment: Speci men Type: BLOOD SPECIMEN Ordering Facility: [facility] Address: [address] [place] [address] Performed By: #### 2 9374-6, 61238-4, 63187-6, 05451-3, 90434-6, 73381-6, ANAIFR, 79381-8, 79315-6, 12437-1, 23698-8, 60417-3 #### [facility] CLIA [id number] [address] [place] [address] [place] dsDNA Ab Ser IA-aCncon 09-21 DNA double strand Ab IA Qn (S) <12 Normal <30 [facility] Comment on above: Order Comment: Speci men Type: BLOOD SPECIMEN Ordering Facility: [facility] Address: [address] [place] [address] Result Comment: Nega tive for ds DNA Antibodies. <30 IU/mL Negative 30-74 IU/mL Equivocal >74 IU/mL Positive Performed By: #### 2 9374-6, 98636-4, 05332-9, 07053-5, 04179-1, 11590-4, ANAIFR, 02052-6, 04186-8, 93412-4, 25467-9, 96205-7 #### [facility] CLIA [id number] [address] [place] [address] [place] CBC AUTO DIFFon 09-13-2022 BASO # 0.0 103/ul Normal 0.0-0.1 [facility] Comment on above: Performed By: #### C BC #### [facility] [address] [place] [address] Dr. Karl Wiley Basophils/100 WBC (Bld) 0.4 % Normal 0.2-2.0 [facility] Comment on above: Performed By: #### C BC #### [facility] [address] [place] [address] Dr. Karl Wiley EO # 0.1 103/ul Normal 0.0-0.7 [facility] Comment on above: Performed By: #### C BC #### [facility] [address] [place] [address] Dr. Karl Wiley Eosinophils/100 WBC (Bld) 2.6 % Normal 0.9-7.0 [facility] Comment on above: Performed By: #### C BC #### [facility] [address] [place] [address] Dr. Karl Wiley Erythrocyte distribution width (RBC) [Ratio] 12.3 % Normal 11.0-15.0 [facility] Comment on above: Performed By: #### C BC #### [facility] [address] [place] [address] Dr. Karl Wiley Hematocrit (Bld) [Volume fraction] 38.6 % Normal 36.0-48.0 [facility] Comment on above: Performed By: #### C BC #### [facility] [address] [place] [address] Dr. Karl Wiley Hemoglobin (Bld) [Mass/Vol] 12.7 g/dL Normal 12.0-16.0 [facility] Comment on above: Performed By: #### C BC #### [facility] [address] [place] [address] Dr. Karl Wiley IG # 0.00 10e3/ul Normal 0.00-0.03 [facility] Comment on above: Performed By: #### C BC #### [facility] [address] [place] [address] Dr. Karl Wiley IG % 0.0 % Normal 0.0-0.5 [facility] Comment on above: Performed By: #### C BC #### [facility] [address] [place] [address] Dr. Karl Wiley LYMPH # 1.3 103/ul Normal 1.2-3.8 [facility] Comment on above: Performed By: #### C BC #### [facility] [address] [place] [address] Dr. Karl Wiley Lymphocytes/100 WBC (Bld) 29.4 % Normal 20.5-60.0 [facility] Comment on above: Performed By: #### C BC #### [facility] [address] [place] [address] Dr. Karl Wiley MANUAL DIFF REQ NO Normal [facility] Comment on above: Performed By: #### C BC #### [facility] [address] [place] [address] Dr. Karl Wiley MCH (RBC) [Entitic mass] 30.1 pg Normal 26.7-34.0 [facility] Comment on above: Performed By: #### C BC #### [facility] [address] [place] [address] Dr. Karl Wiley MCHC (RBC) [Mass/Vol] 32.9 g/dL Normal 29.9-35.2 [facility] Comment on above: Performed By: #### C BC #### [facility] [address] [place] [address] Dr. Karl Wiley MCV (RBC) [Entitic vol] 91.5 fL Normal 81.0-99.0 [facility] Comment on above: Performed By: #### C BC #### [facility] [address] [place] [address] Dr. Karl Wiley MONO # 0.3 103/ul Normal 0.3-0.8 [facility] Comment on above: Performed By: #### C BC #### [facility] [address] [place] [address] Dr. Karl Wiley Monocytes/100 WBC (Bld) 7.3 % Normal 1.7-12.0 [facility] Comment on above: Performed By: #### C BC #### [facility] [address] [place] [address] Dr. Karl Wiley NEUT # 2.7 103/ul Normal 1.4-6.5 [facility] Comment on above: Performed By: #### C BC #### [facility] [address] [place] [address] Dr. Karl Wiley Neutrophils/100 WBC (Bld) 60.3 % Normal 43.0-75.0 [facility] Comment on above: Performed By: #### C BC #### [facility] [address] [place] [address] Dr. Karl Wiley Platelet mean volume (Bld) [Entitic vol] 11.2 fL Normal 9.5-13.5 [facility] Comment on above: Performed By: #### C BC #### [facility] [address] [address] [address] Karl Wiley PLT 212 103/ul Normal 150-450 [facility] Comment on above: Performed By: #### C BC #### [facility] [address] [address] [address] Karl Wiley RBC 4.22 106/ul Normal 4.20-5.40 [facility] Comment on above: Performed By: #### C BC #### [facility] [address] [address] [address] Karl Wiley WBC 4.5 103/ul Normal 4.0-11.0 [facility] Comment on above: Performed By: #### C BC #### [facility] [address] [place] [address] Dr. Karl Wiley FERRITINon 09-13-2022 Ferritin [Mass/Vol] 211.0 ng/mL Normal 8.0-252.0 [facility] Comment on above: Performed By: #### F ERR, IRON #### [facility] [address] [place] [address] Dr. Karl Wiley GLYCOHEMOGLOBIN A1Con 2022 ADA RECOMMENDATION SEE BELOW Normal [facility] Comment on above: Result Comment: ADA RECOMMENDED LIMIT 4.0 - 6.0 ADA THERAPEUTIC TARGET < 7.0 ACTION SUGGESTED > 7.0 Performed By: #### F ERR, IRON #### [facility] [address] [place] [address] Dr. Karl Wiley Glucose [Mass/Vol] 140 mg/dL Normal [facility] Comment on above: Performed By: #### F ERR, IRON #### [facility] [address] [place] [address] Dr. Karl Wiley HbA1c (Bld) [Mass fraction] 6.5 % Critically high 4.5-6.2 [facility] Comment on above: Performed By: #### F ERR, IRON #### [facility] [address] [place] [address] Dr. Karl Wiley IRONon 09-13-2022 Iron [Mass/Vol] 94.0 ug/dL Normal 50.0-170.0 [facility] Comment on above: Performed By: #### F ERR, IRON #### [facility] [address] [address] [address] Karl Wiley MICROALB CREAT RATIO RANDOMo n 09-13-2022 mALB 2.8 mg/dL Normal <=30.0 [facility] Comment on above: Performed By: #### F ERR, IRON #### [facility] [address] [address] [address] Karl Wiley MALB CR RATIO 15.0 mg/g Normal 0.0-29.9 [facility] Comment on above: Performed By: #### F ERR, IRON #### [facility] [address] [place] [address] Dr. Karl Wiley MALB CR RATIO RANGE SEE BELOW Normal [facility] Comment on above: Result Comment: NO M ICROALBUMINURIA 0-29 MG/G CLINICAL MICROALBUMINURIA 30-300 MG/G MACROALBUMINURIA >300 MG/G Performed By: #### F ERR, IRON #### [facility] [address] [place] [address] Dr. Karl Wiley URINE CREAT 186.62 mg/dL Normal 20.00-300.00 [facility] Comment on above: Performed By: #### F ERR, IRON #### [facility] [address] [place] [address] Dr. Karl Wiley PROF 14(COMP METB)on 023 Albumin [Mass/Vol] 4.0 g/dL Normal 3.4-5.0 [facility] Comment on above: Performed By: #### F ERR, IRON #### [facility] [address] [address] [address] Karl Wiley Albumin/Globulin [Mass ratio] 0.9 {ratio} Normal [facility] Comment on above: Performed By: #### F ERR, IRON #### [facility] [address] [address] [address] Karl Wiley ALP [Catalytic activity/Vol] 124 U/L Critically high 46-116 [facility] Comment on above: Performed By: #### F ERR, IRON #### [facility] [address] [address] [address] Kalr Wiley ALT [Catalytic activity/Vol] 78 U/L Critically high 14-59 [facility] Comment on above: Performed By: #### F ERR, IRON #### [facility] [address] [address] [address] Karl Wiley Anion gap [Moles/Vol] 13.4 mmol/L Normal [facility] Comment on above: Performed By: #### F ERR, IRON #### [facility] [address] [address] [address] Karl Wiley AST [Catalytic activity/Vol] 32 U/L Normal 15-37 [facility] Comment on above: Performed By: #### F ERR, IRON #### [facility] [address] [address] [address] Karl Wiley Bilirubin [Mass/Vol] 0.6 mg/dL Normal 0.2-1.0 [facility] Comment on above: Performed By: #### F ERR, IRON #### [facility] [address] [address] [address] Karl Wiley Calcium [Mass/Vol] 9.2 mg/dL Normal 8.5-10.1 [facility] Comment on above: Performed By: #### F ERR, IRON #### [facility] [address] [address] [address] Karl Wiley Chloride [Moles/Vol] 107 mmol/L Normal 98-107 [facility] Comment on above: Performed By: #### F ERR, IRON #### [facility] [address] [address] [address] Karl Wiley CO2 [Moles/Vol] 28.6 mmol/L Normal 21.0-32.0 [facility] Comment on above: Performed By: #### F ERR, IRON #### [facility] [address] [address] [address] Karl Wiley Creatinine [Mass/Vol] 0.72 mg/dL Normal 0.55-1.02 [facility] Comment on above: Performed By: #### F ERR, IRON #### [facility] [address] [address] [address] Karl Wiley EGFR-AF CHILEAN >60 Normal >=60 [facility] Comment on above: Performed By: #### F ERR, IRON #### [facility] [address] [address] [address] Karl Wiley EGFR-NON AF CHILEAN >60 Normal >=60 [facility] Comment on above: Performed By: #### F ERR, IRON #### [facility] [address] [address] [address] Karl Wiley Globulin (S) [Mass/Vol] 4.4 g/dL Normal [facility] Comment on above: Performed By: #### F ERR, IRON #### [facility] [address] [address] [address] Karl Wiley Glucose [Mass/Vol] 100 mg/dL Normal 74-106 [facility] Comment on above: Performed By: #### F ERR, IRON #### [facility] [address] [address] [address] Karl Wiley Potassium [Moles/Vol] 4.0 mmol/L Normal 3.5-5.1 [facility] Comment on above: Performed By: #### F ERR, IRON #### [facility] [address] [address] [address] Karl Wiley Protein [Mass/Vol] 8.4 g/dL Critically high 6.4-8.2 [facility] Comment on above: Performed By: #### F ERR, IRON #### [facility] [address] [address] [address] Karl Wiley Sodium [Moles/Vol] 145 mmol/L Normal 136-145 [facility] Comment on above: Performed By: #### F ERR, IRON #### [facility] [address] [address] [address] Karl Wiley Urea nitrogen [Mass/Vol] 10.0 mg/dL Normal 7.0-18.0 [facility] Comment on above: Performed By: #### F ERR, IRON #### [facility] [address] [address] [address] Karl Wiley Urea nitrogen/Creatinine [Mass ratio] 13.9 mg/mg Normal [facility] Comment on above: Performed By: #### F ERR, IRON #### [facility] [address] [place] [address] Dr. Karl Wiley Physician Referralon 023 Physician Referral [id number] Normal [facility] HEPATITIS PANEL, ACUTEon HBsAg Screen Negative Normal Negative [facility] Comment on above: Performed By: #### F ERR, IRON #### [facility] [address] [place] [address] Dr. Karl Wiley HCV AB Non-Reactive Normal Non Reactive [facility] Comment on above: Performed By: #### F ERR, IRON #### [facility] [address] [place] [address] Dr. Karl Wiley Hep A Ab, IgM Negative Normal Negative [facility] Comment on above: Performed By: #### F ERR, IRON #### [facility] [address] [place] [address] Dr. Karl Wiley Hep B Core Ab, IgM Negative Normal Negative [facility] Comment on above: Performed By: #### F ERR, IRON #### [facility] [address] [place] [address] Dr. Karl Wiley Interpretation: Comment Normal [facility] Comment on above: Result Comment: Not infected with HCV unless early or acute infection is suspected (which may be delayed in an immunocompromised individual), or other evidence exists to indicate HCV infection. Performed By: #### F ERR, IRON #### [facility] [address] [place] [address] Dr. Karl Wiley AMYLASEon 07-25-2022 Amylase [Catalytic activity/Vol] 51 U/L Normal 25-115 [facility] Comment on above: Performed By: #### F ERR, IRON #### [facility] [address] [place] [address] Dr. Karl Wiley CBC AUTO DIFFon 07-25-2022 BASO # 0.0 103/ul Normal 0.0-0.1 [facility] Comment on above: Performed By: #### C BC #### [facility] [address] [place] [address] Dr. Karl Wiley Basophils/100 WBC (Bld) 0.3 % Normal 0.2-2.0 [facility] Comment on above: Performed By: #### C BC #### [facility] [address] [place] [address] Dr. Karl Wiley EO # 0.1 103/ul Normal 0.0-0.7 [facility] Comment on above: Performed By: #### C BC #### [facility] [address] [place] [address] Dr. Karl Wiley Eosinophils/100 WBC (Bld) 1.9 % Normal 0.9-7.0 [facility] Comment on above: Performed By: #### C BC #### [facility] [address] [place] [address] Dr. Karl Wiley Erythrocyte distribution width (RBC) [Ratio] 12.7 % Normal 11.0-15.0 [facility] Comment on above: Performed By: #### C BC #### [facility] [address] [place] [address] Dr. Karl Wiley Hematocrit (Bld) [Volume fraction] 39.7 % Normal 36.0-48.0 [facility] Comment on above: Performed By: #### C BC #### [facility] [address] [place] [address] Dr. Karl Wiley Hemoglobin (Bld) [Mass/Vol] 13.1 g/dL Normal 12.0-16.0 [facility] Comment on above: Performed By: #### C BC #### [facility] [address] [place] [address] Dr. Karl Wiley IG # 0.01 10e3/ul Normal 0.00-0.03 [facility] Comment on above: Performed By: #### C BC #### [facility] [address] [place] [address] Dr. Karl Wiley IG % 0.1 % Normal 0.0-0.5 [facility] Comment on above: Performed By: #### C BC #### [facility] [address] [place] [address] Dr. Karl Wiley LYMPH # 1.9 103/ul Normal 1.2-3.8 [facility] Comment on above: Performed By: #### C BC #### [facility] [address] [place] [address] Dr. Karl Wiley Lymphocytes/100 WBC (Bld) 27.3 % Normal 20.5-60.0 [facility] Comment on above: Performed By: #### C BC #### [facility] [address] [place] [address] Dr. Karl Wiley MANUAL DIFF REQ NO Normal [facility] Comment on above: Performed By: #### C BC #### [facility] [address] [place] [address] Dr. Karl Wiley MCH (RBC) [Entitic mass] 29.6 pg Normal 26.7-34.0 [facility] Comment on above: Performed By: #### C BC #### [facility] [address] [place] [address] Dr. Karl Wiley MCHC (RBC) [Mass/Vol] 33.0 g/dL Normal 29.9-35.2 [facility] Comment on above: Performed By: #### C BC #### [facility] [address] [place] [address] Dr. Karl Wiley MCV (RBC) [Entitic vol] 89.6 fL Normal 81.0-99.0 [facility] Comment on above: Performed By: #### C BC #### [facility] [address] [place] [address] Dr. Karl Wiley MONO # 0.7 103/ul Normal 0.3-0.8 [facility] Comment on above: Performed By: #### C BC #### [facility] [address] [place] [address] Dr. Karl Wiley Monocytes/100 WBC (Bld) 10.3 % Normal 1.7-12.0 [facility] Comment on above: Performed By: #### C BC #### [facility] [address] [place] [address] Dr. Karl Wiley NEUT # 4.1 103/ul Normal 1.4-6.5 [facility] Comment on above: Performed By: #### C BC #### [facility] [address] [place] [address] Dr. Karl Wiley Neutrophils/100 WBC (Bld) 60.1 % Normal 43.0-75.0 [facility] Comment on above: Performed By: #### C BC #### [facility] [address] [place] [address] Dr. Karl Wiley Platelet mean volume (Bld) [Entitic vol] 10.8 fL Normal 9.5-13.5 [facility] Comment on above: Performed By: #### C BC #### [facility] [address] [place] [address] Dr. Karl Wiley PLT 274 103/ul Normal 150-450 [facility] Comment on above: Performed By: #### C BC #### [facility] [address] [place] [address] Dr. Karl Wiley RBC 4.43 106/ul Normal 4.20-5.40 [facility] Comment on above: Performed By: #### C BC #### [facility] [address] [place] [address] Dr. Karl Wiley WBC 6.9 103/ul Normal 4.0-11.0 [facility] Comment on above: Performed By: #### C BC #### [facility] [address] [place] [address] ABD/PELVIS WO CONon [...] FABY GODINEZ Date: 2022-07-25 00:57 Normal [facility] ER URINE PROFILEon 3 Bilirubin Ql (U) Negative Normal NEGATIVE [facility] Comment on above: Performed By: #### F ERR, IRON #### [facility] [address] [place] [address] Dr. Karl Wiley Clarity (U) CLEAR Normal CLEAR [facility] Comment on above: Performed By: #### F ERR, IRON #### [facility] [address] [address] [address] Karl Wiley Color (U) LT. YELLOW Normal YELLOW [facility] Comment on above: Performed By: #### F ERR, IRON #### [facility] [address] [place] [address] Dr. Karl Wiley ERUAHD A micrscopic examination will be performed if indicated. Normal [facility] Comment on above: Performed By: #### F ERR, IRON #### [facility] [address] [address] [address] Karl Wiley Glucose Ql (U) Negative Normal NEGATIVE [facility] Comment on above: Performed By: #### F ERR, IRON #### [facility] [address] [address] [address] Karl Wiley Hemoglobin Ql (U) Negative Normal NEGATIVE [facility] Comment on above: Performed By: #### F ERR, IRON #### [facility] [address] [address] [address] Karl Wiley Ketones Ql (U) Negative Normal NEGATIVE [facility] Comment on above: Performed By: #### F ERR, IRON #### [facility] [address] [address] [address] Karl Wiley LEUKOCYTES Negative Normal NEGATIVE [facility] Comment on above: Performed By: #### F ERR, IRON #### [facility] [address] [address] [address] Karl Wiley Nitrite Ql (U) Negative Normal NEGATIVE [facility] Comment on above: Performed By: #### F ERR, IRON #### [facility] [address] [address] [address] Karl Wiley pH (U) 6.0 [pH] Normal 5-9 [facility] Comment on above: Performed By: #### F ERR, IRON #### [facility] [address] [address] [address] Karl Wiley SPEC GRAVITY <=1.005 Abnormal 1.005-<=1.025 [facility] Comment on above: Performed By: #### F ERR, IRON #### [facility] [address] [address] [address] Karl Wiley UA PROTEIN Negative Normal NEGATIVE/ TRACE [facility] Comment on above: Performed By: #### F ERR, IRON #### [facility] [address] [place] [address] Dr. Karl Wiley UR MICRO IND NOT INDICATED Normal [facility] Comment on above: Performed By: #### F ERR, IRON #### [facility] [address] [place] [address] Dr. Karl Wiley Urobilinogen Qn (U) 0.2 {Wilson'U}/dL Normal 0.2 - 1. 0 [facility] Comment on above: Performed By: #### F ERR, IRON #### [facility] [address] [place] [address] Dr. Karl Wiley LIPASEon 07-25-2022 Lipase [Catalytic activity/Vol] 63.0 U/L Critically low 73.0-393.0 [facility] Comment on above: Performed By: #### F ERR, IRON #### [facility] [address] [place] [address] Dr. Karl Wiley PROF 14(COMP METB)on 023 Albumin [Mass/Vol] 4.1 g/dL Normal 3.4-5.0 [facility] Comment on above: Performed By: #### F ERR, IRON #### [facility] [address] [place] [address] Dr. Karl Wiley Albumin/Globulin [Mass ratio] 1.0 {ratio} Normal [facility] Comment on above: Performed By: #### F ERR, IRON #### [facility] [address] [place] [address] Dr. Karl Wiley ALP [Catalytic activity/Vol] 141 U/L Critically high 46-116 [facility] Comment on above: Performed By: #### F ERR, IRON #### [facility] [address] [place] [address] Dr. Karl Wiley ALT [Catalytic activity/Vol] 598 U/L Critically high 14-59 [facility] Comment on above: Performed By: #### F ERR, IRON #### [facility] [address] [place] [address] Dr. Karl Wiley Anion gap [Moles/Vol] 19.5 mmol/L Normal [facility] Comment on above: Performed By: #### F ERR, IRON #### [facility] [address] [place] [address] Dr. Karl Wiley AST [Catalytic activity/Vol] 212 U/L Critically high 15-37 [facility] Comment on above: Performed By: #### F ERR, IRON #### [facility] [address] [place] [address] Dr. Karl Wiley Bilirubin [Mass/Vol] 0.6 mg/dL Normal 0.2-1.0 [facility] Comment on above: Performed By: #### F ERR, IRON #### [facility] [address] [place] [address] Dr. Karl Wiley Calcium [Mass/Vol] 9.0 mg/dL Normal 8.5-10.1 [facility] Comment on above: Performed By: #### F ERR, IRON #### [facility] [address] [place] [address] Dr. Karl Wiley Chloride [Moles/Vol] 104 mmol/L Normal 98-107 [facility] Comment on above: Performed By: #### F ERR, IRON #### [facility] [address] [place] [address] Dr. Karl Wiley CO2 [Moles/Vol] 21.9 mmol/L Normal 21.0-32.0 [facility] Comment on above: Performed By: #### F ERR, IRON #### [facility] [address] [place] [address] Dr. Karl Wiley Creatinine [Mass/Vol] 0.66 mg/dL Normal 0.55-1.02 [facility] Comment on above: Performed By: #### F ERR, IRON #### [facility] [address] [place] [address] Dr. Karl Wiley EGFR-AF CHILEAN >60 Normal >=60 [facility] Comment on above: Performed By: #### F ERR, IRON #### [facility] [address] [place] [address] Dr. Karl Wiley EGFR-NON AF CHILEAN >60 Normal >=60 [facility] Comment on above: Performed By: #### F ERR, IRON #### [facility] [address] [place] [address] Dr. Karl Wiley Globulin (S) [Mass/Vol] 4.2 g/dL Normal [facility] Comment on above: Performed By: #### F ERR, IRON #### [facility] [address] [address] [address] Karl Wiley Glucose [Mass/Vol] 160 mg/dL Critically high 74-106 [facility] Comment on above: Performed By: #### F ERR, IRON #### [facility] [address] [place] [address] Dr. Karl Wiley Potassium [Moles/Vol] 3.4 mmol/L Critically low 3.5-5.1 [facility] Comment on above: Performed By: #### F ERR, IRON #### [facility] [address] [place] [address] Dr. Karl Wiley Protein [Mass/Vol] 8.3 g/dL Critically high 6.4-8.2 [facility] Comment on above: Performed By: #### F ERR, IRON #### [facility] [address] [place] [address] Dr. Karl Wiley Sodium [Moles/Vol] 142 mmol/L Normal 136-145 [facility] Comment on above: Performed By: #### F ERR, IRON #### [facility] [address] [place] [address] Dr. Karl Wiley Urea nitrogen [Mass/Vol] 11.0 mg/dL Normal 7.0-18.0 [facility] Comment on above: Performed By: #### F ERR, IRON #### [facility] [address] [place] [address] Dr. Karl Wiley Urea nitrogen/Creatinine [Mass ratio] 16.7 mg/mg Normal [facility] Comment on above: Performed By: #### F ERR, IRON #### [facility] [address] [place] [address] Dr. Karl Wiley US THYROIDon 07-12-2022 US [...] by: ANTHONY RODRIGEZ Date: 2022-07-12 15:47 Normal [facility] FREE T4on 07-05-2022 Free T4 [Mass/Vol] 0.91 ng/dL Normal 0.76-1.46 [facility] Comment on above: Performed By: #### F ERR, IRON #### [facility] [address] [address] [address] Karl Wiley GLYCOHEMOGLOBIN A1Con 2022 ADA RECOMMENDATION SEE BELOW Normal [facility] Comment on above: Result Comment: ADA RECOMMENDED LIMIT 4.0 - 6.0 ADA THERAPEUTIC TARGET < 7.0 ACTION SUGGESTED > 7.0 Performed By: #### A 1C #### [facility] [address] [address] [address] Karl Wiley Glucose [Mass/Vol] 183 mg/dL Normal [facility] Comment on above: Performed By: #### A 1C #### [facility] [address] [address] [address] Karl Wiley HbA1c (Bld) [Mass fraction] 8.0 % Critically high 4.5-6.2 [facility] Comment on above: Performed By: #### A 1C #### [facility] [address] [address] [address] Karl Wiley PROF 14(COMP METB)on 023 Albumin [Mass/Vol] 4.0 g/dL Normal 3.4-5.0 [facility] Comment on above: Performed By: #### C MP, TSH #### [facility] [address] [address] [address] Karl Wiley Albumin/Globulin [Mass ratio] 1.0 {ratio} Normal [facility] Comment on above: Performed By: #### C MP, TSH #### [facility] [address] [address] [address] Karl Wiley ALP [Catalytic activity/Vol] 172 U/L Critically high 46-116 [facility] Comment on above: Performed By: #### C MP, TSH #### [facility] [address] [address] [address] Karl Wiley ALT [Catalytic activity/Vol] 234 U/L Critically high 14-59 [facility] Comment on above: Performed By: #### C MP, TSH #### [facility] [address] [address] [address] Karl Wiley Anion gap [Moles/Vol] 12.7 mmol/L Normal [facility] Comment on above: Performed By: #### C MP, TSH #### [facility] [address] [address] [address] Karl Wiley AST [Catalytic activity/Vol] 90 U/L Critically high 15-37 [facility] Comment on above: Performed By: #### C MP, TSH #### [facility] [address] [address] [address] Karl Wiley Bilirubin [Mass/Vol] 0.5 mg/dL Normal 0.2-1.0 [facility] Comment on above: Performed By: #### C MP, TSH #### [facility] [address] [address] [address] Karl Wiley Calcium [Mass/Vol] 9.1 mg/dL Normal 8.5-10.1 [facility] Comment on above: Performed By: #### C MP, TSH #### [facility] [address] [address] [address] Karl Wiley Chloride [Moles/Vol] 104 mmol/L Normal 98-107 [facility] Comment on above: Performed By: #### C MP, TSH #### [facility] [address] [address] [address] Karl Wiley CO2 [Moles/Vol] 28.4 mmol/L Normal 21.0-32.0 [facility] Comment on above: Performed By: #### C MP, TSH #### [facility] [address] [address] [address] Karl Wiley Creatinine [Mass/Vol] 0.59 mg/dL Normal 0.55-1.02 [facility] Comment on above: Performed By: #### C MP, TSH #### [facility] [address] [address] [address] Karl Wiley EGFR-AF CHILEAN >60 Normal >=60 [facility] Comment on above: Performed By: #### C MP, TSH #### [facility] [address] [address] [address] Karl Wiley EGFR-NON AF CHILEAN >60 Normal >=60 [facility] Comment on above: Performed By: #### C MP, TSH #### [facility] [address] [address] [address] Karl Wiley Globulin (S) [Mass/Vol] 4.0 g/dL Normal [facility] Comment on above: Performed By: #### C MP, TSH #### [facility] [address] [address] [address] Karl Wiley Glucose [Mass/Vol] 160 mg/dL Critically high 74-106 [facility] Comment on above: Performed By: #### C MP, TSH #### [facility] [address] [address] [address] Karl Wiley Potassium [Moles/Vol] 4.1 mmol/L Normal 3.5-5.1 [facility] Comment on above: Performed By: #### C MP, TSH #### [facility] [address] [address] [address] Karl Wiley Protein [Mass/Vol] 8.0 g/dL Normal 6.4-8.2 [facility] Comment on above: Performed By: #### C MP, TSH #### [facility] [address] [address] [address] Karl Wiley Sodium [Moles/Vol] 141 mmol/L Normal 136-145 [facility] Comment on above: Performed By: #### C MP, TSH #### [facility] [address] [place] [address] Dr. Karl Wiley Urea nitrogen [Mass/Vol] 12.0 mg/dL Normal 7.0-18.0 [facility] Comment on above: Performed By: #### C MP, TSH #### [facility] [address] [address] [address] Karl Wiley Urea nitrogen/Creatinine [Mass ratio] 20.3 mg/mg Normal [facility] Comment on above: Performed By: #### C MP, TSH #### [facility] [address] [place] [address] Dr. Karl Wiley TSHon 07-05-2022 TSH 6.031 uIU/mL Critically high 0.358-3.740 [facility] Comment on above: Performed By: #### C MP, TSH #### [facility] [address] [place] [address] Dr. Karl Wiley VITAMIN D 25 OHon 07-05-2022 VIT D 25-OH 41.8 ng/mL Normal [facility] Comment on above: Performed By: #### F ERR, IRON #### [facility] [address] [place] [address] Dr. Karl Wiley VIT D RANGES SEE BELOW Normal [facility] Comment on above: Result Comment: <20 ng/mL Vit D deficient 20 - <30 ng/mL Vit D insufficient 30 - 100 ng/mL Vit D sufficient >100 ng/mL Potential Toxicity Performed By: #### F ERR, IRON #### [facility] [address] [place] [address] Dr. Karl Wiley SYMPTOMATIC COVID-19 ANTIGEN on 02-28-2022 EUA Statement SEE BELOW Normal [facility] Comment on above: Result Comment: This test [...] sooner. Performed By: #### C VDAGS #### [facility] [address] [place] [address] Dr. Karl Wiley SARS-CoV-2 (COVID-19) RNA VICTOR HUGO+probe Ql (Unsp spec) Negative Normal NEGATIVE [facility] Comment on above: Performed By: #### C VDAGS #### [facility] [address] [place] [address] Dr. Karl Wiley US THYROID FN ASP BXon 01-13 US THYROID FN ASP BX Begin Addendum #1 COLLECTED DATE/TIME: 01/06/2022, 08:54 EDT Final Diagnosis Report for [facility] [place] (A/B) RIGHT INFERIOR THYROID NODULE; FINE [...] 2. Pathology results are pending. Normal [facility] 25-HYDROXY VIT D (D2+D3 FRAC ) LC/MS-MSon 12-24-2021 25-Hydroxy, Vitamin D 32 ng/mL Normal [facility] Comment on above: Result Comment: Refe rence Range: All Ages: Target levels 30 - 100 Performed By: #### F ERR, IRON #### [facility] [address] [place] [address] Dr. Karl Wiley 25-Hydroxy, Vitamin D-2 4.3 ng/mL Normal [facility] Comment on above: Result Comment: This test was developed and its performance characteristics determined by [facility]. It has not been cleared or approved by the Food and Drug Administration. Performed By: #### F ERR, IRON #### [facility] [address] [place] [address] Dr. Karl Wiley 25-Hydroxy, Vitamin D-3 28 ng/mL Normal [facility] Comment on above: Result Comment: This test was developed and its performance characteristics determined by [facility]. It has not been cleared or approved by the Food and Drug Administration. Performed By: #### F ERR, IRON #### [facility] [address] [place] [address] Dr. Karl Wiley THYROGLOBULIN ABon Thyroglobulin Antibody 2.7 IU/mL Critically high 0.0-0.9 [facility] Comment on above: Result Comment: Thyr oglobulin Antibody measured by [employer] ([employer]) Methodology Performed By: #### T HYGAB #### [facility] [address] [place] [address] Dr. Karl Wiley THYROID PEROXIDASE ABon 11-30 Thyroid Peroxidase (TPO) Ab 317 IU/mL Critically high 0-34 [facility] Comment on above: Performed By: #### F ERR, IRON #### [facility] [address] [place] [address] Dr. Karl Wiley FREE T4on 12-21-2021 Free T4 [Mass/Vol] 0.98 ng/dL Normal 0.76-1.46 [facility] Comment on above: Performed By: #### F ERR, IRON #### [facility] [address] [place] [address] Dr. Karl Wiley GLYCOHEMOGLOBIN A1Con 2021 ADA RECOMMENDATION SEE BELOW Normal [facility] Comment on above: Result Comment: ADA RECOMMENDED LIMIT 4.0 - 6.0 ADA THERAPEUTIC TARGET < 7.0 ACTION SUGGESTED > 7.0 Performed By: #### A 1C #### [facility] [address] [address] [address] Karl Wiley Glucose [Mass/Vol] 146 mg/dL Normal [facility] Comment on above: Performed By: #### A 1C #### [facility] [address] [place] [address] Dr. Kral Wiley HbA1c (Bld) [Mass fraction] 6.7 % Critically high 4.5-6.2 [facility] Comment on above: Performed By: #### A 1C #### [facility] [address] [place] [address] Dr. Karl Wiley PROF 14(COMP METB)on 022 Albumin [Mass/Vol] 4.0 g/dL Normal 3.4-5.0 [facility] Comment on above: Performed By: #### F ERR, IRON #### [facility] [address] [place] [address] Dr. Karl Wiley Albumin/Globulin [Mass ratio] 1.1 {ratio} Normal [facility] Comment on above: Performed By: #### F ERR, IRON #### [facility] [address] [place] [address] Dr. Karl Wiley ALP [Catalytic activity/Vol] 99 U/L Normal 46-116 [facility] Comment on above: Performed By: #### F ERR, IRON #### [facility] [address] [place] [address] Dr. Karl Wiley ALT [Catalytic activity/Vol] 58 U/L Normal 14-59 [facility] Comment on above: Performed By: #### F ERR, IRON #### [facility] [address] [address] [address] Karl Wiley Anion gap [Moles/Vol] 11.8 mmol/L Normal [facility] Comment on above: Performed By: #### F ERR, IRON #### [facility] [address] [address] [address] Karl Wiley AST [Catalytic activity/Vol] 24 U/L Normal 15-37 [facility] Comment on above: Performed By: #### F ERR, IRON #### [facility] [address] [address] [address] Karl Wiley Bilirubin [Mass/Vol] 0.7 mg/dL Normal 0.2-1.0 [facility] Comment on above: Performed By: #### F ERR, IRON #### [facility] [address] [address] [address] Karl Wiley Calcium [Mass/Vol] 9.2 mg/dL Normal 8.5-10.1 [facility] Comment on above: Performed By: #### F ERR, IRON #### [facility] [address] [address] [address] Karl Wiley Chloride [Moles/Vol] 104 mmol/L Normal 98-107 [facility] Comment on above: Performed By: #### F ERR, IRON #### [facility] [address] [address] [address] Karl Wiley CO2 [Moles/Vol] 29.0 mmol/L Normal 21.0-32.0 [facility] Comment on above: Performed By: #### F ERR, IRON #### [facility] [address] [address] [address] Karl Wiley Creatinine [Mass/Vol] 0.75 mg/dL Normal 0.55-1.02 [facility] Comment on above: Performed By: #### F ERR, IRON #### [facility] [address] [address] [address] Karl Wiley EGFR-AF CHILEAN >60 Normal >=60 [facility] Comment on above: Performed By: #### F ERR, IRON #### [facility] [address] [address] [address] Karl Wiley EGFR-NON AF CHILEAN >60 Normal >=60 [facility] Comment on above: Performed By: #### F ERR, IRON #### [facility] [address] [address] [address] Karl Wiley Globulin (S) [Mass/Vol] 3.8 g/dL Normal [facility] Comment on above: Performed By: #### F ERR, IRON #### [facility] [address] [address] [address] Karl Wiley Glucose [Mass/Vol] 124 mg/dL Critically high 74-106 [facility] Comment on above: Performed By: #### F ERR, IRON #### [facility] [address] [address] [address] Karl Wiley Potassium [Moles/Vol] 3.8 mmol/L Normal 3.5-5.1 [facility] Comment on above: Performed By: #### F ERR, IRON #### [facility] [address] [address] [address] Karl Wiley Protein [Mass/Vol] 7.8 g/dL Normal 6.4-8.2 [facility] Comment on above: Performed By: #### F ERR, IRON #### [facility] [address] [address] [address] Karl Wiley Sodium [Moles/Vol] 141 mmol/L Normal 136-145 [facility] Comment on above: Performed By: #### F ERR, IRON #### [facility] [address] [address] [address] Karl Wiley Urea nitrogen [Mass/Vol] 11.0 mg/dL Normal 7.0-18.0 [facility] Comment on above: Performed By: #### F ERR, IRON #### [facility] [address] [address] [address] Karl Wiley Urea nitrogen/Creatinine [Mass ratio] 14.7 mg/mg Normal [facility] Comment on above: Performed By: #### F ERR, IRON #### [facility] [address] [place], [place] [address] Dr. Karl Wiley TSHon 12-21-2021 TSH 3.064 uIU/mL Normal 0.358-3.740 [facility] Comment on above: Performed By: #### F ERR, IRON #### [facility] [address] [place], [place] [address] Dr. Karl Wiley US THYROIDon 10-13-2021 US [...] 4 nodules is recommended. TR 5: The [employer] TI-RADS committee's white paper recommendations for thyroid lesions classified as TR5 (highly suspicious) are listed below: > 0.5 cm. Annual ultrasound follow-up for up to 5 years. > 1.0 cm. FNA. J. Am Kandice Radiol 2017;14:587-595. Electronically authenticated by: ANTHONY RODRIGEZ Date: 2021-10-13 09:25 Normal [facility] XR chest 1V portableon 08-11 XR chest 1V portable [facility] [place] [address] XRay Report Signed Patient: Estrella Martinez MR#: [id number] : 1970 Acct:[id number] Age/Sex: 50 / F ADM Date: 08/10/20 Loc: ER Room: Type: [facility] ER Attending Dr: Ordering Provider: [...] Pavel Calvo M.D.08/11/2020 8:31 AM Dictation Location: [facility]--11 Transcribed By: [facility] 08/11/20830 Dictated By: Pavel Calvo DO 08/11/20829 Signed By: 08/11/20830 Normal [facility] Alkaline Phosphataseon 08-10 ALP [Catalytic activity/Vol] 66 U/L Normal 32-92 [facility] Comment on above: Performed By: #### L IPASE, ALP, BILTD, BRET #### [place] [address] [place] Amylaseon 08-10-2020 Amylase [Catalytic activity/Vol] 77 U/L Normal 28-100 [facility] Comment on above: Performed By: #### L IPASE, ALP, BILTD, BRET #### [facility] [address] [place], [place] [id number] [place] Bilirubin, Total and Directo n 08-10-2020 Bilirubin [Mass/Vol] 1.1 mg/dL Normal 0.3-1.2 [facility] Comment on above: Performed By: #### L IPASE, ALP, BILTD, BRET #### [place] [address] [id number] [place] Bilirubin,Indirect 1.0 mg/dL Normal [facility] Comment on above: Performed By: #### L IPASE, ALP, BILTD, BRET #### [address] Bilirubin.indirect [Mass/Vol] 0.1 mg/dL Normal 0.0-0.4 [facility] Comment on above: Performed By: #### L IPASE, RAFAELA, BILTD, BRET #### [address] ECG 12 lead ECGon 08-10-2020 ECG 12 lead ECG [facility] [place] [address] [place] [address] Electrocardiograph Report Signed Patient: Estrella Martinez MR#: [id number] : 1970 Acct:[id number] Age/Sex: 50 / F ADM Date: 08/10/20 Loc: ER Room: Type: [facility] ER Attending Dr: Ordering Provider: [...] Inferolateral leads Confirmed by JENNIFER STAPLETON MD ([id number]) on 08/11/2020 5:40:03 AM Referred By: Electronically Signed By:JENNIFER STAPLETON MD Transcribed By: MUS Dictated By: Jennifer Stapleton Jr, MD 08/10/202012 Signed By: 08/11/20 0540 Normal [facility] Haseeb 08-10-2020 L - -------- Specimen: [id number] Received: 08/11/20 Status: EZEQUIEL Tee Num: [id number] Spec Type: Surgical Subm Dr: Jared Snyder MD Tissues: A Gallbladder (GALLBLADDER) Procedures: HE Stain, Gross/Micro L3 -------- Patient Age/Sex Location Account Attending Physician -------- Estrella Martinez 50/F [place] [id number] Jared Snyder MD -------- SPEC NUM: [id number] RECD: 08/11/20 STATUS: EZEQUIEL FOXAguila NUM: [id number] KANDICE: 08/10/20- [facility] DR: Jared Snyder MD ENTERED: 08/11/20 [facility] DR: AI TYPE: Surgical DEPT: S ORDERED: HE Stain, Gross/Micro L3 ORDERED: HE Stain, Gross/Micro L3 Pathological Diagnosis Gallbladder, cholecystectomy: - Chronic cholecystitis with cholelithiasis - One benign reactive lymph node (0/) Clinical Information Cholelithiasis Gross Description Received in [...] 0.7 cm periductal lymph node is identified. Night Order Selector sections including the entire lymph node are submitted in one cassette labeled A1. (SM/JS) Microscopic Description One glass slide with H E stained material has been examined. The microscopic findings support the above pathologic diagnosis. [id number] -------- -------- Specimen: [id number] Received: 08/11/20 Status: EZEQUIEL Tee Num: [id number] Spec Type: Surgical Subm Dr: Jared Snyder MD Tissues: A Gallbladder (GALLBLADDER) Procedures: HE Stain, Gross/Micro L3 -------- Patient: Estrella Martinez [id number] (Continued) -------- Signed (signature on file) Marichuy Merritt MD 08/12/20 1516 Normal [facility] Lipaseon 08-10-2020 Lipase [Catalytic activity/Vol] 19.0 U/L Low 22-51 [facility] Comment on above: Result Comment: PERF ORMED BY: [facility] [address] [place] [address] PATHOLOGIST DOUBLE END SEWER MARICHUY MERRITT M.D. Performed By: #### C BC, LIPASE, HEPATIC, BMP #### [place] [address] COVID-19 FRMCon 08-06-2020 SARS-CoV-2 (COVID-19) RNA VICTOR HUGO+probe Ql (Unsp spec) Negative Normal Negative [facility] Comment on above: Order Comment: Healt hcare Worker?: N Result Comment: Refe rence: Negative Testing for SARS-CoV-2 by RT-PCR This test was developed and its performance characteristics determined by [employer]) and validated at the [facility]. This test has not been FDA [...] is terminated or revoked sooner. PERFORMED BY: [place] [address] PATHOLOGIST DOUBLE END SEWER MARICHUY MERRITT M.D. Performed By: #### C OVID-19 [facility] [place] #### [address] Basic Metabolic Panelon 04-0 -2020 Calcium [Mass/Vol] 8.7 mg/dL Normal 8.2-10.2 [facility] Comment on above: Performed By: #### C BC, LIPASE, HEPATIC, BMP #### [address] Chloride [Moles/Vol] 105 mmol/L Normal 95-114 [facility] Comment on above: Performed By: #### C BC, LIPASE, HEPATIC, BMP #### [address] CO2 [Moles/Vol] 24.3 mmol/L Normal 22.0-30.0 [facility] Comment on above: Performed By: #### C BC, LIPASE, HEPATIC, BMP #### [address] Creatinine [Mass/Vol] 0.66 mg/dL Normal 0.44-1.03 [facility] Comment on above: Performed By: #### C BC, LIPASE, HEPATIC, BMP #### [address] Creatinine Clr Calc Pharmacy 83.74 [facility] Comment on above: Performed By: #### C BC, LIPASE, HEPATIC, BMP #### [address] Estimated GFR ( Britany > 60 [facility] Comment on above: Result Comment: GFR estimated reference range: According to KDOQI guidelines, <60 ml/min/1.73m2 is sufficient to diagnose a patient with chronic kidney disease. Performed By: #### C BC, LIPASE, HEPATIC, BMP #### [address] Estimated GFR (Non- Am > 60 Normal [facility] Comment on above: Performed By: #### C BC, LIPASE, HEPATIC, BMP #### [address] Glucose [Mass/Vol] 131 mg/dL High 70-100 [facility] Comment on above: Result Comment: [facility] Glucose Reference Range is dependent on time and content of last meal. Glucose of more than 200 mg/dL in a nonstressed, ambulatory subject supports the diagnosis of Diabetes Mellitus. ADA recommended reference range Performed By: #### C BC, LIPASE, HEPATIC, BMP #### [address] Potassium [Moles/Vol] 3.2 mmol/L Low 3.5-5.1 [facility] Comment on above: Performed By: #### C BC, LIPASE, HEPATIC, BMP #### [address] Sodium [Moles/Vol] 138 mmol/L Normal 136-146 [facility] Comment on above: Performed By: #### C BC, LIPASE, HEPATIC, BMP #### [address] Urea nitrogen [Mass/Vol] 11 mg/dL Normal 9-23 [facility] Comment on above: Performed By: #### C BC, LIPASE, HEPATIC, BMP #### [address] Complete Blood Count Auto Di ffon 08-03-2020 Basophils (Bld) [#/Vol] 0.1 10*3/uL Normal 0.0-0.2 [facility] Comment on above: Result Comment: PERF ORMED BY: [place] [address] PATHOLOGIST DOUBLE END SEWER MARICHUY MERRITT M.D. Performed By: #### C BC, LIPASE, HEPATIC, BMP #### [address] Basophils/100 WBC (Bld) 0.7 % Normal . [facility] Comment on above: Performed By: #### C BC, LIPASE, HEPATIC, BMP #### [address] Eosinophils (Bld) [#/Vol] 0.1 10*3/uL Normal 0.0-0.45 [facility] Comment on above: Performed By: #### C BC, LIPASE, HEPATIC, BMP #### [address] Eosinophils/100 WBC (Bld) 1.9 % Normal . [facility] Comment on above: Performed By: #### C BC, LIPASE, HEPATIC, BMP #### [address] Erythrocyte distribution width (RBC) [Ratio] 12.9 % Normal 11.9-15.3 [facility] Comment on above: Performed By: #### C BC, LIPASE, HEPATIC, BMP #### [address] Hematocrit (Bld) [Volume fraction] 34.4 % Normal 34.0-46.4 [facility] Comment on above: Performed By: #### C BC, LIPASE, HEPATIC, BMP #### [address] Hemoglobin (Bld) [Mass/Vol] 11.9 g/dL Normal 11.8-15.4 [facility] Comment on above: Performed By: #### C BC, LIPASE, HEPATIC, BMP #### [address] Lymphocytes (Bld) [#/Vol] 1.8 10*3/uL Normal 1.00-4.8 [facility] Comment on above: Performed By: #### C BC, LIPASE, HEPATIC, BMP #### [address] Lymphocytes/100 WBC (Bld) 25.3 % Normal . [facility] Comment on above: Performed By: #### C BC, LIPASE, HEPATIC, BMP #### [address] MCH (RBC) [Entitic mass] 31.5 pg Normal 24.7-34.3 [facility] Comment on above: Performed By: #### C BC, LIPASE, HEPATIC, BMP #### [address] MCV (RBC) [Entitic vol] 91.1 fL Normal 80-100 [facility] Comment on above: Performed By: #### C BC, LIPASE, HEPATIC, BMP #### [address] Mean Corpuscular HGB Conc 34.6 g/dL Normal 32.0-35.0 [facility] Comment on above: Performed By: #### C BC, LIPASE, HEPATIC, BMP #### [address] Monocytes (Bld) [#/Vol] 0.6 10*3/uL Normal 0.0-0.8 [facility] Comment on above: Performed By: #### C BC, LIPASE, HEPATIC, BMP #### [address] Monocytes/100 WBC (Bld) 8.7 % Normal . [facility] Comment on above: Performed By: #### C BC, LIPASE, HEPATIC, BMP #### [address] Neutrophils (Bld) [#/Vol] 4.5 10*3/uL Normal 1.8-7.7 [facility] Comment on above: Performed By: #### C BC, LIPASE, HEPATIC, BMP #### [address] Neutrophils/100 WBC (Bld) 63.4 % Normal . [facility] Comment on above: Performed By: #### C BC, LIPASE, HEPATIC, BMP #### [address] Nucleated RBC/100 WBC (Bld) [Ratio] 0.0 % Normal 0-0.5 [facility] Comment on above: Performed By: #### C BC, LIPASE, HEPATIC, BMP #### [place] [address] Platelet mean volume (Bld) [Entitic vol] 9.1 fL Normal 6.3-10.7 [facility] Comment on above: Performed By: #### C BC, LIPASE, HEPATIC, BMP #### [place] [address] Platelets (Bld) [#/Vol] 238 10*3/uL Normal 150-450 [facility] Comment on above: Performed By: #### C BC, LIPASE, HEPATIC, BMP #### [place] [address] RBC (Bld) [#/Vol] 3.78 10*6/uL Normal 3.60-5.00 [facility] Comment on above: Performed By: #### C BC, LIPASE, HEPATIC, BMP #### [place] [address] WBC (Bld) [#/Vol] 7.1 10*3/uL Normal 4.5-11.0 [facility] Comment on above: Performed By: #### C BC, LIPASE, HEPATIC, BMP #### [address] ECG 12 lead ECGon 08-03-2020 ECG 12 lead ECG [facility] Main [place] [address] [place] [address] Electrocardiograph Report Signed Patient: Estrella Martinez MR#: [id number] : 1970 Acct:[id number] Age/Sex: 50 / F ADM Date: 08/03/20 Loc: ER Room: Type: [facility] ER Attending Dr: Ordering Provider: [...] DO 08/03/20 0543 Signed By: 08/03/20 1114 Normal [facility] Hepatic Panelon 08-03-2020 Albumin [Mass/Vol] 3.9 g/dL Normal 3.2-5.5 [facility] Comment on above: Performed By: #### C BC, LIPASE, HEPATIC, BMP #### [facility] [address] [place] [address] Albumin/Globulin [Mass ratio] 1.1 {ratio} Normal [facility] Comment on above: Performed By: #### C BC, LIPASE, HEPATIC, BMP #### [facility] [address] ALP [Catalytic activity/Vol] 69 U/L Normal 32-92 [facility] Comment on above: Performed By: #### C BC, LIPASE, HEPATIC, BMP #### [facility] [address] [place] [address] ALT [Catalytic activity/Vol] 25 U/L Normal 10-60 [facility] Comment on above: Performed By: #### C BC, LIPASE, HEPATIC, BMP #### [facility] [address] AST [Catalytic activity/Vol] 21 U/L Normal 10-42 [facility] Comment on above: Performed By: #### C BC, LIPASE, HEPATIC, BMP #### [facility] [address] [place] [id number] [place] Bilirubin [Mass/Vol] 0.7 mg/dL Normal 0.3-1.2 [facility] Comment on above: Performed By: #### C BC, LIPASE, HEPATIC, BMP #### [facility] [address] [place] [address] [place] Bilirubin,Indirect Not performed Normal [facility] Comment on above: Performed By: #### C BC, LIPASE, HEPATIC, BMP #### [facility] [address] Bilirubin.indirect [Mass/Vol] mg/dL Normal 0.0-0.4 [facility] Comment on above: Performed By: #### C BC, LIPASE, HEPATIC, BMP #### [facility] [address] [place] [address] Globulin (S) [Mass/Vol] 3.5 g/dL Normal [facility] Comment on above: Performed By: #### C BC, LIPASE, HEPATIC, BMP #### [address] Protein [Mass/Vol] 7.4 g/dL Normal 6.1-7.9 [facility] Comment on above: Performed By: #### C BC, LIPASE, HEPATIC, BMP #### [address] Lipaseon 08-03-2020 Lipase [Catalytic activity/Vol] 25.0 U/L Normal 22-51 [facility] Comment on above: Result Comment: PERF ORMED BY: [place] [address] PATHOLOGIST DOUBLE END SEWER MARICHUY MERRITT M.D. Performed By: #### C BC, LIPASE, HEPATIC, BMP #### [address] Haseeb 06-25-2020 L - -------- Specimen: [id number] Received: 06/25/20 Status: EZEQUIEL Tee Num: [id number] Spec Type: Surgical Subm Dr: Jared Snyder MD Tissues: A Soft Tissue/Surgical Margin-Other than Tumor,Mass,Lip or Zaida (RT LOWER QUADR Procedures: HE Stain/4, Gross/Micro L4 -------- Patient Age/Sex Location Account Attending Physician -------- Estrella Martinez 50/F [place] [id number] Jared Snyder MD -------- SPEC NUM: [id number] RECD: 06/25/205 STATUS: EZEQUIEL TEE NUM: [id number] KANDICE: 06/25/20 [facility] DR: Jared Snyder MD ENTERED: 06/25/20 [facility] DR: AI TYPE: Surgical DEPT: S ORDERED: HE Stain/4, [...] hemorrhagic, fibrotic to yellow lobulated cut surfaces. Night Order Selector sections are submitted in four cassettes labeled A1-A4. (/YJ) Microscopic Description Four glass slides with H E stained material have been examined. The microscopic findings support the above pathologic diagnosis. -------- Specimen: [id number] Received: 06/25/20 Status: EZEQUIEL Tee Num: [id number] Spec Type: Surgical Subm Dr: Jared Snyder MD Tissues: A Soft Tissue/Surgical Margin-Other than Tumor,Mass,Lip or Zaida (RT LOWER QUADR Procedures: HE Stain/4, Gross/Micro L4 -------- Patient: Estrella Martinez E [id number] (Continued) -------- Specimen: [id number] Received: 06/25/20 (Continued) Signed (signature on file) Bruce Dale MD 06/26/20 1509 -------- Specimen: [id number] Received: 06/25/20 Status: EZEQUIEL [place] Num: [id number] Spec Type: Surgical Subm Dr: Jared Snyder MD Tissues: A Soft Tissue/Surgical Margin-Other than Tumor,Mass,Lip or Zaida (RT LOWER QUADR Procedures: HE Stain/4, Gross/Micro L4 -------- Patient: JuanLiliana [id number] (Continued) -------- Specimen: Received: 06/25/20 (Continued) CPT Codes 70594 -------- -------- Specimen: [id number] Received: 06/25/20-1225 Status: EZEQUIEL Tee Num: [id number] Spec Type: Surgical Subm Dr: Jared Snyder MD Tissues: A Soft Tissue/Surgical Margin-Other than Tumor,Mass,Lip or Zaida (RT LOWER QUADR Procedures: HE Stain/4, Gross/Micro L4 -------- Patient: Estrella Martinez [id number] (Continued) -------- Signed (signature on file) Bruce Dale MD 06/26/20 1509 [facility] Vital Signs Date Time Vital Sign Value Performing Clinician Facility 07-18-2023 09:20-0400 Diastolic blood pressure 57 mm[Hg] Rose Marie Copeland MD Work Phone: [facility] 07-18-2023 09:20-0400 Heart rate 65 /min Rose Marie Copeland MD Work Phone: [facility] 07-18-2023 09:20-0400 Respiratory rate 16 /min [facility] 07-18-2023 09:20-0400 SaO2% (BldA) [Mass fraction] 97 % Rose Marie Copeland MD [facility] 07-18-2023 09:20-0400 Systolic blood pressure 118 mm[Hg] Rose Marie Copeland MD [facility] 07-18-2023 08:03-0400 Body height 152.4 cm Rose Marie Copeland MD [facility] 07-18-2023 08:03-0400 Body mass index (BMI) [Ratio] 23.44 kg/m2 Rose Marie Copeland MD [facility] 07-18-2023 08:03-0400 Body temperature 97.81 [degF] Rose Marie Copeland MD [facility] 07-18-2023 08:03-0400 Body weight 54.43 kg Rose Marie Copeland MD [facility] 01-30-2023 12:51-0400 Body temperature 97.3 [degF] Christa Bianchi PA-C Work Phone: [facility] 01-30-2023 12:51-0400 Body weight 53.43 kg Christa Bianchi PA-C Work Phone: [facility] 01-30-2023 12:51-0400 Diastolic blood pressure 72 mm[Hg] Christa Bianchi PA-C Work Phone: [facility] 01-30-2023 12:51-0400 Heart rate 63 /min Christa Bianchi PA-C Work Phone: [facility] 01-30-2023 12:51-0400 Systolic blood pressure 122 mm[Hg] Christa Bianchi PA-C Work Phone: [facility] 11-28-2022 08:36-0400 Diastolic blood pressure 94 mm[Hg] Bauer SALAM [facility] 11-28-2022 08:36-0400 Heart rate 62 /min Bauer SALAM [facility] 11-28-2022 08:36-0400 Mean blood pressure 105 mm[Hg] Bauer SALAM [facility] 11-28-2022 08:36-0400 Respiratory rate 15 /min Bauer [facility] 11-28-2022 08:36-0400 SaO2% (BldA) [Mass fraction] 98 % Bauer SALAM [facility] 11-28-2022 08:36-0400 Systolic blood pressure 128 mm[Hg] Bauer SALAM [facility] 11-28-2022 08:25-0400 Diastolic blood pressure 84 mm[Hg] Bauer SALAM [facility] 11-28-2022 08:25-0400 Heart rate 66 /min Bauer SAL[facility] 11-28-2022 08:25-0400 Mean blood pressure 93 mm[Hg] Bauer SALAM [facility] 11-28-2022 08:25-0400 Respiratory rate 12 /min Bauer SAL[facility] 11-28-2022 08:25-0400 SaO2% (BldA) [Mass fraction] 98 % Bauer SALAM [facility] 11-28-2022 08:25-0400 Systolic blood pressure 111 mm[Hg] Bauer SALAM [facility] 11-28-2022 08:20-0400 Diastolic blood pressure 76 mm[Hg] Bauer SALAM [facility] 11-28-2022 08:20-0400 Heart rate 68 /min Bauer SAL[facility] 11-28-2022 08:20-0400 Mean blood pressure 86 mm[Hg] Bauer SALAM [facility] 11-28-2022 08:20-0400 Respiratory rate 12 /min Bauer SAL[facility] 11-28-2022 08:20-0400 SaO2% (BldA) [Mass fraction] 98 % Bauer SALAM [facility] 11-28-2022 08:20-0400 Systolic blood pressure 106 mm[Hg] Bauer SALAM [facility] 11-28-2022 08:11-0400 Body temperature 98.42 [degF] Bauer SALAM [facility] 11-28-2022 07:19-0400 Blood Pressure Location Bauer SALAM [facility] 11-28-2022 07:19-0400 Body temperature 98.24 [degF] Bauer SALAM [facility] 10-05-2022 09:23-0400 Blood Pressure Location Bauer SALAM [facility] 10-05-2022 09:23-0400 Diastolic blood pressure 78 mm[Hg] Bauer SALAM [facility] 10-05-2022 09:23-0400 Heart rate 67 /min Bauer SALAM [facility] 10-05-2022 09:23-0400 Respiratory rate 16 /min Juancarlos DIAS [facility] 10-05-2022 09:23-0400 Systolic blood pressure 128 mm[Hg] Juancarlos DIAS [facility] Encounters Encounter Date Encounter Type Care Provider Facility Start: 01-15-2024 End: 01-15-2024 ambulatory YAZAN WALLS Not Available Start: 01-09-2024 End: 01-09-2024 ambulatory SEEMA CHAN Not Available Start: 12-04-2023 End: 12-04-2023 ambulatory YAZAN WALLS Not Available Start: 07-25-2023 End: 07-25-2023 Orders Only Sandhya Law MD Work Phone: Gastroenterology Comment on above: Fatty liver (Primary Dx) Arrived Start: 07-18-2023 End: 07-18-2023 ambulatory AMBER COPELAND [facility] Start: 07-18-2023 End: 07-18-2023 Subsequent hospital visit by physician Amber Copeland MD Work Phone: [facility] [place] Start: 06-12-2023 Clinisync Result Encounter Yazan Walls MD Work Phone: [facility] External Department Unsolicited Start: 06-12-2023 Clinisync Result Encounter Yazan Walls MD Work Phone: [facility] External Department Unsolicited Start: 06-08-2023 End: 06-08-2023 ambulatory YAZAN GOLDBERGTER Not Available Start: 03-21-2023 End: 03-21-2023 ambulatory YAZAN GOLDBERGTER Not Available Start: 03-10-2023 End: 03-10-2023 ambulatory YAZAN WALLS Facility:[facility] Start: 03-07-2023 End: 03-07-2023 ambulatory YAZAN WALLS Facility:[facility] Start: 03-07-2023 End: 03-07-2023 Subsequent hospital visit by physician Corie [facility] Noreen Work Phone: Radiology Comment on above: Pain of both wrist j oints [M25.531, M25.532] Start: 02-09-2023 Telephone encounter Jacqueline [facility] Comment on above: Appointment Start: 01-30-2023 End: 01-31-2023 ambulatory [facility] Facility:[facility] Start: 01-30-2023 End: 01-30-2023 Office outpatient new 45 minutes Christa Bianchi PA-C Work Phone: Rheumatology Comment on above: Positive HECTOR (antinu clear antibody) (Primary Dx); SS-A antibody positive; SS-B antibody positive; Pain of both wrist joints; NAFL (nonalcoholic fatty liver) Start: 12-14-2022 End: 12-15-2022 ambulatory [facility] Facility:[facility] Start: 11-28-2022 End: 11-28-2022 ambulatory [facility] Facility[facility] Start: 11-28-2022 End: 11-28-2022 Patient encounter procedure [facility] Start: 10-24-2022 End: 10-24-2022 ambulatory [facility] Facility:[facility] Start: 10-24-2022 End: 10-24-2022 Subsequent hospital visit by physician Us Ortiz A21 5 Work Phone: Radiology Comment on above: BLOOM (nonalcoholic s teatohepatitis) [K75.81] Start: 10-05-2022 End: 10-06-2022 ambulatory [facility] Facility:[facility] Start: 10-05-2022 End: 10-05-2022 Patient encounter procedure [facility] Start: 09-21-2022 End: 09-22-2022 ambulatory [facility] Facility:[facility] Start: 09-21-2022 End: 09-21-2022 ambulatory [facility] Facility:[facility] Start: 09-13-2022 End: 09-14-[address] YAZAN WALLS Facility:[facility] Start: 08-09-2022 ambulatory [facility] Facility:[facility] Start: 07-25-2022 End: 07-25-2022 ambulatory MESFIN MOORE . Facility:[facility] Start: 07-12-2022 End: 07-13-[address] [...] Screening for malign ant neoplasm of colon [facility] Start: 07-12-2027 Screening for malign ant neoplasm of colon [facility] Start: 09-21-2025 DIABETES SCREEN DIABETES SCREEN [facility] Start: 02-27-2025 Glaucoma screening Diabetes: R etinopathy Screening [facility] Start: 07-17-2024 Screening for malign ant neoplasm of colon [facility] Start: 06-12-2024 Hepatitis B surface antibody level LDL Cholesterol [facility] Start: 06-08-2024 Screening for malign ant neoplasm of colon [facility] Start: 01-31-2024 Hepatitis B screening Urine Albumin:Creatinine Ratio [facility] Start: 12-15-2023 Hepatitis B surface antibody level LDL Cholesterol [facility] Start: 12-07-2023 Hemoglobin A1c measurement HbA1C [facility] Start: 12-04-2023 End: 12-04-2023 Patient encounter procedure 12/04/2023 2:00 PM EDT Office Visit [facility] [address] [place] [id number] Yazan Walls MD [address] [place] [address] [facility] Start: 09-14-2023 Urine screening for protein Di abetes: Urine Protein Screening [facility] Start: 09-06-2023 Hemoglobin A1c measurement Hetal betes: Hemoglobin A1C [facility] Start: 07-18-2023 End: 07-18-2023 Colonoscopy flx dx w/collj spec when pfrmd COLONOSCOPY DIAGNOSTIC Occult blood in stools 07/18/2023 8:45 AM EDT [facility] Start: 06-14-2023 Hemoglobin A1c/Hemoglobin.total in Blood HbA1C [facility] Start: 05-01-2023 Depression Assessment Depression Ass essment [facility] Start: 01-30-2023 End: 04-01-2023 Cyclic citrullinated peptide IgG Ab [Units/volume] in Serum or Plasma [facility] Work Phone: Comment on above: Expected: 01/30/2023 , Expires: 04/01/2023 Start: 01-30-2023 End: 04-01-2023 DNA double strand Ab [Presence] in Serum by Immunofluorescence (IF) Kassi shah [facility] Work Phone: Comment on above: Expected: 01/30/2023 , Expires: 04/01/2023 Start: 01-30-2023 End: 04-01-2023 DEON DNA AUTOABS, DOUBLE STRANDED [facility] Work Phone: Comment on above: Expected: 01/30/2023 , Expires: 04/01/2023 Start: 12-30-2022 COVID-19 Vaccine ( season) COVID-19 Vaccine ( season) [facility] Start: 12-30-2022 Covid-19 Vaccine ( season) Covid-19 Vaccine ( season) [facility] Start: 12-30-2022 Influenza vaccination Influenza Vacc ine (#1) [facility] Start: 07-19-2022 Screening for malign ant neoplasm of breast Mammogram [facility] Start: 05-01-2022 DEPRESSION ASSESSMENT DEPRESSION ASS ESSMENT [facility] Start: 2022 Screening for malign ant neoplasm of breast Breast cancer screen [facility] Start: 2022 Shingles vaccine (1 of 2) Trejo gles vaccine (1 of 2) [facility] Start: 2022 SHINGRIX VACCINE (1 of 2) TREJO GRIX VACCINE (1 of 2) [facility] Start: 04-20-2021 Screening for malign ant neoplasm of breast Mammogram Screening [facility] Start: 2017 COLOGUARD (FIT-DNA) COLOGUARD (FIT-D NA) [facility] Start: 2017 Colonoscopy COLONOSCOPY [facility] Start: 2017 COLORECTAL CANCER SCREENING CO LORECTAL CANCER SCREENING [facility] Start: [address] COLONOGRAPHY [facility] Start: 2017 FECAL OCCULT BLOOD FECAL OCCULT BLOO D [facility] Start: 2017 LIPID SCREEN LIPID SCREEN [facility] Start: 2017 Screening for malign ant neoplasm of colon [facility] [employer] Start: 2017 SIGMOIDOSCOPY SIGMOIDOSCOPY [facility] Start: 2012 Lipid panel Lipids [employer] Start: 2012 Mammography [facility] Start: 2002 HPV TESTING HPV TESTING [facility] Start: 2002 Screening for malign ant neoplasm of cervix [facility] Start: 1993 PAP TESTING PAP TESTING [facility] Start: 1993 Screening for malign ant neoplasm of cervix [facility] Start: 1991 DTaP/Tdap/Td vaccine (1 - Tdap) DTaP/Tdap/Td vaccine (1 - Tdap) [facility] Start: 1991 Hepatitis B Vaccine (1 of 3 - 19+ 3-dose series) Hepatitis B Vaccine (1 of 3 - 19+ 3-dose series) [place] [facility] Urine microalbumin profile [facility] [place] [facility] Start: 1990 Annual PCP Team Finished 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 carolyne Disease Visit Annual PCP Team Chronic Disease Visit [facility] [place] [facility] Start: 1990 Hepatitis C screening Hepatitis C sc reen [facility] [employer] Start: 1990 HIV SCREENING HIV SCREENING [facility] Start: 1990 HIV screening HIV Screening [facility] Start: 1987 HIV screening HIV screen [facility] [employer] Start: 1984 Depression Screen Depression Screen [facility] [employer] Start: 1982 3 comp foot exam completed Diabetic Foot Exam [facility] [place] [facility] Start: 1982 Diabetic foot examination Diabetic F oot Exam [facility] [place] [facility] Start: 1982 Glaucoma screening Dilated Retinal E xam [facility] [place] [facility] Start: 1982 Hepatitis B screening Urine Albumin:Creatinine Ratio [facility] [place] [facility] Start: 1982 Hepatitis C antibody , confirmatory test Dilated Retinal Exam [facility] [place] [facility] Start: 1978 Pneumococcal vaccination [facility] [place] [facility] Start: 1972 HEPATITIS B (1 of 3 - 3-dose series) HEPATITIS B (1 of 3 - 3-dose series) [facility] [place] [facility] Start: 1972 Hepatitis B Vaccine (1 of 3 - 3-dose series) Hepatitis B Vaccine (1 of 3 - 3-dose series) [facility] [place] [facility] Start: 1972 Screening for malign ant neoplasm of colon [facility] Glucose [Mass/volume ] in Serum or Plasma POCT glucose Point of Care Testing STAT As Needed until discontinued starting 07/18/2023 [facility] Comment on above: As Needed until disc ontinued starting 07/18/2023 End: 07-18-2023 Urine , POCT Urine , POCT Point of Care Testing STAT One Time for 1 Occurrences starting 07/18/2023 until 07/18/2023 [facility] Comment on above: One Time for 1 Occur rences starting 07/18/2023 until 07/18/2023 End: 02-29-2024 US HAND/WRIST SYNOVIAL SCREEN LEFT US HAND/WRIST SYNOVIAL SCREEN LEFT Radiology Routine Pain of both wrist joints 1 Occurrences starting 01/30/2023 until 02/29/2024 [facility] Work Phone: Comment on above: 1 Occurrences starti ng 01/30/2023 until 02/29/2024 End: 02-29-2024 US HAND/WRIST SYNOVIAL SCREEN RIGHT US HAND/WRIST SYNOVIAL SCREEN RIGHT Radiology Routine Pain of both wrist joints 1 Occurrences starting 01/30/2023 until 02/29/2024 [facility] Work Phone: Comment on above: 1 Occurrences starti ng 01/30/2023 until 02/29/2024 [facility] Immunizations Immunization Date Immunization Notes Care Provider Fa [facility] 03-21-2023 influenza, injectabl e, quadrivalent, preservative free Yazan Walls MD Work Phone: [facility] 03-08-2022 Moderna Bivalent Reilly ster Vaccination Yazan Walls MD Work Phone: [facility] 03-08-2022 Moderna SARS-CoV-2 50mcg/0.5mL Booster Yazan Walls MD Work Phone: [facility] 02-21-2022 Seasonal, quadrivale nt, recombinant, injectable influenza vaccine, preservative free Christa Bianchi PA-C Work Phone: [facility] [place] [facility] 02-21-2022 influenza virus vacc ine, unspecified formulation Christa Bianchi PA-C Work Phone: [facility] [place] [facility] 03-08-2021 influenza, injectabl e, quadrivalent, preservative free ChristaLookIt PA-C Work Phone: [facility] [place] [facility] 02-07-2017 influenza, injectabl e, quadrivalent, preservative free ChristaLookIt PA-C Work Phone: [facility] [place] [facility] Payers Date Payer Category Payer Unknown [id number] 2022 Unknown [id number] 2022 Unknown [id number] 1972 Unknown [id number] 2.16.84 0.1.311806.3.579.2.593 1972 Unknown [id number] 2.16.84 0.1.849682.3.579.2.593 1972 Unknown [id number] 2.16.84 0.1.182447.3.579.2.593 1972 Unknown [id number] 2.16.84 0.1.667853.3.579.2.593 1972 Unknown [id number] 2.16.84 0.1.565323.3.579.2.593 1972 Unknown [id number] 2.16.84 0.1.254853.3.579.2.593 1972 Unknown [id number] 2.16.84 0.1.672403.3.579.2.593 1972 Unknown [id number] 2.16.84 0.1.328271.3.579.2.593 1972 Unknown [id number] 2.16.84 0.1.864613.3.579.2.593 1972 Unknown [id number] 2.16.8 40.1.573392.3.579.2.727 1972 Unknown [id number] 2.16.8 40.1.625162.3.579.2.727 1972 Unknown [id number] 2.16.8 40.1.404834.3.579.2.727 1972 Unknown [id number] 2.16.8 40.1.792979.3.579.2.182 1972 Unknown [id number] 2.16.84 0.1.932229.3.579.2.1259 1972 Unknown [id number] 2.16.84 0.1.853175.3.579.2.1259 1972 Unknown [id number] 2.16.84 0.1.486180.3.579.2.1259 1972 Unknown [id number] 2.16.84 0.1.810350.3.579.2.1259 1972 Unknown [id number] 2.16.84 0.1.186737.3.579.2.1259 1972 Unknown [id number] 2.16.840 .1.434348.3.579.2.1259 1959 Self-pay Social History Date Type Detail Facility Start: 10-05-2022 End: 12-14-2022 Tobacco smoking status Never smoked tobacco (finding) [facility] Start: 09-21-2022 End: 01-30-2023 Sex Assigned At Female [facility] Tobacco smoking status ALIS Tobacco smoking consumption unknown [facility] [place] [facility] Start: 1972 Sex Assigned At Not on file [facility] Start: 12-14-2022 End: 07-18-2023 Tobacco use and exposure Smokeless tobacco non-user [facility] [place] [facility] Start: 01-30-2023 End: 07-25-2023 Alcohol intake Ex-drinker (finding) [facility] [place] [facility] Start: 09-21-2022 End: 01-30-2023 History of Social function [facility] [place] [facility] National Score (1-100), lower number is lower risk 93 [facility] [place] [facility] Start: 06-08-2023 Alcohol intake Lifetime non-d radha (finding) [facility] Start: 09-02-2022 Alcohol Comment coffee 1-2 cups/day [facility] Functional Status Date Assessment Result Facility 11-28-2022 Functional Status N/A [facility] 10-05-2022 Functional Status N/A [facility] Clinical Notes 09-21-2022 to 07-25-2023 Luis Felipe Klein APRN.CNP - 07/25/2023 1:47 PM EDTDischarge InstructionsTelephone Encounter - Jacqueline Marin - 02/09/2023 1:45 PM EDTTelephone Encounter - Jacqueline Marin - 02/09/2023 1:08 PM EDT Note Date & Type Note Facility 07-25-2023 Note HNO ID: [id number] Author: LUIS FELIPE KLEIN APRN.CNP Service: ? Author Type: Nurse Practitioner [...] consider further testing to confirm. Luis Felipe Ernie, RAYON TESTER.TWITCHELL OPERATOR MASLD Fibroscan Fibrosis Risk <7 kPA = F0-F2 [...] Int J Clin Exp Med. 2015 Jan 15;8(10):44538-73. PMID: 36165017; PMCID: [id number]. Daniela Sam, Jeannie FRANCISCO, Mis M, Kenyatta F, Miriam J, Darinel O, Maurice F, Ivet M, Leighton G, Henny A, Abran E, Mary L, Faye G, Jeremy A, Rula U, Chaparro S, Dimple P, Christiana V, Chu V, Marco Antonio M, Gisel EA. Refining the Baveno elastography criteria for the definition of compensated advanced chronic liver disease. J Hepatol. 2020;74(5):7400-7353. doi: 10.1016/j.jhep.2020.11.050. Epub 2019Apr 08. PMID: 56236492. [facility] 07-25-2023 History of Presen t illness Narrative [...] S3: > 66% steatosis) Reference Zaire Y, Fan Q, Tai T, Brittney J, Tai H, Fiore T. Controlled attenuation parameter for assessment of hepatic steatosis grades: a diagnostic meta-analysis. Int J Clin Exp Med. 2015 Jan 15;8(10):75458-82. PMID: 77098132; PMCID: [id number]. Daniela Sam, Jeannie FRANCISCO, Mis M, Kenyatta F, Miriam J, Darinel O, Maurice F, Ivet Sam, Leighton G, Henny A, Abran E, Mary L, Faye G, Jeremy A, Rula U, Shankar S, Dimple P, Christiana V, Chu V, Marco Antonio M, Gisel STILL. Refining the Baveno elastography criteria for the definition of compensated advanced chronic liver disease. J Hepatol. 2020;74(5):5908-7568. doi: 10.1016/j.jhep.2020.11.050. Epub 2019Apr 08. PMID: 23887281. documented in this encounter [facility] [place] [facility] 07-18-2023 Hospital Discharg e instructions Katelyn Dickey, NIEVES - 07/18/2023 9:17 AM EDT Images from [...] decidir con qu frecuencia necesita hacerse controles. [place] depender de los resultados de schulz prueba [...] varias semanas despu s de la prueba. [place] no es com n. Willem puede suceder [...] m dico le haya indicado lo contrario. [place] ayuda a reponer los l quidos que [...] encontrar m s informaci n? Vaya a https://spanishkb.healthwise.net /patientedes e escriba E264 para m s informaci n sobre [place]: Qu esperar en el terra. Revisado: 25 2022 Versi n del contenido: 14.0 Meet My Friends. Las instrucciones de cuidado fueron adaptadas bajo licencia por Catglobe. Si usted tiene preguntas sobre sebastian afecci n m dica o sobre estas instrucciones, siempre pregunte a schulz profesional de kaur. Meet My Friends niega toda garant a o responsabilidad por [...] puede causar heces papo as y duras. [place] significa que se requiere m s presi n en el colon para eliminar las heces del organismo. [place] ejerce m s presi n en las [...] semana. Caminar es sebastian buena opci n. [place] un suplemento de fibra (yoli Citrucel o [...] que suleman. D nde puede encontrar laura adams informaci n? Vaya a https://spanishkb.[employer].net /patientedes e escriba E426 para laura chowdhury sobre Aprenda sobre la diverticulosis y la diverticulitis. Revisado: 2022 Versi n del contenido: 14.0 3574-6733 Meet My Friends. Las instrucciones de cuidado fueron adaptadas bajo licencia por [employer]. Si usted tiene preguntas sobre sebastian afecci n m dica o sobre estas instrucciones, siempre pregunte a schulz profesional de kaur. SendRR, Ring niega toda garant a o responsabilidad por [...] o doe) Newell integral Bollo ingl s (Omani muffin) integral Alimentos ricos en prote michael Almendras Frijoles (negros, rojos, blancos, vanessa) Semillas de ch a Garbanzos Lentejas Semillas de calabaza Arvejas partidas Semillas de girasol Verduras Alcachofa Br coli Huerfano de Bruselas Col (repollo) Zanahorias Coliflor Berenjena Arvejas Col rizada [place]abaza Camote (batata) Papa thu Colabore con schulz m dico para determinar qu cantidad de brandee nutriente necesita. Seg n schulz kaur, chata vez necesite m s o menos de l en schulz alimentaci n. D nde puede encontrar m s informaci n? Vaya a https://spanishkb.[employer].net /patientedes e escriba F355 para m s informaci n sobre Aprenda sobre alimentos que son buenas maxwell de fibra. Revisado: 2022 Versi n del contenido: 14.0 Meet My Friends. Las instrucciones de cuidado fueron adaptadas bajo licencia por Catglobe. Si usted tiene preguntas sobre sebastian afecci n m dica o sobre estas instrucciones, siempre pregunte a schulz profesional de kaur. Meet My Friends niega toda garant a o responsabilidad por schulz uso de esta informaci n. documented in this encounter [facility] [employer] 03-10-2023 Note HNO ID: [id number] Author: Christa Bianchi PA-C Service: ? Author Type: Physician Glue Drier Operator Type: Progress Notes Filed: 03/10/2023 2:55 PM Note Text: [facility] [place] Department of Rheumatic and Immunologic Diseases Established Patient Date of Service: 03/10/2023 Patient: Estrella Martinez Medical Record: [id number] Primary Care Physician: Yazan Walls MD Referring [...] daughter whom serves as the co-historian and program and research coordinator. 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 [facility] 02-09-2023 Miscellaneous Notes Called patient on 02/09/23 at 1:46 PM to inform the PT their insurance is OON and the [facility] department does not have authorization to schedule the appointment. Provided the [facility] hotline if they have any questions. Visit Type: MSK SYN Visit Length: 45, 50 OR 60 MINUTES Order Name/Protocol: US HANDS/WRIST SYNOVIAL SCREEN RT+LT. Preferred Provider: N/A Comment: N/A Location: ANY FACILITY Slot held: N/A documented in this encounter [facility] 01-30-2023 Note HNO ID: [id number] Author: Christa Bianchi PA-C Service: ? 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 Sandhya Law, upon discharge in August [...] smell Throat/Mouth: tomy (more content not included)... [facility] 01-30-2023 Instructions Christa Bianchi PA-C - 01/30/2023 1:19 PM EDT Complete labs on first floor Schedule musculoskeletal ultrasounds at [phone] documented in this encounter [facility] 01-30-2023 History of Presen t illness Narrative Images from the original note were not included. 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 Sandhya Law, upon discharge in August [...] anxiety. Denies depression Miscarriages: No Obstetrics history: [id number] ROS RHEUMATOLOGYAll other reviewed and negative other than HPI. 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 - Annual skin screening: none - Mammogram: 04/20/2021 - Colonoscopy: 2017 Vaccination Status: - Flu vaccine: yes - Hgyrezu67 / Pneumovax: N/A - Shingrix/ Zostavax: N/A [...] AI <0.2 SM ANTIBODY Negative Negative RIBOSOMAL ARMATURE TESTER AB <1.0 AI <0.2 RIBOSOMAL ARMATURE TESTER QUAL Negative Negative CHROMATIN AB <1.0 AI <0.2 CHROMATIN AB QUAL Negative Negative SSA ANTIBODY QUAL Negative Positive(A) ANTI-SSA <1.0 AI 6.6(H) ANTI-SSB <1.0 AI 3.1(H) ARMATURE TESTER ANTIBODY QUAL Negative Negative SCL-70 AB QUAL [...] of generalized musculoskeletal pain referred by her [facility], Dr. Sandhya Law, for a rheumatologic evaluation [...] which included preparing to see the patient, cwjs-jq-wnkk patient care, completing clinical documentation, obtaining and/or [...] January 30, 2023 documented in this encounter [facility] 12-14-2022 Note HNO ID: [id number] Author: Sandhya Law MD Service: ? Author Type: Physician Type: Progress Notes Filed: 12/16/2022 8:39 AM Note Text: [facility] [address] [place], [place] [address] Department of Gastroenterology and Hepatology Hepatology Clinic [...] of the s (more content not included)... [facility] 11-30-2022 Note [id number]:127 [facility] 11-28-2022 Evaluation + Plan note Extrac mahi from: Title:CSB post op Author:Renny Hernandez MD Date:11/28/22 Plan Transfer/Discharge: Transfer/Discharge Discharge when meets criteria ( To home ). Extracted from: Title:CSB Preop Author:Renny Hernandez MD Date:11/28/22 Plan [place] Society of Anesthesiologists (ASA) physical status classification: Class III. Anesthetic Preoperative Plan: Anesthesia General. Future Scheduled Tests Laboratory* HCV Antibody RFX to Quant PCR 10/05/22 * CBC w/ Auto Diff 10/05/22 * Comprehensive Metabolic Panel 10/05/22 * PT 10/05/22 [facility]07-31-2023 Hospital Discharge instructions Patient Education 11/28/2022 08:15:36 Endoscopy, Care After Procedure [facility] Endoscopy Care After Procedure Please read the instructions outlined below and refer to this sheet in the next few weeks. These discharge instructions provide you with general information on caring for yourself [facility] Your doctor may also give you [...] blood. Document Released: 11/29/2004 Document Re-Released: 10/09/2006 [facility] Patient Information 2010 [employer]. 11/28/2022 08:15:34 Esophageal Stricture Esophageal Stricture Esophageal [...] ?Soda. ?Tomato products. ?Chocolate. General instructions Take qote-bfa-phtgwvy and prescription medicines only as told by [...] provider. Document Revised: 09/02/2020 Document Reviewed: 09/02/2020 [employer] Patient Education 2022 [employer]. 11/28/2022 08:15:33 Esophageal Dilatation Esophageal Dilatation Esophageal [...] including vitamins, herbs, eye drops, creams, and zyyv-eyr-okltdtf medicines. Any problems you or family members [...] provider tells you to take them. ?Taking eibr-fmt-ikeqevf medicines, vitamins, herbs, and supplements. Follow instructions [...] home. Follow these instructions at home: Take jgdu-ahj-jxjybje and prescription medicines only as told by [...] provider. Document Revised: 09/02/2020 Document Reviewed: 09/02/2020 [employer] Patient Education 2022 [employer]ch. Follow Up Care 10/05/2022 10:05:49 With:BROOKE CHAPMAN, LE Bauer, [facility] Address: [address] [place], [place] [address]. [address] [place] [address] When: Unknown Comments:Office will call to schedule follow up appointment [facility]07-31-2023 NoteEndoscopy Care After Procedure Please read the instructions outlined below and refer to this sheet in the next few weeks. These discharge instructions provide you with general information on caring for [facility] Your doctor may also give you specific [...] Document Re-Released: 10/09/2006 ExitCare? Patient Information ?2009 [employer]. Gastroenterology Esophageal Stricture Esophageal stricture is a [...] only when you are (more content not included)...[place] [address]-24-2023 NoteHNO ID: [id number] Author: Luis Felipe Klein APRN.CNP Service: ? [...] stage 4 fibrosis (cirrhosis). Luis Felipe Klein APRN.CNP NAFLD Fibroscan Fibrosis Risk <7 kPA = [...] Int J Clin Exp Med. 2015 Jan 15;8(10):54884-22. PMID: 04502899; PMCID: [id number]. Daniela Sam, Jeannie FRANCISCO, Mis M, Kenyatta F, Miriam J, Darinel O, Maurice F, Ivet M, Leighton G, Henny A, Abran E, Mary L, Faye G, Jeremy A, Rula U, Shankar S, Dimple P, Christiana V, Chu V, Marco Antonio Sam, Gisel STILL. Refining the Baveno elastography criteria for the definition of compensated advanced chronic liver disease. J Hepatol. 2020;74(5):9485-5970. doi: 10.1016/j.jhep.2020.11.050. Ep2019Apr 08. PMID: 19773356.[facility]05-24-2023 NoteHNO ID: [id number] Author: Sandhya Law MD Service: ? Author [...] testing/treatment Medical Decision Making Level[facility] Future Appointments Appointment Date:11/28/2022 08:15:00 AM Scheduled Provider: Location:[facility] Surgical Services Appointment Type:Surgery FT Future Scheduled Tests Laboratory* HCV Antibody RFX to Quant PCR 10/05/22 * CBC w/ Auto Diff 10/05/22 * Comprehensive Metabolic Panel 10/05/22 * PT 10/05/22 [facility] Evaluation note* Diagnosis BLOOM (nonalcoholic steatohepatitis) Other chronic nonalcoholic liver disease documented in this encounter [facility] note* Diagnosis Positive HECTOR (antinuclear antibody)- Primary Other and unspecified nonspecific immunological findings SS-A antibody positive Other and unspecified nonspecific immunological findings SS-B antibody positive Other and unspecified nonspecific immunological findings Pain of both wrist joints NAFL (nonalcoholic fatty liver) Other chronic nonalcoholic liver disease documented in this encounter [facility] note* Diagnosis Pain of both wrist joints documented in this encounter [facility] note* Diagnosis Screening for malignant neoplasm of colon documented [facility] this encounter [facility] Diagnosis Fatty liver- Primary Other chronic nonalcoholic liver disease documented in this encounter [facility] note* Diagnosis Fatty liver- Primary Other chronic nonalcoholic liver disease [facility] Narrative No data available for this section [facility] Hospital Discharge instructions No data available for this section [facility] Progress note No data available for this section [facility] Reason for referral (narrative)* Diagnostic Procedure Only (Routine) - Pending Review Specialty Diagnoses / Procedures Referred By [place] michaud Referred To Contact US IMAGING Diagnoses BLOOM (nonalcoholic steatohepatitis) Procedures US ABD RIGHT UPPER QUADRANT US ABDOMINAL REAL TIME W/IMAGE LIMITED Sandhya Law MD [address] [place], [place] [id number] [facility] Referral ID Status Reason Start Date Expiration Date Visits Requested Visits Authorized [id number] Pending Review Auto-Generat ed Referral 09/21/2022 10/21/2023 1 1 [facility] for referral (narrative)* Diagnostic Procedure Only (Routine) - Pending Review Specialty Diagnoses / Procedures Referred By [place] jaswant Referred To Contact US IMAGING Diagnoses Pain of both wrist joints Procedures US HAND/WRIST SYNOVIAL SCREEN LEFT US COMPL JOINT R-T W/IMAGE DOCUMENTATION Christa Bianchi PA-C [address] [place] [id number] [facility] [place] [address] Referral ID Status Reason Start Date Expiration Date Visits Requested Visits Authorized [id number] Pending Review Auto-Generat ed Referral 01/30/2023 02/29/2024 1 1 * Diagnostic Procedure Only (Routine) - Pending Review Specialty Diagnoses / Procedures Referred By [place] michaud Referred To Contact US IMAGING Diagnoses Pain of both wrist joints Procedures US HAND/WRIST SYNOVIAL SCREEN RIGHT US COMPL JOINT R-T W/IMAGE DOCUMENTATION Christa Bianchi PA-C [address] [place] [address] [place] [address] Referral ID Status Reason Start Date Expiration Date Visits Requested Visits Authorized [id number] Pending Review Auto-Generat ed Referral 01/30/2023 02/29/2024 1 1 [facility] for referral (narrative)* Diagnostic Procedure Only (Routine) - Closed Specialty Diagnoses / Procedures Referred By [place] michaud Referred To Contact US IMAGING Diagnoses Pain of both wrist joints Procedures US HAND/WRIST SYNOVIAL SCREEN LEFT US COMPL JOINT R-T W/IMAGE DOCUMENTATION Christa Bianchi PA-C [address] [place] [address] [place] [address] Referral ID Status Reason Start Date Expiration Date V isits Requested Visits Authorized [id number] Closed Patient Cleared - True Self-Pay required payment collected 01/30/2023 02/29/2024 1 1 * Diagnostic Procedure Only (Routine) - Closed Specialty Diagnoses / Procedures Referred By Virginia michaud Referred To Contact US IMAGING Diagnoses Pain of both wrist joints Procedures US HAND/WRIST SYNOVIAL SCREEN RIGHT US COMPL JOINT R-T W/IMAGE DOCUMENTATION Christa Bianchi PA-C [id number] [place] [address] Referral ID Status Reason Start Date Expiration Date V isits Requested Visits Authorized [id number] Closed Patient Cleared - True Self-Pay required payment collected 01/30/2023 02/29/2024 1 0 [facility] for visit Narrative* Diagnostic Procedure Only (Routine) - Closed Specialty Diagnoses / Procedures Referred By Contac t Referred To Contact US IMAGING Diagnoses Pain of both wrist joints Procedures US HAND/WRIST SYNOVIAL SCREEN LEFT US COMPL JOINT R-T W/IMAGE DOCUMENTATION Christa Bianchi PA-C [address] [address] [place] [address] Referral ID Status Reason Start Date Expiration Date V isits Requested Visits Authorized [id number] Closed Patient Cleared - True Self-Pay required payment collected 01/30/2023 02/29/2024 1 1 [facility] Summary Purpose Family History No Family History [...] section and content) DATE CREATED AUTHOR 06/23/2021 [facility] DATE CREATED AUTHOR AUTHOR'S ORGANIZ ATION 09/14/2022 [facility] DATE CREATED AUTHOR AUTHOR'S ORGANIZ ATION 12/17/2022 [facility] DATE CREATED AUTHOR AUTHOR'S ORGANIZ ATION 07/18/2023 [facility] DATE CREATED AUTHOR AUTHOR'S ORGANIZ ATION 07/26/2023 [facility] DATE CREATED AUTHOR AUTHOR'S ORGANIZ ATION 01/21/2024 [facility] dical Specialists EPIC Patient Care team informatio n (unrecognized section and content) Hemp Fiber Taker Off Relationship Specialty Start Date End Date Yazan Walls MD [address] [place] [address] PCP - General Family Medicine 09/02/22 Maty Jameson, TWITCHELL OPERATOR [address] [place] [address] Referring 09/26/17 Yazan Walls MD [address] [place] [address] Family Medicine 09/02/22 Hemp Fiber Taker Off Relationship Specialty Start Date End Date Yazan Walls MD [address] [place] [phone] PCP - General Family Medicine 09/02/22 Maty Jameson CNP [address] [place] [address] Referring 09/26/17 Yazan Walls MD [address] [place] [phone] Family Medicine 09/02/22 Hemp Fiber Taker Off Relationship Specialty Start Date End Date Yazan Walls MD [address] [place] [phone] PCP - General Family Medicine 09/02/22 Maty Jameson CNP [address] [place] [address] Referring 09/26/17 Yazan Walls MD [address] [place] [place] [phone] Family Medicine 09/02/22 Hemp Fiber Taker Off Relationship Specialty Start Date End Date Yazan Walls MD [address] [place] [phone] PCP - General Family Medicine 09/02/22 aMty Jameson CNP [address] [place] [address] Referring 09/26/17 Yazan Walls MD [address] [place] [place] [address] Family Medicine 09/02/22 Hemp Fiber Taker Off Relationship Specialty Start Date End Date Yazan Walls MD [address] [place] [address] PCP - General Family Medicine 09/12/22 Hemp Fiber Taker Off Relationship Specialty Start Date End Date Yazan Walls MD [address] [place] [address] PCP - General 06/23/23 Hemp Fiber Taker Off Relationship Specialty Start Date End Date Yazan Walls MD [address] [place] [address] PCP - General Family Medicine 09/02/22 Maty Jameson CNP [address] [place] [address] Referring 09/26/17 Yazan Walls MD [address] [place] [address] Family Medicine 09/02/22 Hemp Fiber Taker Off Relationship Specialty Start Date End Date Yazan Walls MD [address] [place] [phone] PCP - General Family Medicine 09/02/22 Maty Jameson CNP [address] [place] [address] Referring 09/26/17 Yazan Walls MD [address] [place] [address] Family Medicine 09/02/22 Source Comments (unrecognize d section and content) In the event this informatio n is protected by the Federal Confidentiality of Alcohol and Drug Abuse Patient Records regulations: The Federal rules restrict any use of the information to criminally investigate or prosecute any alcohol or drug abuse patient.[facility] the event this information is protected by the Federal Confidentiality of Alcohol and Drug Abuse Patient Records regulations: The Federal rules restrict any use of the information to criminally investigate or prosecute any alcohol or drug abuse patient.[facility] the event this information is protected by the Federal Confidentiality of Alcohol and Drug Abuse Patient Records regulations: The Federal rules restrict any use of the information to criminally investigate or prosecute any alcohol or drug abuse patient.[facility] the event this information is protected by the Federal Confidentiality of Alcohol and Drug Abuse Patient Records regulations: The Federal rules restrict any use of the information to criminally investigate or prosecute any alcohol or drug abuse patient.[facility] the event this information is protected by the Federal Confidentiality of Alcohol and Drug Abuse Patient Records regulations: The Federal rules restrict any use of the information to criminally investigate or prosecute any alcohol or drug abuse patient.[facility] the event this information is protected by the Federal Confidentiality of Alcohol and Drug Abuse Patient Records regulations: The Federal rules restrict any use of the information to criminally investigate or prosecute any alcohol or drug abuse patient.[facility] Reason for Visit (unrecogniz ed section and content) Specialty Diagnoses / Procedures Referred By Contac t Referred To Contact [facility] Diagnoses BLOOM (nonalcoholic steatohepatitis) Procedures DDI VIBRATION CONTROLLED TRANSIENT ELASTOGRAPHY (VCTE) LIVER ELASTOGRAPHY W/O IMAG W/I&R Sandhya Law MD [address] [place] [address] [facility] [place] [address] [place] [address] Referral ID Status Reason Start Date Expiration Date Visits Requested Visits Authorized [id number] Authorized Auto-Generate d Referral Patient Cleared - Qualified 100% FAS 09/21/2022 12/20/2022 99 99 Specialty Diagnoses / Procedures Referred By [place] michaud Referred To Contact Rheumatology Diagnoses Pain of both wrist joints Procedures CONSULT TO RHEUM/IMMUN DISEASE OFFICE/OUTPATIENT [facility] 60-74 MINUTES Sandhya Law MD [address] [place] [address] Referral ID Status Reason Start Date Expiration Date Visits Requested Visits Authorized [id number] Pending Review PCP Requested Referral 12/14/2022 12/14/2023 1 1 Reason Comments Appointment Specialty Diagnoses / Procedures Referred By Virginia michaud Referred To Contact Diagnoses Occult blood in stools Occult blood in stools [R19.5] Procedures FL COLONOSCOPY FLX DX W/COLLJ SPEC WHEN PFRMD FL COLONOSCOPY W/BIOPSY SINGLE/MULTIPLE FL COLSC FLX W/RMVL OF TUMOR POLYP LESION SNARE TQ COLONOSCOPY DIAGNOSTIC Amber Copeland MD [address] [place] [address] [facility] [address] [place] [address] Referral ID Status Reason Start Date Expiration Date Visits Re quested Visits Authorized [id number] 1 1 Specialty Diagnoses / Procedures Referred By [place] michaud Referred To Contact [facility] Diagnoses NAFL (nonalcoholic fatty liver) Procedures DDI VIBRATION CONTROLLED TRANSIENT ELASTOGRAPHY (VCTE) LIVER ELASTOGRAPHY W/O IMAG W/I&R Sandhya Law MD [address] [place] [address] [facility] [place] [address] [place] [address] Referral ID Status Reason Start Date Expiration Date Visits Requested Visits Authorized [id number] Authorized Patient Cleared - Qualified 100% FAS [...] MD - Comment: dose approximate, given per ) sodium chloride flush 0.9 % injection 5-40 [...] BE BASED ON THE PRIMARY CLINICAL RECORDS. [facility]. provides no warranty or guarantee of the accuracy or completeness of information in this document.
--- NOTE | 2024-03-28 17:21 | XR_ITS ---
[facility] [place] [id number] Patient Name: KATLYN NEWBY MRN: [id number] date: 1970 Sex: F Assigned Patient Location: ER Current Patient Location: ER Accession/Order Number: [id number] Exam Date: 03/28/2024 17:26 Report Date: 03/28/2024 18:36 At the request of: FCO GANNON Procedure: XR chest 1V CXR HISTORY: Shortness of breath. COMPARISON: None. TECHNIQUE: 1 view of the chest submitted for review. FINDINGS: Lines and tubes: None Lungs are hyperaerated. Interstitial opacity in the right lower lobe and the left lung base. No effusion. The cardiac silhouette measures within normal. Pulmonary vascularity is unremarkable. Osseous structures are normal for age. XR/XR chest 1V IMPRESSION: Interstitial opacity in the right lower lobe. Please correlate for pneumonia versus atelectasis. Electronically authenticated by: WENDY GOMES Date: 03/28/2024 18:36
--- NOTE | 2024-03-28 17:22 | ED.URI1 ---
HPI - URI/Sore Throat General Chief Complaint: Upper Respiratory Infection Stated Complaint: Upper Respiratory Infection Time Seen by Provider: 03/28/24 17:02 Source: patient Limitations: no limitations History of Present Illness HPI Narrative: 53-year-old female presents for 3-day history of sore throat and now she has developed a slight cough and some bodyaches and chills. No known fever. She is not coughing up much phlegm at all. She has not been around any ill people. Related Data Previous Rx's ?Medication ?Instructions ?Recorded azithromycin 250 mg tablet See Rx Instructions PO .COMPLEX #6 03/28/24 (Zithromax Z-Neto) tabs Allergies Allergy/AdvReac Type Severity Reaction Status Date / Time No Known Drug Allergies Allergy Verified 03/28/24 17:04 Review of Systems ROS Narrative A ten point review of systems is negative except as noted above. PFSH PFSH Social History Little interest or pleasure in doing things: not at all Feeling down, depressed, or hopeless: not at all Exam Narrative Exam Narrative: Nurses note and vital signs reviewed and patient is not hypoxic. General: The patient appears well and in no apparent distress. Patient is resting comfortably on cart. Skin: Warm, dry, no pallor noted. There is no rash noted. Head: Normocephalic, atraumatic Eye: Normal conjunctiva, no drainage Ears, Nose, Mouth, and Throat: oral mucosa is moist. Nares patent. No pharyngeal exudate or swelling or erythema. Cardiovascular: Regular Rate and Rhythm Respiratory: Patient is in no distress, no accessory muscle use, lungs are clear to auscultation, no wheezing, rales or rhonchi Back: non-tender GI: Soft and nontender Musculoskeletal: The patient has no evidence of calf tenderness, no pitting edema, symmetrical pulses noted bilaterally Neurological: A&O, normal speech Psychiatric: Cooperative Constitutional Vital Signs, click to edit/add: Last Vital Signs Temp 98.7 F 03/28/24 17:04 Pulse 85 03/28/24 17:04 Resp 18 03/28/24 17:04 BP 148/83 H 03/28/24 17:04 Pulse Ox 99 03/28/24 17:04 O2 Del Method Room Air 03/28/24 17:04 Course Vital Signs Vital signs: Vital Signs Temperature 98.7 F 03/28/24 17:04 Pulse Rate 85 11/28/24 17:04 Respiratory Rate 18 03/28/24 17:04 Blood Pressure 148/83 H 03/28/24 17:04 Pulse Oximetry 99 03/28/24 17:04 Oxygen Delivery Method Room Air 03/28/24 17:04 Temperature 98.7 F 03/28/24 17:04 Pulse Rate 85 03/28/24 17:04 Respiratory Rate 18 03/28/24 17:04 Blood Pressure 148/83 H 03/28/24 17:04 Pulse Oximetry 99 03/28/24 17:04 Oxygen Delivery Method Room Air 03/28/24 17:04 MDM - URI/Sore Throat MDM Narrative Medical decision making narrative: COVID, influenza, strep are all negative. Chest x-ray suggest pneumonia so she will be treated with Zithromax and was given her first dose here. Treatment diagnosis and follow-up were discussed with the patient and her family. Differential Diagnosis Differential diagnosis: Likely upper respiratory infection, influenza and other (COVID, pneumonia, strep) Lab Data Attestation: I reviewed the patient's lab results. Labs: Lab Results 03/28/24 Range/Units 17:09 Influenza Type A Ag Negative Influenza Type B Ag Negative SARS-CoV-2 Ag (CV2AG) Negative (NEGATIVE) Streptococcus Screen Negative Imaging Data Chest x-ray: Radiologist's impression: ITS Impressions Chest X-Ray 03/28/24 17:21 IMPRESSION: Interstitial opacity in the right lower lobe. Please correlate for pneumonia versus atelectasis. Electronically authenticated by: WENDY GOMES Date: 03/28/2024 18:36 Discharge Plan Discharge Chief Complaint: Upper Respiratory Infection Clinical Impression: Pneumonia Patient Disposition: Home, Self-Care Time of Disposition Decision: 18:43 Condition: Good Mode of Transportation: Private Vehicle Prescriptions / Home Meds: New azithromycin [Zithromax Z-Neto] 250 mg tablet See Rx Instructions .ROUTE .COMPLEX Qty: 6 0RF Rx Instructions: For 250 mg dose pack: take 500 mg today (day 1), then 250 mg for 4 days (days 2-5) Print Language: Belarusian Instructions: Community Acquired Pneumonia (ED) Referrals: AZALEA HALL [Primary Care Provider] - 1 week
[2024-03-28 17:35] LABS: Internal Control Within Normal Limits; Strep A Antigen Screen Negative
[2024-03-28 17:37] LABS: Internal Control Within Normal Limits; SARS-CoV-2 Ag NEGATIVE (NEGATIVE)
[2024-03-28 17:38] LABS: Influenza Virus A Antigen Negative; Influenza Virus B Antigen Negative; Internal Control Within Normal Limits
[2024-03-28] MEDS: AZITHROMYCIN 250 MG TABLET 500 MG PO (18:58)
== END 2024-03-28 19:03 | disposition home or self-care (01) ==
PROVIDERS: Emergency Provider Emergency Medicine; PCP Family Medicine
DX: J18.9 Pneumonia, unspecified organism (principal)
CPT/HCPCS: 71045; 87070; 87804; 87811; 87880; 99284

== ENCOUNTER 2024-06-10 11:32 | Outpatient (OUT) | payer OTHER, SELFPAY ==
[2024-06-10 12:07] LABS: Basophils Percent Auto 0.6 % (0.2-2.0); Eosinophils Absolute Auto 0.1 10^3/uL (0.0-0.7); Eosinophils Percent Auto 2.5 % (0.9-7.0); Hematocrit 35.7 % (36.0-48.0); Immature Granulocytes Abs Auto 0.01 10^3/uL (0.00-0.03); Immature Granulocytes Pct Auto 0.2 % (0.0-0.5); Lymphocytes Absolute Auto 1.7 10^3/uL (1.2-3.8); Lymphocytes Percent Auto 31.9 % (20.5-60.0); Mean Corpuscular HGB Conc 33.6 g/dL (29.9-35.2); Mean Corpuscular Hemoglobin 30.8 pg (26.7-34.0); Mean Corpuscular Volume 91.8 fL (81.0-99.0); Mean Platelet Volume 10.9 fL (9.5-13.5); Monocytes Absolute Auto 0.5 10^3/uL (0.3-0.8); Monocytes Percent Auto 8.7 % (1.7-12.0); Neutrophils Percent Auto 56.1 % (43.0-75.0); Platelet Count 228 10^3/uL (150-450); Red Blood Count 3.89 10^6/uL (4.20-5.40); Red Cell Distribution Width 12.4 % (11.0-15.0); White Blood Count 5.3 10^3/uL (4.0-11.0)
[2024-06-10 12:46] LABS: Alanine Aminotransferase 33 U/L (14-59); Albumin Globulin Ratio 1.1; Albumin Level 3.9 g/dL (3.4-5.0); Alkaline Phosphatase 125 U/L (46-116); Anion Gap 12.5; Aspartate Amino Transferase 21 U/L (15-37); BUN Creatinine Ratio 16.7; Bilirubin Total 0.8 mg/dL (0.2-1.0); Calcium 9.3 mg/dL (8.5-10.1); Carbon Dioxide 29.3 mmol/L (21.0-32.0); Chloride 106 mmol/L (98-107); Cholesterol 165 mg/dL (<=200); Estimated GFR (African America >60 (>=60 mL/min/1.73m^2); Estimated GFR (Non-African Ame >60 (>=60 mL/min/1.73m^2); Free T3 3.02 pg/mL (2.18-3.98); Globulin 3.7 g/dL; Glucose 128 mg/dL (74-106); HDL Cholesterol 81 mg/dL (40-60); Magnesium 2.1 mg/dL (1.8-2.4); Potassium 3.8 mmol/L (3.5-5.1); Sodium 144 mmol/L (136-145); Thyroid Stimulating Hormone 0.278 uIU/mL (0.358-3.740); Total Protein 7.6 g/dL (6.4-8.2); Triglycerides 86 mg/dL (<=150); VLDL CHOLESTEROL 17.2 mg/dL
[2024-06-10 13:26] LABS: Free T4 1.12 ng/dL (0.76-1.46)
== END 2024-06-10 11:33 | disposition home or self-care (01) ==
PROVIDERS: PCP Family Medicine; Visit Provider Family Medicine
DX: E03.9 Hypothyroidism, unspecified (principal); E11.9 Type 2 diabetes mellitus without complications; I10 Essential (primary) hypertension; E78.2 Mixed hyperlipidemia; R79.0 Abnormal level of blood mineral; E55.9 Vitamin D deficiency, unspecified
CPT/HCPCS: 36415; 80053; 80061; 82306; 83735; 84439; 84443; 84481; 85025

== ENCOUNTER 2024-12-10 10:47 | Outpatient (OUT) | payer OTHER, SELFPAY ==
--- OUTSIDE RECORDS SUMMARY | 2024-12-03 14:00 | XMS_ITS | Encounter Summary ---
Author Organization [facility] Healthcare Address [address] [place] [address] Care Team Providers Care Electroformer Name Role Phone Yazan Walls MD Primary Care Provider [phone] Daxa Nazario CARDIAC REHABILITATION SPECIALIST Unavailable Reason for Referral * Consultation (Routine) - Authorized Specialty Diagnoses / Procedures Referred By Virginia michaud Referred To Contact Gastroenterology Diagnoses BLOOM (nonalcoholic steatohepatitis) Procedures [place] OFFICE/OUTPATIENT [facility] 60 MINUTES Yazan Walls MD [address] [place] [address] Phone: tel: fax: Rose Marie Copeland MD [address] [place] [address] Phone: tel: fax: Referral ID Status Reason Start Date Expiration Date Visits Requested Visits Authorized [id number] Authorized Specialty Services Required 12/03/2024 06/01/2025 1 1 Encounter Details Date Type Department Care Team (Late st Contact Info) Description 12/03/2024 2:00 PM EDT Follow-Up [facility] [address] [place] [address] Yazan Walls MD [address] [place] [address] Traumatic incomplete tear of right rotator cuff, initial encounter (Primary Dx); Hypothyroidism (acquired) ; Type 2 diabetes mellitus without complication, without long-term current use of insulin (HCC); Vitamin D deficiency; Adult general medical examination; Low magnesium level; BLOOM (nonalcoholic steatohepatitis) Social History Tobacco Use Types Packs/Day Years Used Date Smoking Tobacco: Never Smokeless Tobacco: Never Alcohol Use Standard Drinks/Week Comments Never 0 (1 standard drink = 0.6 oz pur e alcohol) coffee 1-2 cups/day PHQ-2 Answer Date Recorded Patient Health Questionnaire-2 Score 4 12/03/2024 Comments No Sex and Gender Information Value Date Recorded Sex Assigned at Not on file Legal Sex Female 7:23 PM EDT Gender Identity Not on file Sexual Orientation Not on file documented as of this encounter Last Filed Vital Signs Vital Sign Reading Time Taken Comments Blood Pressure 142/84 12/03/2024 2:29 PM EDT Pulse 62 12/03/2024 2:29 PM EDT Temperature 37.1 C (98.8 F) 12/03/2024 2:29 PM EDT Respiratory Rate - - Oxygen Saturation 96% 12/03/2024 2:29 PM EDT Inhaled Oxygen Concentration - - Weight 64.4 kg (142 lb) 12/03/2024 2:29 PM EDT Height 162.6 cm (5' 4 ) 12/03/2024 2:29 PM EDT Body Mass Index 24.37 12/03/2024 2:29 PM EDT documented in this encounter Functional Status * Over the past 2 weeks, how often have you been bothered by any of the following problems? Question Answer Date of Assessment Author Little interest or pleasure in doing things More than half the days 12/03/2024 2:31 PM EDT Laila Gutierrez Feeling down, depressed, or hopeless More than half the days 12/03/2024 2:31 PM EDT Laila Gutierrez Patient Health Questionnaire-2 Score 4 12/03/2024 2:31 PM EDT Laila Gutierrez * Question Answer Date of Assessment Author Trouble falling or staying asleep, or sleeping too much Several days 12/03/2024 2:31 PM EDT Laila Gutierrez Feeling tired or having little energy Several days 12/03/2024 2:31 PM EDT Laila Gutierrez Poor appetite or overeating Not at all 12/03/2024 2:31 PM EDT Laila Gutierrez Feeling bad about yourself - or that you are a failure or have let yourself or your family down More than half the days 12/03/2024 2:31 PM EDT Laila Gutierrez Trouble concentrating on things, such as reading the newspaper or watching television Not at all 12/03/2024 2:31 PM EDT Laila Gutierrez Moving or speaking so slowly that other people could have noticed? Or the opposite - being so fidgety or restless that you have been moving around a lot more than usual. Not at all 12/03/2024 2:31 PM EDT Laila Gutierrez Thoughts that you would be better off or hurting yourself in some way Not at all 12/03/2024 2:31 PM EDT Laila Gutierrez Patient Health Questionnaire-9 Score 8 12/03/2024 2:31 PM EDT Laila Gutierrez * If you checked off any problems on this questionnaire so far, Question Answer Date of Assessment Author How difficult have these problems made it for you to do your work, take care of things at home, or get along with other people? Somewhat difficult 12/03/2024 2:31 PM EDT Laila Gutierrez documented as of this encounter Miscellaneous Notes * [facility] Patient Education - Yazan Walls MD - 12/03/2024 3:15 PM EDT Images from the original note were not included. [id number] Manguito de los rotadores: Ejercicios Rotator Cuff: Exercises Introducci??n Estos son algunos ejemplos de ejercicios que usted puede probar. Los ejercicios pueden sugerirse para sebastian afecci??n o para la rehabilitaci??n. Comience cada ejercicio lentamente. Reduzca la intensidad de los ejercicios si empieza a sentir dolor. Se le informar?? cu??ndo comenzar a hacer estos ejercicios y cu??les funcionar??n mejor para usted. C??mo hacer los ejercicios Balanceo en forma de p??ndulo No maya brandee ejercicio si tiene dolor de espalda. 1. Ap??yese con el brazo mercedes en sebastian saldana o en el respaldo de sebastian silla. Luego, incl??nese un poco hacia dev y deje que el brazo adolorido cuelgue directamente hacia abajo. En brandee ejercicio no se usan los m??sculos del brazo. En cambio, se usan las piernas y las caderas para generar un movimiento que hace que el brazo se balancee libremente. 2. Utilice el movimiento de las caderas y las piernas para guiar el brazo que se balancea ligeramente hacia adelante y hacia atr??s yoli un p??ndulo (o yoli sebastian trompa de elefante). Luego, gu??e el brazo para formar c??rculos que comienzan papo??os (aproximadamente del khai??o de un plato de comida). Maya los c??rculos algo m??s grandes cada d??a, seg??n lo permita el dolor. 3. Maya brandee ejercicio por 5 minutos, de 5 a 7 veces al d??a. 4. A medida que tenga menos dolor, trate de inclinarse un poco m??s cuando maya brandee ejercicio. Rowan aumentar?? la amplitud de movimiento del hombro. Ejercicio de estiramiento posterior 1. Sostenga el codo del brazo lesionado con la otra mano. 2. Use la mano para tirar suavemente del brazo lesionado hacia arriba y hacia el lado opuesto del cuerpo. Sentir?? un leve estiramiento en la parte posterior del hombro lesionado. 3. Sost??ngalo por lo menos de 15 a 30 segundos. Luego baje lentamente el brazo. 4. Repita de 2 a 4 veces. Estiramiento por detr??s de la espalda Es posible que schulz m??dico o fisioterapeuta quiera que espere para hacer brandee estiramiento hasta quehaya recuperado la mayor parte de schulz fuerza y amplitud de movimiento. Puede hacer brandee estiramientode diferentes maneras. Mantenga cualquiera de estos estiramientos al menos de 15 a 30 segundos, y rep??talos de 2 a 4 veces. 1. Estiramiento leve: Coloque la mano en el bolsillo trasero y d??jela all?? para estirar el hombro. 2. Estiramiento moderado: Con la otra mano, sostenga el brazo afectado (con la kay hacia afuera) detr??s de la espalda sujet??ndose la mu??eca. Tire suavemente del brazo hacia arriba para estirar el hombro. 3. Estiramiento avanzado: Col??quese sebastian toalla sobre el otro hombro. Coloque la mano del brazo lesionado detr??s de la espalda. Ahora, sostenga la parte trasera de la toalla. Con la otra mano, sostenga el extremo anterior de la toalla que se encuentra en la parte delantera del cuerpo. Tire suavemente del extremo anterior de la toalla para que la mano suba a??n m??s por la espalda a fin de estirar el hombro. Estiramiento sobre la wayne 1. Parado a aproximadamente un brazo de distancia, ag??rrese a sebastian superficie s??el. Puede usar sebastian encimera, la perilla de sebastian lino o el respaldo de sebastian silla firme. 2. Con las rodillas ligeramente flexionadas, incl??nese hacia adelante con los brazos estirados. Baje la parte superior del cuerpo y deje que los hombros se estiren. 3. A medida que los hombros puedan estirarse m??s, chata vez tenga que mike un paso o dos hacia atr??s. 4. Mantenga la posici??n bobbi un m??viviana de 15 a 30 segundos. Luego, incorp??rese y rel??butch. Si hab??a dado un paso hacia atr??s bobbi el estiramiento, d?? un paso hacia adelante para que pueda mantener las david en la superficie s??el. 5. Repita de 2 a 4 veces. Flexi??n de hombros (acostado) Para fabricar sebastian vara para brandee ejercicio, use un trozo de tuber??a de PVC o el lana de sebastian escobasin la escoba. Maya la vara de un khai??o que sea aproximadamente un pie (30 cm) m??s ancho que loshombros. 1. Acu??stese de espalda y sostenga la vara con ambas david. Las alessandra deber??an estar hacia abajocuando sostiene la vara. 2. Con los codos rectos, levante lentamente los brazos por encima de la wayne. Lev??ntelos hasta que note un estiramiento en los hombros, la parte superior de la espalda y el pecho. 3. Sostenga el estiramiento por 15 a 30 segundos. 4. Repita de 2 a 4 veces. Rotaci??n de hombros (acostado) Para fabricar sebastian vara para brandee ejercicio, use un trozo de tuber??a de PVC o el lana de sebastian escobasin la escoba. Maya la varita de un khai??o que sea aproximadamente un pie (30 cm) m??s ancho que los hombros. 1. Acu??stese de espalda. Sostenga la vara con ambas david con los codos doblados y las alessandra hacia arriba. 2. Mantenga los codos cerca del cuerpo y mueva la vara cruzando frente al cuerpo hacia el brazo adolorido. 3. Sostenga la posici??n de 8 a 12 segundos. 4. Repita de 2 a 4 veces. Escalar la pared (de lado) Evite cualquier movimiento directamente de lado, y tenga cuidado de no arquear la espalda. Schulz brazodebe permanecer a unos 30 grados enfrente de schulz costado. 1. P??rese con schulz costado hacia sebastian pared de manera que los dedos apenas puedan tocarla en un ??ngulo de unos 30 grados hacia la parte frontal del cuerpo. 2. Camine con los dedos del brazo lesionado por la pared, y llegue doty arriba yoli el dolor se lo permita. Trate de no llevar el hombro hacia el o??do a medida que mueve el brazo hacia arriba. 3. Mantenga roseanne posici??n por al menos 15 a 20 segundos. 4. Camine con los dedos hacia abajo, volviendo a la posici??n inicial. 5. Rep??talo un m??viviana de 2 a 4 veces. Trate de llegar cada vez m??s arriba. Escalar la pared (de frente) Bobbi brandee ejercicio de estiramiento, tenga cuidado de no arquear la espalda. 1. P??rese de frente a la pared de manera que ericka dedos puedan apenas tocarla. 2. Manteniendo el hombro hacia abajo, camine por la pared con los dedos del brazo lesionado y llegue doty arriba yoli el dolor se lo permita. (No encoja el hombro hacia la oreja). 3. Mantenga el brazo en roseanne posici??n por un m??viviana de 15 a 30 segundos. 4. Camine lentamente con los dedos hacia abajo, volviendo a la posici??n inicial. 5. Rep??talo un m??viviana de 2 a 4 veces. Trate de llegar cada vez m??s arriba. Compresi??n de los om??platos 1. P??rese con los brazos a los costados y comprima los om??platos. No levante los hombros mientrasaprieta. 2. Mantenga la posici??n 6 segundos. 3. Repita de 8 a 12 veces. Ejercicio escapular: Alcanzar con la mano 1. Acu??stese boca arriba. Brandee ejercicio es un movimiento muy leve que comienza con los brazos levantados (codos rectos, brazos extendidos). 2. Desde esta posici??n, est??rese hacia el adan o hacia el techo. Mantenga los codos rectos. El movimiento debe provenir solo de ericka om??platos. 3. Relaje los brazos para regresar a donde empez??. 4. Repita de 8 a 12 veces. Levantamiento del brazo a un costado Bobbi brandee ejercicio de fortalecimiento, schulz brazo debe permanecer a unos 30 grados frente a schulz costado. 1. Levante lentamente el brazo lesionado a un costado, con el pulgar hacia arriba. Levante el brazoa un m??ximo de 60 grados (el nivel del hombro es de 90 grados). 2. Mantenga la posici??n de 3 a 5 segundos. Luego, baje el brazo de nuevo a schulz costado. Si lo necesita, traiga schulz brazo mercedes por dev del cuerpo y col??quelo debajo del codo a medida que baja el brazo lesionado. Use schulz brazo mercedes para evitar que el brazo lesionado baje demasiado r??pido. 3. Repita de 8 a 12 veces. 4. Las primeras veces, no sostenga john??n peso adicional en la mano. A medida que se fortalezca, puede utilizar sebastian mancuerna de 1 a 2 libras (0.5 a 1 kg) o sebastian rosalba papo??a de comida. Ejercicio de los flexores y extensores del hombro Estos son ejercicios lee??tricos. Rowan significa que contrae los m??sculos sin tener que moverse. 1. Empujar hacia adelante (flexionar): P??rese frente a sebastian pared o el gail de sebastian lino, a unas 6 pulgadas (15 cm) o menos. Mantenga schulz brazo lesionado contra schulz cuerpo. Cierre el pu??o con el pulgar por fuera. Luego, empuje suavemente la mano hacia adelante y contra la pared, con alrededor del 25% al 50% de schulz fuerza. No deje que schulz cuerpo se mueva hacia atr??s mientras empuja. Mantenga la posici??n bobbi unos 6 segundos. Rel??butch bobbi unos segundos. Repita de 8 a 12 veces. 2. Empujar hacia atr??s (warper creeler): P??rese con la espalda completamente contra la pared. El brazo debe estar apoyado en la pared, con schulz codo doblado en un ??ngulo de 90 grados (la mano hacia adelante). Empuje el codo suavemente hacia atr??s contra la pared, con alrededor del 25% al 50% de schulz fuerza. No deje que schulz cuerpo se mueva hacia adelante mientras empuja. Mantenga la posici??n bobbi unos 6 segundos. Rel??butch bobbi unos segundos. Repita de 8 a 12 veces. Ejercicio escapular: Lagartijas de pared Brandee ejercicio se realiza mejor con los dedos girados un poco hacia afuera, en lugar de que apuntenhacia arriba. 1. P??rese frente a sebastian pared, a entre 12 y 18 pulgadas (30 a 45 cm) de distancia. 2. Coloque las david en la pared, a la altura de los hombros. 3. Doble los brazos lentamente y acerque la kady a la pared. Mantenga la espalda y las caderas derechas. 4. Empuje para regresar a donde empez??. 5. Repita de 8 a 12 veces. 6. Cuando pueda hacer brandee ejercicio en la pared c??modamente, puede probarlo contra sebastian encimera. Despu??s puede avanzar lentamente a hacerlo en el extremo de un sof??, despu??s en sebastian silla s??liday finalmente en el suelo. Ejercicio escapular: Retracci??n Para brandee ejercicio necesitar?? material el??stico para el ejercicio, yoli tubos quir??rgicos o Thera-Band. 1. Coloque la lara alrededor de un objeto s??lido a la altura de la cintura. (El poste de sebastian camafuncionar?? tristian). Cada mano debe sujetar un extremo de la lara. 2. Con los codos a los lados y flexionados en un ??ngulo de 90 grados, tire de la lara hacia atr??s. Ericka om??platos deber??n tratar de juntarse. Luego, mueva los brazos hacia donde empez??. 3. Repita de 8 a 12 veces. 4. Si tiene sebastian buena amplitud de movimiento en los hombros, intente brandee ejercicio con los brazos levantados hacia los lados. Mantenga los codos en un ??ngulo de 90 grados. Eleve la lara el??stica hasta aproximadamente la altura del hombro. Tire de la lara para tratar de juntar ericka om??platos. Luego, mueva los brazos hacia donde empez??. Ejercicio de fortalecimiento del rotador interno 1. Comience por atar un pedazo de material el??stico para ejercicios a la perilla de sebastian lino. Puede usar tubos quir??rgicos o Thera-Band. 2. P??rese o si??ntese con el hombro relajado y el codo doblado en ??ngulo de 90 grados. La parte superior del brazo debe descansar c??modamente sobre el costado. Apriete sebastian toalla enrollada entre el codo y el cuerpo por comodidad. Rowan ayudar?? a mantener el brazo a schulz costado. 3. Sujete un extremo de la lara el??stica en la mano del brazo dolorido. 4. Gire el antebrazo lentamente hacia el cuerpo hasta que toque el abdomen. Mu??valo lentamente de vuelta hacia donde empez??. 5. Mantenga el codo y la parte superior del brazo apretados firmemente contra la toalla o contra elcostado de schulz cuerpo. 6. Repita de 8 a 12 veces. Ejercicio de fortalecimiento del rotador externo 1. Comience por atar un pedazo de material el??stico para ejercicios a la perilla de sebastian lino. Puede utilizar tubos quir??rgicos o Thera-Band. (Tambi??n puede sujetar un extremo de la lara en cadamano). 2. P??rese o si??ntese con el hombro relajado y el codo doblado en ??ngulo de 90 grados. La parte superior del brazo debe descansar c??modamente sobre el costado. Apriete sebastian toalla enrollada entre el codo y el cuerpo por comodidad. Rowan ayudar?? a mantener el brazo al costado. 3. Sujete un extremo de la lara el??stica con la mano del brazo dolorido. 4. Comience con el antebrazo cruzando el abdomen. Gire el antebrazo lentamente alej??ndolo del cuerpo. Mantenga el codo y la parte superior del brazo apretados contra la toalla o contra el costado del cuerpo hasta que empiece a sentir tensi??n en el hombro. Mueva el brazo lentamente de vuelta haciadonde empez??. 5. Repita de 8 a 12 veces. La atenci??n de seguimiento es sebastian parte clave de schulz tratamiento y seguridad. Aseg??rese de hacer yacudir a todas las citas, y llame a schulz m??dico si est?? teniendo problemas. Tambi??n es sebastian buena idea saber los resultados de ericka ex??menes y mantener sebastian lista de los medicamentos que suleman. Revisado: 2022 Versi??n del contenido: 14.0 Las instrucciones de cuidado fueron adaptadas bajo licencia por schulz profesional de atenci??n m??dica. Si usted tiene preguntas sobre sebastian afecci??n m??dica o sobre estas instrucciones, siempre preguntea schulz profesional de kaur. [employer] niega toda garant??a o responsabilidad por schulz uso de esta informaci??n. ?? [id number] [employer]. * [facility] Patient Education - Yazan Walls MD - 12/03/2024 3:15 PM EDT Images from the original note were not included. [id number] Manguito de los rotadores: Ejercicios Rotator Cuff: Exercises Introducci??n Estos son algunos ejemplos de ejercicios que usted puede probar. Los ejercicios pueden sugerirse para sebastian afecci??n o para la rehabilitaci??n. Comience cada ejercicio lentamente. Reduzca la intensidad de los ejercicios si empieza a sentir dolor. Se le informar?? cu??ndo comenzar a hacer estos ejercicios y cu??les funcionar??n mejor para usted. C??mo hacer los ejercicios Balanceo en forma de p??ndulo No maya brandee ejercicio si tiene dolor de espalda. 1. Ap??yese con el brazo mercedes en sebastian saldana o en el respaldo de sebastian silla. Luego, incl??nese un poco hacia dev y deje que el brazo adolorido cuelgue directamente hacia abajo. En brandee ejercicio no se usan los m??sculos del brazo. En cambio, se usan las piernas y las caderas para generar un movimiento que hace que el brazo se balancee libremente. 2. Utilice el movimiento de las caderas y las piernas para guiar el brazo que se balancea ligeramente hacia adelante y hacia atr??s yoli un p??ndulo (o yoli sebastian trompa de elefante). Luego, gu??e el brazo para formar c??rculos que comienzan papo??os (aproximadamente del khai??o de un plato de comida). Maya los c??rculos algo m??s grandes cada d??a, seg??n lo permita el dolor. 3. Maya brandee ejercicio por 5 minutos, de 5 a 7 veces al d??a. 4. A medida que tenga menos dolor, trate de inclinarse un poco m??s cuando maya brandee ejercicio. Rowan aumentar?? la amplitud de movimiento del hombro. Ejercicio de estiramiento posterior 1. Sostenga el codo del brazo lesionado con la otra mano. 2. Use la mano para tirar suavemente del brazo lesionado hacia arriba y hacia el lado opuesto del cuerpo. Sentir?? un leve estiramiento en la parte posterior del hombro lesionado. 3. Sost??ngalo por lo menos de 15 a 30 segundos. Luego baje lentamente el brazo. 4. Repita de 2 a 4 veces. Estiramiento por detr??s de la espalda Es posible que schulz m??dico o fisioterapeuta quiera que espere para hacer brandee estiramiento hasta quehaya recuperado la mayor parte de schulz fuerza y amplitud de movimiento. Puede hacer brandee estiramientode diferentes maneras. Mantenga cualquiera de estos estiramientos al menos de 15 a 30 segundos, y rep??talos de 2 a 4 veces. 1. Estiramiento leve: Coloque la mano en el bolsillo trasero y d??jela all?? para estirar el hombro. 2. Estiramiento moderado: Con la otra mano, sostenga el brazo afectado (con la kay hacia afuera) detr??s de la espalda sujet??ndose la mu??eca. Tire suavemente del brazo hacia arriba para estirar el hombro. 3. Estiramiento avanzado: Col??quese sebastian toalla sobre el otro hombro. Coloque la mano del brazo lesionado detr??s de la espalda. Ahora, sostenga la parte trasera de la toalla. Con la otra mano, sostenga el extremo anterior de la toalla que se encuentra en la parte delantera del cuerpo. Tire suavemente del extremo anterior de la toalla para que la mano suba a??n m??s por la espalda a fin de estirar el hombro. Estiramiento sobre la wayne 1. Parado a aproximadamente un brazo de distancia, ag??rrese a sebastian superficie s??el. Puede usar sebastian encimera, la perilla de sebastian lino o el respaldo de sebastian silla firme. 2. Con las rodillas ligeramente flexionadas, incl??nese hacia adelante con los brazos estirados. Baje la parte superior del cuerpo y deje que los hombros se estiren. 3. A medida que los hombros puedan estirarse m??s, chata vez tenga que mike un paso o dos hacia atr??s. 4. Mantenga la posici??n bobbi un m??viviana de 15 a 30 segundos. Luego, incorp??rese y rel??butch. Si hab??a dado un paso hacia atr??s bobbi el estiramiento, d?? un paso hacia adelante para que pueda mantener las david en la superficie s??el. 5. Repita de 2 a 4 veces. Flexi??n de hombros (acostado) Para fabricar sebastian vara para brandee ejercicio, use un trozo de tuber??a de PVC o el lana de sebastian escobasin la escoba. Maya la vara de un khai??o que sea aproximadamente un pie (30 cm) m??s ancho que loshombros. 1. Acu??stese de espalda y sostenga la vara con ambas david. Las alessandra deber??an estar hacia abajocuando sostiene la vara. 2. Con los codos rectos, levante lentamente los brazos por encima de la wayne. Lev??ntelos hasta que note un estiramiento en los hombros, la parte superior de la espalda y el pecho. 3. Sostenga el estiramiento por 15 a 30 segundos. 4. Repita de 2 a 4 veces. Rotaci??n de hombros (acostado) Para fabricar sebastian vara para brandee ejercicio, use un trozo de tuber??a de PVC o el lana de sebastian escobasin la escoba. Maya la varita de un khai??o que sea aproximadamente un pie (30 cm) m??s ancho que los hombros. 1. Acu??stese de espalda. Sostenga la vara con ambas david con los codos doblados y las alessandra hacia arriba. 2. Mantenga los codos cerca del cuerpo y mueva la vara cruzando frente al cuerpo hacia el brazo adolorido. 3. Sostenga la posici??n de 8 a 12 segundos. 4. Repita de 2 a 4 veces. Escalar la pared (de lado) Evite cualquier movimiento directamente de lado, y tenga cuidado de no arquear la espalda. Schulz brazodebe permanecer a unos 30 grados enfrente de schulz costado. 1. P??rese con schulz costado hacia sebastian pared de manera que los dedos apenas puedan tocarla en un ??ngulo de unos 30 grados hacia la parte frontal del cuerpo. 2. Camine con los dedos del brazo lesionado por la pared, y llegue doty arriba yoli el dolor se lo permita. Trate de no llevar el hombro hacia el o??do a medida que mueve el brazo hacia arriba. 3. Mantenga roseanne posici??n por al menos 15 a 20 segundos. 4. Camine con los dedos hacia abajo, volviendo a la posici??n inicial. 5. Rep??talo un m??viviana de 2 a 4 veces. Trate de llegar cada vez m??s arriba. Escalar la pared (de frente) Bobbi brandee ejercicio de estiramiento, tenga cuidado de no arquear la espalda. 1. P??rese de frente a la pared de manera que ericka dedos puedan apenas tocarla. 2. Manteniendo el hombro hacia abajo, camine por la pared con los dedos del brazo lesionado y llegue doty arriba yoli el dolor se lo permita. (No encoja el hombro hacia la oreja). 3. Mantenga el brazo en roseanne posici??n por un m??viviana de 15 a 30 segundos. 4. Camine lentamente con los dedos hacia abajo, volviendo a la posici??n inicial. 5. Rep??talo un m??viviana de 2 a 4 veces. Trate de llegar cada vez m??s arriba. Compresi??n de los om??platos 1. P??rese con los brazos a los costados y comprima los om??platos. No levante los hombros mientrasaprieta. 2. Mantenga la posici??n 6 segundos. 3. Repita de 8 a 12 veces. Ejercicio escapular: Alcanzar con la mano 1. Acu??stese boca arriba. Brandee ejercicio es un movimiento muy leve que comienza con los brazos levantados (codos rectos, brazos extendidos). 2. Desde esta posici??n, est??rese hacia el adan o hacia el techo. Mantenga los codos rectos. El movimiento debe provenir solo de ericka om??platos. 3. Relaje los brazos para regresar a donde empez??. 4. Repita de 8 a 12 veces. Levantamiento del brazo a un costado Bobbi brandee ejercicio de fortalecimiento, schulz brazo debe permanecer a unos 30 grados frente a schulz costado. 1. Levante lentamente el brazo lesionado a un costado, con el pulgar hacia arriba. Levante el brazoa un m??ximo de 60 grados (el nivel del hombro es de 90 grados). 2. Mantenga la posici??n de 3 a 5 segundos. Luego, baje el brazo de nuevo a schulz costado. Si lo necesita, traiga schulz brazo mercedes por dev del cuerpo y col??quelo debajo del codo a medida que baja el brazo lesionado. Use schulz brazo mercedes para evitar que el brazo lesionado baje demasiado r??pido. 3. Repita de 8 a 12 veces. 4. Las primeras veces, no sostenga john??n peso adicional en la mano. A medida que se fortalezca, puede utilizar sebastian mancuerna de 1 a 2 libras (0.5 a 1 kg) o sebastian rosalba papo??a de comida. Ejercicio de los flexores y extensores del hombro Estos son ejercicios lee??tricos. Rowan significa que contrae los m??sculos sin tener que moverse. 1. Empujar hacia adelante (flexionar): P??rese frente a sebastian pared o el gail de sebastian lino, a unas 6 pulgadas (15 cm) o menos. Mantenga schulz brazo lesionado contra schulz cuerpo. Cierre el pu??o con el pulgar por fuera. Luego, empuje suavemente la mano hacia adelante y contra la pared, con alrededor del 25% al 50% de schulz fuerza. No deje que schulz cuerpo se mueva hacia atr??s mientras empuja. Mantenga la posici??n bobbi unos 6 segundos. Rel??butch bobbi unos segundos. Repita de 8 a 12 veces. 2. Empujar hacia atr??s (warper creeler): P??rese con la espalda completamente contra la pared. El brazo debe estar apoyado en la pared, con schulz codo doblado en un ??ngulo de 90 grados (la mano hacia adelante). Empuje el codo suavemente hacia atr??s contra la pared, con alrededor del 25% al 50% de schulz fuerza. No deje que schulz cuerpo se mueva hacia adelante mientras empuja. Mantenga la posici??n bobbi unos 6 segundos. Rel??butch bobbi unos segundos. Repita de 8 a 12 veces. Ejercicio escapular: Lagartijas de pared Brandee ejercicio se realiza mejor con los dedos girados un poco hacia afuera, en lugar de que apuntenhacia arriba. 1. P??rese frente a sebastian pared, a entre 12 y 18 pulgadas (30 a 45 cm) de distancia. 2. Coloque las david en la pared, a la altura de los hombros. 3. Doble los brazos lentamente y acerque la kady a la pared. Mantenga la espalda y las caderas derechas. 4. Empuje para regresar a donde empez??. 5. Repita de 8 a 12 veces. 6. Cuando pueda hacer brandee ejercicio en la pared c??modamente, puede probarlo contra sebastian encimera. Despu??s puede avanzar lentamente a hacerlo en el extremo de un sof??, despu??s en sebastian silla s??liday finalmente en el suelo. Ejercicio escapular: Retracci??n Para brandee ejercicio necesitar?? material el??stico para el ejercicio, yoli tubos quir??rgicos o Thera-Band. 1. Coloque la lara alrededor de un objeto s??lido a la altura de la cintura. (El poste de sebastian camafuncionar?? tristian). Cada mano debe sujetar un extremo de la lara. 2. Con los codos a los lados y flexionados en un ??ngulo de 90 grados, tire de la lara hacia atr??s. Ericka om??platos deber??n tratar de juntarse. Luego, mueva los brazos hacia donde empez??. 3. Repita de 8 a 12 veces. 4. Si tiene sebastian buena amplitud de movimiento en los hombros, intente brandee ejercicio con los brazos levantados hacia los lados. Mantenga los codos en un ??ngulo de 90 grados. Eleve la lara el??stica hasta aproximadamente la altura del hombro. Tire de la lara para tratar de juntar ericka om??platos. Luego, mueva los brazos hacia donde empez??. Ejercicio de fortalecimiento del rotador interno 1. Comience por atar un pedazo de material el??stico para ejercicios a la perilla de sebastian lino. Puede usar tubos quir??rgicos o Thera-Band. 2. P??rese o si??ntese con el hombro relajado y el codo doblado en ??ngulo de 90 grados. La parte superior del brazo debe descansar c??modamente sobre el costado. Apriete sebastian toalla enrollada entre el codo y el cuerpo por comodidad. Rowan ayudar?? a mantener el brazo a schulz costado. 3. Sujete un extremo de la lara el??stica en la mano del brazo dolorido. 4. Gire el antebrazo lentamente hacia el cuerpo hasta que toque el abdomen. Mu??valo lentamente de vuelta hacia donde empez??. 5. Mantenga el codo y la parte superior del brazo apretados firmemente contra la toalla o contra elcostado de schulz cuerpo. 6. Repita de 8 a 12 veces. Ejercicio de fortalecimiento del rotador externo 1. Comience por atar un pedazo de material el??stico para ejercicios a la perilla de sebastian lino. Puede utilizar tubos quir??rgicos o Thera-Band. (Tambi??n puede sujetar un extremo de la lara en cadamano). 2. P??rese o si??ntese con el hombro relajado y el codo doblado en ??ngulo de 90 grados. La parte superior del brazo debe descansar c??modamente sobre el costado. Apriete sebastian toalla enrollada entre el codo y el cuerpo por comodidad. Rowan ayudar?? a mantener el brazo al costado. 3. Sujete un extremo de la lara el??stica con la mano del brazo dolorido. 4. Comience con el antebrazo cruzando el abdomen. Gire el antebrazo lentamente alej??ndolo del cuerpo. Mantenga el codo y la parte superior del brazo apretados contra la toalla o contra el costado del cuerpo hasta que empiece a sentir tensi??n en el hombro. Mueva el brazo lentamente de vuelta haciadonde empez??. 5. Repita de 8 a 12 veces. La atenci??n de seguimiento es sebastian parte clave de schulz tratamiento y seguridad. Aseg??rese de hacer yacudir a todas las citas, y llame a schulz m??dico si est?? teniendo problemas. Tambi??n es sebastian buena idea saber los resultados de ericka ex??menes y mantener sebastian lista de los medicamentos que suleman. Revisado: 2022 Versi??n del contenido: 14.0 Las instrucciones de cuidado fueron adaptadas bajo licencia por schulz profesional de atenci??n m??dica. Si usted tiene preguntas sobre sebastian afecci??n m??dica o sobre estas instrucciones, siempre preguntea schulz profesional de kaur. Leadjini niega toda garant??a o responsabilidad por schulz uso de esta informaci??n. ?? [email or web address], [employer]. documented in this encounter Plan of Treatment Upcoming Encounters Date Type Department Care Team (Late st Contact Info) Description 03/11/2025 3:00 PM EST Office Visit [facility] [address] [place] [address] Yazan Walls MD [address] [place] [address] Scheduled Orders Name Type Priority Associated Diagnoses Orde r Schedule T4, free Lab Routine Hypothyroidism (acquired) Expected: 12/03/2024 (Approximate), Expires: 12/03/2025 T3, free Lab Routine Hypothyroidism (acquired) Expected: 12/03/2024 (Approximate), Expires: 12/03/2025 TSH Lab Routine Hypothyroidism (acquired) Expected: 12/03/2024 (Approximate), Expires: 12/03/2025 Comprehensive metabolic panel Lab Routine BLOOM (nonalcoholic steatohepatitis) Expected: 12/03/2024 (Approximate), Expires: 12/03/2025 CBC auto differential Lab Routine Adult general medical examination Ordered: 12/03/2024 Magnesium Lab Routine Low magnesium level Ordered: 12/03/2024 Vitamin D 25 hydroxy Total Lab Routine Vitamin D deficiency Expected: 12/03/2024 (Approximate), Expires: 12/03/2025 Scheduled Referrals Name Type Priority Associated Diagnoses Order Schedule Ambulatory referral to Gastroenterology Outpatient Referral Routine BLOOM (nonalcoholic steatohepatitis) Expected: 12/03/2024 (Approximate), Expires: 06/05/2025 documented as of this encounter Procedures Procedure Name Priority Date/Time Associated Diagnosis Comments POCT GLYCOSYLATED HEMOGLOBIN (HGB A1C) Routine 12/03/2024 2:43 PM EDT Type 2 diabetes mellitus without complication, without long-term current use of insulin (HCC) documented in this encounter Results * POCT glycosylated hemoglobin (Hb A1C) docked device (12/03/2024 2:43 PM EDT) Hemoglobin A1C 6.2 Blood Venous blood specimen / Unknown 12/03/2024 2:43 PM EDT Yazan Walls MD POINT OF CARE TEST ENTER/EDIT ORDERABLES Edited Result - Final documented in this encounter Visit Diagnoses Diagnosis Traumatic incomplete tear of right rotator cuff, initial encounter- Primary Hypothyroidism (acquired) Unspecified hypothyroidism Type 2 diabetes mellitus without complication, without long-term current use of insulin (HCC) Vitamin D deficiency Adult general medical examination Unspecified general medical examination Low magnesium level BLOOM (nonalcoholic steatohepatitis) Other chronic nonalcoholic liver disease documented in this encounter Additional Health Concerns Assessment Noted Time PHQ-9 Depression Total Score: 8 12/04/19 25 2:31 PM EDT documented as of this encounter Care Teams Electroformer Relationship Specialty Start Date End Date Yazan Walls MD [address] [place] [address] PCP - General Family Medicine 09/12/22 Daxa Nazario NP [address] [place] [address] Nurse Practitioner Family Medicine 11/28/24 documented as of this encounter
--- OUTSIDE RECORDS SUMMARY | 2024-12-10 10:56 | XMS_ITS | Encounter Summary ---
Author Organization [facility] Address [address] [place] [address] Care Team Providers Care Composition Floor Setter Name Role Phone Yazan Walls MD Primary Care Provider Daxa Nazario BUSINESS INTELLIGENCE ANALYST Unavailable Encounter Details Date Type Department Care Team (Late Contact Info) Description 12/09/2024 Orders Only [facility] [address] [place] [phone] Yazan Walls MD [address] [place] [address] Social History Tobacco Use Types Packs/Day Years [...] on file documented as of this encounter Plan of Treatment Upcoming Encounters Date Type Department Care Team (Late Contact Info) Description 03/11/2025 3:00 PM EST Office Visit [facility] [address] [place] [phone] Yazan Walls MD [address] [place] [address] documented as of this encounter Procedures Procedure Name Priority Date/Time Associated Diagnosis Comments DIABETIC RETINOPATHY SCREENING - OU - BOTH EYES Routine 04/08/2024 11:38 AM EST documented in this encounter Results * Diabetic Retinopathy Screening - OU - Both Eyes (04/08/2024 11:38 AM EST) Anatomical Region Laterality Modality Head Other Yazan Walls MD OPHTH PHOTOGRAPHY Final Result documented in this encounter Visit Diagnoses Not on filedocumented in this encounter Additional Health Concerns Assessment Noted Time PHQ-9 Depression Total Score: 8 12/04/19 25 2:31 PM EDT documented as of this encounter Care Teams Composition Floor Setter Relationship Specialty Start Date End Date Yazan Walls MD [address] [place] [address] PCP - General Family Medicine 09/12/22 Daxa Nazario NP [address] [place] [address] Nurse Practitioner Family Medicine 11/28/24 documented as of this encounter
--- OUTSIDE RECORDS SUMMARY | 2024-12-10 10:56 | XMS_ITS | Encounter Summary ---
Author Organization [facility] Address [address] [place] [address] Care Team Providers Care Psychological Operations Name Role Phone Yazan Walls MD Primary Care Provider Daxa Nazario TIE INSPECTOR Unavailable [phone] Encounter Details Date Type Department Care Team (Late Contact Info) Description 09/02/2022 [facility] [address] [place] [phone] Yazan Walls MD [address] [place] [address] Social History Tobacco Use Types Packs/Day Years Used Date Smoking Tobacco: Never Smokeless Tobacco: Never Tobacco Cessation:Counseling Given: Not Answered Alcohol Use Standard Drinks/Week Comments Never 0 (1 standard drink = 0.6 oz pur e alcohol) coffee 1-2 cups/day Comments Unknown Sex and Gender Information Value Date Recorded Sex Assigned at Not on file Legal Sex Female 7:23 PM EDT Gender Identity Not on file Sexual Orientation Not on file documented as of this encounter Plan of Treatment Upcoming Encounters Date Type Department Care Team (Late Contact Info) Description 03/11/2025 3:00 PM EST [facility] [address] [place] [address] Yazan Walls MD [address] [place] [address] documented as of this encounter Visit Diagnoses Not on filedocumented in this encounter Care Teams Psychological Operations Relationship Specialty Start Date End Date Yazan Walls MD [address] [place] [address] PCP - General Family Medicine 09/12/22 Daxa Nazario NP [address] [place] [address] Nurse Practitioner Family Medicine 11/28/24 documented as of this encounter
--- OUTSIDE RECORDS SUMMARY | 2024-12-10 10:56 | XMS_ITS | Encounter Summary ---
Author Organization [facility] Address [address] [place] [address] Care Team Providers Care Sample Color Maker Name Role Phone Yazan Walls MD Primary Care Provider Daxa Nazario WATCH ADJUSTER Unavailable [phone] Encounter Details Date Type Department Care Team (Latest Contact Info) Description 12/03/2024 Travel Social History Tobacco Use Types Packs/Day Years [...] on file documented as of this encounter Functional Status * Over the [...] Laila Gutierrez documented as of this encounter Plan of Treatment Upcoming Encounters Date Type Department Care Team (Late st Contact Info) Description 03/11/2025 3:00 PM EST Office Visit [facility] [address] [place] [phone] Yazan Walls MD [address] [place] [address] documented as of this encounter Visit Diagnoses Not on filedocumented in this encounter Additional Health Concerns Assessment Noted Time PHQ-9 Depression Total Score: 8 12/04/19 25 2:31 PM EDT documented as of this encounter Care Teams Sample Color Maker Relationship Specialty Start Date End Date Yazan Walls MD [address] [place] [address] PCP - General Family Medicine 09/12/22 Daxa Nazario NP [address] [place] [address] Nurse Practitioner Family Medicine 11/28/24 documented as of this encounter
--- OUTSIDE RECORDS SUMMARY | 2024-12-10 10:56 | XMS_ITS | Encounter Summary ---
Author Organization [facility] Address [address] [place] [address] Care Team Providers Care Clinical Transplant Coordinator Name Role Phone Yazan Walls MD Primary Care Provider Daxa Nazario CAD OPERATOR Unavailable [phone] Encounter Details Date Type Department Care Team (Late Contact Info) Description 06/10/2024 Abstract [facility] [address] [place] [phone] Yazan Walls MD [address] [place] [address] Social History Tobacco Use Types Packs/Day Years Used Date Smoking Tobacco: Never Smokeless Tobacco: Never Alcohol Use Standard Drinks/Week Comments Never 0 (1 standard drink = 0.6 oz pur e alcohol) coffee 1-2 cups/day PHQ-2 Answer Date Recorded Patient Health Questionnaire-2 Score 0 04/03/2024 Comments No Sex and Gender Information Value Date Recorded Sex Assigned at Not on file Legal Sex Female 7:23 PM EDT Gender Identity Not on file Sexual Orientation Not on file documented as of this encounter Plan of Treatment Upcoming Encounters Date Type Department Care Team (Late Contact Info) Description 03/11/2025 3:00 PM EST Office Visit [facility] [address] [place] [phone] Yazan Walls MD [address] [place] [address] documented as of this encounter Visit Diagnoses Not on filedocumented in this encounter Care Teams Clinical Transplant Coordinator Relationship Specialty Start Date End Date Yazan Walls MD [address] [place] [address] PCP - General Family Medicine 09/12/22 Daxa Nazario NP [address] [place] [address] Nurse Practitioner Family Medicine 11/28/24 documented as of this encounter
--- OUTSIDE RECORDS SUMMARY | 2024-12-10 10:56 | XMS_ITS | Clinical Summary ---
Author Organization [facility] Address [address], [address] [place] [address] Care Team Providers Care Cooperative Education Coordinator Name Role Phone Yazan Walls MD Primary Care Provider [phone] Allergies Active Allergy Reactions Criticality Noted Date Comments Levofloxacin Rash Low 12/12/2022 Medications calcium carbonate 1500 (600 Ca) MG TABS tablet Take 1 tablet by mouth daily Active vitamin D (CHOLECALCIFEROL ) 125 MCG (5000 UT) CAPS capsule Take 125 mcg by mouth daily 10/04/2022 Active ibuprofen (ADVIL;MOTRIN) 200 MG tablet Take 1 tablet by mouth every 8 hours as needed for Pain 01/11/2022 Active levothyroxine (SYNTHROID) 100 MCG tablet Take 1 tablet by mouth every 24 hours 06/08/2023 Active MILK THISTLE EXTRACT PO Take 1 tablet by mouth 2 times daily Active Active Problems No known active problems Resolved Problems Problem Noted Date Diagnosed Date Resolved Date Screening for malignant neoplasm of colon 07/18/2023 08/17/2023 Family History Medical History Relation Name Comments Colon Cancer Neg Hx Social History Tobacco Use Types Packs/Day Years Used Date Smoking Tobacco: Never Smokeless Tobacco: Never Tobacco Cessation:Counseling Given: Not Answered Alcohol Use Standard Drinks/Week Comments Not Currently 0 (1 standard drink = 0.6 oz pur e alcohol) Comments No Sex and Gender Information Value Date Recorded Sex Assigned at Not on file Legal Sex Female 8:39 AM EST Gender Identity Not on file Sexual Orientation Not on file Last Filed Vital Signs Vital Sign Reading Time Taken Comments Blood Pressure 118/57 07/18/2023 9:20 AM EDT Pulse 65 07/18/2023 9:20 AM EDT Temperature 36.6 C (97.8 F) 07/18/2023 8:03 AM EDT Respiratory Rate 16 07/18/2023 9:20 AM EDT Oxygen Saturation 97% 07/18/2023 9:20 AM EDT Inhaled Oxygen Concentration - - Weight 54.4 kg (120 lb) 07/18/2023 8:03 AM EDT Height 152.4 cm (5') 07/18/2023 8:03 AM EDT Body Mass Index 23.44 07/18/2023 8:03 AM EDT Plan of Treatment Upcoming Encounters Date Type Department Care Team (Late st Contact Info) Description 01/06/2025 2:45 PM EDT Office Visit [facility] [address] [place], [place] [phone] Caitlin Copeland MD [address] [place] [address] [facility] Due Date Last Done Comments Depression Screen 1984 HIV screen 1987 Hepatitis C screen 1990 DTaP/Tdap/Td vaccine (1 - Tdap) 1991 Hepatitis B vaccine (1 of 3 - 19+ 3-dose series) 1991 Lipids 2012 FIT/FOBT: Average risk 2017 Fecal-DNA (Cologuard): Average risk 2017 Sigmoidoscopy/CT colonography 2017 Pneumococcal 50+ years Vaccine (1 of 1 - PCV) 2022 Shingles vaccine (1 of 2) 2022 COVID-19 Vaccine (2 - 2023- season) 2023 03/08/2022 Flu vaccine (#1) 11/29/2024 03/04/2024, , 02/21/2022, Additional history exists Breast cancer screen 01/14/2026 01/15/2024, 04/20/20 20 Colonoscopy 07/17/2033 07/18/2023, 07/18/2023 Colorectal Cancer Screen 07/17/2033 Hepatitis A vaccine Aged Out No longe r eligible based on patient's age to complete this topic Hib vaccine Aged Out No longer eligi ble based on patient's age to complete this topic Meningococcal (ACWY) vaccine Aged Out No longer eligible based on patient's age to complete this topic Meningococcal B vaccine Aged Out No l onger eligible based on patient's age to complete this topic Polio vaccine Aged Out No longer elig ible based on patient's age to complete this topic Procedures Procedure Name Priority Date/Time Associated Diagnosis Comments COLONOSCOPY PROCEDURE Routine 07/18/2023 8:40 AM EDT from Last 3 Months or Most Recently Relevant to Health Maintenance Results * Colonoscopy (07/18/2023 8:40 AM EDT) 07/18/2023 8:40 AM EDT Narrative SHADIA MUSE - 07/18/2023 8:40 AM EDT [facility] Patient: KATLYN MARTINEZ : 1970 Account: [id number] Sex at : Female Age: 53 Years [...] perforation or abscess without bleeding CPT(R) - 3 copyright [employer] [place] [employer]. All Rights Reserved. The CPT codes, CCI edits and ICD codes generated are intended as suggestions and were generated based on input data. These codes are preliminary and upon medical biller coder review may be revised to meet current compliance and payer requirements. The provider is responsible for the final determination of appropriate codes, and modifiers. Scope Withdrawal Time: 00:10:14 Rose Marie Copeland MD This document has been electronically signed. Note Initiated:07/18/2023 Note Completed:07/18/2023 9:13 AM Procedure Note Caitlin Copeland MD - 07/18/2023 [facility] Patient: KATLYN MARTINEZ : 1970 Account: [id number] Sex at : Female Age: 53 Years Procedure: Colonoscopy Date: 07/18/2023 Attending Physician: Rose Marie Copeladn Indications: - Screening for colorectal malignant neoplasm Medications: - See the Anesthesia note for documentation of the administeredmedications Complications: - No immediate complications. Estimated Blood Loss: - Estimated blood loss: none. Procedure: - The Colonoscope was introduced through the anus and advanced to[Extent Reached]. - The Colonoscope was introduced through the anus and advanced tothe ileocolonic anastomosis. - The colonoscopy was performed without difficulty. - The patient tolerated the procedure well. - The quality of the bowel preparation was good. Findings: - A few small-mouthed diverticula were found in the sigmoid colon.There was no evidence of diverticular bleeding. - There was evidence of a prior end-to-side ileo-colonicanastomosis in the proximal ascending colon. This was patent and was characterizedby healthy appearing mucosa. The anastomosis was traversed. Impression: - Mild diverticulosis in the sigmoid colon. There was no evidenceof diverticular bleeding. - Patent end-to-side ileo-colonic anastomosis, characterized byhealthy appearing mucosa. - No specimens collected. Recommendation: - Repeat colonoscopy in 10 years for surveillance. Procedure Code(s): - G0121, Colorectal cancer screening; colonoscopy on individual notmeeting criteria for high risk Diagnosis Code(s): - Z12.11, Encounter for screening for malignant neoplasm of colon - Z98.0, Intestinal bypass and anastomosis status - K57.30, Diverticulosis of large intestine without perforation orabscess without bleeding CPT(R) - 2022 copyright [employer] [place] [employer]. All RightsReserved. The CPT codes, CCI edits and ICD codes generated are intended assuggestions and were generated based on input data. These codes are preliminaryand upon medical biller coder review may be revised to meet current compliance and payerrequirements. The provider is responsible for the final determination ofappropriate codes, and modifiers. Scope Withdrawal Time: 00:10:14 Rose Marie Copeland MD This document has been electronically signed. Note Initiated:07/18/2023 Note Completed:07/18/2023 9:13 AM us Caitlin Copeland MD ENDOSCOPY ORDERABLES Final Res ult [facility] MUSE from Last 3 Months or Most Recently Relevant to Health Maintenance Insurance [facility] Advance Directives * Full Code (Latest Code Status on File) Date Activated Date Inactivated Comments 07/18/2023 7:46 AM 07/18/2023 11:53 AM Care Teams Cooperative Education Coordinator Relationship Specialty Start Date End Date Yazan Walls MD [address] [id number] [facility] - General 06/23/23
--- OUTSIDE RECORDS SUMMARY | 2024-12-10 10:57 | XMS_ITS | Encounter Summary ---
Author Organization [facility] Address [address] [place] [address] Care Team Providers Care Transaction Advisory Services Manager Name Role Phone Yazan Walls MD Primary Care Provider [phone] Daxa Nazario PROPRIETARY TRADER Unavailable Encounter Details Date Type Department Care Team (Late st Contact Info) Description 03/07/2023 Clinisync Result Encounter [facility] External Department Unsolicited Provider, Generic External Data Social History Tobacco Use Types Packs/Day Years [...] [facility] [address] [place] [address] Yazan Walls MD [address] [place] [address] documented as of this encounter Procedures Procedure Name Priority Date/Time Associated Diagnosis Comments US HAND/WRIST SYNOVIAL SCREEN RT 03/07/2023 12:40 PM EST documented in this encounter Results * US HAND/WRIST SYNOVIAL SCREEN RT (03/07/2023 12:40 PM EST) Anatomical Region Laterality Modality Other 03/07/2023 12:4 0 PM EST Narrative 03/07/2023 1:09 PM EST * * *Final Report* * * DATE [...] IMPRESSION: NO ACTIVE SYNOVITIS. GANGLION CYSTS BILATERALLY. Emery Grinder: [facility] Transcribe Date/Time: Mar 07 2023 12:53P Dictated by : MANJIT CURZ MD This examination was interpreted and the report reviewed and electronically signed by: MANJIT CRUZ MD on Mar 07 2023 1:07PM EST [id number]^AGFA_IDC^SI^ACN Procedure Note Radiology, Radiologist, - 03/07/2023 * * *Final Report* * * DATE [...] were saved to the permanent image archive. -2019 COMPARISON: None. FINDINGS: RIGHT SIDE: RIGHT MCP [...] IMPRESSION: NO ACTIVE SYNOVITIS. GANGLION CYSTS BILATERALLY. Emery Grinder: [facility] Transcribe Date/Time: Mar 07 2023 12:53P Dictated by : MANJIT CRUZ MD This examination was interpreted and the report reviewed and electronically signed by: MANJIT CRUZ MD on Mar 07 2023 1:07PM EST [id number]^AGFA_IDC^SI^ACN us Generic External Data Provider [facility] Final Result documented in this encounter Visit Diagnoses Not on filedocumented in this encounter Care Teams Transaction Advisory Services Manager Relationship Specialty Start Date End Date Yazan Walls MD [address] [place] [address] PCP - General Family Medicine 09/12/22 Daxa Nazario NP [address] [place] [address] Nurse Practitioner Family Medicine 11/28/24 documented as of this encounter
--- OUTSIDE RECORDS SUMMARY | 2024-12-10 10:57 | XMS_ITS | Encounter Summary ---
Author Organization [facility] Address [address] [place] [address] Care Team Providers Care Sales Representative Public Utilities Name Role Phone Yazan Walls MD Primary Care Provider Daxa Nazario WATER SOFTENER SERVICER Unavailable Encounter Details Date Type Department Care Team (Late st Contact Info) Description 10/24/2022 Clinisync Result Encounter [facility] External Department Unsolicited Yazan Walls MD [address] [place] [address] Social History Tobacco Use Types Packs/Day Years [...] [facility] [address] [place] [address] Yazan Walls MD [address] [place] [address] documented as of this encounter Procedures Procedure Name Priority Date/Time Associated Diagnosis Comments US ABD RIGHT UPPER QUADRANT 10/24/2022 2:20 PM EDT documented in this encounter Results * US ABD RIGHT UPPER QUADRANT (10/24/2022 2:20 PM EDT) Anatomical Region Laterality Modality Other 10/24/2022 2:20 PM EDT Narrative 10/24/2022 2:50 PM EDT * * *Final Report* * * DATE [...] cholecystectomy. Normal sonographic appearance of the spleen. Program Manager Environmental Planning: [facility] Transcribe Date/Time: Oct 24 2022 2:38P Dictated by : NYDIA JETER MD This examination was interpreted and the report reviewed and electronically signed by: NYDIA JETER MD on Oct 24 2022 2:48PM EST [id number]^AGFA_IDC^SI^ACN Procedure Note Radiology, Radiologist, - 10/25/2022 * * *Final Report* * * DATE [...] cholecystectomy. Normal sonographic appearance of the spleen. Program Manager Environmental Planning: [facility] Transcribe Date/Time: Oct 24 2022 2:38P Dictated by : NYDIA JETER MD This examination was interpreted and the report reviewed and electronically signed by: NYDIA JETER MD on Oct 24 2022 2:48PM EST [id number]^AGFA_IDC^SI^ACN Yazan Walls MD [facility] Final Result documented in this encounter Visit Diagnoses Not on filedocumented in this encounter Care Teams Sales Representative Public Utilities Relationship Specialty Start Date End Date Yazan Walls MD [address] [place] [address] PCP - General Family Medicine 09/12/22 Daxa Nazario NP [address] [place] [address] Nurse Practitioner Family Medicine 11/28/24 documented as of this encounter
--- OUTSIDE RECORDS SUMMARY | 2024-12-10 10:57 | XMS_ITS | Encounter Summary ---
Author Organization [facility] Address [address] [place] [address] Care Team Providers Care Power Barker Operator Name Role Phone Yazan Walls MD Primary Care Provider Daxa Nazario ETCHER HAND Unavailable [phone] Encounter Details Date Type Department Care Team (Late Contact Info) Description 07/18/2023 Abstract [facility] [address] [place] [address] Yazan Walls MD [address] [place] [address] Social History Tobacco Use Types [...] 3:00 PM EST Office Visit [facility] [address] [place] [address] Yazan Walls MD [address] [place] [address] documented as of this encounter Visit Diagnoses Not on filedocumented in this encounter Care Teams Power Barker Operator Relationship Specialty Start Date End Date Yazan Walls MD [address] [place] [address] PCP - General Family Medicine 09/12/22 Daxa Nazario NP [address] [place] [address] Nurse Practitioner Family Medicine 11/28/24 documented as of this encounter
--- OUTSIDE RECORDS SUMMARY | 2024-12-10 10:57 | XMS_ITS | Encounter Summary ---
Author Organization [facility] Address [address] [place] [address] Care Team Providers Care Fish And Wildlife Scientific Aid Name Role Phone Yazan Walls MD Primary Care Provider Daxa Nazario SENIOR ELECTRICAL CONTROLS ENGINEER Unavailable [phone] Encounter Details Date Type Department Care Team (Late st Contact Info) Description 10/24/2022 Clinisync Result Encounter [facility] External Department Unsolicited Yazan Walls MD [address] [place] [address] Social History Tobacco Use Types Packs/Day Years [...] [facility] [address] [place] [address] Yazan Walls MD [address] [place] [address] documented as of this encounter Procedures Procedure Name Priority Date/Time Associated Diagnosis Comments US ABD SPLEEN -NB 10/24/2022 2:2 6 PM EDT documented in this encounter Results * US ABD SPLEEN -NB (10/24/2022 2:26 PM EDT) Anatomical Region Laterality Modality Other 10/24/2022 2:26 PM EDT Narrative 10/24/2022 2:50 PM EDT * * *Final Report* * * DATE OF EXAM: Oct 24 2022 2:26PM [facility] 1232 - US ABD SPLEEN -NB / [...] cholecystectomy. Normal sonographic appearance of the spleen. Assistant Manager Bilingual: [facility] Transcribe Date/Time: Oct 24 2022 2:38P Dictated by : NYDIA JETER MD This examination was interpreted and the report reviewed and electronically signed by: NYDIA JETER MD on Oct 24 2022 2:48PM EST [id number]^AGFA_IDC^SI^ACN Procedure Note Radiology, Radiologist, - 10/25/2022 * * *Final Report* * * DATE OF EXAM: Oct 24 2022 2:26PM [facility] 1232 - US ABD SPLEEN -NB / [...] cholecystectomy. Normal sonographic appearance of the spleen. Assistant Manager Bilingual: P[facility] Transcribe Date/Time: Oct 24 2022 2:38P Dictated by : NYDIA JETER MD This examination was interpreted and the report reviewed and electronically signed by: NYDIA JETER MD on Oct 24 2022 2:48PM EST [id number]^AGFA_IDC^SI^ACN us Yazan Walls MD [facility] Final Result documented in this encounter Visit Diagnoses Not on filedocumented in this encounter Care Teams Fish And Wildlife Scientific Aid Relationship Specialty Start Date End Date Yazan Walls MD [address] [place] [address] PCP - General Family Medicine 09/12/22 Daxa Nazario NP [address] [place] [address] Nurse Practitioner Family Medicine 11/28/24 documented as of this encounter
--- OUTSIDE RECORDS SUMMARY | 2024-12-10 10:57 | XMS_ITS | Encounter Summary ---
Author Organization [facility] Address [address] [place] [address] Care Team Providers Care Od Grinder Operator Name Role Phone Yazan Walls MD Primary Care Provider [phone] Daxa Nazario MACHINE DEBURRER Unavailable Encounter Details Date Type Department Care [...] [facility] [address] [place] [address] Yazan Walls MD [address] [place] [address] documented as of this encounter Procedures Procedure Name Priority Date/Time Associated Diagnosis Comments US HAND/WRIST SYNOVIAL SCREEN LT 03/07/2023 12:52 PM EST documented in this encounter Results * US HAND/WRIST SYNOVIAL SCREEN LT (03/07/2023 12:52 PM EST) Anatomical Region Laterality Modality Other 03/07/2023 12:5 2 PM EST Narrative 03/07/2023 1:09 PM EST [...] IMPRESSION: NO ACTIVE SYNOVITIS. GANGLION CYSTS BILATERALLY. Drive Thru Order Taker: [facility] Transcribe Date/Time: Mar 07 2023 12:53P Dictated by : MANJIT CRUZ MD This examination was interpreted and the report reviewed and electronically signed by: MANJIT CRUZ MD on Mar 07 2023 1:07PM EST [id number]^AGFA_IDC^SI^ACN Procedure Note Radiology, Radiologist, - 03/07/2023 * [...] IMPRESSION: NO ACTIVE SYNOVITIS. GANGLION CYSTS BILATERALLY. Drive Thru Order Taker: [facility] Transcribe Date/Time: Mar 07 2023 12:53P Dictated by : MANJIT CRUZ MD This examination was interpreted and the report reviewed and electronically signed by: MANJIT CRUZ MD on Mar 07 2023 1:07PM EST [id number]^AGFA_IDC^SI^ACN us Generic External Data Provider [facility] Final Result documented in this encounter Visit Diagnoses Not on filedocumented in this encounter Care Teams Od Grinder Operator Relationship Specialty Start Date End Date Yazan Walls MD [address] [place] [address] PCP - General Family Medicine 09/12/22 Daxa Nazario NP [address] [place] [address] Nurse Practitioner Family Medicine 11/28/24 documented as of this encounter
--- OUTSIDE RECORDS SUMMARY | 2024-12-10 10:57 | XMS_ITS | Encounter Summary ---
Author Organization [facility] Address [address] [place] [address] Care Team Providers Care Change Director Name Role Phone Yazan Walls MD Primary Care Provider Daxa Nazario DUMP OPERATOR Unavailable [phone] Encounter Details Date Type Department Care Team (Late Contact Info) Description 06/12/2023 Orders Only [facility] [address] [place] [address] Yazan Walls MD [address] [place] [address] Social History Tobacco Use Types [...] 3:00 PM EST Office Visit [facility] [address] [place] [address] Yazan Walls MD [address] [place] [address] documented as of this encounter Procedures Procedure Name Priority Date/Time Associated Diagnosis Comments CBC Routine 06/12/2023 1:20 PM EST LIPID PANEL Routine 06/12/2023 1:20 PM EST COMPREHENSIVE METABOLIC PANEL Routine 06/12/2023 1:20 PM EST documented in this encounter Results * Comprehensive metabolic panel (06/12/2023 1:20 PM EST) Blood Venous blood specimen / Unknown us Yazan Walls MD LAB BLOOD ORDERABLES Final Res ult * Lipid panel (06/12/2023 1:20 PM EST) Blood Venous blood specimen / Unknown Result [facility] us Yazan Walls MD LAB BLOOD ORDERABLES Final Res ult * CBC (06/12/2023 1:20 PM EST) Blood Venous blood specimen / Unknown us Yazan Walls MD LAB BLOOD ORDERABLES Final Res ult documented in this encounter Visit Diagnoses Not on filedocumented in this encounter Care Teams Change Director Relationship Specialty Start Date End Date Yazan Walls MD [address] [place] [address] PCP - General Family Medicine 09/12/22 Daxa Nazario NP [address] [place] [address] Nurse Practitioner Family Medicine 11/28/24 documented as of this encounter
--- OUTSIDE RECORDS SUMMARY | 2024-12-10 10:57 | XMS_ITS | Encounter Summary ---
Author Organization [facility] Address [address] [place] [address] Care Team Providers Care Taker Away Name Role Phone Yazan Walls MD Primary Care Provider [phone] Daxa Nazario WASTE EXAMINER Unavailable [phone] Encounter Details Date Type Department Care Team (Late Contact Info) Description 12/01/2022 Orders Only [facility] [address] [place] [address] Yazan Walls MD [address] [place] [address] Social History Tobacco Use Types [...] 3:00 PM EST Office Visit [facility] [place] [address] [place] [address] Yazan Walls MD [address] [place] [address] documented as of this encounter Procedures Procedure Name Priority Date/Time Associated Diagnosis Comments ESOPHAGOSCOPY Routine 11/28/2022 3:03 PM EDT documented in this encounter Results * Esophagoscopy (11/28/2022 3:03 PM EDT) Anatomical Region Laterality Modality Endoscopy Yazan Walls MD ENDOSCOPY PROCEDURE ORDERABLES Final Result documented in this encounter Visit Diagnoses Not on filedocumented in this encounter Care Teams Taker Away Relationship Specialty Start Date End Date Yazan Walls MD [address] [place] [address] PCP - General Family Medicine 09/12/22 Daxa Nazario NP [address] [place] [address] Nurse Practitioner Family Medicine 11/28/24 documented as of this encounter
--- OUTSIDE RECORDS SUMMARY | 2024-12-10 10:57 | XMS_ITS | Encounter Summary ---
Author Organization [facility] Address [address] [place] [address] Care Team Providers Care Advertising Display Rotator Name Role Phone Yazan Walls MD Primary Care Provider Daxa Nazario ADULT LIVE IN CAREGIVER Unavailable [phone] Encounter Details Date Type Department Care Team (Late Contact Info) Description 07/20/2023 Orders Only [facility] [address] [place] [address] Yazan Walls MD [address] [place] [address] Social History Tobacco Use Types [...] 3:00 PM EST Office Visit [facility] [address] [place] [address] Yazan Walls MD [address] [place] [address] documented as of this encounter Procedures Procedure Name Priority Date/Time Associated Diagnosis Comments COLONOSCOPY DIAGNOSTIC Routine 07/18/2023 8:38 AM EDT documented in this encounter Results * COLONOSCOPY DIAGNOSTIC (07/18/2023 8:38 AM EDT) Anatomical Region Laterality Modality Radiographic Emily ging Yazan Walls MD IMG XR PROCEDURES Final Result documented in this encounter Visit Diagnoses Not on filedocumented in this encounter Care Teams Advertising Display Rotator Relationship Specialty Start Date End Date Yazan Walls MD [address] [place] [address] PCP - General Family Medicine 09/12/22 Daxa Nazario NP [address] [place] [address] Nurse Practitioner Family Medicine 11/28/24 documented as of this encounter
--- OUTSIDE RECORDS SUMMARY | 2024-12-10 10:57 | XMS_ITS | Encounter Summary ---
Author Organization [facility] Address [address] [place] [address] Care Team Providers Care Lay Ups Assembler Name Role Phone Yazan Walls MD Primary Care Provider [phone] Daxa Nazario WARPER FIXER Unavailable [phone] Encounter Details Date Type Department Care Team (Late Contact Info) Description 03/29/2024 Orders Only [facility] [address] [place] [address] Yazan Walls MD [address] [place] [address] Social History Tobacco Use Types Packs/Day Years Used Date Smoking Tobacco: Never Smokeless Tobacco: Never Alcohol Use Standard Drinks/Week Comments Never 0 (1 standard drink = 0.6 oz pur e alcohol) coffee 1-2 cups/day Comments No Sex and Gender Information Value Date Recorded Sex Assigned at Not on file Legal Sex Female 7:23 PM EDT Gender Identity Not on file Sexual Orientation Not on file documented as of this encounter Plan of Treatment Upcoming Encounters Date Type Department Care Team (Late Contact Info) Description 03/11/2025 3:00 PM EST Office Visit [facility] [address] [place] [address] Yazan Walls MD [address] [place] [address] documented as of this encounter Procedures Procedure Name Priority Date/Time Associated Diagnosis Comments XR CHEST 1 VIEW Routine 03/28/2024 10:02 PM EST documented in this encounter Results * XR chest 1 view (03/28/2024 10:02 PM EST) Anatomical Region Laterality Modality Chest Radiographic Emily ging Yazan Walls MD IMG XR PROCEDURES Final Result documented in this encounter Visit Diagnoses Not on filedocumented in this encounter Care Teams Lay Ups Assembler Relationship Specialty Start Date End Date Yazan Walls MD [address] [place] [address] PCP - General Family Medicine 09/12/22 Daxa Nazario NP [address] [place] [address] Nurse Practitioner Family Medicine 11/28/24 documented as of this encounter
--- OUTSIDE RECORDS SUMMARY | 2024-12-10 10:57 | XMS_ITS | Encounter Summary ---
Author Organization [facility] Address [address] [place] [address] Care Team Providers Care Porter Bath Name Role Phone Yazan Walls MD Primary Care Provider Daxa Nazario BATCH ROOM TECHNICIAN Unavailable Encounter Details Date Type Department Care Team (Late Contact Info) Description 06/08/2023 Orders Only [facility] [address] [place] [address] Yazan Walls MD [address] [place] [address] Social History Tobacco Use Types [...] 3:00 PM EST Office Visit [facility] [address] [place] [address] Yazan Walls MD [address] [place] [address] documented as of this encounter Procedures Procedure Name Priority Date/Time Associated Diagnosis Comments FECAL IMMUNOCHEMICAL Routine 06/08/2023 3:50 PM EST documented in this encounter Results * (ABNORMAL) Fecal immunochemical (06/08/2023 3:50 PM EST) Stool Rectal contents / Unknown us Yazan Walls MD LAB BODY FLUIDS AND STOOLS ORD ERABLES Final Result documented in this encounter Visit Diagnoses Not on filedocumented in this encounter Care Teams Porter Bath Relationship Specialty Start Date End Date Yazan Walls MD [address] [place] [address] PCP - General Family Medicine 09/12/22 Daxa Nazario NP [address] [place] [address] Nurse Practitioner Family Medicine 11/28/24 documented as of this encounter
--- OUTSIDE RECORDS SUMMARY | 2024-12-10 10:57 | XMS_ITS | Encounter Summary ---
Author Organization [facility] Address [address] [place] [address] Care Team Providers Care Gas Meter Repair Supervisor Name Role Phone Yazan Walls MD Primary Care Provider [phone] Daxa Nazario SOLE ROUNDING MACHINE OPERATOR Unavailable [phone] Encounter Details Date Type Department Care Team (Late Contact Info) Description 09/20/2022 [facility] [address] [place] [address] Yazan Walls MD [address] [place] [address] Social History Tobacco Use Types [...] PM EST Office Visit [facility] [address] [place] [address] Yazan Walls MD [address] [place] [address] documented as of this encounter Procedures Procedure Name Priority Date/Time Associated Diagnosis Comments MICROALBUMIN / CREATININE URINE RATIO Routine 09/13/2022 9:49 AM EDT CBC Routine 09/13/2022 9:49 AM EDT HEMOGLOBIN A1C Routine 09/13/2022 9:49 AM EDT COMPREHENSIVE METABOLIC PANEL Routine 09/13/2022 9:49 AM EDT documented in this encounter Results * Microalbumin / creatinine urine ratio (09/13/2022 9:49 AM EDT) Urine Urine specimen obtained by clean catch procedure / Unknown Result [facility] us Yazan Walls MD LAB URINE ORDERABLES Final Res ult * CBC (09/13/2022 9:49 AM EDT) Blood Venous blood specimen / Unknown Result Keren Walls MD LAB BLOOD ORDERABLES Final Res ult * Comprehensive metabolic panel (09/13/2022 9:49 AM EDT) Blood Venous blood specimen / Unknown Result Keren Walls MD LAB BLOOD ORDERABLES Final Res ult * Hemoglobin A1c (09/13/2022 9:49 AM EDT) Blood Venous blood specimen / Unknown Result Keren Walls MD LAB BLOOD ORDERABLES Final Res ult documented in this encounter Visit Diagnoses Not on filedocumented in this encounter Care Teams Gas Meter Repair Supervisor Relationship Specialty Start Date End Date Yazan Walls MD [address] [place] [address] PCP - General Family Medicine 09/12/22 Daxa Nazario NP [address] [place] [address] Nurse Practitioner Family Medicine 11/28/24 documented as of this encounter
--- OUTSIDE RECORDS SUMMARY | 2024-12-10 10:57 | XMS_ITS | Encounter Summary ---
Author Organization [facility] Address [address] [place] [address] Care Team Providers Care Certified Family Mediator Name Role Phone Yazan Walls MD Primary Care Provider Daxa Nazario ADULT SPECIALIST Unavailable [phone] Encounter Details Date Type Department Care Team (Late Contact Info) Description 03/11/2023 Abstract [facility] [address] [place] [address] Yazan Walls MD [address] [place] [address] Social History Tobacco Use Types [...] 3:00 PM EST Office Visit [facility] [place] [address] [place] [address] Yazan Walls MD [address] [place] [address] documented as of this encounter Visit Diagnoses Not on filedocumented in this encounter Care Teams Certified Family Mediator Relationship Specialty Start Date End Date Yazan Walls MD [address] [place] [address] PCP - General Family Medicine 09/12/22 Daxa Nazario NP [address] [place] [address] Nurse Practitioner Family Medicine 11/28/24 documented as of this encounter
--- OUTSIDE RECORDS SUMMARY | 2024-12-10 10:57 | XMS_ITS | Clinical Summary ---
Author Organization [facility] Address [address] [place], [place] [id number] Care Team Providers Care Application Support Engineer Name Role Phone Maty Jameson CNP Unavailable [phone] Yazan Walls MD Primary Care Provider [phone] Yazan Walls MD Unavailable [phone] Allergies Active Allergy Reactions Criticality Noted Date Comments Levofloxacin Unknown 12/12/2022 Medications levothyroxine (SYNTHROID) 100 mcg tablet Take 1 tablet by mouth once daily. 09/20/2022 Active Cholecalciferol, Vitamin D3, 125 mcg/mL (5,000 unit/mL) drop Take 1 tablet by mouth once daily. 03/15/2022 Active Milk Thistle 175 mg tab Take 1 tablet by mouth twice daily. Active Active Problems Problem Noted Date Diagnosed Date Fatty liver 12/12/2022 12/14/2022 Diabetes 09/01/2022 12/14/2022 Elevation of levels of liver transaminase levels 07/26/2022 12/14/2022 Ro's thyroiditis 12/21/2021 12/15/19 23 Immunizations Immunization Administration Dates Next Due influenza (IIV4) vaccine, ag e 6 mo - 64 yr, quadrivalent, PF (AFLURIA, FLUARIX, FLULAVAL, FLUZONE) 03/08/2021,02/07/2017 influenza (RIV4) vaccine, re combinant, quadrivalent, PF (FLUBLOK) 02/21/2022 Family History Medical History Relation Comments Liver Disease No Family History Social History Tobacco Use Types Packs/Day Years Used Date Smoking Tobacco: Never Smokeless Tobacco: Never Tobacco Cessation:Counseling Given: Not Answered Alcohol Use Standard Drinks/Week Comments Not Currently 0 (1 standard drink = 0.6 oz pur e alcohol) Area Deprivation Index Answer Date Raghav rded National Score (1-100), lower number is lower ri sk 93 09/21/2022 State Score (1-10), lower number is lower risk 9 09/21/2022 Data from: https://www.neighborhoodatlas.medicine.[facility].edu/. Last address used for calculation [address] 09/21/2022 Comments Unknown Sex and Gender Information Value Date Recorded Sex Assigned at Not on file Legal Sex Female 4:04 PM EDT Gender Identity Not on file Sexual Orientation Not on file Last Filed Vital Signs Vital Sign Reading Time Taken Comments Blood Pressure 142/79 07/25/2023 9:35 AM EDT Pulse 61 07/25/2023 9:35 AM EDT Temperature 36.1 C (97 F) 07/25/2023 9:35 AM EDT Respiratory Rate - - Oxygen Saturation 100% 07/25/2023 9:35 AM EDT Inhaled Oxygen Concentration - - Weight 56.2 kg (123 lb 14.4 oz) 07/25/2023 9:35 AM EDT Height 156.2 cm (5' 1.5 ) 07/25/2023 9:35 AM EDT Body Mass Index 23.03 07/25/2023 9:35 AM EDT Plan of Treatment Health Maintenance Due Date Last Done Comments Diabetic Foot Exam 1982 Dilated Retinal Exam 1982 Annual PCP Team Chronic Dise ase Visit 1990 Anxiety Screening 1990 Depression Screening 1990 HIV Screening 1990 DTaP,Tdap,Td Vaccine (1 - Tdap) 1991 Hepatitis B Vaccine (1 of 3 - 19+ 3-dose series) 1991 Pneumococcal Vaccine: 50+ (1 of 2 - PCV) 1991 Cervical Cancer Screening 1993 CT Colonography 2017 Cologuard (FIT-DNA) 2017 Sigmoidoscopy 2017 Mammogram Screening 04/20/2021 04/20/2020 Shingrix Vaccine (1 of 2) 2022 HbA1C 12/07/2023 06/08/2023, 03/02, 12/12/2022, Additional history exists Urine Albumin:Creatinine Ratio 01/31/2024 01/30/2023 Fecal Occult Blood 06/08/2024 06/08/2023 LDL Cholesterol 06/12/2024 06/12/2023, 12/14/2022 Colonoscopy 07/17/2024 07/18/2023 Colorectal Cancer Screening 07/17/2024 Influenza Vaccine (#1) 2024 , 02/21/2022, 03/08/2021, Additional history exists Hepatitis C Screening Completed 09/21/2022, 023 Procedures Procedure Name Priority Date/Time Associated Diagnosis Comments LIPID PANEL, FASTING Routine 12/14/2022 3:14 PM EDT NAFL (nonalcoholic fatty liver) HEPATITIS C ANTIBODY IA WITH CONFIRMATION Routine 09/21/2022 3:27 PM EDT BLOOM (nonalcoholic steatohepatitis) from Last 3 Months or Most Recently Relevant to Health Maintenance Results * LIPID PANEL BASIC (12/14/2022 3:14 PM EDT) Cholesterol, Total 132 <200 mg/dL 12/15/2022 11:45 AM T [facility] Comment: <200 mg/dL, Desirable 200-239 mg/dL, Borderline high >239 mg/dL, High Triglyceride 105 <150 mg/dL 12/15/2022 11:45 AM T [facility] Comment: <150 mg/dL, Normal 150-199 mg/dL, Borderline high 200-499 mg/dL, High >499 mg/dL, Very high HDL Cholesterol 55 >39 mg/dL 11:45 AM T [facility] Comment: 40-59 mg/dL, Acceptable >59 mg/dL, High: Negative risk factor for coronary heart disease <40 mg/dL, Low: Positive risk factor for coronary heart disease Non HDL Cholesterol 77 <130 mg/dL 12/15/2022 11:45 AM T [facility] Comment: <130 mg/dL, Optimal 130-159 mg/dL, Near optimal/above optimal 160-189 mg/dL, Borderline high 190-219 mg/dL, High >219 mg/dL, Very high Secondary prevention optimal non HDL Cholesterol levels are recommended to be <100 mg/dL Fasting Time 6 hrs 12/15/2022 11:45 AM EDT [facility] VLDL Cholesterol 21 <30 mg/dL 12/16/19 11:45 AM EDT [facility] TC:HDL Ratio 2.40 <5.10 12/15/2022 11:45 AM EDT [facility] LDL Cholesterol, Calculated 56 <100 mg/dL 12/15/2022 11:45 AM EDT [facility] Comment: <100 mg/dL, Optimal 100-129 mg/dL, Near optimal/above optimal 130-159 mg/dL, Borderline high 160-189 mg/dL, High >189 mg/dL, Very high Secondary prevention optimal LDL Cholesterol levels are recommended to be < 70 mg/dL LDL:HDL Ratio 1.02 <2.54 12/15/2022 11:45 AM EDT [facility] Comment: Reference: 1. National Cholesterol Education Program ATP III Guideline At-A-Glance Quick Desk Reference: National Heart, Lung, and Blood [place]. National Institutes of Health. 2001: NIH Publication No. 01-3305. 2. An International Atherosclerosis Society position paper: global recommendations for the management of dyslipidemia: executive summary, Atherosclerosis. 2014: 232(2):410-413. Blood BLOOD SPECIMEN / Unknown Venipuncture / Unknown 12/14/2022 3:14 PM EDT 12/14/2022 3:14 PM EDT us Sandhya Valdes MD LABORATORY Final Result [facility] [address] [id number], * HEP C AB IA W/CONF SCRN (09/21/2022 3:27 PM EDT) Hep C Antibody IA Negative Negative 09/21/2022 9:11 PM EDT [facility] Comment:The result suggests no evidence of active infection with Hepatitis C virus. Should recent infection be suspected, repeat testing may be considered 4-6 weeks after this draw. Blood BLOOD SPECIMEN / Unknown Venipuncture / Unknown 09/21/2022 3:27 PM EDT 09/21/2022 3:28 PM EDT us Sandhya Valdes MD LABORATORY Final Result [facility] [address] [facility] [address] [place] [address], [place] from Last 3 Months or Most Recently Relevant to Health Maintenance Insurance [facility] Care Teams Application Support Engineer Relationship Specialty Start Date End Date Yazan Walls MD [address] [place] [address] PCP - General Family Medicine 09/02/22 Maty Jameson CNP [address] [place] [id number] Referring 09/26/17 Yazan Walls MD [address] [place] [address] [facility] Medicine 09/02/22
--- OUTSIDE RECORDS SUMMARY | 2024-12-10 10:57 | XMS_ITS | Encounter Summary ---
Author Organization [facility] Address [address] [place] [address] Care Team Providers Care Card Reader Name Role Phone Yazan Walls MD Primary Care Provider [phone] Daxa Nazario WOOD TANK ERECTOR Unavailable Encounter Details Date Type Department Care Team (Late Contact Info) Description 07/31/2023 Abstract [facility] [place] [facility] Medicine [address] [place] [address] Jaquelin Jiang MA Social History Tobacco Use Types Packs/Day Years [...] Upcoming Encounters Date Type Department Care Team ([facility] Contact Info) Description 03/11/2025 3:00 PM EST Office Visit [facility] [address] [place] [address] Yazan Walls MD [address] [place] [address] documented as of this encounter Visit Diagnoses Not on filedocumented in this encounter Care Teams Card Reader Relationship Specialty Start Date End Date Yazan Walls MD [address] [place] [address] PCP - General Family Medicine 09/12/22 Daxa Nazario NP [address] [place] [address] Nurse Practitioner Family Medicine 11/28/24 documented as of this encounter
--- OUTSIDE RECORDS SUMMARY | 2024-12-10 10:57 | XMS_ITS | Clinical Summary ---
Author Organization [facility] Address [address] [place] [address] Care Team Providers Care [employer] Director Name Role Phone Yazan Walls MD Primary Care Provider [phone] Daxa Nazario DOCUMENT MANAGEMENT SPECIALIST Unavailable [phone] Allergies Active Allergy Reactions Criticality Noted Date Comments Levofloxacin Unknown 12/12/2022 Medications ibuprofen 200 MG tablet every 8 (eight) hours. 2 Active Cholecalcifero l (Vitamin D) 125 MCG (5000 UT) capsule Take 125 mcg by mouth in the morning. 3 Active calcium carbonate (Caltrate 600) 1500 (600 Ca) MG tabletIndicati ons:Low serum calcium Take 1 tablet (1,500 mg) by mouth in the morning and 1 tablet (1,500 mg) in the evening. Take with meals. 180 tablet 1 3 Active Additional Information Patient not taking.Reported on 12/03/2024 milk thistle 175 MG tablet Take 175 mg by mouth Daily Active albuterol (ProAir RespiClick) 90 mcg/act breath-activat ed inhalerIndicat ions:Cough in adult Inhale 2 puffs every 4 (four) hours if needed for wheezing or shortness of breath 1 each 4 Active levothyroxine (Synthroid, Levoxyl) 100 MCG tabletIndicati ons:Hypothyroi dism (acquired) Take 1 tablet (100 mcg) by mouth 1 (one) time each day at the same time 90 tablet 1 5 06/01/19 26 Active levothyroxine (Synthroid, Levoxyl) 100 MCG tabletIndicati ons:Hypothyroi dism (acquired) Take 1 tablet (100 mcg) by mouth 1 (one) time each day at the same time 90 tablet 1 5 12/04/19 25 Discontin ued(Reord er) Active Problems Problem Noted Date Diagnosed Date Dysphagia 12/12/2022 Fatty liver 12/12/2022 BLOOM (nonalcoholic steatohepatitis) 12/12/2022 Screen for colon cancer 12/12/2022 Calculus of gallbladder with chronic cholecystitis without obstruction 09/01/2022 Cirrhosis 09/01/2022 Diabetes 09/01/2022 Endometrioma 09/01/2022 Enlarged thyroid 09/01/2022 Hyperthyroidism 09/01/2022 Other specified hypothyroidism 09/01/2022 Thyroid nodule 09/01/2022 Esophageal stricture 09/01/2022 Ro's thyroiditis 09/01/2022 Allergic rhinitis 09/01/2022 Rhinitis 09/01/2022 Sinusitis 09/01/2022 Vitamin D deficiency 09/01/2022 Acquired absence of other sp ecified parts of digestive tract 07/26/2022 Diarrhea, unspecified 07/26/2022 High aspartate transaminase measurement 07/27/19 23 Nausea with vomiting, unspecified 07/25/2022 Vitamin deficiency, unspecified 07/08/2022 Type 2 diabetes mellitus without complications 0 07/05/2022 Low back pain 09/17/2021 Encounters Date Type Department Care Team Description 12/09/2024 Orders Only [facility] [address] [place] [address] Yazan Walls MD 12/03/2024 2:00 PM EDT [facility] [address] [place] [address] Yazan Walls MD Traumatic incomplete tear of right rotator cuff, initial encounter (Primary Dx); Hypothyroidism (acquired) ; Type 2 diabetes mellitus without complication, without long-term current use of insulin (HCC); Vitamin D deficiency; Adult general medical examination; Low magnesium level; BLOOM (nonalcoholic steatohepatitis) 12/03/2024 Travel from Last 3 Months Immunizations Immunization Administration Dates Next Due Influenza, Recombinant, inje ctable, preservative free 03/04/2024 Influenza, injectable, quadr ivalent, preservative free 03/21/2023,03/08/2021,02/07/2017 Influenza, recombinant, quad rivalent, injectable, preservative free 02/21/2022 Moderna Bivalent Booster Vaccination 03/08/2022 Moderna SARS-CoV-2 50mcg/0.5mL Booster Family History Medical History Relation Name Comments No Known Problems Daughter rita 1993 No Known Problems Father misael 1950 Glaucoma Mother jazmín 1950 knee arthritis Mother jazmín Hypothyroidism Sister 1 kaelyn 1969 No Known Problems Sister 2 letittis 1974 No Known Problems Sister 3 marlenna 1979 No Known Problems Son larry 1991 Relation Name Status Comments Daughter rita Alive Father misael Alive Mother jazmín Alive Sister 1 kaelyn Alive Sister 2 letittis Alive Sister 3 marlenna Alive Son larry Alive Social History Tobacco Use Types Packs/Day Years [...] F) 12/03/2024 2:29 PM EDT Respiratory Rate 16 06/04/2024 2:28 PM EST Oxygen Saturation 96% 12/03/2024 2:29 PM EDT Inhaled Oxygen Concentration - - Weight 64.4 kg (142 lb) 12/03/2024 2:29 PM EDT Height 162.6 cm (5' 4 ) 12/03/2024 2:29 PM EDT Body Mass Index 24.37 12/03/2024 2:29 PM EDT Plan of Treatment Upcoming Encounters Date Type Department Care Team (Late st Contact Info) Description 03/11/2025 3:00 PM EST Office Visit [facility] [address] [place] [address] Yazan Walls MD [address] [place] [address] Health Maintenance Due Date Last Done Comments CT Colonography 1972 FIT-DNA 1972 FOBT 1972 Sigmoidoscopy 1972 Pap Smear 1993 HPV/Cotest 2002 FIT 06/08/2024 06/08/2023 Diabetes: Urine Protein Screening 12/03/2024 12/04/2023, 09/13/2022, 09/13/2022 Influenza Vaccine (#1) 2024 , 03/21/2023, 02/21/2022, Additional history exists Diabetes: Hemoglobin A1C 03/05/2025 025, 06/04/2024, 04/03/2024, Additional history exists Cervical Cancer Screening 06/04/2025 Po stponed from 2002 (Patient Refused) Diabetes: Retinopathy Screening 04/08/2026 04/08/2024, 02/27/2023 Mammogram 04/15/2026 01/15/2024, 04/20/2020 Colonoscopy 07/17/2033 07/18/2023, 03/12/2023, 07/18/2023, Additional history exists Colorectal Cancer Screening 07/17/2033 Procedures Procedure Name Priority Date/Time Associated Diagnosis Comments POCT GLYCOSYLATED HEMOGLOBIN (HGB A1C) Routine 12/03/2024 2:43 PM EDT Type 2 diabetes mellitus without complication, without long-term current use of insulin (HCC) DIABETIC RETINOPATHY SCREENING - OU - BOTH EYES Routine 04/08/2024 11:38 AM EST BI MAMMOGRAM SCREENING TOMOSYNTHESIS BILATERAL Routine 01/15/2024 3:02 PM EDT Encounter for screening mammogram for malignant neoplasm of breast POCT MICROALBUMIN Routine 12/04/2023 3:2 8 PM EDT Prediabetes COLONOSCOPY DIAGNOSTIC Routine 8:38 AM EDT FECAL IMMUNOCHEMICAL Routine 06/08/2023 3:50 PM EST from Last 3 Months or Most Recently Relevant to Health Maintenance Results * POCT glycosylated hemoglobin (Hb A1C) docked device (12/03/2024 2:43 PM EDT) Hemoglobin A1C 6.2 Blood Venous blood specimen / Unknown 12/03/2024 2:43 PM EDT us Yazan Walls MD POINT OF CARE TEST ENTER/EDIT ORDERABLES Edited Result - Final * Diabetic Retinopathy Screening - OU - Both Eyes (04/08/2024 11:38 AM EST) Anatomical Region Laterality Modality Head Other us Yazan Walls MD OPHTH PHOTOGRAPHY Final Result * Bilateral screening mammogram with tomosynthesis (01/15/2024 3:02 PM EDT) Anatomical Region Laterality Modality Breast Bilateral Mammography 01/18/2024 2:22 PM EDT Impressions 01/18/2024 2:36 PM EDT BIRADS 2 - Benign Follow-up: Routine Screening Mamm Board Certified Radiologists. Accredited by the ACR and FDA. MAMMOGRAPHY IS VERY IMPORTANT TO YOUR HEALTH. THE [place] [employer] GUIDELINES RECOMMEND THAT WOMEN 40 [...] BY: ELECTRONICALLY SIGNED BY: Chris Griffith MD Narrative 01/18/2024 2:36 PM EDT EXAMINATION: BI MAMMOGRAM SCREENING TOMOSYNTHESIS BILATERAL CLINICAL HISTORY:Screening for breast cancer COMPARISON: April 20, 2020. RESULT: Density: There are scattered areas of fibroglandular density Typically benign calcifications. There is no suspicious mass, asymmetry, architectural distortion, or calcification. Overall appearance stable. Procedure Note Chris Griffith MD - 01/18/2024 EXAMINATION: BI MAMMOGRAM SCREENING TOMOSYNTHESIS BILATERAL CLINICAL HISTORY:Screening for breast cancer COMPARISON: April 20, 2020. RESULT: Density: There are scattered areas of fibroglandular density Typically benign calcifications. There is no suspicious mass, asymmetry, architectural distortion, orcalcification. Overall appearance stable. IMPRESSION: BIRADS 2 - Benign Follow-up: Routine Screening Mamm Board Certified Radiologists. Accredited by the ACR and FDA. MAMMOGRAPHY IS VERY IMPORTANT TO YOUR HEALTH. THE [place] CAN[employer] SOCIETYGUIDELINES RECOMMEND THAT WOMEN 40 YEARS OF AGE AND OLDER SHOULD HAVE AMAMMOGRAM EVERY YEAR. A REMINDER LETTER WILL BE SENT AT THE APPROPRIATE TIME. THIS FACILITYUTILIZES A REMINDER SYSTEM TO ENSURE ALL PATIENTS RECEIVE REMINDERNOTIFICATIONS AT THE APPROPRIATE TIME BASED ON THE RECOMMENDATIONS OF THISEXAM. THIS INCLUDES REMINDERS FOR ROUTINE SCREENING MAMMOGRAMS, DIAGNOSTICMAMMOGRAMS IN WHICH THE PATIENT IS ASKED TO RETURN FOR ADDITIONAL VIEWS,OR OTHER BREAST IMAGING INTERVENTIONS WHEN APPROPRIATE. THE PATIENT WILLBE PLACED IN THE APPROPRIATE REMINDER SYSTEM INCLUDING A REMINDER AT THEAPPROPRIATE TIME FOR ANY PENDING ADDITIONAL VIEWS. TRANSCRIBED BY: ELECTRONICALLY SIGNED BY: Chris Griffith MD us Yazan Walls MD IMG BI PROCEDURES Final Result * POCT microalbumin manually resulted (12/04/2023 3:28 PM EDT) MICROALBUMIN, URINE 10 ALB/CREAT RATIO 10 URINE CREAT <30 Urine 12/04/2023 3:28 PM EDT us Yazan Walls MD POINT OF CARE TEST ENTER/EDIT ORDERABLES Final Result * COLONOSCOPY DIAGNOSTIC (07/18/2023 8:38 AM EDT) Anatomical Region Laterality Modality Radiographic Emily ging us Yazan Walls MD IMG XR PROCEDURES Final Result * (ABNORMAL) Fecal immunochemical (06/08/2023 3:50 PM EST) Stool Rectal contents / Unknown Yazan Walls MD LAB BODY FLUIDS AND STOOLS ORD ERABLES Final Result from Last 3 Months or Most Recently Relevant to Health Maintenance Insurance [employer] Care Teams [employer] Director Relationship Specialty Start Date End Date Yazan Walls MD [address] [place] [address] PCP - General Family Medicine 09/12/22 Daxa Nazario NP [address] [place] [address] Nurse Practitioner Family Medicine 11/28/24
--- OUTSIDE RECORDS SUMMARY | 2024-12-10 10:57 | XMS_ITS | Encounter Summary ---
Author Organization [facility] Address [address] [place] [address] Care Team Providers Care Chart Computer Name Role Phone Yazan Walls MD Primary Care Provider [phone] Daxa Nazario ANIMATION ARTIST Unavailable [phone] Encounter Details Date Type Department Care Team (Late Contact Info) Description 03/04/2023 Orders Only [facility] [place] [facility] [address] [place] [address] Yazan Walls MD [address] [place] [address] Social History Tobacco Use Types [...] 3:00 PM EST Office Visit [facility] [place] [facility] [address] [place] [address] Yazan Walls MD [address] [place] [address] documented as of this encounter Procedures Procedure Name Priority Date/Time Associated Diagnosis Comments DIABETIC RETINOPATHY SCREENING - OU - BOTH EYES Routine 02/27/2023 10:54 PM EDT documented in this encounter Results * Diabetic Retinopathy Screening - OU - Both Eyes (02/27/2023 10:54 PM EDT) Anatomical Region Laterality Modality Head Other us Yazan Walls MD OPHTH PHOTOGRAPHY Final Result documented in this encounter Visit Diagnoses Not on filedocumented in this encounter Care Teams Chart Computer Relationship Specialty Start Date End Date Yazan Walls MD [address] [place] [address] PCP - General Family Medicine 09/12/22 Daxa Nazario NP [address] [place] [address] Nurse Practitioner Family Medicine 11/28/24 documented as of this encounter
[2024-12-10 11:11] LABS: Hematocrit 36.5 % (36.0-48.0); Hemoglobin 12.3 g/dL (12.0-16.0); Immature Granulocytes Abs Auto 0.01 10^3/uL (0.00-0.03); Immature Granulocytes Pct Auto 0.2 % (0.0-0.5); Lymphocytes Absolute Auto 1.8 10^3/uL (1.2-3.8); Mean Corpuscular HGB Conc 33.7 g/dL (29.9-35.2); Mean Corpuscular Hemoglobin 30.7 pg (26.7-34.0); Mean Corpuscular Volume 91.0 fL (81.0-99.0); Platelet Count 236 10^3/uL (150-450); Red Blood Count 4.01 10^6/uL (4.20-5.40); White Blood Count 5.8 10^3/uL (4.0-11.0)
[2024-12-10 12:09] LABS: Alanine Aminotransferase 26 U/L (14-59); Albumin Globulin Ratio 1.0; Albumin Level 3.9 g/dL (3.4-5.0); Alkaline Phosphatase 130 U/L (46-116); Anion Gap 11.6; Aspartate Amino Transferase 19 U/L (15-37); Blood Urea Nitrogen 15.0 mg/dL (7.0-18.0); Calcium 9.2 mg/dL (8.5-10.1); Carbon Dioxide 29.6 mmol/L (21.0-32.0); Chloride 107 mmol/L (98-107); Estimated GFR (African America >60 (>=60 mL/min/1.73m^2); Estimated GFR (Non-African Ame >60 (>=60 mL/min/1.73m^2); Free T3 2.37 pg/mL (2.18-3.98); Globulin 3.9 g/dL; Glucose 122 mg/dL (74-106); Magnesium 2.4 mg/dL (1.8-2.4); Potassium 4.2 mmol/L (3.5-5.1); Sodium 144 mmol/L (136-145); Thyroid Stimulating Hormone 1.645 uIU/mL (0.358-3.740); Total Protein 7.8 g/dL (6.4-8.2)
== END 2024-12-10 10:48 | disposition home or self-care (01) ==
LOC: LAB 10:53
PROVIDERS: PCP Family Medicine; Visit Provider Family Medicine
DX: Z00.00 Encounter for general adult medical examination without abnormal findings (principal); E03.9 Hypothyroidism, unspecified; K75.81 Nonalcoholic steatohepatitis (NASH); R79.0 Abnormal level of blood mineral; E55.9 Vitamin D deficiency, unspecified
CPT/HCPCS: 36415; 80053; 82306; 83735; 84439; 84443; 84481; 85025